=== PATIENT | female | born 1960 | race Caucasian/White ===

== ENCOUNTER → 2017-04-26 | Outpatient (CLI) | payer BC ==
[~2017-04-26] MED LIST: ANAS1TAB7; APIX5TAB2 PO; LVT.025T PO; MECL-124 PO; METO50TA7 PO; MTP100TCR PO; NF-ESOM40C PO; NITR100C3 PO; PHEN100T26 PO; WRF5T
--- NOTE | 2017-04-27 15:37 | ECHOCARDIOGRAPHY REPORT ---
DATE OF SERVICE: 04/26/2017 ORDERING PHYSICIAN: MAYLIN Bro PRIMARY PHYSICIAN: Dr. Galvin. OTHER PHYSICIAN: Dr. Dewitt. CLINICAL DIAGNOSES: Atrial fibrillation, hypertension, mitral and tricuspid regurgitation. MEASUREMENTS: Aortic root 3.1. Left atrium 4. LV diameter diastolic 4.7. IVS thickness diastolic 1.1. LVPW thickness diastolic 1. DESCRIPTION: Two-dimensional echocardiography shows normal global left ventricular systolic function with ejection fraction approximately 60%. Aortic, mitral and tricuspid valve leaflets show good leaflet excursion. Doppler imaging indicates trivial to mild tricuspid regurgitation. Pulmonary artery systolic pressure is estimated approximately 40 mmHg. There is no Doppler evidence of any significant valvular stenosis. There is trivial to mild mitral regurgitation. Good subcostal views are not available. The study is not suitable for evaluation for intracardiac shunt. CONCLUSIONS: 1. Normal global left ventricular systolic function with ejection fraction approximately 60%. 2. Trivial to mild mitral and tricuspid regurgitation. 3. No evidence of significant valvular stenosis. 4. Pulmonary artery systolic pressure is estimated to be approximately 40 mmHg. Job ID: [id number] DocumentID: [id number] Dictated Date: 04/27/2017 11:36:20 Stock Or Delivery Clerk Date: 04/27/2017 11:57:29 Dictated By: KELLEN DEWITT MD, MA, FACP, FACC,
== END ==
LOC: CARD 08:44
PROVIDERS: ATTEND Nurse Practitioner Family
DX: I10 Essential (primary) hypertension (principal); I08.1 Rheumatic disorders of both mitral and tricuspid valves; G47.33 Obstructive sleep apnea (adult) (pediatric); Z86.79 Personal history of other diseases of the circulatory system
CPT/HCPCS: 93306

== ENCOUNTER → 2017-05-19 | Outpatient (CLI) | payer BC ==
[2017-05-19 10:02] LABS: ALANINE AMINOTRANSFERASE 104 U/L (0-55); ALBUMIN 4.2 GM/DL (3.2-4.5); ANION GAP 10 MMOL/L (5-14); ASPARTATE AMINO TRANSFERASE 57 U/L (5-34); BILIRUBIN,TOTAL 0.6 MG/DL (0.1-1.0); BLOOD UREA NITROGEN 18 MG/DL (7-18); BUN/CREATININE RATIO 20 (0-20); CALCIUM 9.5 MG/DL (8.5-10.1); CARBON DIOXIDE 24 MMOL/L (21-32); CHLORIDE 106 MMOL/L (98-107); CHOLESTEROL 175 MG/DL (< 200); CREATININE SERUM 0.89 MG/DL (0.60-1.30); DIRECT LDL 111 MG/DL (1-129); GFR ESTIMATED > 60; GLUCOSE 112 MG/DL (70-105); HEMOLYSIS 6 (-100-29); ICTERUS 0.8 (-100-1.9); LIPEMIA 5 (-100-49); POTASSIUM 4.6 MMOL/L (3.6-5.0); SODIUM 140 MMOL/L (135-145); TOTAL PROTEIN 7.5 GM/DL (6.4-8.2); TRIGLYCERIDES 70 MG/DL (<150); VLDL CHOLESTEROL 14 MG/DL (5-40)
[2017-05-19 10:23] LABS: THYROID STIMULATING HORMONE 0.37 UIU/ML (0.35-4.94)
== END ==
LOC: LAB 09:31
PROVIDERS: ATTEND Internal Medicine
DX: E78.00 Pure hypercholesterolemia, unspecified (principal); E78.1 Pure hyperglyceridemia; E03.2 Hypothyroidism due to medicaments and other exogenous substances
CPT/HCPCS: 36415; 80053; 80061; 84439; 84443

== ENCOUNTER → 2017-09-11 | Outpatient (CLI) | payer BC | LOC: LAB 08:26 | PROVIDERS: ATTEND Internal Medicine Endocrinology, Diabetes & Metabolism | DX: E03.9 Hypothyroidism, unspecified (principal) | CPT/HCPCS: 36415; 84443 ==

== ENCOUNTER → 2017-11-17 | Outpatient (CLI) | payer BC ==
[2017-11-17 09:10] LABS: BASOPHILS % (AUTO) 1 % (0-10); EOSINOPHILS # (AUTO) 0.1 10^3/uL (0.0-0.3); EOSINOPHILS % (AUTO) 4 % (0-10); LYMPHOCYTES # (AUTO) 0.9 X 10^3 (1.0-4.0); LYMPHOCYTES % (AUTO) 26 % (12-44); MEAN CORPUSCULAR HEMOGLOBIN 29 PG (25-34); MEAN CORPUSCULAR HGB CONC 33 G/DL (32-36); MEAN CORPUSCULAR VOLUME 87 FL (80-99); MEAN PLATELET VOLUME 10.5 FL (7.4-10.4); MONOCYTES # (AUTO) 0.4 X 10^3 (0.0-1.0); MONOCYTES % (AUTO) 12 % (0-12); NEUTROPHILS # (AUTO) 2.1 X 10^3 (1.8-7.8); NEUTROPHILS % (AUTO) 58 % (42-75); PLATELET COUNT 197 10^3/uL (130-400); RED BLOOD COUNT 4.45 10^6/uL (4.35-5.85); RED CELL DISTRIBUTION WIDTH 13.7 % (10.0-14.5); WHITE BLOOD COUNT 3.6 10^3/uL (4.3-11.0)
[2017-11-17 09:35] LABS: ALANINE AMINOTRANSFERASE 102 U/L (0-55); ANION GAP 12 MMOL/L (5-14); ASPARTATE AMINO TRANSFERASE 59 U/L (5-34); BILIRUBIN,TOTAL 0.6 MG/DL (0.1-1.0); BLOOD UREA NITROGEN 14 MG/DL (7-18); BUN/CREATININE RATIO 18; CALCIUM 9.1 MG/DL (8.5-10.1); CARBON DIOXIDE 20 MMOL/L (21-32); CHLORIDE 107 MMOL/L (98-107); CHOLESTEROL 172 MG/DL (< 200); CREATININE SERUM 0.77 MG/DL (0.60-1.30); DIRECT LDL 107 MG/DL (1-129); GFR ESTIMATED > 60; GLUCOSE 121 MG/DL (70-105); POTASSIUM 4.1 MMOL/L (3.6-5.0); SODIUM 139 MMOL/L (135-145); TOTAL PROTEIN 7.1 GM/DL (6.4-8.2); TRIGLYCERIDES 70 MG/DL (<150); VLDL CHOLESTEROL 14 MG/DL (5-40)
[2017-11-17 09:55] LABS: THYROID STIMULATING HORMONE 0.84 UIU/ML (0.35-4.94)
== END ==
LOC: LAB 08:48
PROVIDERS: ATTEND Internal Medicine
DX: Z00.00 Encounter for general adult medical examination without abnormal findings (principal); E78.1 Pure hyperglyceridemia; E78.00 Pure hypercholesterolemia, unspecified; E03.2 Hypothyroidism due to medicaments and other exogenous substances
CPT/HCPCS: 36415; 80053; 80061; 84443; 85025

== ENCOUNTER 2017-11-30 19:41 | Inpatient (IN) | payer BC ==
[~2017-11-30] VITALS: Ht 157.5 cm; Wt 93.9 kg
[2017-11-30 19:45] VITALS: BP 177/103
--- NOTE | 2017-11-30 19:58 | ED Neurological Problem ---
General Stated Complaint: LT SIDE OF FACE DROOPING Source: patient Exam Limitations: no limitations History of Present Illness Time seen by provider: 19:53 Initial Comments To ER by her and adult children with reports of left-sided facial drooping. At 1920 this evening the patient was noticed by her to be walking back from the bathroom and stumbling towards her left side. At this same time she complained of some tingling to her left hand and family states that the left side of her face was drooping and her speech was slurred. Patient was then brought to the emergency room. In route to the emergency room, the patient's symptoms resolved completely. She does take a baby aspirin only in regards to paroxysmal atrial fibrillation believed secondary to hyperthyroidism. She has subsequently seen Dr. Moreno in [place] from endocrinology, had 2 thyroid ablations and is currently on levothyroxine. She denies any shortness of breath or palpitations recently. At this time she states she feels perfectly fine. Timing/Duration: 1-3 hours Severity: moderate Associated Symptoms: paresthesia (left hand), slurred speech, tingling in legs/ feet Allergies and Home Medications Allergies Coded Allergies: No Known Drug Allergies (Verified , 05/19/09) Home Medications Anastrozole 1 Mg Tablet, (Reported) Aspirin 81 Mg Tablet., (Reported) Esomeprazole Mag Trihydrate 40 Mg Capsule.dr, 40 MG PO DAILY, (Reported) Levothyroxine Sodium 88 Mcg Tablet, (Reported) Metoprolol Succinate 100 Mg Tab.sr.24h, 1 EACH PO DAILY for 30 Days Prescribed by: JEY VOGT on 01/03/14 112 Metoprolol Succinate 50 Mg Tab.sr.24h, 1 EACH PO HS for 30 Days Prescribed by: JEY VOGT on 01/03/14 1121 Omeprazole 40 Mg Capsule., (Reported) Constitutional: see HPI Eyes: No Symptoms Reported Ears, Nose, Mouth, Throat: no symptoms reported Respiratory: no symptoms reported Cardiovascular: no symptoms reported Genitourinary: no symptoms reported Musculoskeletal: no symptoms reported Skin: no symptoms reported Psychiatric/Neurological: See HPI, Denies Cognitive Dysfunction, Denies Headache, Numbness, Denies [place] Seizures, Denies Tingling Endocrine: No Symptoms Reported Hematologic/Lymphatic: No Symptoms Reported Past Xmoxtvf-Dgwfal-Pkmlvh Hx Immunizations Up To Date Date of Influenza Vaccine: Sep 11, 2013 Surgeries Surgeries: Hysterectomy Respiratory Respiratory Disorders: Sleep Apnea Cardiovascular Cardiac Disorders: Hypertension Reproductive System Hx Reproductive Disorders: No Endocrine Endocrine Disorders: Hyperthyroidism Cancer Cancer: Breast Family Medical History Family Medial History: Cancer 03 FATHER (LUNG) 03 MOTHER (BREAST) Family history: Diabetes mellitus 03 MOTHER 09 BROTHER 09 BROTHER Family history: Hypertension Physical Exam Vital Signs Vital Sign - Last 12Hours Capillary Refill : General Appearance: WD/WN, no apparent distress HEENT: PERRL/EOMI, normal ENT inspection Neck: non-tender, full range of motion Respiratory: normal breath sounds, no respiratory distress, no accessory muscle use Cardiovascular: regular rate, rhythm, no murmur Gastrointestinal: normal bowel sounds, non tender, soft Neurologic/Psychiatric: alert, normal mood/affect, oriented x 3 [place] Nerves: normal hearing, normal speech, PERRL Motor/Sensory: no motor deficit, no sensory deficit Skin: normal color Stroke Onset of Symptoms Date of Onset of Symptoms: Nov 30, 2017 Time of Symptom Onset: 19:20 Onset of Symptoms: Yes Symptoms onset unknown: Yes NIH Stroke Scale Assessment Select: Initial Level of Consciousness: 0=Alert (0), Level of Consciousness- Questions: 0=Answers both month/age (0), LOC Commands: 0=Performs both tasks (0) , Gaze: Normal (0), Visual [place]: 0=No visual loss (0), Facial Movement ( Facial Paresis): 0=Normal symmetrical mnt (0), Motor Function-Arms Right: 0=No drift (0), Motor Function-Arms Left: 0=No drift (0), Motor Function-Legs Right: 0=No drift (0), Motor Function-Legs Left: 0=No drift (0), Limb Ataxia: 0=Absent (0), Sensory: 0=Normal:no loss (0), Best Language: 0=No aphasia (0), Dysarthria : 0=Normal (0), Extinction & Inattention: 0=No abnormality (0), Total: 0 Stroke Thrombolytic Exclusion Age 18 or Over: Yes Acute intenal hemorrhage: No History of CVA: No Uncontrolled Coagulation Defec: No Intracranial Hemorrhage: No Severe Hypertension: No GI or Bleed: No Subarachnoid Hemorrhage: No Intracranial Neoplasm/Aneurysm: No Oral Anticoagulants: No Surgery or Trauma: No Puncture of Non-Compressible V: No Recent CPR: No Diabetic Hemorrhagic Retinopat: No Organ Biopsy: No Recent Obstetric Delivery: No Glucose: No Significant Hepatic Dysfunctio: No NIH Stoke Scale >22: No Bacterial Endocarditis: No Pericarditis: No Improving Symptoms: No Platelets: No TPA Contraindication: No Progress/Results/Core Measures Results/Orders Lab Results Laboratory Tests Test 11/30/17 19:55 11/30/17 21:14 Range/Units White Blood Count 5.9 4.3-11.0 10^3/uL Red Blood Count 4.83 4.35-5.85 10^6/uL Hemoglobin 13.9 11.5-16.0 G/DL Hematocrit 37 35-52 % Mean Corpuscular Volume 76 L 80-99 FL Mean Corpuscular Hemoglobin 29 25-34 PG Mean Corpuscular Hemoglobin Concent 38 H 32-36 G/DL Red Cell Distribution Width 13.4 10.0-14.5 % Platelet Count 210 130-400 10^3/uL Mean Platelet Volume 9.7 7.4-10.4 FL Neutrophils (%) (Auto) 47 42-75 % Lymphocytes (%) (Auto) 35 12-44 % Monocytes (%) (Auto) 14 H 0-12 % Eosinophils (%) (Auto) 3 0-10 % Basophils (%) (Auto) 1 0-10 % Neutrophils # (Auto) 2.8 1.8-7.8 X 10^3 Lymphocytes # (Auto) 2.1 1.0-4.0 X 10^3 Monocytes # (Auto) 0.8 0.0-1.0 X 10^3 Eosinophils # (Auto) 0.2 0.0-0.3 10^3/uL Basophils # (Auto) 0.1 0.0-0.1 10^3/uL Prothrombin Time 12.7 12.2-14.7 SEC INR Comment 0.9 0.8-1.4 Activated Partial Thromboplast Time 25 24-35 SEC D-Dimer 0.47 0.00-0.49 UG/ML Sodium Level 139 135-145 MMOL/L Potassium Level 4.2 3.6-5.0 MMOL/L Chloride Level 105 98-107 MMOL/L Carbon Dioxide Level 23 21-32 MMOL/L Anion Gap 11 5-14 MMOL/L Blood Urea Nitrogen 18 7-18 MG/DL Creatinine 1.06 0.60-1.30 MG/DL Estimat Glomerular Filtration Rate 53 BUN/Creatinine Ratio 17 Glucose Level 102 70-105 MG/DL Calcium Level 9.8 8.5-10.1 MG/DL Total Bilirubin 0.5 0.1-1.0 MG/DL Aspartate Amino Transf (AST/SGOT) 54 H 5-34 U/L Alanine Aminotransferase (ALT/SGPT) 88 H 0-55 U/L Alkaline Phosphatase 107 40-136 U/L Troponin I < 0.30 <0.30 NG/ML Total Protein 7.8 6.4-8.2 GM/DL Albumin 4.3 3.2-4.5 GM/DL My Orders Orders - EMY ROTH APRN Cbc With Automated Diff (11/30/17 19:52) Comprehensive Metabolic Panel (11/30/17 19:52) Protime With Inr (11/30/17 19:52) Partial Thromboplastin Time (11/30/17 19:52) Fibrin Degradation Products (11/30/17 19:52) Troponin I (11/30/17 19:52) Ua Culture If Indicated (11/30/17 19:52) Chest 1 View, Ap/Pa Only (11/30/17 19:52) Ekg Tracing (11/30/17 19:52) Nothing By Mouth (12/01/17 Breakfast) Accucheck Stat ONCE (11/30/17 19:52) Saline Lock/Iv-Start (11/30/17 19:52) Saline Lock/Iv-Start (11/30/17 19:52) Vital Signs - Stroke Q15M (11/30/17 19:52) O2 (11/30/17 19:52) Intake & Output 06,14,22 (11/30/17 19:52) Monitor-Rhythm Ecg Trace Only (11/30/17 19:52) Dysphagia Screening Tool (11/30/17 19:52) Iohexol Injection (Omnipaque 350 Mg/Ml 1 (11/30/17 20:00) Ns (Ivpb) (Sodium Chloride 0.9% Ivpb Bag (11/30/17 20:00) Pharmacy Communication (Pharmacy Communi (11/30/17 19:57) Ct Head Wo-R/O Stroke (11/30/17 ) Ct Angio Head/Neck (11/30/17 20:38) Heparin Drip [id number] Unit/500ml (Heparin (11/30/17 21:49) Heparin (Bolus Per Protocol) (Heparin (B (11/30/17 22:00) Partial Thromboplastin Time (11/30/17 21:49) Protime With Inr (11/30/17 21:49) Cbc No Diff (11/30/17 21:49) Cbc No Diff (12/03/17 05:00) Cbc No Diff (12/06/17 05:00) Platelet Count (12/01/17 05:00) Platelet Count (12/02/17 05:00) Platelet Count (12/03/17 05:00) Platelet Count (12/04/17 05:00) Platelet Count (12/05/17 05:00) Platelet Count (12/06/17 05:00) Platelet Count (12/07/17 05:00) Platelet Count (12/08/17 05:00) Platelet Count (12/09/17 05:00) Platelet Count (12/10/17 05:00) Partial Thromboplastin Time (12/01/17 01:49) Protime With Inr (12/03/17 05:00) Protime With Inr (12/04/17 05:00) Protime With Inr (12/05/17 05:00) Protime With Inr (12/06/17 05:00) Protime With Inr (12/07/17 05:00) Protime With Inr (12/08/17 05:00) Protime With Inr (12/09/17 05:00) Protime With Inr (12/10/17 05:00) Protime With Inr (12/11/17 05:00) Protime With Inr (12/12/17 05:00) Initiate Heparin Full Protocol (11/30/17 21:49) Medications Given in ED Current Medications Medications Dose Ordered Sig/Dino Route Start Time Stop Time Status Last Admin Dose Admin Iohexol 100 ml ONCE ONCE IV 11/30/17 20:00 11/30/17 20:01 DC 11/30/17 20:53 85 ML Sodium Chloride 100 ml ONCE ONCE IV 11/30/17 20:00 11/30/17 20:01 DC 11/30/17 20:53 80 ML Vital Signs/I&O Vital Sign - Last 12Hours 11/30/17 11/30/17 19:45 19:45 Temp 97.0 Pulse 74 74 Resp 20 20 B/P (MAP) 177/103 (127) 177/103 Pulse Ox 97 97 Progress Note : Progress Note 1949-at the time of my exam she is asymptomatic with an NIH stroke scale score 0. She is hypertensive at 171/100, heart rate 71 sinus without ectopy. 1958-called to room by RN with reports of recurrent left facial droop. I agree with these findings and there is some drift of the left arm. At this time, 1958 , she scores a 2 on the NIH stroke scale. 1 point for minor paralysis of facial movement, 1 point for drift of the left arm. 2036- and symptoms remain the same. She has mild left arm drift, mild left facial droop giving her an NIH stroke scale of 2. Her blood pressure is 161/100 , heart rate is 70 still sinus without ectopy. 2042- NIH stroke scale is now a 3 with 2 points given for left facial droop which is now more obvious and 1 point remains for mild left arm drift. 2142- at this time her NIH stroke scale is a 0. Blood pressure 160/100. CT angiogram of the head and neck fails to reveal any high-grade stenosis or occlusion. I spoke with Dr. Mitchell from the stroke team. She would recommend keeping the patient here, MRI of the brain tomorrow, every hour neuro checks. Would not treat with TPA unless the patient were to have an NIH stroke scale of 3 or greater. The question at this point with her only being on aspirin would be whether to resume Eliquis or heparin drip presuming this to have been a thrombotic event from her paroxysmal atrial fibrillation. Unfortunately if we restart these this would exclude her from receiving TPA should she have a recurrence of stroke symptoms. I spoke with Dr. Vogt. She would like input from Dr. Cisneros in regards to that. Diagnostic Imaging Diagonstic Imaging: CT Comments NAME: MARYLOU BARRIOS MED REC#: [id number] PT STATUS: REG ER : 1960 PHYSICIAN: EMY ROTH VICE PRESIDENT REGULATORY ADMIT DATE: 11/30/17/ER Draft Date of Exam:11/30/17 CT HEAD WO-R/O STROKE Exam: CT head without contrast. Technique: Axial noncontrast CT images of the head were obtained. DATE: 11/30/2017. COMPARISON: CT head 02/20/2011. INDICATION: 57-year-old female, left facial droop. Evaluation for stroke. FINDINGS: The ventricles and cerebral spinal fluid spaces are of normal size and configuration for the patient's age. There is no mass effect or midline shift. There is no acute intracranial hemorrhage. There is no abnormal extra-axial fluid collection. The visualized portions of the paranasal sinuses, mastoid air cells and middle ears are well aerated. IMPRESSION: No identified acute intracranial abnormality. Dictated on workstation # [id number] Dict: 11/30/172020 Trans: 11/30/172024 BRYAN [id number] Interpreted by: DEJAN COHEN MD Electronically signed by: NAME: MARYLOU BARRIOS MED REC#: [id number] PT STATUS: REG ER : 1960 PHYSICIAN: EMY ROTH APRN ADMIT DATE: 11/30/17/ER Draft Date of Exam:11/30/17 CHEST 1 VIEW, AP/PA ONLY INDICATION: Stroke, left-sided facial droop COMPARISON: 01/01/2014 TECHNIQUE: Single frontal radiograph of the chest dated 11/30/2017. FINDINGS: The cardiac silhouette again is noted to be borderline enlarged, though stable. No significant pulmonary vascular congestion. Linear densities, likely related to surgical clips are again noted overlying the right chest and right axillary region, stable from the prior exam. The lungs are clear of focal pulmonary opacity. No pleural effusion. No pneumothorax. No acute osseous abnormality. IMPRESSION: Presumed postsurgical changes without acute cardiopulmonary abnormality. Dictated on workstation # [id number] Dict: 11/30/172029 Trans: 11/30/172034 BRYAN [id number] Interpreted by: RAMYA MCFADDEN MD Electronically signed by: NAME: MARYLOU BARRIOS MED REC#: [id number] PT STATUS: REG ER : 1960 PHYSICIAN: EMY ROTH APRN ADMIT DATE: 11/30/17/ER Draft Date of Exam:11/30/17 CT ANGIO HEAD/NECK PROCEDURE: CT angiography of the head and CT angiography of the neck with and without contrast. TECHNIQUE: Contiguous noncontrast images were obtained from the skull base through the vertex. After intravenous contrast administration, helical CT angiography of the neck was performed. Source data was reformatted into multiple MIP projections. Delayed post contrast acquisition was also obtained. INDICATION: Stroke COMPARISON: CT of the head from the same date. FINDINGS: No midline shift, herniation, hydrocephalus, or extra-axial fluid collection. No enhancing intracranial mass. The orbits are unremarkable. Paranasal sinuses are clear. The calvarium and extracalvarial soft tissues are unremarkable. The visualized upper lungs are clear. No apical pneumothorax. Peripherally calcified density within the right anterior chest subcutaneous tissues, possibly related to scarring from prior port. Fat necrosis from prior trauma would be an additional consideration. Muscles of mastication are unremarkable. The salivary glands are unremarkable. Parapharyngeal fat is symmetric and well maintained. The airway is patent. Epiglottis and aryepiglottic folds are unremarkable. No adenopathy identified within the neck. Mild scattered osseous degenerative changes without acute osseous abnormality. A three-vessel aortic arch is noted. Small basilar artery is identified. This is associated with a origin of the right posterior cerebral artery. The large arterial structures of the head and neck are otherwise unremarkable without evidence of occlusion, hemodynamically significant significant stenosis, dissection, aneurysm, or pseudoaneurysm. IMPRESSION: No acute intracranial abnormality. 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 Dictated on workstation # [id number] Dict: 11/30/172105 Trans: 11/30/17 2117 BRYAN [id number] Interpreted by: RAMYA MCFADDEN MD Electronically signed by: Departure Communication (Admissions) Time/Spoke to Admitting Phy: 21:40 Communication I spoke with Dr. Vogt. We will admit the patient Time/Spoke to Consulting Phy: 21:50 Communication/Consulting Spoke with Dr. Cisneros. Recommends heparin drip Impression Impression: Primary Impression: Transient ischemic attack Disposition: 09 ADMITTED INPATIENT Condition: Stable Admissions Decision to Admit Reason: Admit from ER (General) Decision to Admit/Date: Nov 30, 2017 Time/Decision to Admit Time: 19:58 Departure-Patient Inst. Referrals: JEY VOGT DO (PCP/Family) Primary Care Physician EMY ROTH APRN Nov 30, 2017 19:58
[2017-11-30] MEDS ORDERED: NS 100 ML (IVPB) BAG IV ONE (20:00)
[2017-11-30] MEDS ORDERED: IOHEXOL 350 MG/ML 100 ML (OMNIPAQUE 350) VIAL IV ONE (20:00)
[2017-11-30] MEDS ORDERED: ACETAMINOPHEN 500 MG TAB (TYLENOL) PO ONE (20:00)
[2017-11-30 20:04] LABS: BASOPHILS # (AUTO) 0.1 10^3/uL (0.0-0.1); BASOPHILS % (AUTO) 1 % (0-10); EOSINOPHILS # (AUTO) 0.2 10^3/uL (0.0-0.3); EOSINOPHILS % (AUTO) 3 % (0-10); HEMATOCRIT 37 % (35-52); HEMOGLOBIN 13.9 G/DL (11.5-16.0); LYMPHOCYTES # (AUTO) 2.1 X 10^3 (1.0-4.0); LYMPHOCYTES % (AUTO) 35 % (12-44); MEAN CORPUSCULAR HEMOGLOBIN 29 PG (25-34); MEAN CORPUSCULAR HGB CONC 38 G/DL (32-36); MEAN CORPUSCULAR VOLUME 76 FL (80-99); MEAN PLATELET VOLUME 9.7 FL (7.4-10.4); MONOCYTES # (AUTO) 0.8 X 10^3 (0.0-1.0); MONOCYTES % (AUTO) 14 % (0-12); NEUTROPHILS # (AUTO) 2.8 X 10^3 (1.8-7.8); NEUTROPHILS % (AUTO) 47 % (42-75); PLATELET COUNT 210 10^3/uL (130-400); RED BLOOD COUNT 4.83 10^6/uL (4.35-5.85); RED CELL DISTRIBUTION WIDTH 13.4 % (10.0-14.5); WHITE BLOOD COUNT 5.9 10^3/uL (4.3-11.0)
[2017-11-30 20:20] LABS: INR 0.9 (0.8-1.4); PROTHROMBIN TIME PATIENT 12.7 SEC (12.2-14.7)
[2017-11-30 20:23] LABS: FIBRIN DEGRADATION PRODUCTS 0.47 UG/ML (0.00-0.49)
--- NOTE | 2017-11-30 20:25 | Diagnostic Imaging Report ---
Exam: CT head without contrast. Technique: Axial noncontrast CT images of the head were obtained. DATE: 11/30/2017. COMPARISON: CT head 02/20/2011. INDICATION: 57-year-old female, left facial droop. Evaluation for stroke. FINDINGS: The ventricles and cerebral spinal fluid spaces are of normal size and configuration for the patient's age. There is no mass effect or midline shift. There is no acute intracranial hemorrhage. There is no abnormal extra-axial fluid collection. The visualized portions of the paranasal sinuses, mastoid air cells and middle ears are well aerated. IMPRESSION: No identified acute intracranial abnormality. Dictated by: Dictated on workstation # [id number]
[2017-11-30 20:26] LABS: ALANINE AMINOTRANSFERASE 88 U/L (0-55); ALBUMIN 4.3 GM/DL (3.2-4.5); ALKALINE PHOSPHATASE 107 U/L (40-136); BILIRUBIN,TOTAL 0.5 MG/DL (0.1-1.0); BUN/CREATININE RATIO 17; CALCIUM 9.8 MG/DL (8.5-10.1); CARBON DIOXIDE 23 MMOL/L (21-32); CHLORIDE 105 MMOL/L (98-107); CREATININE SERUM 1.06 MG/DL (0.60-1.30); GFR ESTIMATED 53; GLUCOSE 102 MG/DL (70-105); POTASSIUM 4.2 MMOL/L (3.6-5.0); SODIUM 139 MMOL/L (135-145); TOTAL PROTEIN 7.8 GM/DL (6.4-8.2)
--- NOTE | 2017-11-30 20:35 | Diagnostic Imaging Report ---
INDICATION: Stroke, left-sided facial droop COMPARISON: 01/01/2014 TECHNIQUE: Single frontal radiograph of the chest dated 11/30/2017. FINDINGS: The cardiac silhouette again is noted to be borderline enlarged, though stable. No significant pulmonary vascular congestion. Linear densities, likely related to surgical clips are again noted overlying the right chest and right axillary region, stable from the prior exam. The lungs are clear of focal pulmonary opacity. No pleural effusion. No pneumothorax. No acute osseous abnormality. IMPRESSION: Presumed postsurgical changes without acute cardiopulmonary abnormality. Dictated by: Dictated on workstation # [id number]
--- NOTE | 2017-11-30 21:18 | Diagnostic Imaging Report ---
PROCEDURE: CT angiography of the head and CT angiography of the neck with and without contrast. TECHNIQUE: Contiguous noncontrast images were obtained from the skull base through the vertex. After intravenous contrast administration, helical CT angiography of the neck was performed. Source data was reformatted into multiple MIP projections. Delayed post contrast acquisition was also obtained. INDICATION: Stroke COMPARISON: CT of the head from the same date. FINDINGS: No midline shift, herniation, hydrocephalus, or extra-axial fluid collection. No enhancing intracranial mass. The orbits are unremarkable. Paranasal sinuses are clear. The calvarium and extracalvarial soft tissues are unremarkable. The visualized upper lungs are clear. No apical pneumothorax. Peripherally calcified density within the right anterior chest subcutaneous tissues, possibly related to scarring from prior port. Fat necrosis from prior trauma would be an additional consideration. Muscles of mastication are unremarkable. The salivary glands are unremarkable. Parapharyngeal fat is symmetric and well maintained. The airway is patent. Epiglottis and aryepiglottic folds are unremarkable. No adenopathy identified within the neck. Mild scattered osseous degenerative changes without acute osseous abnormality. A three-vessel aortic arch is noted. Small basilar artery is identified. This is associated with a origin of the right posterior cerebral artery. The large arterial structures of the head and neck are otherwise unremarkable without evidence of occlusion, hemodynamically significant significant stenosis, dissection, aneurysm, or pseudoaneurysm. IMPRESSION: No acute intracranial abnormality. 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 Dictated by: Dictated on workstation # [id number]
[2017-11-30] MEDS ORDERED: ASPI-983 PO (21:25)
[2017-11-30] MEDS ORDERED: OMEP40CA36 PO (21:25)
[2017-11-30] MEDS ORDERED: LEVO88TA54 PO (21:25)
[2017-11-30] MEDS ORDERED: ANAS1TAB44 (21:25)
[2017-11-30 21:45] LABS: BILIRUBIN,URINE NEGATIVE (NEGATIVE); CLARITY,URINE CLEAR; COLOR,URINE YELLOW; GLUCOSE, URINE (UA) NEGATIVE (NEGATIVE); KETONES,URINE NEGATIVE (NEGATIVE); LEUKOCYTE ESTERASE ,URINE 1+ (NEGATIVE); NITRITE,URINE NEGATIVE (NEGATIVE); PH,URINE 5 (5-9); PROTEIN,URINE NEGATIVE (NEGATIVE); UROBILINOGEN,URINE NORMAL (NORMAL)
[2017-11-30] MEDS ORDERED: HEParin DRIP 25000 UNIT/500ML 500 ML IV SCH ×2 (21:49→23:30)
[2017-11-30] MEDS ORDERED: HEParin 1000 UNIT/ML (10ML VIAL) FOR BOLUS IV SCH (22:00)
[2017-11-30 22:03] LABS: BACTERIA,URINE NEGATIVE /HPF; SQUAMOUS EPITHELIAL CELL,UR RARE /HPF; WBC,URINE 0-2 /HPF
[2017-11-30] MEDS ORDERED: HEParin DRIP 25000 UNIT/500ML 500 ML IV ONE (22:15)
[2017-11-30] MEDS ORDERED: HEParin 1000 UNIT/ML (10ML VIAL) FOR BOLUS IV ONE (22:15)
[2017-11-30 23:00] VITALS: BP 147/93
[2017-11-30] MEDS ORDERED: HEParin 1000 UNIT/ML BOLUS (ACS THERAPY) IV PRN (23:30)
[2017-11-30] MEDS ORDERED: CATHETER FLUSH 10 ML SYR IV PRN (23:30)
[2017-12-01] VITALS (11 sets, daily range): BP systolic 123–149; BP diastolic 65–91
[2017-12-01] MEDS ORDERED: ACETAMINOPHEN 325 MG TABLET/CAPLET (TYLENOL) PO PRN (01:15)
[2017-12-01 05:01] LABS: BASOPHILS % (AUTO) 1 % (0-10); EOSINOPHILS # (AUTO) 0.1 10^3/uL (0.0-0.3); EOSINOPHILS % (AUTO) 1 % (0-10); HEMATOCRIT 35 % (35-52); HEMOGLOBIN 13.5 G/DL (11.5-16.0); LYMPHOCYTES # (AUTO) 1.9 X 10^3 (1.0-4.0); LYMPHOCYTES % (AUTO) 29 % (12-44); MEAN CORPUSCULAR HEMOGLOBIN 29 PG (25-34); MEAN CORPUSCULAR HGB CONC 38 G/DL (32-36); MEAN CORPUSCULAR VOLUME 77 FL (80-99); MEAN PLATELET VOLUME 10.1 FL (7.4-10.4); MONOCYTES # (AUTO) 0.6 X 10^3 (0.0-1.0); MONOCYTES % (AUTO) 10 % (0-12); NEUTROPHILS # (AUTO) 3.7 X 10^3 (1.8-7.8); NEUTROPHILS % (AUTO) 59 % (42-75); PLATELET COUNT 206 10^3/uL (130-400); RED CELL DISTRIBUTION WIDTH 13.6 % (10.0-14.5); WHITE BLOOD COUNT 6.3 10^3/uL (4.3-11.0)
[2017-12-01 05:28] LABS: ALANINE AMINOTRANSFERASE 78 U/L (0-55); ALBUMIN 4.1 GM/DL (3.2-4.5); ALKALINE PHOSPHATASE 101 U/L (40-136); BILIRUBIN,TOTAL 0.6 MG/DL (0.1-1.0); BUN/CREATININE RATIO 21; CALCIUM 9.8 MG/DL (8.5-10.1); CARBON DIOXIDE 19 MMOL/L (21-32); CHLORIDE 107 MMOL/L (98-107); CREATININE SERUM 0.78 MG/DL (0.60-1.30); GFR ESTIMATED > 60; GLUCOSE 111 MG/DL (70-105); MAGNESIUM 2.1 MG/DL (1.8-2.4); PHOSPHORUS 3.6 MG/DL (2.3-4.7); SODIUM 139 MMOL/L (135-145); TOTAL PROTEIN 7.3 GM/DL (6.4-8.2)
[2017-12-01 05:52] LABS: FREE T4 (FREE THYROXINE) 1.02 NG/DL (0.70-1.48)
[2017-12-01] MEDS ORDERED: CATHETER FLUSH 10 ML SYR IV SCH (06:00)
[2017-12-01] MEDS ORDERED: KCL 20 MEQ TAB (K-DUR) PO SCH (06:00)
[2017-12-01] MEDS ORDERED: MAGNESIUM 1 GM/100 ML IVPB 100 ML IV SCH (06:00)
[2017-12-01] MEDS ORDERED: POTASSIUM CL 10MEQ/50ML IVPB 50 ML IV SCH (06:00)
--- NOTE | 2017-12-01 07:07 | Pulmonary Consultation ---
History of Present Illness History of Present Illness Date of Consultation 12/01/17 07:02 Time Seen by Provider: 07:02 Date of Admission History of Present Illness 57yo patient presented to ED secondary to left sided facial drooping and slurred speech. While in route to ED patients symptoms resolved completely. Pt does take daily baby ASA. No prior episodes. No hx of CVA. I am consulted for ICU management. Allergies and Home Medications Allergies Coded Allergies: No Known Drug Allergies (Verified , 05/19/09) Home Medications Anastrozole 1 Mg Tablet, (Reported) Aspirin 81 Mg Tablet., (Reported) Esomeprazole Mag Trihydrate 40 Mg Capsule.dr, 40 MG PO DAILY, (Reported) Levothyroxine Sodium 88 Mcg Tablet, (Reported) Metoprolol Succinate 100 Mg Tab.sr.24h, 1 EACH PO DAILY for 30 Days Prescribed by: JEY VOGT on 01/03/14 112 Metoprolol Succinate 50 Mg Tab.sr.24h, 1 EACH PO HS for 30 Days Prescribed by: JEY VOGT on 01/03/14 1121 Omeprazole 40 Mg Capsule., (Reported) Past Srhajmw-Udupsc-Iyykcz Hx Patient Social History Alcohol Use: Denies Use Recreational Drug Use: No Smoking Status: Never a Smoker Recent Foreign Travel: No Contact w/Someone Who Travel: No Recent Infectious Disease Expo: No Recent Hopitalizations: No Physical Abuse: No Sexual Abuse: No Immunizations Up To Date Date of Pneumonia Vaccine: Oct 01, 2014 Date of Influenza Vaccine: Aug 31, 2017 Seasonal Allergies Seasonal Allergies: No Surgeries History of Surgeries: Yes (Mastectomy,thyroid) Surgeries: Hysterectomy Respiratory History of Respiratory Disorde: No Respiratory Disorders: Sleep Apnea Cardiovascular History of Cardiac Disorders: Yes Cardiac Disorders: Atrial Fibrillation, Hypertension Neurological History of Neurological Disord: No Reproductive System Hx Reproductive Disorders: No Genitourinary History of Genitourinary Disor: No Gastrointestinal History of Gastrointestinal Di: Yes Gastrointestinal Disorders: Gastroesophageal Reflux Musculoskeletal History of Musculoskeletal Dis: No Endocrine History of Endocrine Disorders: Yes (Thyroid ablation) Endocrine Disorders: Hyperthyroidism, Hypothyroidsim HEENT History of HEENT Disorders: No Cancer History of Cancer: Yes (MASTECTOMY) Cancer: Breast Psychosocial History of Psychiatric Problem: No Suicide Risk Score: 0 Integumentary History of Skin or Integumenta: No Blood Transfusions History of Blood Disorders: No Family Medical History Family Medial History: Cancer 03 FATHER (LUNG) 03 MOTHER (BREAST) Family history: Diabetes mellitus 03 MOTHER 09 BROTHER 09 BROTHER Family history: Hypertension Review of Systems Time Seen by Provider: 07:16 Constitutional: No: Fever, Chills, Sweats, Weakness, Malaise, Other Eyes: No: Pain, Vision change, Conjunctivae inflammation, Eyelid inflammation, Other, Redness ENT: No: Ear pain, Ear discharge, Nose pain, Nose discharge, Nose congestion, Mouth pain, Mouth swelling, Throat pain, Throat swelling, Other Respiratory: No: Cough, Dry, Shortness of breath, SOB with excertion, Wheezing , Hemoptysis, Pleuritic Pain, Sputum, Wheezing, Other Cardiovascular: No: Chest Pain, Palpitations, Orthopnea, Paroxysmal Noc. Dyspnea, Edema, Lt Headedness, Other Gastrointestinal: No: Nausea, Vomiting, Abdominal Pain, Diarrhea, Constipation , Melena, Hematochezia, Other Genitourinary: No Dysuria, No Frequency, No Incontinence, No Hematuria, No Retention, No Other Musculoskeletal: No: other, neck pain, shoulder pain, arm pain, back pain, hand pain, leg pain, foot pain Skin: No: Rash, Lesions, Jaundice, Bruising, Other Neurological: Weakness, Change in speech, No: Confusion Exam Exam Vital Signs Date Time Temp Pulse Resp B/P (MAP) Pulse Ox O2 Delivery O2 Flow Rate FiO2 12/01/17 06:00 61 12 142/91 (108) 100 Room Air 12/01/17 05:00 53 12 126/68 (87) 96 Room Air 12/01/17 04:00 96 Room Air 12/01/17 04:00 58 14 129/74 (92) 96 Room Air 12/01/17 03:00 51 12 123/65 (84) 97 Room Air 12/01/17 02:00 75 19 140/87 (104) 97 Room Air 12/01/17 01:00 66 12/01/17 01:00 64 15 127/75 (92) 95 Room Air 12/01/17 00:17 98 Room Air 12/01/17 00:00 65 18 145/75 (98) 96 Room Air 11/30/17 23:10 72 11/30/17 23:00 98.6 Room Air 11/30/17 23:00 67 147/93 (111) Room Air 11/30/17 22:50 98.0 88 20 96 11/30/17 19:45 74 20 177/103 97 11/30/17 19:45 97.0 74 20 177/103 (127) 97 I & O 12/01/17 07:00 Intake Total 150 ml Output Total 1150 ml Balance -1000 ml General Appearance: No Apparent Distress, WD/WN HEENT: PERRL/EOMI, Normal ENT Inspection, Pharynx Normal Neck: Full Range of Motion, Normal Inspection, Non Tender, Supple Respiratory: Chest Non Tender, Lungs Clear, Normal Breath Sounds, No Accessory Muscle Use, No Respiratory Distress, Decreased Breath Sounds Capillary Refill: Less Than 3 Seconds Gastrointestinal: normal bowel sounds, non tender, soft Extremity: Normal Capillary Refill, Normal Inspection Neurologic/Psychiatric: Alert, Oriented x3 Skin: Normal Color, Warm/Dry Results Lab Laboratory Tests 11/30/17 19:55 12/01/17 04:30 Assessment/Plan Assessment/Plan TIA - resolved -Check carotid dopplers, echo -MRI brain is pending -CT of head reviewed -Currently on Hep gtt per Cardiology -Consider Plavix vs ASA -dysphagia screen pending Obesity with CHERIE -PT uses CPAP and Dr. Bernstein manages Hx of Afib Hx of hypothyroid PT is doing well will transfer to 4th floor. I am going to sign off please call with any questions. 254 Clinical Quality Measures DVT/VTE Risk/Contraindication: Risk Factor Score Per Nursin RFS Level Per Nursing on Admit: 3=High Stroke: Date of last known well: Nov 30, 2017 Time of last known well: 19:20 Symptoms onset unknown: Yes JULIANO GIRALDO DO Dec 01, 2017 07:07
--- NOTE | 2017-12-01 08:25 | Consultation-Cardiology ---
HPI-Cardiology Cardiology Consultation: Date of Consultation 12/01/17 Time Seen by Provider: 08:30 Date of Admission 11-30-17 Attending Physician Ellen Vogt DO Admitting Physician Ellen Vogt DO Consulting Physician Genoveva Boateng MD HPI: Chief Complaint: TIA Ms. Turner is a 57 year old female admitted to ICU 8 from the ED. Her spouse is at the bedside. She reports she has been in her usual state of health. She has been active at home. She and her spouse report last evening she was walking back from the bathroom and her spouse noted her to be ambulating and veering to one side. Her spouse reports she sat down on the couch and her speech was slurred and the left side of her face was drooping. They both report this lasted for a few minutes and then resolved. She came to the ED and while in the ED she reports she had 2 other episodes of left sided facial droop which were not as pronounced as the first episode and again only lasted a few minutes. She has had no further episodes over night or this morning. She denies any CP, palpitations, syncope or near syncope. She denies any LE edema. She states she does have sleep apnea and has been compliant with her CPAP tx. No c/o n/v/d. No c/o fever or chills. Review of Systems-Cardiology Review of Systems Constitutional: No chills, No fever, No malaise Eyes: No blindness, No vision change Ears/Nose/Throat: No epistaxis Respiratory: As described under HPI Cardiovascular: As described under HPI Gastrointestinal: No constipation, No diarrhea, No nausea, No vomiting Genitourinary: No dysuria, No hematuria Musculoskeletal: no symptoms reported Skin: No rash, No ulcerations Psychiatric/Neurological: As described under HPI Hematologic: No bleeding abnormalities VHF-Vyuitm-Wphome Hx Patient Social History Alcohol Use: Denies Use Recreational Drug Use: No Smoking Status: Never a Smoker Recent Foreign Travel: No Recent Infectious Disease Expo: No Hospitalization with Isolation: Denies Physical Abuse Screen: No Sexual Abuse: No Immunizations Up To Date Date of Pneumonia Vaccine: Oct 01, 2014 Date of Influenza Vaccine: Aug 31, 2017 Past Medical History PMH As described under Assessment. Family Medical History Family Medical History: No reported family h/o premature CAD or SCD. Family History: 03 FATHER Cancer (LUNG) 03 MOTHER Cancer (BREAST) Family history: Diabetes mellitus 09 BROTHER Family history: Diabetes mellitus 09 BROTHER Family history: Diabetes mellitus Relation not specified for: Family history: Hypertension Allergies and Home Medications Allergies Coded Allergies: No Known Drug Allergies (Verified , 05/19/09) Home Medications Anastrozole 1 Mg Tablet, 1 MG PO 1200, (Reported) Aspirin 81 Mg Tablet.dr, 81 MG PO DAILY, (Reported) Calcium Carbonate/Vitamin D3 1 Each Tablet, 1 TAB PO 1200,2100, (Reported) Levothyroxine Sodium 88 Mcg Tablet, 88 MCG PO DAILY, (Reported) Metoprolol Succinate 100 Mg Tab.er.24h, 100 MG PO DAILY, (Reported) Metoprolol Succinate 100 Mg Tab.er.24h, 50 MG PO HS, (Reported) TAKES 1/2 (100MG) TABLET Omeprazole 40 Mg Capsule.dr, 40 MG PO DAILY, (Reported) Physical Exam-Cardiology Physical Exam Vital Signs/I&O Vital Sign - Last 12Hours 12/01/17 12/01/17 12/01/17 12/01/17 00:00 00:17 01:00 01:00 Pulse 65 64 66 Resp 18 15 B/P (MAP) 145/75 (98) 127/75 (92) Pulse Ox 96 98 95 O2 Delivery Room Air Room Air Room Air 12/01/17 12/01/17 12/01/17 12/01/17 02:00 03:00 04:00 04:00 Pulse 75 51 58 Resp 19 12 14 B/P (MAP) 140/87 (104) 123/65 (84) 129/74 (92) Pulse Ox 97 97 96 96 O2 Delivery Room Air Room Air Room Air Room Air 12/01/17 12/01/17 12/01/17 12/01/17 05:00 06:00 07:00 08:00 Pulse 53 61 57 66 Resp 12 12 15 B/P (MAP) 126/68 (87) 142/91 (108) 138/85 (102) Pulse Ox 96 100 99 O2 Delivery Room Air Room Air Room Air 12/01/17 12/01/17 12/01/17 12/01/17 08:00 08:30 09:00 10:00 Pulse 66 64 63 Resp 17 15 11 B/P (MAP) 136/88 (104) 143/66 (91) 149/84 (105) Pulse Ox 100 96 100 97 O2 Delivery Room Air Room Air Room Air Room Air 12/01/17 11:00 Pulse 69 Resp 20 O2 Delivery Room Air Capillary Refill : Less Than 3 Seconds Constitutional: AAO x 3, well-developed, well-nourished HEENT: PERRL Neck: No carotid bruit, carotid pulses are 2 + bilaterally Respiratory: No accessory muscle use, No respiratory distress, lungs clear to auscultation Cardiovascular: regular rate-rhythm, No JVD, S1 and S2 Gastrointestinal: No tender, soft, round, audible bowel sounds Rectal: deferred Extremities: no lower extremity edema bilateral Neurologic/Psychiatric: other (slight left sided facial droop) Skin: No rash, No ulcerations Data Review Labs Laboratory Tests 11/30/17 19:55: White Blood Count 5.9, Red Blood Count 4.83, Hemoglobin 13.9, Hematocrit 37, Mean Corpuscular Volume 76L, Mean Corpuscular Hemoglobin 29, Mean Corpuscular Hemoglobin Concent 38H, Red Cell Distribution Width 13.4, Platelet Count 210, Mean Platelet Volume 9.7, Neutrophils (%) (Auto) 47, Lymphocytes (%) (Auto) 35, Monocytes (%) (Auto) 14H, Eosinophils (%) (Auto) 3, Basophils (%) (Auto) 1, Neutrophils # (Auto) 2.8, Lymphocytes # (Auto) 2.1, Monocytes # (Auto) 0.8, Eosinophils # (Auto) 0.2, Basophils # (Auto) 0.1, Prothrombin Time 12.7, INR Comment 0.9, Activated Partial Thromboplast Time 25, D-Dimer 0.47, Sodium Level 139, Potassium Level 4.2, Chloride Level 105, Carbon Dioxide Level 23, Anion Gap 11, Blood Urea Nitrogen 18, Creatinine 1.06, Estimat Glomerular Filtration Rate 53, BUN/Creatinine Ratio 17, Glucose Level 102, Calcium Level 9.8, Total Bilirubin 0.5, Aspartate Amino Transf (AST/SGOT) 54H, Alanine Aminotransferase ( ALT/SGPT) 88H, Alkaline Phosphatase 107, Troponin I < 0.30, Total Protein 7.8, Albumin 4.3 11/30/17 21:14: Urine Color YELLOW, Urine Clarity CLEAR, Urine pH 5, Urine Specific [place] 1.010L, Urine Protein NEGATIVE, Urine Glucose (UA) NEGATIVE, Urine Ketones NEGATIVE, Urine Nitrite NEGATIVE, Urine Bilirubin NEGATIVE, Urine Urobilinogen NORMAL, Urine Leukocyte Esterase 1+H, Urine RBC (Auto) NEGATIVE, Urine RBC NONE , Urine WBC 0-2, Urine Squamous Epithelial Cells RARE, Urine Crystals NONE, Urine Bacteria NEGATIVE, Urine Casts NONE, Urine Mucus NEGATIVE, Urine Culture Indicated NO 12/01/17 01:45: Activated Partial Thromboplast Time 88H 12/01/17 04:30: White Blood Count 6.3, Red Blood Count 4.60, Hemoglobin 13.5, Hematocrit 35, Mean Corpuscular Volume 77L, Mean Corpuscular Hemoglobin 29, Mean Corpuscular Hemoglobin Concent 38H, Red Cell Distribution Width 13.6, Platelet Count 206, Mean Platelet Volume 10.1, Neutrophils (%) (Auto) 59, Lymphocytes (%) (Auto) 29 , Monocytes (%) (Auto) 10, Eosinophils (%) (Auto) 1, Basophils (%) (Auto) 1, Neutrophils # (Auto) 3.7, Lymphocytes # (Auto) 1.9, Monocytes # (Auto) 0.6, Eosinophils # (Auto) 0.1, Basophils # (Auto) 0.0, Sodium Level 139, Potassium Level 4.0, Chloride Level 107, Carbon Dioxide Level 19L, Anion Gap 13, Blood Urea Nitrogen 16, Creatinine 0.78, Estimat Glomerular Filtration Rate > 60, BUN/ Creatinine Ratio 21, Glucose Level 111H, Calcium Level 9.8, Total Bilirubin 0.6 , Aspartate Amino Transf (AST/SGOT) 44H, Alanine Aminotransferase (ALT/SGPT) 78H , Alkaline Phosphatase 101, Total Protein 7.3, Albumin 4.1, Phosphorus Level 3.6 , Magnesium Level 2.1, Triglycerides Level 75, Cholesterol Level 182, LDL Cholesterol Direct 115, VLDL Cholesterol 15, HDL Cholesterol 50, Thyroid Stimulating Hormone (TSH) 1.02, Free Thyroxine 1.02 12/01/17 07:55: Activated Partial Thromboplast Time 57H Radiology [facility] REC#: [id number] PT STATUS: ADM Idalmis : 1960 PHYSICIAN: EMY ROTH APRN ADMIT DATE: 11/30/17/ICU Signed Date of Exam: 11/30/17 CT ANGIO HEAD/NECK PROCEDURE: CT angiography of the head and CT angiography of the neck with and without contrast. TECHNIQUE: Contiguous noncontrast images were obtained from the skull base through the vertex. After intravenous contrast administration, helical CT angiography of the neck was performed. Source data was reformatted into multiple MIP projections. Delayed post contrast acquisition was also obtained. INDICATION: Stroke COMPARISON: CT of the head from the same date. FINDINGS: No midline shift, herniation, hydrocephalus, or extra-axial fluid collection. No enhancing intracranial mass. The orbits are unremarkable. Paranasal sinuses are clear. The calvarium and extracalvarial soft tissues are unremarkable. The visualized upper lungs are clear. No apical pneumothorax. Peripherally calcified density within the right anterior chest subcutaneous tissues, possibly related to scarring from prior port. Fat necrosis from prior trauma would be an additional consideration. Muscles of mastication are unremarkable. The salivary glands are unremarkable. Parapharyngeal fat is symmetric and well maintained. The airway is patent. Epiglottis and aryepiglottic folds are unremarkable. No adenopathy identified within the neck. Mild scattered osseous degenerative changes without acute osseous abnormality. A three-vessel aortic arch is noted. Small basilar artery is identified. This is associated with a origin of the right posterior cerebral artery. The large arterial structures of the head and neck are otherwise unremarkable without evidence of occlusion, hemodynamically significant significant stenosis, dissection, aneurysm, or pseudoaneurysm. IMPRESSION: No acute intracranial abnormality. Congenital anatomic variants of the [place] of [place] as described above without evidence of occlusion, hemodynamically significant stenosis, dissection, aneurysm, or pseudoaneurysm. Dictated by: Dictated on workstation # [id number] Dict: 11/30/172105 Trans: 11/30/172210 Interpreted by: RAMYA MCFADDEN MD Electronically signed by: RAMYA MCFADDEN MD 11/30/172210 [facility] REC[facility] [id number] PT STATUS: REG ER : 1960 PHYSICIAN: EMY ROTH APRN ADMIT DATE: 11/30/17/ER Signed Date of Exam: 11/30/17 CT HEAD WO-R/O STROKE Exam: CT head without contrast. Technique: Axial noncontrast CT images of the head were obtained. DATE: 11/30/2017. COMPARISON: CT head 02/20/2011. INDICATION: 57-year-old female, left facial droop. Evaluation for stroke. FINDINGS: The ventricles and cerebral spinal fluid spaces are of normal size and configuration for the patient's age. There is no mass effect or midline shift. There is no acute intracranial hemorrhage. There is no abnormal extra-axial fluid collection. The visualized portions of the paranasal sinuses, mastoid air cells and middle ears are well aerated. IMPRESSION: No identified acute intracranial abnormality. Dictated by: Dictated on workstation # [id number] Dict: 11/30/172020 Trans: 11/30/172046 Interpreted by: DEJAN COHEN MD Electronically signed by: DEJAN COHEN MD 11/30/172046 NAME: MARYLOU [facility] REC#: [id number] PT STATUS: ADM Idalmis : 1960 PHYSICIAN: ELLEN VOGT DO ADMIT DATE: 11/30/17/ICU Draft Date of Exam:12/01/17 CHEST 1 VIEW, AP/PA ONLY Portable erect AP chest at 531 hours. INDICATION: Atrial fibrillation. FINDINGS: The borderline cardiomegaly noted on the prior exam of 11/30/2017 is again evident and no different. The lungs remain clear. There is still no sign of failure, pneumonia or pleural effusion to indicate an acute abnormality. The mediastinum is not widened. The osseous structures are intact. IMPRESSION: Stable chest. There has been no adverse change since the prior exam. Dictated on workstation # [id number] Dict: 12/01/17 0755 Trans: 12/01/17 [id number] Interpreted by: PAT EVANGELISTA MD Electronically signed by: ECG Impression ECG Initial ECG Rhythm: Normal Sinus A/P-Cardiology Assessment/Admission Diagnosis TIA, non-hemorrhagic, suspected to be due to occult PAF PAF first documented in 2013, likely precipitated by hyperthyroidism. No known recurrence after thyroid ablation x 2 Echo of 12/01/17: LVEF 60-65%, mild MR and mild TR, PASP approx 30 mmHg No significant carotid arterial disease on carotid u/s of 12/01/17 Left mastectomy at [facility] in March 2016; R mastectomy in 1992 H/o Grave's disease treated with radioiodine thyroid ablation in 2008. Recurrence treated with radioiodine ablation by Dr. Moreno in 08/2014 - currently on thyroid replacement Hypertension, controlled GERD and PUD, by history H/o breast cancer (right-sided) treated with mastectomy and chemo Cath of 01/02/14 showed normal cors, LVEF 50% and mild elev of LVEDP Obstructive sleep apnea, treated with CPAP and being managed by Dr Bernstein Normal LVEF (60%),trivial to mild MR & TR, PASP 40 mmHg on echo of March 2017 R fibular facture, post non-syncopal fall, in early 2015, treated by Dr Riojas ; chronic mild R leg swelling since then Discussion and Recomendations CVA vs TIA with transient facial droop, slurred speech and difficulty ambulating. This is being managed by medical/stroke services. She has a h/o PAF at the time of hyperthyroidism in 2013. She had/had no further recurrence following thyroid ablation. She is currently in SR and no a-fib has been documented. However, in light of current events we do advise OAC. Consideration can be given to an implantable loop recorder to monitor for occult a-fib. However, she does have a h/o documented PAF in 2013 She is to have an MRI later today per medical services She is to have a carotid u/s today as well TSH this morning is WNL Continue current medications including BB tx D/C Heparin once Eliquis has been given We would like thank the medical services for this consult Further rec will be based on her hospital course. This consult is being scribed by Ana Laura Avery APRN on behalf of Dr. Dewitt after discussion regarding plan of care. Clinical Quality Measures DVT/VTE Risk/Contraindication: Risk Factor Score Per Nursin RFS Level Per Nursing on Admit: 3=High Stroke: Date of last known well: Nov 30, 2017 Time of last known well: 19:20 Symptoms onset unknown: Yes Physician Assessment Physician Assessment No cp or palp or syncope or shortness of breath. Focal deficits have resolved Lungs: clear Cor: reg Ext: no c/c/e A&R * As documented in our note above that I updated (italics) and as noted below * I had a long and detailed discussion with her * Occult PAF is suspected as the cause of TIA, given previously documented PAF * We recommend reinitiation of apixaban that she had previously discontinued * Pros and cons of apixaban were discussed * Outpatient f/u is advised SILVIA AVERY Dec 01, 2017 08:25 GENOVEVA DEWITT MD FACP [facility] Dec 01, 2017 11:45
--- NOTE | 2017-12-01 08:44 | Diagnostic Imaging Report ---
Portable erect AP chest at 531 hours. INDICATION: Atrial fibrillation. FINDINGS: The borderline cardiomegaly noted on the prior exam of 11/30/2017 is again evident and no different. The lungs remain clear. There is still no sign of failure, pneumonia or pleural effusion to indicate an acute abnormality. The mediastinum is not widened. The osseous structures are intact. IMPRESSION: Stable chest. There has been no adverse change since the prior exam. Dictated by: Dictated on workstation # [id number]
[2017-12-01] MEDS ORDERED: ANAS1TAB7 PO (08:51)
[2017-12-01] MEDS ORDERED: METO-395 PO ×2 (08:51→08:58)
[2017-12-01] MEDS ORDERED: CALC-6 PO (08:58)
[2017-12-01] MEDS ORDERED: APIXABAN 5 MG (ELIQUIS) TABLET PO NR (10:15)
--- NOTE | 2017-12-01 10:28 | Diagnostic Imaging Report ---
PROCEDURE: US Carotid Duplex Bilateral. TECHNIQUE: Multiple Real-time grayscale images were obtained over the carotid arteries in various projections bilaterally. Additional duplex Doppler and color Doppler images were also obtained. INDICATION: Slurred speech. COMPARISON: There are no prior ultrasound studies available for comparison. The CTA head and neck exam of 11/30/2017 failed to show any sign of a hemodynamically significant stenosis of either carotid system. FINDINGS: There is mild soft plaque formation in both carotid systems. The flow velocities failed to show any sign of a hemodynamically significant stenosis of the common or internal carotid arteries. The flow velocities are as follow: Mid CCA: right 78.9, left 89.5. Proximal ICA: right 28.4, left 34.8. Mid ICA: right 45.9, left 52.8. Distal ICA: right 74.2, left 77. IC/CC: right 0.94, left 0.86. The left vertebral artery was identified and there was antegrade flow. The right vertebral artery could not be identified. In reviewing the CTA head and neck exam performed on 11/30/2017, the right vertebral artery was small. IMPRESSION: There is no evidence for a hemodynamically significant stenosis of either carotid system. Dictated by: Dictated on workstation # [id number]
[2017-12-01] MEDS ORDERED: ASPIRIN E.C. 81 MG (ECOTRIN) TAB PO SCH (10:30)
[2017-12-01] MEDS ORDERED: meTOprolol SUCCINATE 100 MG (TOPROL XL) TAB PO SCH (10:30)
[2017-12-01] MEDS ORDERED: LEVOTHYROXINE 88 MCG (LEVOTHORID) TAB PO SCH (10:45)
[2017-12-01] MEDS ORDERED: meTOproloL SUCCINATE 50 MG (TOPROL XL) TAB PO SCH (10:45)
[2017-12-01 11:01] LABS: CHOLESTEROL 182 MG/DL (< 200); HDL CHOLESTEROL 50 MG/DL (40-60); TRIGLYCERIDES 75 MG/DL (<150); VLDL CHOLESTEROL 15 MG/DL (5-40)
--- NOTE | 2017-12-01 11:21 | History & Physical-Hospitalist ---
HPI History of Present Illness: HPI/Chief Complaint CC: Left sided facial droop and aphasia HPI: This is a 57-year-old white female clinic patient of mine for the past 14 years with a past medical history of breast cancer at 29 years old then recurrence in the other breast last year status post mastectomy on the left breast managed at [facility] with also a history of hyperthyroidism status post ablation 5 years ago then had a recurrence that required endocrinology intervention and a repeat ablation but the hyperthyroidism had caused episodes of atrial fibrillation in the past managed by Dr. Dewitt. She presented to the ER after an abrupt onset of left facial droop and a facial family came very concerned because patient was off balance and not acting herself. She presented to the emergency room shortly after patient was assessed with CT scan showing no bleeding stroke and CT angiogram of the neck and brain and then [facility] stroke center notified. She had a recurrence after complete resolution of the symptoms when she arrived but then is resolved and not returned. Dr. Dewitt has placed her on anticoagulation with Eliquis and that will be lifelong therapy due to this high suspicion of showering of emboli from silent paroxysmal atrial fibrillation. At this current time MRI will be completed the plan will be to discharge maintain on all the rest of her home medications and she will have a close follow-up with me in the clinic. She does not need any inpatient rehabilitation or any therapy evaluation for rehabilitation following the stroke since there is no apparent significant residual to require that. Lipid panel will be ordered. Source: patient Exam Limitations: no limitations Date Seen 12/01/17 Time Seen by Provider: 10:00 Attending Physician Ellen Vogt DO PCP Ellen Vogt DO Referring Physician Date of Admission Nov 30, 2017 at 22:02 Home Medications & Allergies Home Medications Reviewed patient Home Medication Reconciliation Form Allergies Allergies Coded Allergies No Known Drug Allergies (Verified05/19/09) Past Vsmvkao-Hdxssi-Zbeaef Hx Patient Social History Marrital Status: Employed/Student: employed Alcohol Use: Denies Use Recreational Drug Use: No Smoking Status: Never a Smoker Physical Abuse Screen: No Sexual Abuse: No Recent Foreign Travel: No Contact w/other who traveled: No Recent Hopitalizations: No Recent Infectious Disease Expo: No Immunizations Up To Date Date of Pneumonia Vaccine: Oct 01, 2014 Date of Influenza Vaccine: Aug 31, 2017 Seasonal Allergies Seasonal Allergies: No Surgeries Yes (Mastectomy right at 29yo left at 56yo due to cancer ,thyroid ablation x 2) Breast, Hysterectomy Respiratory No Cardiovascular Yes Atrial Fibrillation, Hypertension Neurological No Reproductive System Hx Reproductive Disorders: No Genitourinary No Gastrointestinal Yes Gastroesophageal Reflux Musculoskeletal No Endocrine History of Endocrine Disorders: Yes (Thyroid ablation) Endocrine Disorders: Hyperthyroidism, Hypothyroidsim HEENT History of HEENT Disorders: No Cancer Yes (MASTECTOMY) Breast Psychosocial History of Psychiatric Problem: No Integumentary History of Skin or Integumenta: No Blood Transfusions History of Blood Disorders: No Family Medical History Family Hx: Cancer 03 FATHER (LUNG) 03 MOTHER (BREAST) Family history: Diabetes mellitus 03 MOTHER 09 BROTHER 09 BROTHER Family history: Hypertension Review of Systems Constitutional: see HPI, weakness EENTM: see HPI Respiratory: no symptoms reported Cardiovascular: no symptoms reported Gastrointestinal: no symptoms reported Genitourinary: no symptoms reported Musculoskeletal: no symptoms reported Skin: no symptoms reported Psychiatric/Neurological: Paresthesia, Weakness (left face) All Other Systems Reviewed Negative Unless Noted: Yes Physical Exam Physical Exam Vital Signs Vital Sign - Last 12Hours Capillary Refill : Less Than 3 Seconds General Appearance: No Apparent Distress, WD/WN, Obese Eyes: Bilateral Eye Normal Inspection, Bilateral Eye PERRL HEENT: PERRL/EOMI, Normal ENT Inspection, Pharynx Normal Neck: Full Range of Motion, Normal Inspection, Non Tender, Supple, Carotid Bruit Respiratory: Chest Non Tender, Lungs Clear, Normal Breath Sounds, No Accessory Muscle Use, No Respiratory Distress Cardiovascular: Regular Rate, Rhythm, No Edema, No Gallop, No JVD, No Murmur, Normal Peripheral Pulses Gastrointestinal: Normal Bowel Sounds, No Organomegaly, No Pulsatile Mass, Non Tender, Soft Back: Normal Inspection, No CVA Tenderness, No Vertebral Tenderness Extremity: Normal Capillary Refill, Normal Inspection, Normal Range of Motion, Non Tender, No Calf Tenderness, No Pedal Edema Neurologic/Psychiatric: Alert, Oriented x3, No Motor/Sensory Deficits, Normal Mood/Affect Skin: Normal Color, Warm/Dry Lymphatic: No Adenopathy Results Results/Procedures Lab Laboratory Tests 11/30/17 19:55 12/01/17 04:30 Assessment/Plan Admission Diagnosis Assessment: Acute onset left facial droop with aphasia resolved at time of ER presentation then recurred but CT scan negative for stroke MRI pending and patient did not require thrombolytics Presumed emboli from paroxysmal and silent atrial fibrillation as had previously in the past failed aspirin therapy History of hyperthyroidism ablation 2 now maintain on thyroid supplement by Dr. Mcgrath endocrinology History of breast cancer at 29 years old then recurred in the contra breast last year status post mastectomy at [facility] Hypertension Hyperlipidemia Acharya Recent weight gain Assessment and Plan Plan: Check MRI of the brain Follow-up with me on Monday to 45 p.m. Maintain anticoagulation lifelong Continue all the rest of her home medications Clinical Quality Measures DVT/VTE Risk/Contraindication: Risk Factor Score Per Nursin RFS Level Per Nursing on Admit: 3=High Stroke: Date of last known well: Nov 30, 2017 Time of last known well: 19:20 Symptoms onset unknown: Yes ELLEN VOGT DO Dec 01, 2017 11:21
[2017-12-01] MEDS ORDERED: APIX5TAB PO (11:57)
[2017-12-01] MEDS ORDERED: CALCIUM CARB + VIT D 600 MG (CALCARB + D) TAB PO SCH (12:00)
[2017-12-01] MEDS ORDERED: ANASTROZOLE 1 MG TAB (ARIMIDEX) PO SCH (12:00)
[2017-12-01] MEDS ORDERED: GADOBUTROL 10 MMOL/10 ML (GADAVIST) VIAL IV ONE (12:15)
--- NOTE | 2017-12-01 12:46 | Diagnostic Imaging Report ---
CLINICAL INDICATION: Patient came to ER yesterday with facial droopiness. EXAM: MRI of the brain performed without and with 10 cc of Gadavist IV contrast. Sequences include axial DWI, ADC map, axial gradient echo, axial T2, axial FLAIR, axial T1, axial T1 post IV contrast, coronal T1 fat-sat post IV contrast, and sagittal T1 post IV contrast. COMPARISON: CT angiogram of the head/neck and head CT without contrast dated -11/30/2017. FINDINGS: There is no evidence of acute cerebral infarct, intracranial hemorrhage, or gross mass effect. There are several focal areas of high T2 signal white matter changes involving both cerebral hemispheres, likely representing mild chronic small vessel ischemic disease. There is normal moss-white matter distinction. The brain parenchymal volume appears appropriate for patient's age. There is no significant midline shift or herniation. The apache of Lr vascular structures show no gross abnormality as visualized. The pituitary gland, sella, and suprasellar regions are unremarkable as visualized. There is no evidence of hydrocephalus. The basal cisterns are unremarkable. The skull, extracranial soft tissue, and orbits are unremarkable. The paranasal sinuses are unremarkable. IMPRESSION: Unremarkable MRI of the brain for age with mild chronic small vessel ischemic disease. Dictated by: Dictated on workstation # [id number]
[2017-12-01] MEDS ORDERED: APIXABAN 5 MG (ELIQUIS) TABLET PO SCH (21:00)
--- OUTSIDE RECORDS SUMMARY | 2017-12-01 23:38 | XMS REPORT | Clinical Summary ---
Author Author [facility] Organization [facility] Address Unknown Phone Unavailable Care Team Providers Care Games Manager Name Role Phone PCP Unavailable Source Comments Some departments are not documenting in the electronic medical record. If you do not see the information that you expected, contact Release of Information in the Health Information Management department at [phone] for further assistance in locating additional records.[facility] Allergies No Known Allergies Current Medications Prescription Sig. Disp. Refills Start End Date Status Date metoprolol XL (TOPROL XL) Take 100 mg by mouth Active 100 mg tablet daily. metoprolol XL (TOPROL XL) Take 50 mg by mouth at Active 50 mg tablet bedtime daily. aspirin EC 81 mg tablet Take 81 mg by mouth Active daily. Take with food. levothyroxine (SYNTHROID) Take 88 mcg by mouth Active 88 mcg tablet daily 30 minutes before breakfast. esomeprazole DR(+) Take 40 mg by mouth every Active (NEXIUM) 40 mg capsule morning. Take on an empty stomach at least 1 hour before or 2 hours after food. anastrozole (ARIMIDEX) 1 Take 1 Tab by mouth 90 Tab 3 04/03/20 Active mg tablet daily. 17 CALCIUM CARBONATE/VITAMIN Take by mouth twice Active D2 (CALCIUM + VITAMIN D daily. PO) Active Problems Problem Noted Date History of right breast cancer 03/08/2016 Malignant neoplasm of upper-outer quadrant of left female breast (HCC) 02/21 Overview: Diagnosis: 1. Left, grade 1, ILC (ER100%, PR97%, HER2 0+, Ki-67 14%) with associated grade 2, DCIS at 1:30, dx 02/2016 2. Hx of right, ER+/IL-, breast cancer, dx in 1992 (age 33) 3. MyRisk panel negative, 02/2016 History: Ms. Turner is a female who presented to the [facility] on 03/18/2016 at age 56 for evaluation of left breast cancer. She initially saw Cheri Leggett APRN on 02/23/2016 for a second opinion on a left axillary mass. Ms. Turner has a history of a right breast cancer which was first noted on screening mammograms and diagnosed on excisional biopsy; pathology showed a 1 cm lesion. She underwent right modified mastectomy and per outside medical oncology's note, she had 4 negative axillary lymph nodes. She then received adjuvant Adriamycin and Cytoxan. She has continued to follow with her medical oncologist and did not take any endocrine therapy or have any genetic testing. On her routine exam with her oncologist in April 2015, a left axillary lymph node was palpable. Left diagnostic mammogram was negative and a left breast/axillary ultrasound showed a fatty replaced axillary lymph node. She preferred to get a second opinion at and was referred to the surgery clinic. Left diagnostic mammogram at showed a 2.4 cm asymmetry in the UOQ; ultrasound showed no correlating findings and stereotactic biopsy was recommended. Left stereotactic biopsy 03/01/16 revealed a grade 2, invasive carcinoma with lobular features and associated grade 2, ductal carcinoma in-situ. Ms. Turner underwent left total mastectomy/SLNB on 03/29/16. Final pathology revealed a 2.8 cm grade 1 ILC; all margins over 2 mm; LVI absent; 3 negative SLNs. Ms. Turner's Oncotype DX was 9, she started Arimidex in April 2016. Breast Imaging: Mammogram: -- Left diagnostic mammogram 05/21/15 ([place]) showed scattered fibroglandular tissue. No suspicious findings were seen. BIRADS 1. -- Left diagnostic mammogram 02/23/16 () showed scattered fibroglandular densities. In the upper outer left breast at 1:30 there was a 2.4 cm focal asymmetry with associated architectural distortion which is subtle though appears new when compared with mammograms from 2010. Targeted ultrasound will be performed. Ultrasound: -- Left axillary ultrasound 05/21/15 ([place]) showed a 1.7 cm fatty replaced solitary lymph node. No additional dominant mass, cyst or lymphadenopathy was seen. BIRADS 2. -- Targeted left breast ultrasound 02/23/16 () showed no suspicious solid or cystic mass in the upper outer left breast at 1:30. No definite correlate was seen for the mammographic focal asymmetry and architectural distortion of concern. No suspicious left axillary lymph nodes are seen. BIRADS 4, stereotactic biopsy was recommended. Reproductive health: Age at Menarche: 12 Age at First Live : 23 Age at Menopause: surgical menopause at 46; no HRT : 3 Para: 3 : Did not breast feed Procedures: 1. Right modified mastectomy, 1992 ([facility] in [place], [place]) 2. Right breast reconstruction with TRAM flap, 1992 3. Left total mastectomy/SLNB, 03/29/16 Pertinent PMH: Hx of hyperthyroidism causing A. Fib (s/p ablation in 2010 and August 2015), acquired hypothyroidism following ablation Family History: Maternal grandmother with breast cancer at 84, maternal aunt with breast cancer at 57, mother with breast cancer at 60, and daughter with breast cancer at 32 (BRCA 1/2 negative). Physical Exam on Presentation: Right- exam consistent with mastectomy and flap reconstruction. 5 cm area of fat necrosis superior to flap. Left breast- no palpable masses or skin changes. No axillary, infraclavicular, or supraclavicular adenopathy. Medical Oncology: Dr. Levy Present Therapy: Arimidex started 04/2016 Referred by: Ellen Galvin MD Encounters Date Type Specialty Care Team Description 11/06/2017 Office Visit Oncology Lana Bertrand APRN Malignant neoplasm of CristalGauravAlinaYOLA-ADMINISTRATOR OF HOME HEALTH upper-outer quadrant of left breast in female, estrogen receptor positive (HCC) (Primary Dx) 10/02/2017 Office Visit Oncology Lana Bertrand APRN At risk for lymphedema (Primary Dx);History of bilateral breast cancer;S/P bilateral mastectomy;S/P TRAM (transverse rectus abdominis muscle) flap breast reconstruction;BMI 37.0-37.9, adult 10/02/2017 Office Visit Oncology Lana Bertrand APRN Malignant neoplasm of Cheri Leggett APRN upper-outer quadrant of left breast in female, estrogen receptor positive (HCC) from Last 3 Months Family History Medical History Relation Name Comments Cancer-Lung Father smoker Cancer-Breast Maternal Aunt Cancer-Breast Maternal Grandmother Cancer-Breast Mother Relation Name Status Comments Father Maternal Aunt Maternal Grandmother Mother Social History Tobacco Use Types Packs/Day Years Used Date Never Smoker Smokeless Tobacco: Never Used Alcohol Use Drinks/Week oz/Week Comments No 0 Standard 0.0 drinks or equivalent Sex Assigned at Date Recorded Not on file Last Filed Vital Signs Vital Sign Reading Time Taken Blood Pressure 132/78 11/06/2017 9:08 AM TRADE PROMOTION ANALYST Pulse 66 11/06/2017 9:08 AM TRADE PROMOTION ANALYST Temperature 36.7 C (98 F) 11/06/2017 9:08 AM TRADE PROMOTION ANALYST Respiratory Rate 18 11/06/2017 9:08 AM TRADE PROMOTION ANALYST Oxygen Saturation 96% 11/06/2017 9:08 AM TRADE PROMOTION ANALYST Inhaled Oxygen - - Concentration Weight 95.5 kg (210 lb 9.6 oz) 11/06/2017 9:08 AM TRADE PROMOTION ANALYST Height 160 cm (5' 2.99") 11/06/2017 9:08 AM TRADE PROMOTION ANALYST Body Mass Index 37.32 11/06/2017 9:08 AM TRADE PROMOTION ANALYST Plan of Treatment Health Maintenance Due Date Last Done Comments HEPATITIS C SCREENING 1960 PHYSICAL (COMPREHENSIVE) 1966 EXAM PERTUSSIS VACCINE 1970 TETANUS VACCINE 1976 CERVICAL CANCER SCREENING 1989 BREAST CANCER SCREENING 1999 COLORECTAL CANCER 2009 SCREENING INFLUENZA VACCINE 06/27/2017 Implants Implanted Type Area Senior Facilities Manager Device Expiration Model / Identifier Date Serial / Lot Sealant Hstat Tisseel Frzn 10m [id number]:[id number] / Implanted: Qty: 1 on 03/29/2016 by HANNAH / Cruz Tadeo DO [id number] Results Not on filefrom Last 3 Months
--- OUTSIDE RECORDS SUMMARY | 2017-12-01 23:38 | XMS REPORT | Encounter Summary ---
Author Author [facility] Organization [facility] Address Unknown Phone Unavailable Care Team Providers Care Therapy Assistant Name Role Phone PCP Unavailable Reason for Visit * Reason Comments Heme/Onc Care Encounter Details Date Type Department Care Team Description 10/02/2017 Office Visit [facility] Lana Bertrand APRN Malignant neoplasm of [facility] Exam [address] upper-outer quadrant of [address] left breast in female, [place] [address] [place] [address] estrogen receptor [phone] positive (HCC) Cheri Parkinson APRN [address] [place] [address] [phone] Social History Tobacco Use Types Packs/Day Years Used Date Never Smoker Smokeless Tobacco: Never Used Alcohol Use Drinks/Week oz/Week Comments No 0 Standard 0.0 drinks or equivalent Sex Assigned at Date Recorded Not on file as of this encounter Last Filed Vital Signs Vital Sign Reading Time Taken Blood Pressure 130/78 10/02/2017 8:44 AM CIVILIAN TECHNICIAN Pulse 64 10/02/2017 8:44 AM CIVILIAN TECHNICIAN Temperature 36.7 C (98 F) 10/02/2017 8:44 AM CIVILIAN TECHNICIAN Respiratory Rate - - Oxygen Saturation 96% 10/02/2017 8:44 AM CIVILIAN TECHNICIAN Inhaled Oxygen - - Concentration Weight 96.2 kg (212 lb) 10/02/2017 8:44 AM CIVILIAN TECHNICIAN Height 160 cm (5' 2.99") 10/02/2017 8:44 AM CIVILIAN TECHNICIAN Body Mass Index 37.57 10/02/2017 8:44 AM CIVILIAN TECHNICIAN in this encounter Functional Status Functional Status Response Date of Assessment Does the patient have a hearing impairment: No 07/03/2017 Does the patient have a visual impairment: No 07/03/2017 Does the patient have impaired ambulation: No 07/03/2017 Does the patient have an activity of daily living No 07/03/2017 (ADL) impairment: Does the patient have an instrumental activity of No 07/03/2017 daily living (IADL) impairment: Cognitive Status Response Date of Assessment Does the patient have a cognitive impairment: No 07/03/2017 as of this encounter Progress Notes * Cheri Leggett APRN - 10/02/2017 9:00 AM CIVILIAN TECHNICIAN Formatting of this note may be different from the original. Name: Willa Turner : 1960 AGE: 57 y.o. DATE OF SERVICE: 10/02/2017 Subjective: Reason for Visit: Ms. Turner returns to the clinic for continued follow-up. She is 1.5 years s/p left mastectomy/SLNB for a grade 1, hormone +, Her2 negative, ILC. She also has a history of right, ER+ breast cancer in 1992 and is s/p right mastectomy. She denies any new findings on self-exam and she has no complaints today. Malignant neoplasm of upper-outer quadrant of left female breast (HCC) Staging form: Breast, AJCC 7th Edition - Clinical: Stage IIA (T2, N0, cM0) - Signed by Jill Larios PA-C on 2015 - Pathologic: Stage IIA (T2, N0, cM0) - Signed by Jill Larios PA-C on 04/04 History of Present Illness Diagnosis: 1. Left, grade 1, ILC (ER100%, PR97%, HER2 0+, Ki-67 14%) with associated grade 2, DCIS at 1:30, dx 02/2016 2. Hx of right, ER+/NH-, breast cancer, dx in 1992 (age 33) 3. [facility] panel negative, 02/2016 History: Ms. Turner is [...] features and associated grade 2, ductal carcinoma in- situ. Ms. Turner underwent left total mastectomy/SLNB on 03/29/16. Final pathology revealed a 2.8 cm grade 1 ILC; all margins over 2 mm; LVI absent; 3 negative SLNs. Ms. Turner's Oncotype DX was 9, she started Arimidex in April 2016. Breast Imaging: Mammogram: -- Left diagnostic mammogram 05/21/15 ([place]) showed scattered fibroglandular tissue. No suspicious findings were seen. BIRADS 1. -- Left diagnostic mammogram 02/23/16 () showed scattered fibroglandular densities. In the upper outer left breast at 1:30 there was a 2.4 cm focal asymmetry with associated architectural distortion which is subtle though appears new when compared with mammograms from 2010. Targeted ultrasound will be performed. Ultrasound: -- Left axillary ultrasound 05/21/15 ([place]) showed a 1.7 cm fatty replaced solitary [...] feed Procedures: 1. Right modified mastectomy, 1992 ([facility] in [place], [place]) 2. Right breast reconstruction with TRAM [...] started 04/2016 Referred by: Ellen Galvin MD Review of Systems Constitutional: Negative for fever, chills, appetite change and fatigue. HENT: Negative for hearing loss, congestion, rhinorrhea and tinnitus. Eyes: Negative for pain, discharge and itching. Respiratory: Negative for cough, chest tightness and shortness of breath. Cardiovascular: Negative for chest pain and palpitations. Gastrointestinal: Negative for abdominal distention, pain, nausea, vomiting, and diarrhea. Genitourinary: Negative for frequency, vaginal bleeding, difficulty urinating and pelvic pain. Musculoskeletal: Negative for myalgias, back pain, joint swelling and arthralgias. Skin: Negative for rash. Neurological: Negative for dizziness, weakness, light-headedness and headaches. Hematological: Does not bruise/bleed easily. Psychiatric/Behavioral: Negative for disturbed wake/sleep cycle. The patient is not nervous/anxious. No Known Allergies The following medical/surgical/family/social history and the list of medications are current, as of 10/02/2017 Past Medical History: Diagnosis Date Acquired hypothyroidism Breast CA (HCC) 1992 Right GERD (gastroesophageal reflux disease) History of chemotherapy 1992 breast cancer Hypertension Invasive lobular carcinoma of left breast, stage 2 (HCC) 2016 Leg fracture, right 2016 Limb alert care status Do not use Right upper extremity for bp's, blood draws, iv sticks Sleep apnea uses CPAP Past Surgical History: Procedure Laterality Date HX MASTECTOMY Right 1992 lymph nodes, reconstruction with permanet implant HYSTERECTOMY 07/2007 with BSO; due to uterine prolapse HEART CATHETERIZATION 12/2013 MASTECTOMY Left 03/29/2016 Left Total Mastectomy, [place] Lymph Node Biopsy, Possible Axillary Lymph Node Dissection performed by Cruz Tadeo DO at [facility] MA[facility] OR/PERIOP THYROID SURGERY 2011,2013 ablation Family History Problem Relation Age of Onset Cancer-Breast Mother 59 Cancer-Breast Maternal Aunt 57 Cancer-Breast Maternal Grandmother 84 Cancer-Lung Father 84 smoker Social History Social History Marital status: Spouse name: N/A Number of children: N/A Years of education: N/A Social History Main Topics Smoking status: Never Smoker Smokeless tobacco: Never Used Alcohol use No Drug use: No Sexual activity: Not Asked Other Topics Concern None Social History Narrative Objective: anastrozole (ARIMIDEX) 1 mg tablet Take 1 Tab by mouth daily. aspirin EC 81 mg tablet Take 81 mg by mouth daily. Take with food. CALCIUM CARBONATE/VITAMIN D2 (CALCIUM + VITAMIN D PO) Take by mouth twice daily. esomeprazole DR(+) (NEXIUM) 40 mg capsule Take 40 mg by mouth every morning. Take on an empty stomach at least 1 hour before or 2 hours after food. levothyroxine (SYNTHROID) 88 mcg tablet Take 88 mcg by mouth daily 30 minutes before breakfast. metoprolol XL (TOPROL XL) 100 mg tablet Take 100 mg by mouth daily. metoprolol XL (TOPROL XL) 50 mg tablet Take 50 mg by mouth at bedtime daily. Vitals: 10/02/17 0844 BP: 130/78 Pulse: 64 Temp: 36.7 C (98 F) SpO2: 96% Weight: 96.2 kg (212 lb) Height: 160 cm (62.99") Body mass index is 37.57 kg/(m^2). Pain Score: Zero Pain Addressed: N/A Patient Evaluated for a Clinical Trial: No treatment clinical trial available for this patient. Eastern Cooperative Oncology Group performance status is 0, Fully active, able to carry on all pre-disease performance without restriction.. Physical Exam Pulmonary/Chest: Vitals reviewed. Constitutional: No acute distress. HEENT: Head: Normocephalic and atraumatic. Eyes: No discharge. No scleral icterus. Pulmonary/Chest: No respiratory distress. Lymphadenopathy: There is no axillary, infraclavicular, or supraclavicular adenopathy. Neurological: Alert and oriented to person, place and time. No cranial nerve deficit. Skin: Warm and dry. No rash noted. No erythema. No pallor. Psychiatric: Normal mood and affect. Behavior is normal. Judgement and thought content normal. Assessment and Plan: 1. 57 yo female 1.5 years s/p left mastectomy/SLNB for a grade 1, ILC (ER 100, NH 97, Her2 0+ IHC, Ki67 14%), with DCIS, intermediate grade. Stage IIA . No evidence of local or regional recurrence. 2. Hx of right, ER+ breast cancer in 1992 (age 33). S/p right mastectomy/TRAM flap reconstruction and adjuvant AC. No evidence of local or regional recurrence. 3. Significant family history of breast cancer. Patient's MyRisk panel negative. 4. On Arimidex. Continue follow-up with Dr. Levy 5. RTC in [address] Tadeo. Cheri Leggett APRN in this encounter Plan of Treatment Not on fileas of this encounter Visit Diagnoses Diagnosis Malignant neoplasm of upper-outer quadrant of left breast in female, estrogen receptor positive (HCC) in this encounter
--- OUTSIDE RECORDS SUMMARY | 2017-12-01 23:38 | XMS REPORT | Continuity of Care Document ---
Author Author [employer] Organization [facility] Address Unknown Phone Unavailable Care Team Providers Care Packaging Sales Name Role Phone [employer] Unavailable Unavailable Problems Medications Allergies, Adverse Reactions, Alerts Immunizations Results Vital Signs Encounters Location Location Details Encounter Type Encounter Number Reason For Visit Attending Provider ADM Date DC Date Status Source [place] SER[place] [id number] YUSEF DICK 04/03/2017 04/03/2017 Active [facility] [place] SERIES [id number] ROBINSON MORENO 10/02/20172016 Active [facility] [place] SERIES [id number] YUSEF DICK 11/06/2017 Active [facility] Gerardo PICKETT 02/26/2018 Active [facility] Procedures Plan of Care Social History Assessment and Plan Family History Advance Directives Functional Status
--- OUTSIDE RECORDS SUMMARY | 2017-12-01 23:38 | XMS REPORT | Encounter Summary ---
Author Author [facility] Organization [facility] Address Unknown Phone Unavailable Care Team Providers Care Pole Tester Name Role Phone PCP Unavailable Reason for Visit * Reason Comments Heme/Onc Care Encounter Details Date Type Department Care Team Description 11/06/2017 Office Visit [facility] Lana Bertrand APRN Malignant neoplasm of Cancer Center - [address] upper-outer quadrant of Exam [address] [place] 5018 left breast in female, [address] [place] [address] [place] [address] positive (HCC) (Primary [phone] Dx) Alina Taylor APRN-[address] [address] [phone] Social History Tobacco Use Types Packs/Day Years Used Date Never Smoker Smokeless Tobacco: Never Used Alcohol Use Drinks/Week oz/Week Comments No 0 Standard 0.0 drinks or equivalent Sex Assigned at Date Recorded Not on file as of this encounter Last Filed Vital Signs Vital Sign Reading Time Taken Blood Pressure 132/78 11/06/2017 9:08 AM PRINTING EQUIPMENT MECHANIC Pulse 66 11/06/2017 9:08 AM PRINTING EQUIPMENT MECHANIC Temperature 36.7 C (98 F) 11/06/2017 9:08 AM PRINTING EQUIPMENT MECHANIC Respiratory Rate 18 11/06/2017 9:08 AM PRINTING EQUIPMENT MECHANIC Oxygen Saturation 96% 11/06/2017 9:08 AM PRINTING EQUIPMENT MECHANIC Inhaled Oxygen - - Concentration Weight 95.5 kg (210 lb 9.6 oz) 11/06/2017 9:08 AM PRINTING EQUIPMENT MECHANIC Height 160 cm (5' 2.99") 11/06/2017 9:08 AM PRINTING EQUIPMENT MECHANIC Body Mass Index 37.32 11/06/2017 9:08 AM PRINTING EQUIPMENT MECHANIC in this encounter Functional Status Functional Status Response Date of Assessment Does the patient have a hearing impairment: No 11/06/2017 Does the patient have a visual impairment: No 11/06/2017 Does the patient have impaired ambulation: No 11/06/2017 Does the patient have an activity of daily living No 11/06/2017 (ADL) impairment: Does the patient have an instrumental activity of No 11/06/2017 daily living (IADL) impairment: Cognitive Status Response Date of Assessment Does the patient have a cognitive impairment: No 11/06/2017 as of this encounter Progress Notes * Alina Bee, YOLA-QUAL RESEARCH MANAGER - 11/06/2017 9:30 AM PRINTING EQUIPMENT MECHANIC Formatting of this note may be different from the original. Date of Service: 11/06/2017 Subjective: Reason for Visit: Heme/Onc Care Malignant neoplasm of upper-outer quadrant of left female breast (HCC) Staging form: Breast, AJCC 7th Edition - Clinical: Stage IIA (T2, N0, cM0) - Signed by Jill Larios PA-C on 2015 - Pathologic: Stage IIA (T2, N0, cM0) - Signed by Jill Larios PA-C on 04/04 Willa Turner is a 56 y.o. female who presented regarding her newly diagnosed breast cancer. She has a history of breast cancer (ER 3%, MT 0%), diagnosed in 1992 at age 33, She underwent right mastectomy with breast reconstruction with TRAM flap in 1992. She then completed adjuvant AC. She then continued to follow with her oncology for routine surveillance. She was in her usual state of health when in April 2015 her oncologist appreciated a palpable left axillary lymph node and axillary US obtained and revealed fatty replaced solitary lymph node. She then [facility] for a second opinion on a left axillary mass. Repeat imaging was obtained and showed a focal asymmetry in the upper outer left breast. US guided biopsy 03/01/16 pathology revealed invasive lobular carcinoma, grade 1 (ER 100, MT 97, Her2 0+ IHC, Ki67 14%), with DCIS, intermediate grade. She is now s/p left mastectomy with left SLNB 03/29/[address] Tadeo. Pathologic Staging: pT2 (sn)N0(i-) Mn/a. Oncotype Dx testing showed a RS of 9 and patient was started on endocrine therapy. Current Therapy: Arimidex. HPI Comments: Willa returns today for 3 month f/u of Arimidex. States she is doing quite well. Tolerating Arimidex.Continues to eat healthy and exercise. Denies arthralgias. Pt denies any current breast/chest wall health issues, specifically denies any breast mass, pain, nipple discharge, skin changes, or rash. Review of Systems Constitutional: Negative for activity change, appetite change, chills, diaphoresis, fatigue, fever and unexpected weight change. HENT: Negative for congestion, mouth sores, sore throat, tinnitus and trouble swallowing. Eyes: Negative for visual disturbance. Respiratory: Negative for cough, chest tightness, shortness of breath and wheezing. Cardiovascular: Negative for chest pain, palpitations and leg swelling. Gastrointestinal: Negative for abdominal distention, abdominal pain, blood in stool, constipation, diarrhea, nausea and vomiting. Endocrine: Negative for heat intolerance. Genitourinary: Negative for difficulty urinating, dysuria, frequency, hematuria , urgency and vaginal bleeding. Musculoskeletal: Negative for arthralgias, back pain and joint swelling. Skin: Negative for rash. Neurological: Negative for dizziness, syncope, weakness, light-headedness, numbness and headaches. Hematological: Negative for adenopathy. Does not bruise/bleed easily. Psychiatric/Behavioral: Negative for sleep disturbance. The patient is not nervous/anxious. Objective: anastrozole (ARIMIDEX) 1 mg tablet Take [...] mg by mouth at bedtime daily. Vitals: 11/06/17 0908 BP: 132/78 Pulse: 66 Resp: 18 Temp: 36.7 C (98 F) TempSrc: Oral SpO2: 96% Weight: 95.5 kg (210 lb 9.6 oz) Height: 160 cm (62.99") Body mass index is 37.32 kg/(m^2). Pain Score: Zero Pain Addressed: N/A Patient Evaluated for a Clinical Trial: No treatment clinical trial available for this patient. Eastern Cooperative Oncology Group performance status is 0, Fully active, able to carry on all pre-disease performance without restriction.. Physical Exam Constitutional: She is oriented to person, place, and time. She appears well- developed and well-nourished. No distress. HENT: Head: Normocephalic and atraumatic. Mouth/Throat: Oropharynx is clear and moist. No oral lesions. No oropharyngeal exudate. Eyes: Conjunctivae and EOM are normal. Pupils are equal, round, and reactive to light. Right eye exhibits no discharge. Left eye exhibits no discharge. No scleral icterus. Neck: Normal range of motion. Neck supple. No tracheal deviation present. Cardiovascular: Normal rate, regular rhythm and normal heart sounds. Exam reveals no gallop and no friction rub. No murmur heard. Pulmonary/Chest: Effort normal and breath sounds normal. No respiratory distress. She has no wheezes. She has no rhonchi. She has no rales. She exhibits no tenderness. Right breast exhibits no mass and no tenderness. Left breast exhibits no mass and no tenderness. Breasts are asymmetrical. There is no breast swelling. Abdominal: Soft. Normal appearance. She exhibits no distension. There is no guarding. Genitourinary: No breast tenderness. Musculoskeletal: Normal range of motion. She exhibits no edema. Lymphadenopathy: She has no cervical adenopathy. She has no axillary adenopathy. Right: No supraclavicular adenopathy present. Left: No supraclavicular adenopathy present. Neurological: She is alert and oriented to person, place, and time. She has normal strength. Coordination normal. Skin: Skin is warm and dry. No rash noted. She is not diaphoretic. No pallor. Psychiatric: She has a normal mood and affect. Her behavior is normal. Judgment and thought content normal. Vitals reviewed. DEXA 04/03/17: IMPRESSION Moderate osteopenia greatest within the right femoral neck T-score of -1.6 Treatment Summary for Malignant neoplasm of upper-outer quadrant of left female breast (HCC) HARPREET Monroe 11/06/2017 9:49 AM Cancer Treatment Summary Provided by HARPREET Monroe on 11/06/2017 General Information Patient Name Willa Turner (home) Date of 1960 Age 57 y.o. Support Contact Extended Emergency Contact Information Primary Emergency Contact: Jonnie Turner [facility] Relation: Spouse Care Team Patient Care Team: Ellen Galvin DO as PCP - General (Internal Medicine) Barbara Levy MD (Oncology) Cruz Tadeo DO (Surgery) Lana Bertrand APRN (Nurse Practitioner) Alina Bee APRN (Oncology) Cancer Diagnosis Information Symptoms/Signs April 2015-oncologist appreciated a palpable left axillary lymph node Diagnosis Malignant neoplasm of upper-outer quadrant of left female breast (HCC ) Diagnosis Date 03/01/16 Staging Information Malignant neoplasm of upper-outer quadrant of left female breast (HCC) Staging form: Breast, AJCC 7th Edition - Clinical: Stage IIA (T2, N0, cM0) - Signed by Jill Larios PA-C on 2015 - Pathologic: Stage IIA (T2, N0, cM0) - Signed by Jill Larios PA-C on 04/04 Tumor & Prognostic Markers Estrogen Receptor (ER) 100% Progesterone Receptor (MT) 97% Her2/shen NEGATIVE Ki67(proliferation rate) 14% Genomic Testing Oncotype DX: Recurrence score of 9. Surgical Procedure: Location/Findings Past Surgical History: Procedure Laterality Date HX MASTECTOMY Right 1993 lymph nodes, reconstruction with permanet implant HYSTERECTOMY 07/2007 with BSO; due to uterine prolapse HEART CATHETERIZATION 12/2013 MASTECTOMY Left 03/29/2016 Left Total Mastectomy, [place] Lymph Node Biopsy, Possible Axillary Lymph Node Dissection performed by Cruz aTdeo DO at [facility] MAIN OR/PERIOP THYROID SURGERY 2011,2013 ablation Tumor Type/Histology/Grade Invasive lobular carcinoma, grade 1 Background Information Family History/predisposing conditions Family History Problem Relation Age of Onset Cancer-Breast Mother 59 Cancer-Breast Maternal Aunt 57 Cancer-Breast Maternal Grandmother 84 Cancer-Lung Father 84 smoker Genetic Testing [facility] genetic panel test negative. Social History Social History Substance Use Topics Smoking status: Never Smoker Smokeless tobacco: Never Used Alcohol use No Treatment Summary Radiation Therapy N/A [No treatment plan] Pre-Treatment Post-Treatment Height Ht Readings from Last 1 Encounters: 11/06/17 160 cm (62.99") Weight 89.994 kg (198 lb 6.4 oz) Wt Readings from Last 1 Encounters: 11/06/17 95.5 kg (210 lb 9.6 oz) BSA Estimated body surface area is 2.06 meters squared as calculated from the following: Height as of this encounter: 160 cm (62.99"). Weight as of this encounter: 95.5 kg (210 lb 9.6 oz). Lifetime Dosage N/A Lifetime Dose Tracking: No doses have been documented on this patient for the following tracked chemicals: mitomycin, epirubicin, doxorubicin, idarubicin, bleomycin, daunorubicin, mitoxantrone, vincristine, doxorubicin HCl pegylated liposomal, daunorubicin citrate liposomal Follow-Up & Survivorship Care Future Appointments Date Time Provider Department Center 11/06/2017 9:30 AM Al[facility] Exam 04/04/2018 2:15 PM Cruz Tadeo DO [facility] Exam 04/16/2018 3:00 PM Lana Bertrand APRN [address] Exam Plan for 5-10 years of endocrine therapy. SURVEILLANCE 1. Physical exam ? Visit your Medical Oncologist every 3-6 months for the first 2 years after treatment then every 6-12 months for the next 3 years ? Annual mammogram and clinical breast or chest wall exam ? Continue to follow with your PCP once a year ? Monthly self-breast exam 2. Signs to watch for that could indication a local or distant recurrence of breast cancer ? A new lump in the breast or irregular area of firmness ? A new thickening in your breast ? A new pulling back of the skin or dimpling at the lumpectomy site ? Skin inflammation, rash or area of redness in the breast ? Changes or new lumps in your breast or surgical scar or chest wall ? Flattening or indentation of your nipple or other nipple changes like nipple discharge ? A lump or swelling in the lymph nodes under your arm or in the groove above your collarbone ? Pain in the back, hips, chest shoulders or ribs ? Persistent cough ? Shortness of breath or difficulty breathing ? Loss of appetite ? Persistent nausea, vomiting or weight loss ? Swelling in the abdomen or pain in the abdomen ? New headaches 3. Pelvic exam ? Continue to visit a pollution control technician regularly 4. Bone health ? Bone Mineral Density every 1-2 years 5. Colonoscopy ? Baseline at age 49 and follow with PCP 6. Exercise/Weight management/Diet ? Strive to maintain close to ideal body weight ? Exercise at least 150 minutes per week with a combination of cardio and strength training ? Maintain a healthy diet full of fresh fruits and vegetables ? Avoid added soy (a phytoestrogen) in your diet. If you consume soy in your diet we can arrange for you to meet with one of our dietitians for more information. ? Vitamin D 1,000U-2,000U/daily unless instructed otherwise ? If you consume alcohol, do so in moderation, no more than one drink per day. 7. Lymphedema ? Contact your provider if new swelling occurs Assessment and Plan: The patient is a 57 y.o. postmenopausal female with the followin. Left invasive lobular carcinoma, grade 1 (ER 100, MT 97, Her2 0+ IHC, Ki67 14%), with DCIS, intermediate grade. Clinical Stage IIA (T2, N0, cM0). S/p left mastectomy w/ SLNB by Dr. Tadeo 03/29/16. Surgical pathology invasive lobular carcinoma, grade 1, 3/3 nodes negative for malignancy. Pathologic staging IIA pT2 (sn)N0(i-) Mn/a. 2. HX of right breast cancer (ER 3%, MT 0%), diagnosed in 1992 at age 33, S/p right mastectomy with TRAM flap in 1992. She then completed adjuvant AC. 3. Family hx of breast cancer, daughter diagnosed at age 32, daughter negative for BRCA1/2 mutation with VUS present in BRCA1. 4. [facility] genetic panel test negative for any mutation or VUS. 6. Mild osteopenia, T-score -1.6, Dexa 04/22/17 End of treatment summary care plan reviewed in detail with Willa and written copy provided. There is no evidence of recurrence at this time. She will continue with Arimidex. Continue 1200 mg of calcium and 1000 IU vitamin D as well as weight bearing exercise (such as walking and light strength training) for bone health. next DEXA due 03/2018. Willa was encouraged to call with any persistent symptoms, questions, or concerns. RTC in [address] Levy. HARPREET Monroe in this encounter Miscellaneous Notes * Survivorship - Alina Bee APRN-NP - 11/06/2017 9:30 AM PRINTING EQUIPMENT MECHANIC Formatting of this note may be different from the original. Treatment Summary for Malignant neoplasm of upper-outer quadrant of left female breast (HCC) HARPREET Monroe 11/06/2017 9:49 AM Cancer Treatment Summary Provided by HARPREET Monroe on 11/06/2017 General Information Patient Name Willa Turner (home) Date of 1960 Age 57 y.o. Support Contact Extended Emergency Contact Information Primary Emergency Contact: Jonnie Turner [facility] Relation: Spouse Care Team Patient Care Team: Ellen Galvin DO as PCP - General (Internal Medicine) Barbara Levy MD (Oncology) Cruz Tadeo DO (Surgery) Lana Bertrand APRN (Nurse Practitioner) Alina Bee APRN (Oncology) Cancer Diagnosis Information Symptoms/Signs April 2015-oncologist appreciated a palpable left axillary lymph node Diagnosis Malignant neoplasm of upper-outer quadrant of left female breast (HCC ) Diagnosis Date 03/01/16 Staging Information Malignant neoplasm of upper-outer quadrant of left female breast (HCC) Staging form: Breast, AJCC 7th Edition - Clinical: Stage IIA (T2, N0, cM0) - Signed by Jill Larios PA-C on 2015 - Pathologic: Stage IIA (T2, N0, cM0) - Signed by Jill Larios PA-C on 04/04 Tumor & Prognostic Markers Estrogen Receptor (ER) 100% Progesterone Receptor (MT) 97% Her2/shen NEGATIVE Ki67(proliferation rate) 14% Genomic Testing Oncotype DX: Recurrence score of 9. Surgical Procedure: Location/Findings Past Surgical History: Procedure Laterality Date HX MASTECTOMY Right 1992 lymph nodes, reconstruction with permanet implant HYSTERECTOMY 07/2007 with BSO; due to uterine prolapse HEART CATHETERIZATION 12/2013 MASTECTOMY Left 03/29/2016 Left Total Mastectomy, [place] Lymph Node Biopsy, Possible Axillary Lymph Node Dissection performed by Cruz Tadeo DO at [facility] MAIN OR/PERIOP THYROID SURGERY 2011,2013 ablation Tumor Type/Histology/Grade Invasive lobular carcinoma, grade 1 Background Information Family History/predisposing conditions Family History Problem Relation Age of Onset Cancer-Breast Mother 59 Cancer-Breast Maternal Aunt 57 Cancer-Breast Maternal Grandmother 84 Cancer-Lung Father 84 smoker Genetic Testing [facility] genetic panel test negative. Social History Social History Substance Use Topics Smoking status: Never Smoker Smokeless tobacco: Never Used Alcohol use No Treatment Summary Radiation Therapy N/A [No treatment plan] Pre-Treatment Post-Treatment Height Ht Readings from Last 1 Encounters: 11/06/17 160 cm (62.99") Weight 89.994 kg (198 lb 6.4 oz) Wt Readings from Last 1 Encounters: 11/06/17 95.5 kg (210 lb 9.6 oz) BSA Estimated body surface area is 2.06 meters squared as calculated from the following: Height as of this encounter: 160 cm (62.99"). Weight as of this encounter: 95.5 kg (210 lb 9.6 oz). Lifetime Dosage N/A Lifetime Dose Tracking: No doses have been documented on this patient for the following tracked chemicals: mitomycin, epirubicin, doxorubicin, idarubicin, bleomycin, daunorubicin, mitoxantrone, vincristine, doxorubicin HCl pegylated liposomal, daunorubicin citrate liposomal Follow-Up & Survivorship Care Future Appointments Date Time Provider Department Center 11/06/2017 9:30 AM Alnia Bee APRN-QUAL RESEARCH MANAGER [facility] Ex[facility] 04/04/2018 2:15 PM Cruz Tadeo DO [facility] Exam 04/16/2018 3:00 PM Lana Bertrand APRN [address] Exam Plan for 5-10 years of endocrine therapy. SURVEILLANCE 1. Physical exam ? Visit your Medical Oncologist every 3-6 months for the first 2 years after treatment then every 6-12 months for the next 3 years ? Annual mammogram and clinical breast or chest wall exam ? Continue to follow with your PCP once a year ? Monthly self-breast exam 2. Signs to watch for that could indication a local or distant recurrence of breast cancer ? A new lump in the breast or irregular area of firmness ? A new thickening in your breast ? A new pulling back of the skin or dimpling at the lumpectomy site ? Skin inflammation, rash or area of redness in the breast ? Changes or new lumps in your breast or surgical scar or chest wall ? Flattening or indentation of your nipple or other nipple changes like nipple discharge ? A lump or swelling in the lymph nodes under your arm or in the groove above your collarbone ? Pain in the back, hips, chest shoulders or ribs ? Persistent cough ? Shortness of breath or difficulty breathing ? Loss of appetite ? Persistent nausea, vomiting or weight loss ? Swelling in the abdomen or pain in the abdomen ? New headaches 3. Pelvic exam ? Continue to visit a pollution control technician regularly 4. Bone health ? Bone Mineral Density every 1-2 years 5. Colonoscopy ? Baseline at age 49 and follow with PCP 6. Exercise/Weight management/Diet ? Strive to maintain close to ideal body weight ? Exercise at least 150 minutes per week with a combination of cardio and strength training ? Maintain a healthy diet full of fresh fruits and vegetables ? Avoid added soy (a phytoestrogen) in your diet. If you consume soy in your diet we can arrange for you to meet with one of our dietitians for more information. ? Vitamin D 1,000U-2,000U/daily unless instructed otherwise ? If you consume alcohol, do so in moderation, no more than one drink per day. 7. Lymphedema ? Contact your provider if new swelling occurs in this encounter Plan of Treatment Not on fileas of this encounter Visit Diagnoses Diagnosis Malignant neoplasm of upper-outer quadrant of left breast in female, estrogen receptor positive (HCC) - Primary in this encounter
--- OUTSIDE RECORDS SUMMARY | 2017-12-01 23:39 | XMS REPORT | Encounter Summary ---
Author Author [facility] Organization [facility] Address Unknown Phone Unavailable Care Team Providers Care Certified Genetic Counselor Name Role Phone PCP Unavailable Reason for Visit * Reason Comments Heme/Onc Care Breast Cancer Screening, High Risk Pt. Encounter Details Date Type Department Care Team Description 10/02/2017 Office Visit [facility] Lana Bertrand APRN At risk for lymphedema [facility] - [facility] [address] (Primary Dx);History of [address] [place] [address] [place] [address] cancer;S/P bilateral [phone] mastectomy;S/P TRAM (transverse rectus abdominis muscle) flap breast reconstruction;BMI 37.0-37.9, adult Social History Tobacco Use Types Packs/Day Years Used Date Never Smoker Smokeless Tobacco: Never Used Alcohol Use Drinks/Week oz/Week Comments No 0 Standard 0.0 drinks or equivalent Sex Assigned at Date Recorded Not on file as of this encounter Last Filed Vital Signs Vital Sign Reading Time Taken Blood Pressure 130/78 10/02/2017 10:08 AM ANALYSIS LEAD Pulse 64 10/02/2017 10:08 AM ANALYSIS LEAD Temperature 36.7 C (98.1 F) 10/02/2017 10:08 AM ANALYSIS LEAD Respiratory Rate - - Oxygen Saturation 96% 10/02/2017 10:08 AM ANALYSIS LEAD Inhaled Oxygen - - Concentration Weight 96.2 kg (212 lb) 10/02/2017 10:08 AM ANALYSIS LEAD Height 160 cm (5' 2.99") 10/02/2017 10:08 AM ANALYSIS LEAD Body Mass Index 37.57 10/02/2017 10:08 AM ANALYSIS LEAD in this encounter Functional Status Functional Status [...] impairment: No 07/03/2017 as of this encounter Instructions * Patient Instructions - Cheri Wilson RN - 10/02/2017 9:30 AM ANALYSIS LEAD Thank you for coming to see us today. Please call our office or send a message through [employer]link[employer] if you have any questions or concerns. Cheri Wilson RN, BSN, OCN, CBCN, CBPN-IC Clinical Nurse Coordinator for Lana Bertrand APRN- Breast Cancer Survivorship/High RiskBreast Clinic/ Lymphedema Screening & Prevention Program [address] [place] [address], [phone] (mailing address) [address] [place] [address], [address] (physical address) [place] [address] (phone) [phone] (fax) [phone] (scheduling) [email or web address] in this encounter Progress Notes * Lana Bertrand APRN - 10/02/2017 9:30 AM ANALYSIS LEAD Formatting of this note may be different from the original. Date of Service: 10/02/2017 Subjective: Reason for Visit: Heme/Onc Care (Breast Cancer Screening, High Risk Pt.) Willa Turner is a 57 y.o. female. Malignant neoplasm of upper-outer quadrant of left female breast (HCC) Staging form: Breast, AJCC 7th Edition - Clinical: Stage IIA (T2, N0, cM0) - Signed by Jill Larios PA-C on 2015 - Pathologic: Stage IIA (T2, N0, cM0) - Signed by Jill Larios PA-C on 04/04 DIAGNOSIS: 1. Hx of right, ER+/[place]-, breast cancer, dx in 1992 (age 33) 2. 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 TREATMENT SUMMARY: Ms. Turner is a female who presented to the [facility] on 02/23/2016 at age 55 for a second opinion on a left [...] a fatty replaced axillary lymph node. She underwent stereotactic breast biopsy 03/01/2016. Pathology revealed invasive lobular carcinoma, nuclear grade 1, histologic grade I with ductal carcinoma in situ, intermediate grade, cribriform type. She underwent left mastectomy/SLNBX (0/3) on 03/29/2016 ([facility]). PERTINENT PMH: Hx of hyperthyroidism causing A. Fib (s/p ablation in 2010 and August 2015), acquired hypothyroidism following ablation FAMILY HISTORY: Maternal grandmother with breast cancer at 84, maternal aunt with breast cancer at 57, mother with breast cancer at 60, and daughter with breast cancer at 32; Cruz Francois currently receiving therapy at [facility] (BRCA 1/2 negative). REPRODUCTIVE HEALTH: Age at Menarche: 12 Age at First Live : 23 Age at Menopause: surgical menopause at 46; no HRT : 3 Para: 3 : Did not breast feed History of Present Illness The patient presents today for lymphedema education/evaluation. Risk factors for the development of breast cancer treatment related lymphedema include: 1. History of right mastectomy/TRAM with SLNBX (0/4) in 1992. 2. Left mastectomy without reconstruction ([facility]) 03/29/2016. 3. Left SLNBX (0/3) 4. BMI > 30 MEDICAL TEAM: Surgeon: Cruz Tadeo DO [address] [address] Medical oncologist: Barbara Levy MD [address] [id number] Enrollment Visit Type: Pre-Operative Patient Completed Questionnaire?: No BASELINE DIAGNOSTIC ASSESSMENT Diagnosis performed at [facility]? Yes Diagnostic Procedure: Core Biopsy: Stereotactic Surgery performed at [facility]? Yes Surgical Procedure: SLN Mapping and Total Mastectomy: Plan: Adjuvant Review of Systems Appetite good. Weight BMI (36.49 <- 36.39 <- 37.21 <- 36.84 <- 35.17) Trying to be more active (now recovered from a leg fracture) Now on Arimidex daily. No fever or chills. No SOB or cough. No chest pain or palpitations. No numbness or tingling of the fingers. No upper body weakness. No rash or ulcerations of the skin. Patient denies heaviness, swelling or pain in the LUE. Patient reports that she has had "persistent swelling" in the RUE since her surgery (right MRM/TRAM) in 1992. Patient reports that she has had (2) separate episodes of cellulitis in the RUE treated with antibiotics (many years ago). She has not received any PT/OT for lymphedema of the RUE in the past. She does not have a compression sleeve for the RUE. Objective: anastrozole (ARIMIDEX) 1 mg tablet Take [...] by mouth at bedtime daily. Vitals: 10/02/17 1008 BP: 130/78 Pulse: 64 Temp: 36.7 C (98.1 F) TempSrc: Oral SpO2: 96% Weight: 96.2 kg (212 lb) Height: 160 cm (62.99") Body mass index is 37.57 kg/(m^2). Pain Score: Zero Pain Addressed: N/A Fatigue Scale:0 Eastern Cooperative Oncology Group performance status is 0, Fully active, able to carry on all pre-disease performance without restriction.. Physical Exam Circumferential Measurements Perometer Measurements Bioimpedance Analysis RUE/LUE: Left (ml): 4328 N/A Hand: 21.0/21.1 Right (ml): 4835 Difference of 507ml Wrist: 18.4/17.2 8 cm: 22.3/21.0 16 cm: 29.0/27.2 Elbow cm: 32.0/29.0 (3.0 cm) 8 cm: 35.0/33.0 (2.0 cm) 16 cm: 37.0/35.2 24 cm: 43.0/39.5 (3.5 cm) BMI: 35.17 Baseline prior to left breast surgery; pre-existing RUE lymphedema Notes: 03/18/2016 Circumferential Measurements Perometer Measurements Bioimpedance Analysis RUE/LUE: Left (ml): 4975 N/A Hand: 21.0/20.8 Right (ml): 5296 Wrist: 18.5/18.0 Difference (ml): 321 8 cm: 23.3/22.5 16 cm: 29.5/27.8 Elbow cm: 31.8/29.8 (2.0 cm) 8 cm: 36.5/35.0 16 cm: 39.0/37.0 24 cm: 40.5/39.0 BMI: 36.84 Pre-existing RUE lymphedema Now @ risk for LUE lymphedema 07/25/2016 (3 month post-op) Circumferential Measurements Perometer Measurements Bioimpedance Analysis RUE/LUE: Left (ml): 4641 N/A Hand: 20.5/20.8 Right (ml): 5090 Wrist: 18.9/17.7 Difference (ml): 500 8 cm: 25.0/23.5 16 cm: 29.8/28.5 Elbow cm: 33.0/30.8 (2.2 cm) 8 cm: 36.0/36.0 16 cm: 38.5/37.5 24 cm: 43.0/42.0 BMI: 37.2 10/03/2016 (6 month post-op) Circumferential Measurements Perometer Measurements Bioimpedance Analysis RUE/LUE: Left (ml): 4895 N/A Hand: 20.7/20.2 Right (ml): 4911 Wrist: 18.4/17.4 Difference (ml): 16 8 cm: 24.2/21.9 16 cm: 29.3/27.3 (2.0 cm) Elbow cm: 32.6/30.6 (2.0 cm) 8 cm: 36.6/35.5 16 cm: 38.2/37.1 24 cm: 41.0/40.0 BMI: 36.39 01/02/2017 (9 month post-op) Circumferential Measurements Perometer Measurements Bioimpedance Analysis RUE/LUE: Left (ml): 3793 N/A Hand: 20.5/20.0 Right (ml): 4238 Wrist: 19.7/17.9 Difference (ml): 445 8 cm: 24.2/23.4 16 cm: 29.4/27.4 (2.0 cm) Elbow cm: 32.8/30.6 8 cm: 37.0/35.5 16 cm: 38.5/38.0 24 cm: 41.5/40.1 BMI: 36.49 04/03/2017 (12 month post-op) This is a 57 year old female in no acute distress, well developed. Neck: No JVD, supple. Chest: CTA bilaterally. CV: RRR without murmur. AdenoTpathy: Examination deferred. Breasts: Examination deferred. Bilateral upper extremity skin is pink, soft and intact. No rash, erythema or ulcerations noted. Right UE edema noted about the elbow. No pitting edema noted in the BUE; ulnar and radial pulses are normal. ROM: FROM 6/6 of bilateral upper extremities; able to fully extend above head. Strength: Normal and equal bilaterally. Extremities: No clubbing, cyanosis. CN: II-XII grossly intact; no sensory or motor abnormalities. Handedness: right handed Circumferential Measurements Perometer Measurements Bioimpedance Analysis RUE/LUE: Left (ml): 4295 N/A Hand: 21.0/20.8 Right (ml): 4836 Wrist: 19.3/18.3 Difference (ml): 541 8 cm: 25.0/23.5 16 cm: 30.4/28.6 Elbow cm: 34.1/32.3 8 cm: 38.0/36.0 (2cm) 16 cm: 40.2/37.8 (2.4cm) 24 cm: 43.0/39.1 (3.9cm) BMI: 37.57 10/02/2017 (18 month post-op) 03/29/2016 SURGICAL PATHOLOGY: Final Diagnosis: A. Lymph node, one, "left axillary sentinel lymph node #1", biopsy: There is no evidence of malignancy in one lymph node. (0/1) Deeper sections and a pancytokeratin immunostain are negative in support of the above diagnosis. B. Lymph node, one, "left axillary sentinel lymph node #2", biopsy: There is no evidence of malignancy in one lymph node. (0/1) Deeper sections and a pancytokeratin immunostain are negative in support of the above diagnosis. C. Lymph node, one, "left axillary sentinel lymph node #3", biopsy: There is no evidence of malignancy in one lymph node. (0/1) Deeper sections and a pancytokeratin immunostain are negative in support of the abovediagnosis. D. Breast, "left breast", simple mastectomy: Invasive lobular carcinoma, nuclear grade 1, histologic grade I. Biopsy site changes. E. Skin and breast, "left mastectomy additional lateral skin margin", excision: No diagnostic abnormalities. There is no evidence of malignancy. Comment: INVASIVE CARCINOMA OF THE BREAST Specimen Type: Simple mastectomy Laterality: Left Tumor Site: Upper outer quadrant Histologic Type: Invasive lobular carcinoma Size of Invasive Component: 2.8 x 2.4 x 1.4 cm Tumor Multicentricity: Not identified Surgical Margins: UninvolvedPlease indicate the distance For invasive carcinoma: 0.8 cm from the deep margin; greater than 4 cm from all other margins For DCIS: N/A Histologic Grade (State Road Histologic Score): I/III Tubule Formation: 3 Nuclear Grade: 1 Mitotic Count (40x objective): [address] Score: 5/9 Ductal Carcinoma In-situ (DCIS): Absent Lobular Carcinoma In-situ (LCIS): Present Lymph-Vascular Invasion: Not identified Perineural Invasion: Not identified Tumor Necrosis: Not identified Nipple Involvement: Not identified Skin Involvement: Not identified Lymph Node Sampling: [place] lymph node(s) only Total number of involved nodes/total nodes found: 0/3 Prognostic markers: Performed on previous biopsy ([id number]). See Tumor Prognostic Marker addendum in Results Review. Time between tumor removal and placement into formalin < 1 hour: Yes Fixation Time between 6-72 hours: Yes Pathologic Staging: pT2 (sn)N0(i-) Mn/a Assessment and Plan: 1. History of right MRM/SLNBX (0/4) in 1992. S/P AC. RUE lymphedema; offered PT/ OT management, patient declined. 2. Left breast CA, 02/2016. ILC, grade 1 with DCIS. Left mastectomy/SLNBX (0/3) ( [facility]). 3. Reviewed the causes and stages of lymphedema, as well as activities to avoid including but not limited to: overuse of the arm, avoiding injury, infection or constriction to the hand, arm, chest, breast or underarm area. Also discussed the benefit of upper body strengthening while starting slow and progressively increasing, but not to the point of muscle fatigue, maintaining optimal weight and precautions regarding travel and meticulous skin care. 4. Reviewed signs and symptoms to watch for, including but not limited to: achiness, tingling, discomfort, or increased warmth, signs of infection, or feelings of fullness or heaviness in the hand, arm, chest, breast or underarm areas. Also discussed that trouble fitting the arm into a jacket or shirt sleeve that fit well before or difficulty getting watches, rings or bracelets on or off should be reported. 5. Repeat circumference measurements with a tape measure and perometer measurements. Pre-existing RUE volume (SLNBX in 1992) larger than LUE, however, volume difference at this visit has increased to 541ml (difference of 100ml). Tape measurements are also increased in the upper aspect of the RUE. Will watch , if measurements continue to increase we will refer to PT/OT again (patient lives close to [place], [place]). 6. RTC 6 months (24 month post-operative) measurements. Lana Bertrand APRN in this encounter Plan of Treatment Not on fileas of this encounter Visit Diagnoses Diagnosis At risk for lymphedema - Primary Other specified conditions influencing health status History of bilateral breast cancer S/P bilateral mastectomy Acquired absence of breast and nipple S/P TRAM (transverse rectus abdominis muscle) flap breast reconstruction BMI 37.0-37.9, adult in this encounter
--- OUTSIDE RECORDS SUMMARY | 2017-12-01 23:39 | XMS REPORT | Clinical Summary ---
Author Author User, XAVIER Organization [facility] Address Unknown Phone Unavailable Allergies, Adverse Reactions, Alerts Allergy Name Reaction Description Start Date Severity Status Provider No Known Allergies Sp Betancur Conditions or Problems Problem Name Problem Code Onset Date Status Entry Date Provider Comment Standard Description Annotate COUGH 786.2 Resolved Ellen Galvin Cough VIRAL INFECTION, NONSPECIFIC 079.99 Resolved Ellen Galvin Unspecified viral infection in conditions classified elsewhere and of unspecified site History of CARCINOMA, BREAST, RIGHT 174.9 1993 Active Ellen Galvin Malignant neoplasm of breast (female), unspecified Family History of BREAST CANCER, FAMILY HX Resolved Ellen Galvin Family history of malignant neoplasm of breast GASTROESOPHAGEAL REFLUX DISEASE, CHRONIC 530.81 Active Ellen Galvin Esophageal reflux BACK PAIN 724.5 Resolved Ellen Galvin Backache, unspecified MUSCLE PAIN 729.1 Resolved Ellen Galvin Myalgia and myositis, unspecified WELL WOMAN V70.0 Resolved Ellen Galvin Routine general medical examination at a health care facility ABFND, GLANDULAR PAP SMEAR, CERVIX 795.00 Resolved Ellen Galvin Abnormal glandular Papanicolaou smear of cervix ADULT SITUATIONAL REACTION 309.9 Resolved Ellen Galvin Unspecified adjustment reaction PREMENSTRUAL SYNDROME 625.4 Resolved Ellen Galvin Premenstrual tension syndromes ABDOMINAL PAIN, RIGHT UPPER QUADRANT 789.01 Resolved Ellen Galvin Abdominal pain, right upper quadrant TRANSAMINASES, SERUM, ELEVATED 790.4 Resolved Ellen Galvin Nonspecific elevation of levels of transaminase or lactic acid dehydrogenase [LDH] COUMADIN THERAPY V58.61 Resolved Ellen Galvin Long-term (current) use of anticoagulants ATRIAL FIBRILLATION 427.31 Resolved Ellen Galvin Atrial fibrillation HYPERTHYROIDISM 242.90 Resolved Ellen Galvin Thyrotoxicosis without mention of goiter or other cause, and without mention of thyrotoxic crisis or storm ALKALINE PHOSPHATASE, ELEVATED 790.5 Resolved Ellen Galvin Other nonspecific abnormal serum enzyme levels ALKALINE PHOSPHATASE, ELEVATED 790.5 Resolved Ellen Galvin Other nonspecific abnormal serum enzyme levels GRAVE'S DISEASE 242.00 Resolved Ellen Galvin Toxic diffuse goiter without mention of thyrotoxic crisis or storm URINARY FREQUENCY 788.41 Resolved Ellen Galvin Urinary frequency HYPOTHYROIDISM, 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 Active Ellen Galvin Iodine hypothyroidism HYPERTENSION 401.1 Active Ellen Galvin Benign essential hypertension VERTIGO 780.4 Resolved Ellen Galvin Dizziness and giddiness LIVER FUNCTION TESTS, ABNORMAL 794.8 Resolved Ellen Galvin Nonspecific abnormal results of function study of liver ATRIAL FIBRILLATION 427.31 Resolved Ellen Galvin Atrial fibrillation THYROTOXICOSIS 242.90 Resolved Ellen Galvin Thyrotoxicosis without mention of goiter or other cause, and without mention of thyrotoxic crisis or storm OBSTRUCTIVE SLEEP APNEA 780.57 Active Ellen Galvin Unspecified sleep apnea WELL WOMAN V70.0 Resolved Ellen Galvin Routine general medical examination at a health care facility Medication List Medication Instructions Start Date Stop Date Generic Name NDC Status Provider Patient Instruction ASPIRIN 81 MG TAB 1 PO daily ASPIRIN 78856659163 Active Ellennaomi Galvin TOPROL XL 100 MG TB24 1 PO in morning in 1/2 po in evening METOPROLOL SUCCINATE 09036972820 Active Heather Dalytis SYNTHROID 0.075 MG TAB 1 po daily LEVOTHYROXINE SODIUM 09511142666 Active Ellen Andie Galvin ELIQUIS 5 MG TABS 1 PO BID APIXABAN 80181052041 No Longer Active Ellen Andie Galvin NEXIUM 40 MG CPDR 1 PO DAILY ESOMEPRAZOLE MAGNESIUM 34582756077 Active Heather [place] SYNTHROID 25 MCG TABS 1 po daily LEVOTHYROXINE SODIUM 88630130527 No Longer Active Ellen Andie Galvin BENADRYL 25 MG CAP 1 PO Q6hrs prn DIPHENHYDRAMINE HCL 88773394518 No Longer Active Ellennaomi Galvin IBUPROFEN 200 MG TAB 1-2 Po Q6hrs prn pain IBUPROFEN 11636141609 No Longer Active Ellennaomi Galvin SYNTHROID 100 MCG TABS 1 PO daily Monday and Monday LEVOTHYROXINE SODIUM 22956836385 No Longer Active Ellennaomi Galvin CALTRATE 600 PLUS-VIT D 600-200 MG-IU TABS 1 PO BID CALCIUM- VITAMIN D Active Ellen Andie Galvin ZOFRAN ODT 4 MG TBDP 1 PO q 6hrs prn ONDANSETRON 27466716972 No Longer Active Ellen Andie Galvin COUMADIN 5 MG TABS 1 po QOD alternating with 4 mg the alternating days. 08/26 WARFARIN SODIUM 20988368364 No Longer Active Ellen Andie Galvin COUMADIN 4 MG TABS 1 po QOD alternating with 5 mg the other days. WARFARIN SODIUM 89135766217 No Longer Active Ellen Andie Galvin LEVAQUIN 500 MG TAB 1 PO QD LEVOFLOXACIN 18543581382 No Longer Active Ellen Andie Galvin MACROBID 100 MG CAPS 1 po BID x 7 days NITROFURANTOIN MONOHYD MACRO 17791575952 No Longer Active Ellen Andie Galvin LOVENOX 60 MG/0.6ML SOLN 1 injection SQ Q12hrs ENOXAPARIN SODIUM 69432853395 No Longer Active Lelen Andie Galvin PROPYLTHIOURACIL 50 MG TABS 2 PO TID PROPYLTHIOURACIL 02120822106 No Longer Active Ellen Andie Galvin COUMADIN 2 MG TABS as directed WARFARIN SODIUM 48659448672 No Longer Active Ellen Andie Galvin CARAFATE 1 GM TABS dissolve in water before meals and at bedtime for 2 weeks SUCRALFATE 90962670804 No Longer Active Ellen Andie Galvin GLUCOSAMINE CHONDROITIN COMPLX CAPS 2 PO QD NUTRITIONAL SUPPLEMENTS 56609353098 No Longer Active Ellen Andie Galvin OMEPRAZOLE 20 MG CPDR 1 PO daily OMEPRAZOLE 73638071651 No Longer Active Ellen Andie Galvin LOVENOX 60 MG/0.6ML SOLN subcutaneous injection every 12 hours until further notice ENOXAPARIN SODIUM 76225885729 No Longer Active Ellen Andie Galvin DIFLUCAN 150 MG TAB 1 PO QD once FLUCONAZOLE 15774531195 No Longer Active Ellen Andie Galvin BELLASPAS 1 po BID BELLASPAS No Longer Active Ellen Andie Galvin XANAX 0.25 MG TABS 1/2 to 1 PO tab QHS prn ALPRAZOLAM 01093496284 No Longer Active Ellen Andie Kamar ZOLOFT 50 MG TAB 1 PO daily SERTRALINE HCL 70627438036 No Longer Active Ellen Andie Velasquezner ZOLOFT 25 MG TAB 1 PO daily for 7 days SERTRALINE HCL 62662911794 No Longer Active Ellen Andie Kamar NEXIUM 40 MG CPDR 1 PO QD ESOMEPRAZOLE MAGNESIUM 71700402928 No Longer Active Ellen Andie Galvin FLEXERIL 10 MG TABS 1 po TID prn back pain CYCLOBENZAPRINE HCL 69667210862 No Longer Active Ellen Andie Galvin ROBITUSSIN DM 100-10 MG/5ML SYRP prn OTC DEXTROMETHORPHAN-GUAIFENESIN 86290437694 No Longer Active Ellen Andie Kamar ZYRTEC-D 5-120 MG TB12 1 PO BID prn CETIRIZINE- PSEUDOEPHEDRINE 96775118374 No Longer Active Ellen Andie Kamar CODICLEAR DH 5-100 MG/5ML SYRP 5 cc Po Q4-6prn HYDROCODONE-GUAIFENESIN 01539388272 No Longer Active Ellen Andie Kamar Vital Signs Date Name Value Unit Range Description blood pressure, diastolic - 8462-4 80 mm[Hg] BP merino blood pressure, systolic - 8480-6 130 mm[Hg] BP sys pulse rate E&M - 8867-4 60 /min Heart rate respiratory rate E&M - 9279-1 14 /min Resp rate weight E&M - 3141-9 195 [lb_av] Weight Measured blood pressure, diastolic - 8462-4 90 mm[Hg] BP merino blood pressure, systolic - 8480-6 142 mm[Hg] BP sys pulse rate E&M - 8867-4 72 /min Heart rate respiratory rate E&M - 9279-1 14 /min Resp rate temperature E&M 98.6 [degF] Body temperature weight E&M - 3141-9 183 [lb_av] Weight Measured blood pressure, diastolic - 8462-4 75 mm[Hg] BP merino blood pressure, systolic - 8480-6 120 mm[Hg] BP sys pulse rate E&M - 8867-4 66 /min Heart rate respiratory rate E&M - 9279-1 14 /min Resp rate weight E&M - 3141-9 196 [lb_av] Weight Measured Diagnostic Results Date Name Value Unit Range Description Clinical Lists Update: CMP,FLP,TSH,Free T4 - Chemistry alkaline phosphatase, serum 147 U/L urea nitrogen, blood 10 mg/dL very low density lipoproteins 18 mg/dL sodium, serum 141 mmol/L triglyceride, serum, fasting 92 mg/dL bilirubin, serum, total 0.5 mg/dL alanine aminotransferase (SGPT), serum 42 U/L aspartate aminotransferase (SGOT), serum 27 U/L protein, total, serum 7.4 g/dL potassium, serum 4.5 mmol/L LDL cholesterol, serum 116 mg/dL thyroid stimulating hormone, serum 1.21 u[iU]/mL HDL cholesterol, serum 55 mg/dL thyroxine, serum, free 0.98 ng/dL creatinine, serum 0.81 mg/dL carbon dioxide, venous blood 26 mmol/L cholesterol, serum 185 mg/dL chloride, serum 106 mmol/L calcium, serum 9.5 mg/dL urea nitrogen, blood 15 mg/dL alkaline phosphatase, serum 105 U/L albumin, serum 4.3 g/dL Estimated Glomerular Filtration Rate (calc) >60 mL/min/1.73m2 albumin, serum 4.2 g/dL Estimated Glomerular Filtration Rate (calc) 58 mL/min/1.73m2 glucose, plasma fasting 105 mg/dL very low density lipoproteins 15 mg/dL sodium, serum 139 mmol/L triglyceride, serum, fasting 76 mg/dL bilirubin, serum, total 0.8 mg/dL alanine aminotransferase (SGPT), serum 41 U/L aspartate aminotransferase (SGOT), serum 39 U/L protein, total, serum 7.4 g/dL potassium, serum 4.4 mmol/L LDL cholesterol, serum 159 mg/dL thyroid stimulating hormone, serum 9.11 u[iU]/mL HDL cholesterol, serum 75 mg/dL thyroxine, serum, free <0.40 ng/dL creatinine, serum 1.00 mg/dL carbon dioxide, venous blood 28 mmol/L cholesterol, serum 258 mg/dL chloride, serum 104 mmol/L calcium, serum 9.3 mg/dL glucose, plasma fasting 108 mg/dL Clinical Lists Update: TSH,FREE T4 DR [facility] - Chemistry thyroid stimulating hormone, serum 0.10 u[iU]/mL thyroxine, serum, free 1.31 ng/dL Clinical Lists Update: TSH,Free T4 - Chemistry thyroid stimulating hormone, serum 0.00 u[iU]/mL thyroxine, serum, free 2.34 ng/dL Encounters Code Encounter Date Provider Facility CPT-60926 Ofc Vst, Est Level IV 14:10:05 ASIM Galvin DO, FACP CPT-92436 Ofc Vst, Est Level IV 13:26:06 CDT Ellennaomi Varela Galvin, DO, FACP CPT-87260 Ofc Vst, Est Level IV 19:32:46 CDT Ellen Andie Varela Galvin, DO, FACP CPT-79156 Ofc Vst, Est Level IV 21:55:19 CDT Ellen Andie Varela Galvin, DO, FACP CPT-04752 Ofc Vst, Est Level IV 20:42:35 ADVERTISING ACCOUNT REPRESENTATIVE Ellen Andie Varela Galvin, DO, FACP CPT-88284 Ofc Vst, Est Level IV 12:36:50 CDT Ellen Andie Varela Kamar, DO, FACP CPT-47829 Ofc Vst, Est Level III 12:16:38 ADVERTISING ACCOUNT REPRESENTATIVE Ellennaomi Varela Kamar, DO, FACP CPT-31792 Ofc Vst, Est Level IV 11:35:20 CDT Ell[facility] CPT-32186 Ofc Vst, Est Level IV 11:01:03 ADVERTISING ACCOUNT REPRESENTATIVE Ellen Varela Galvin, DO, FACP CPT-44029 Ofc Vst, Est Level IV 11:19:59 CDT Ellen Andie Varela Kamar, DO, FACP CPT-21095 Ofc Vst, Est Level IV 13:56:22 CDT Ellen Andie Varela Galvin, DO, FACP CPT-92638 Ofc Vst, Est Level IV 11:05:47 ADVERTISING ACCOUNT REPRESENTATIVE Ellen Andie Varela Kamar, DO, FACP CPT-00360 Ofc Vst, Est Level IV 16:29:41 CDT Ellennaomi Varela Kamar, DO, FACP CPT-66909 Ofc Vst, Est Level III 11:54:48 CDT Ellennaomi Varela Kamar, DO, FACP CPT-70568 Ofc Vst, Est Level IV 11:21:22 ADVERTISING ACCOUNT REPRESENTATIVE Ellen Varela Kaamr, DO, FACP CPT-91224 Ofc Vst, Est Level IV 11:53:45 ADVERTISING ACCOUNT REPRESENTATIVE Ellen Varela Kamar, DO, FACP CPT-67838 Ofc Vst, Est Level V 11:07:46 CDT Ellennaomi Varela Kamar, DO, FACP CPT-57090 Ofc Vst, Est Level V 20:53:56 CDT Ellen Andie Varela Kamar, DO, FACP CPT-41966 Ofc Vst, Est Level V 10:23:18 CDT Ellen Andie Varela Kamar, DO, FACP CPT-97344 Ofc Vst, Est Level V 11:27:14 CDT Ellen Andie Varela Kamar, DO, FACP CPT-88251 Ofc Vst, Est Level V 11:44:17 CDT Ellen Andie Varlea Kamar, DO, FACP CPT-18764 Ofc Vst, Est Level V 15:06:42 CDT Ellennaomi Velasquezner [facility] CPT-47885 Ofc Vst, Est Level III 11:50:[address] [facility] CPT-86465 Ofc Vst, Est Level II 17:19:17 ADVERTISING ACCOUNT REPRESENTATIVE Ellen Galvin [facility] CPT-48738 Ofc Vst, Est Level III 18:26:38 ADVERTISING ACCOUNT REPRESENTATIVE Ellen Galvin [facility] CPT-17902 Ofc Vst, Est Level III 16:43:08 ADVERTISING ACCOUNT REPRESENTATIVE Ellen Galvin [facility] CPT-30183 Ofc Vst, New Level II 09:47:22 ADVERTISING ACCOUNT REPRESENTATIVE Ellen Galvin [facility] Procedures Code Procedure Name Date Entry Date Standard Description CPT-22794 Preventive, Est, (40-64) 13:08:32 ADVERTISING ACCOUNT REPRESENTATIVE CPT-26416 EKG w/ Interpretation 21:55:19 CDT CPT-97566 EKG w/ Interpretation 20:42:35 ADVERTISING ACCOUNT REPRESENTATIVE CPT-70934 Handling of specimen from office to lab 12:37:56 CDT CPT-52380 Preventive, Est, (40-64) 12:37:56 CDT CPT-63108 Preventive, Est, (40-64) 17:23:12 CDT CPT-89214 Handling of specimen from office to lab 17:23:12 CDT CPT-58051 Handling of specimen from office to lab 11:33:48 CDT CPT-51932 Preventive, Est, (40-64) 15:21:20 CDT CPT-88566 Handling of specimen from office to lab 15:21:20 CDT
--- OUTSIDE RECORDS SUMMARY | 2017-12-01 23:40 | XMS REPORT | Clinical Summary ---
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 Active Ellen Galvin Iodine hypothyroidism HYPERTENSION 401.1 Active Ellen Galvin Benign essential hypertension VERTIGO 780.4 Resolved Ellen Galvin Dizziness and giddiness LIVER FUNCTION TESTS, ABNORMAL 794.8 Active Ellen Galvin Nonspecific abnormal results of function study of liver ATRIAL FIBRILLATION 427.31 Active Ellen Galvin Atrial fibrillation THYROTOXICOSIS 242.90 Active Ellen Galvin Thyrotoxicosis without mention of goiter or other cause, and without mention of thyrotoxic crisis or storm OBSTRUCTIVE SLEEP APNEA 780.57 Active Ellen Galvin Unspecified sleep apnea WELL WOMAN V70.0 Active Ellen Galvin Routine general medical examination at a health care facility Medication List Medication Instructions Start Date Stop Date Generic Name NDC Status Provider Patient Instruction NEXIUM 40 MG CPDR 1 PO DAILY ESOMEPRAZOLE MAGNESIUM 49953829702 Active Ellen Andie Galvin TOPROL XL 100 MG TB24 1 PO DAILY METOPROLOL SUCCINATE 37922673382 Active Heather Hernandez SYNTHROID 25 MCG TABS 1 po daily LEVOTHYROXINE SODIUM 48800159399 No Longer Active Ellen Andie Galvin ELIQUIS 5 MG TABS 1 PO BID APIXABAN 70932135971 Active Ellen Andie Galvin BENADRYL 25 MG CAP 1 PO Q6hrs prn DIPHENHYDRAMINE HCL 06721895968 No Longer Active Ellennaomi Galvin IBUPROFEN 200 MG TAB 1-2 Po Q6hrs prn pain IBUPROFEN 41460351645 No Longer Active Ellen Andie Galvin SYNTHROID 100 MCG TABS 1 PO daily Monday and Monday LEVOTHYROXINE SODIUM 12513139909 No Longer Active Ellennaomi Galvin CALTRATE 600 PLUS-VIT D 600-200 MG-IU TABS 1 PO BID CALCIUM- VITAMIN D Active Ellennaomi Galvin ZOFRAN ODT 4 MG TBDP 1 PO q 6hrs prn ONDANSETRON 52524693204 No Longer Active Ellennaomi Galvin COUMADIN 5 MG TABS 1 po QOD alternating with 4 mg the alternating days. 08/26 WARFARIN SODIUM 77835566934 No Longer Active Ellen Andie Galvin COUMADIN 4 MG TABS 1 po QOD alternating with 5 mg the other days. WARFARIN SODIUM 79285767844 No Longer Active Ellen Andie Galvin LEVAQUIN 500 MG TAB 1 PO QD LEVOFLOXACIN 05135229898 No Longer Active Ellen Andie Galvin MACROBID 100 MG CAPS 1 po BID x 7 days NITROFURANTOIN MONOHYD MACRO 65698566051 No Longer Active Ellen Andie Galvin LOVENOX 60 MG/0.6ML SOLN 1 injection SQ Q12hrs ENOXAPARIN SODIUM 06551035194 No Longer Active Ellen Andie Galvin PROPYLTHIOURACIL 50 MG TABS 2 PO TID PROPYLTHIOURACIL 32134021357 No Longer Active Ellen Andie Galvin COUMADIN 2 MG TABS as directed WARFARIN SODIUM 86463674881 No Longer Active Ellen Andie Galvin CARAFATE 1 GM TABS dissolve in water before meals and at bedtime for 2 weeks SUCRALFATE 64379603825 No Longer Active Ellen Andie Galvin GLUCOSAMINE CHONDROITIN COMPLX CAPS 2 PO QD NUTRITIONAL SUPPLEMENTS 76220577093 No Longer Active Ellen Andie Galvin OMEPRAZOLE 20 MG CPDR 1 PO daily OMEPRAZOLE 08950687796 No Longer Active Ellen Andie Galvin LOVENOX 60 MG/0.6ML SOLN subcutaneous injection every 12 hours until further notice ENOXAPARIN SODIUM 41524836737 No Longer Active Ellen Andie Galvin DIFLUCAN 150 MG TAB 1 PO QD once FLUCONAZOLE 17816572723 No Longer Active Ellen Andie Galvin BELLASPAS 1 po BID BELLASPAS No Longer Active Ellen Andie Galvin XANAX 0.25 MG TABS 1/2 to 1 PO tab QHS prn ALPRAZOLAM 50540062929 No Longer Active Ellen Andie Galvin ZOLOFT 50 MG TAB 1 PO daily SERTRALINE HCL 51596132782 No Longer Active Ellen Andie Galvin ZOLOFT 25 MG TAB 1 PO daily for 7 days SERTRALINE HCL 57043318082 No Longer Active Ellen Andie Galvin NEXIUM 40 MG CPDR 1 PO QD ESOMEPRAZOLE MAGNESIUM 18055375148 No Longer Active Ellen Andie Velasquezner FLEXERIL 10 MG TABS 1 po TID prn back pain CYCLOBENZAPRINE HCL 85690048057 No Longer Active Ellen Andie Kaamr ROBITUSSIN DM 100-10 MG/5ML SYRP prn OTC DEXTROMETHORPHAN-GUAIFENESIN 66288284243 No Longer Active Ellen Andie Velasquezner ZYRTEC-D 5-120 MG TB12 1 PO BID prn CETIRIZINE- PSEUDOEPHEDRINE 03156551918 No Longer Active Ellen Andie Velasquezner CODICLEAR DH 5-100 MG/5ML SYRP 5 cc Po Q4-6prn HYDROCODONE-GUAIFENESIN 67960575121 No Longer Active Ellen Andie Galvin Vital Signs Date Name Value Unit Range Description blood pressure, diastolic - 8462-4 90 mm[Hg] [...] Clinical Lists Update: CMP,FLP,TSH,Free T4 - Chemistry chloride, serum 104 mmol/L sodium, serum 141 mmol/L cholesterol, serum 258 mg/dL cholesterol, serum 185 mg/dL carbon dioxide, venous blood 28 mmol/L carbon dioxide, venous blood 26 mmol/L creatinine, serum 1.00 mg/dL creatinine, serum 0.81 mg/dL Estimated Glomerular Filtration Rate (calc) 58 mL/min/1.73m2 Estimated Glomerular Filtration Rate (calc) >60 mL/min/1.73m2 glucose, plasma fasting 105 mg/dL glucose, plasma fasting 108 mg/dL HDL cholesterol, serum 75 mg/dL HDL cholesterol, serum 55 mg/dL LDL cholesterol, serum 159 mg/dL LDL cholesterol, serum 116 mg/dL albumin, serum 4.2 g/dL albumin, serum 4.3 g/dL alkaline phosphatase, serum 147 U/L alkaline phosphatase, serum 105 U/L bilirubin, serum, total 0.8 mg/dL bilirubin, serum, total 0.5 mg/dL urea nitrogen, blood 10 mg/dL urea nitrogen, blood 15 mg/dL calcium, serum 9.3 mg/dL calcium, serum 9.5 mg/dL chloride, serum 106 mmol/L sodium, serum 139 mmol/L alanine aminotransferase (SGPT), serum 42 U/L alanine aminotransferase (SGPT), serum 41 U/L aspartate aminotransferase (SGOT), serum 27 U/L aspartate aminotransferase (SGOT), serum 39 U/L thyroxine, serum, free <0.40 ng/dL thyroxine, serum, free 0.98 ng/dL very low density lipoproteins 15 mg/dL very low density lipoproteins 18 mg/dL triglyceride, serum, fasting 76 mg/dL triglyceride, serum, fasting 92 mg/dL thyroid stimulating hormone, serum 9.11 u[iU]/mL thyroid stimulating hormone, serum 1.21 u[iU]/mL potassium, serum 4.4 mmol/L potassium, serum 4.5 mmol/L protein, total, serum 7.4 g/dL protein, total, serum 7.4 g/dL Clinical Lists Update: TSH,FREE T4 DR [facility] - Chemistry thyroid stimulating hormone, serum 0.10 u[iU]/mL thyroxine, serum, free 1.31 ng/dL Clinical Lists Update: TSH,Free T4 - Chemistry thyroid stimulating hormone, serum 0.00 u[iU]/mL thyroid stimulating hormone, serum 0.02 u[iU]/mL thyroxine, serum, free 2.34 ng/dL thyroxine, serum, free 1.97 ng/dL Encounters Code Encounter Date Provider Facility CPT-49354 Ofc Vst, Est Level IV 13:26:06 CDT Ellen Galvin DO, FACP CPT-43665 Ofc Vst, Est Level IV 19:32:46 CDT Ellen Galvin DO, FACP CPT-00608 Ofc Vst, Est Level IV 21:55:19 CDT Ellen Galvin DO, FACP CPT-23691 Ofc Vst, Est Level IV 20:42:35 C[employer] [employer] Ellen Galvin DO, FACP CPT-72429 Ofc Vst, Est Level IV 12:36:50 CDT Ellen Galvin DO, FACP CPT-34945 Ofc Vst, Est Level III 12:16:38 C[employer] Ellennaomi Varela Kamar, DO, FACP CPT-28507 Ofc Vst, Est Level IV 11:35:20 CDT Ellenna[facility] CPT-61794 Ofc Vst, Est Level IV 11:01:03 C[employer]ETERY [employer] Ellen Andie Varela Kamar, DO, FACP CPT-81787 Ofc Vst, Est Level IV 11:19:59 CDT Ellen Andie Varela Kamar, DO, FACP CPT-67740 Ofc Vst, Est Level IV 13:56:22 CDT Ellennaomi Varela Kamar, DO, FACP CPT-99558 Ofc Vst, Est Level IV 11:05:47 CEMETERY [employer] Ellen Andie Varela Kamar, DO, FACP CPT-90359 Ofc Vst, Est Level IV 16:29:41 CDT Ellen Andie Varela Kamar, DO, FACP CPT-24502 Ofc Vst, Est Level III 11:54:48 CDT Ellennaomi Varela Kamar, DO, FACP CPT-34279 Ofc Vst, Est Level IV 11:21:22 CEMETERY [employer] Ellen Andie Varela Kamar, DO, FACP CPT-14212 Ofc Vst, Est Level IV 11:53:45 CEMETERY [employer]EN Ellen Andie Varela Kamar, DO, FACP CPT-25642 Ofc Vst, Est Level V 11:07:46 CDT Ellennaomi Varela Kamar, DO, FACP CPT-27272 Ofc Vst, Est Level V 20:53:56 CDT Ellennaomi Varela Kamar, DO, FACP CPT-06931 Ofc Vst, Est Level V 10:23:18 CDT Ellen Andie Galvin Ellen Nichole Kamar, DO, FACP CPT-90939 Ofc Vst, Est Level V 11:27:14 CDT Ellen Velasquezner Ellen Nichole Kamar, DO, FACP CPT-31676 Ofc Vst, Est Level V 11:44:17 CDT Ellen Velasquezner Ellen Nichole Kamar, DO, FACP CPT-56296 Ofc Vst, Est Level V 15:06:42 CDT Ellen Velasquezner [facility] CPT-97046 Ofc Vst, Est Level III 11:50:58 CDT Ellen Oconnellanne Kamar [facility] CPT-26776 Ofc Vst, Est Level II 17:19:17 [employer] Ellen Andieadonis Galvin [facility] CPT-04571 Ofc Vst, Est Level III 18:26:38 C[employer] Ellennaomi Galvin [facility] CPT-19930 Ofc Vst, Est Level III 16:43:08 CEMETERY [employer]ARDEN Ellen Andieadonis Galvin [facility] CPT-53345 Ofc Vst, New Level II 09:47:22 CEMETERY [employer]ARDEN Ellen Andieadonis Galvin [facility] Procedures Code Procedure Name Date Entry Date Standard Description CPT-00923 Preventive, Est, (40-64) 13:08:32 CEMETERY WARDEN CPT-38303 EKG w/ Interpretation 21:55:19 CDT CPT-17744 EKG w/ Interpretation 20:42:35 CEMETERY WARDEN CPT-19314 Handling of specimen from office to lab 12:37:56 CDT CPT-39047 Preventive, Est, (40-64) 12:37:56 CDT CPT-32744 Preventive, Est, (40-64) 17:23:12 CDT CPT-21522 Handling of specimen from office to lab 17:23:12 CDT CPT-66745 Handling of specimen from office to lab 11:33:48 CDT CPT-34155 Preventive, Est, (40-64) 15:21:20 CDT CPT-94681 Handling of specimen from office to lab 15:21:20 CDT
--- OUTSIDE RECORDS SUMMARY | 2017-12-01 23:41 | XMS REPORT | Clinical Summary ---
Author Author User, Zmanda Organization [facility] [place] Address Unknown Phone Unavailable Allergies, Adverse Reactions, [...] site History of CARCINOMA, BREAST, RIGHT 174.9 1992 Active Ellen Galvin Malignant neoplasm of breast [...] 81 MG TAB 1 PO daily ASPIRIN 06356092114 Active Ellen Galvin TOPROL XL 100 MG TB24 1 PO in morning in 1/2 po in evening METOPROLOL SUCCINATE 93795679000 Active Heather [place] SYNTHROID 0.075 MG TAB 1 po daily LEVOTHYROXINE SODIUM 36119105047 Active Ellen Andie Galvin ELIQUIS 5 MG TABS 1 PO BID APIXABAN 44546685035 No Longer Active Ellennaomi Galvin NEXIUM 40 MG CPDR 1 PO DAILY ESOMEPRAZOLE MAGNESIUM 26184477401 Active Heather [place] SYNTHROID 25 MCG TABS 1 po daily LEVOTHYROXINE SODIUM 35824578584 No Longer Active Ellen Andie Galvin BENADRYL 25 MG CAP 1 PO Q6hrs prn DIPHENHYDRAMINE HCL 95318821344 No Longer Active Ellennaomi Galvin IBUPROFEN 200 MG TAB 1-2 Po Q6hrs prn pain IBUPROFEN 60627767780 No Longer Active Ellennaomi Galvin SYNTHROID 100 MCG TABS 1 PO daily Monday and Monday LEVOTHYROXINE SODIUM 96241506796 No Longer Active Ellennaomi Galvin CALTRATE 600 PLUS-VIT D 600-200 MG-IU TABS 1 PO BID CALCIUM- VITAMIN D Active Ellennaomi Galvin ZOFRAN ODT 4 MG TBDP 1 PO q 6hrs prn ONDANSETRON 11420455727 No Longer Active Ellennaomi Galvin COUMADIN 5 MG TABS 1 po QOD alternating with 4 mg the alternating days. 08/26 WARFARIN SODIUM 30528110347 No Longer Active Ellen Andie Galvin COUMADIN 4 MG TABS 1 po QOD alternating with 5 mg the other days. WARFARIN SODIUM 70710533702 No Longer Active Ellen Andie Galvin LEVAQUIN 500 MG TAB 1 PO QD LEVOFLOXACIN 66706166981 No Longer Active Ellen Andie Galvin MACROBID 100 MG CAPS 1 po BID x 7 days NITROFURANTOIN MONOHYD MACRO 99705117632 No Longer Active Ellen Andie Galvin LOVENOX 60 MG/0.6ML SOLN 1 injection SQ Q12hrs ENOXAPARIN SODIUM 81962251212 No Longer Active Ellen Andie Galvin PROPYLTHIOURACIL 50 MG TABS 2 PO TID PROPYLTHIOURACIL 74953186594 No Longer Active Ellen Andie Galvin COUMADIN 2 MG TABS as directed WARFARIN SODIUM 36693710373 No Longer Active Ellen Andie Galvin CARAFATE 1 GM TABS dissolve in water before meals and at bedtime for 2 weeks SUCRALFATE 54865017044 No Longer Active Ellen Andie Galvin GLUCOSAMINE CHONDROITIN COMPLX CAPS 2 PO QD NUTRITIONAL SUPPLEMENTS 25514950448 No Longer Active Ellen Andie Galvin OMEPRAZOLE 20 MG CPDR 1 PO daily OMEPRAZOLE 78658925005 No Longer Active Ellen Andie Galvin LOVENOX 60 MG/0.6ML SOLN subcutaneous injection every 12 hours until further notice ENOXAPARIN SODIUM 08996308501 No Longer Active Ellen Andie Galvin DIFLUCAN 150 MG TAB 1 PO QD once FLUCONAZOLE 48499876383 No Longer Active Ellen Andie Galvin BELLASPAS 1 po BID BELLASPAS No Longer Active Ellen Andie Galvin XANAX 0.25 MG TABS 1/2 to 1 PO tab QHS prn ALPRAZOLAM 28733164285 No Longer Active Ellen Andie Kamar ZOLOFT 50 MG TAB 1 PO daily SERTRALINE HCL 49887662265 No Longer Active Ellen Andie Velasquezner ZOLOFT 25 MG TAB 1 PO daily for 7 days SERTRALINE HCL 44996402785 No Longer Active Ellen Andie Kamar NEXIUM 40 MG CPDR 1 PO QD ESOMEPRAZOLE MAGNESIUM 91939978392 No Longer Active Ellen Andie Kamar FLEXERIL 10 MG TABS 1 po TID prn back pain CYCLOBENZAPRINE HCL 44816846217 No Longer Active Ellen Andie Galvin ROBITUSSIN DM 100-10 MG/5ML SYRP prn OTC DEXTROMETHORPHAN-GUAIFENESIN 79783318173 No Longer Active Ellen Andie Kamar ZYRTEC-D 5-120 MG TB12 1 PO BID prn CETIRIZINE- PSEUDOEPHEDRINE 81740149110 No Longer Active Ellen Andie Kamar CODICLEAR DH 5-100 MG/5ML SYRP 5 cc Po Q4-6prn HYDROCODONE-GUAIFENESIN 84471191597 No Longer Active Ellen Andie Kamar Vital [...] E&M - 3141-9 183 [lb_av] Weight Measured Diagnostic Results Date Name Value Unit Range Description Clinical Lists Update: CMP,FLP,TSH,Free T4 - Chemistry Estimated Glomerular Filtration Rate (calc) 58 mL/min/1.73m2 albumin, serum 4.3 g/dL glucose, plasma fasting 105 mg/dL glucose, plasma fasting 108 mg/dL very low density lipoproteins 15 mg/dL very low density lipoproteins 18 mg/dL sodium, serum 139 mmol/L sodium, serum 141 mmol/L triglyceride, serum, fasting 76 mg/dL triglyceride, serum, fasting 92 mg/dL bilirubin, serum, total 0.8 mg/dL bilirubin, serum, total 0.5 mg/dL alanine aminotransferase (SGPT), serum 41 U/L alanine aminotransferase (SGPT), serum 42 U/L aspartate aminotransferase (SGOT), serum 39 U/L aspartate aminotransferase (SGOT), serum 27 U/L protein, total, serum 7.4 g/dL protein, total, serum 7.4 g/dL potassium, serum 4.4 mmol/L potassium, serum 4.5 mmol/L LDL cholesterol, serum 159 mg/dL LDL cholesterol, serum 116 mg/dL thyroid stimulating hormone, serum 9.11 u[iU]/mL Estimated Glomerular Filtration Rate (calc) >60 mL/min/1.73m2 albumin, serum 4.2 g/dL thyroid stimulating hormone, serum 1.21 u[iU]/mL HDL cholesterol, serum 75 mg/dL HDL cholesterol, serum 55 mg/dL thyroxine, serum, free <0.40 ng/dL thyroxine, serum, free 0.98 ng/dL creatinine, serum 1.00 mg/dL creatinine, serum 0.81 mg/dL carbon dioxide, venous blood 28 mmol/L carbon dioxide, venous blood 26 mmol/L cholesterol, serum 258 mg/dL cholesterol, serum 185 mg/dL chloride, serum 104 mmol/L chloride, serum 106 mmol/L calcium, serum 9.3 mg/dL calcium, serum 9.5 mg/dL urea nitrogen, blood 10 mg/dL urea nitrogen, blood 15 mg/dL alkaline phosphatase, serum 147 U/L alkaline phosphatase, serum 105 U/L Clinical Lists Update: TSH,FREE T4 DR [facility] - Chemistry thyroxine, serum, free 1.31 ng/dL thyroid stimulating hormone, serum 0.10 u[iU]/mL Encounters Code Encounter Date Provider Facility CPT-91051 Ofc Vst, Est Level IV 14:10:05 CDT Ellen Galvin DO, FACP CPT-43760 Ofc Vst, Est Level IV 13:26:06 CDT Ellen Galvin DO, FACP CPT-85449 Ofc Vst, Est Level IV 19:32:46 CDT Ellen Galvin DO, FACP CPT-20313 Ofc Vst, Est Level IV 21:55:19 CDT Ellen Galvin DO, FACP CPT-69941 Ofc Vst, Est Level IV 20:42:35 REGULATORY ASSISTANT Ellen Andie Galvin Ellen S Galvin, DO, FACP CPT-86733 Ofc Vst, Est Level IV 12:36:50 CDT Ellen Andie Varela Galvin, DO, FACP CPT-35625 Ofc Vst, Est Level III 12:16:38 REGULATORY ASSISTANT Ellen Varela Galvin, DO, FACP CPT-20767 Ofc Vst, Est Level IV 11:35:20 CDT [facility] C[facility]-69548 Ofc Vst, Est Level IV 11:01:03 REGULATORY ASSISTANT Ellen Varela Kamar, DO, FACP CPT-33108 Ofc Vst, Est Level IV 11:19:59 CDT Ellennaomi Varela Kamar, DO, FACP CPT-60978 Ofc Vst, Est Level IV 13:56:22 CDT Ellen Andie Varela Kamar, DO, FACP CPT-34382 Ofc Vst, Est Level IV 11:05:47 REGULATORY ASSISTANT Ellen Varela Kamar, DO, FACP CPT-05479 Ofc Vst, Est Level IV 16:29:41 CDT Ellennaomi Varela Kamar, DO, FACP CPT-91949 Ofc Vst, Est Level III 11:54:48 CDT Ellen Andie Varela Kamar, DO, FACP CPT-82943 Ofc Vst, Est Level IV 11:21:22 REGULATORY ASSISTANT Ellen Varela Galvin, DO, FACP CPT-86598 Ofc Vst, Est Level IV 11:53:45 REGULATORY ASSISTANT Ellen Varela Galvin, DO, FACP CPT-21050 Ofc Vst, Est Level V 11:07:46 CDT Ellen Andie Varela Kamar, DO, FACP CPT-90498 Ofc Vst, Est Level V 20:53:56 CDT Ellennaomi Varela Kamar, DO, FACP CPT-76988 Ofc Vst, Est Level V 10:23:18 CDT Ellen Andie Varela Kaamr, DO, FACP CPT-55606 Ofc Vst, Est Level V 11:27:14 CDT Ellen Andie Medeli Nichole Kamar, DO, FACP CPT-39948 Ofc Vst, Est Level V 11:44:17 CDT Ellen Andie Varela Kamar DO, FACP CPT-27240 Ofc Vst, Est Level V 15:06:42 CDT Ellen Velasquezner [facility] CPT-39652 Ofc Vst, Est Level III 11:50:58 CDT Ellen Andie Galvin [facility] [place] CPT-96480 Ofc Vst, Est Level II 17:19:17 REGULATORY ASSISTANT Ellen Andie Galvin [facility] [place] CPT-74832 Ofc Vst, Est Level III 18:26:38 REGULATORY ASSISTANT Ellen Galvin [facility] [place] CPT-69064 Ofc Vst, Est Level III 16:43:08 REGULATORY ASSISTANT Ellennaomi Galvin [facility] [place] CPT-35653 Ofc Vst, New Level II 09:47:22 REGULATORY ASSISTANT Ellen Galvin [facility] [place] Procedures Code Procedure Name Date Entry Date Standard Description CPT-42051 Preventive, Est, (40-64) 13:08:32 REGULATORY ASSISTANT CPT-74783 EKG w/ Interpretation 21:55:19 CDT CPT-68200 EKG w/ Interpretation 20:42:35 REGULATORY ASSISTANT CPT-31508 Handling of specimen from office to lab 12:37:56 CDT CPT-89505 Preventive, Est, (40-64) 12:37:56 CDT CPT-78893 Preventive, Est, (40-64) 17:23:12 CDT CPT-76054 Handling of specimen from office to lab 17:23:12 CDT CPT-73894 Handling of specimen from office to lab 11:33:48 CDT CPT-61092 Preventive, Est, (40-64) 15:21:20 CDT CPT-11534 Handling of specimen from office to lab 15:21:20 CDT
--- OUTSIDE RECORDS SUMMARY | 2017-12-01 23:41 | XMS REPORT | Clinical Summary ---
Author Author User, XAVIER Organization [facility] [place] Address Unknown Phone Unavailable Allergies, Adverse Reactions, [...] 81 MG TAB 1 PO daily ASPIRIN 15716277399 Active Ellennaomi Galvin TOPROL XL 100 MG TB24 1 PO in morning in 1/2 po in evening METOPROLOL SUCCINATE 43763517725 Active Ellen Andie Galvin SYNTHROID 0.075 MG TAB 1 po daily LEVOTHYROXINE SODIUM 58479716635 Active Ellen Andie Galvin ELIQUIS 5 MG TABS 1 PO BID APIXABAN 64632210868 No Longer Active Ellennaomi Galvin NEXIUM 40 MG CPDR 1 PO DAILY ESOMEPRAZOLE MAGNESIUM 97713249198 Active Ellen Andie Galvin SYNTHROID 25 MCG TABS 1 po daily LEVOTHYROXINE SODIUM 70014038764 No Longer Active Ellennaomi Galvin BENADRYL 25 MG CAP 1 PO Q6hrs prn DIPHENHYDRAMINE HCL 66692537499 No Longer Active Ellennaomi Galvin IBUPROFEN 200 MG TAB 1-2 Po Q6hrs prn pain IBUPROFEN 13702725482 No Longer Active Ellennaomi Galvin SYNTHROID 100 MCG TABS 1 PO daily Monday and Monday LEVOTHYROXINE SODIUM 52784158050 No Longer Active Ellennaomi Galvin CALTRATE 600 PLUS-VIT D 600-200 MG-IU TABS 1 PO BID CALCIUM- VITAMIN D Active Ellennaomi Galvin ZOFRAN ODT 4 MG TBDP 1 PO q 6hrs prn ONDANSETRON 49990054330 No Longer Active Ellennaomi Galvin COUMADIN 5 MG TABS 1 po QOD alternating with 4 mg the alternating days. 08/26 WARFARIN SODIUM 07802356238 No Longer Active Ellen Andie Galvin COUMADIN 4 MG TABS 1 po QOD alternating with 5 mg the other days. WARFARIN SODIUM 04645315632 No Longer Active Ellen Andie Galvin LEVAQUIN 500 MG TAB 1 PO QD LEVOFLOXACIN 88136944159 No Longer Active Ellen Andie Galvin MACROBID 100 MG CAPS 1 po BID x 7 days NITROFURANTOIN MONOHYD MACRO 97869227780 No Longer Active Ellen Andie Galvin LOVENOX 60 MG/0.6ML SOLN 1 injection SQ Q12hrs ENOXAPARIN SODIUM 45621873459 No Longer Active Ellen Andie Galvin PROPYLTHIOURACIL 50 MG TABS 2 PO TID PROPYLTHIOURACIL 50558456966 No Longer Active Ellen Andie Glavin COUMADIN 2 MG TABS as directed WARFARIN SODIUM 95373258560 No Longer Active Ellen Andie Galvin CARAFATE 1 GM TABS dissolve in water before meals and at bedtime for 2 weeks SUCRALFATE 00957155217 No Longer Active Ellen Andie Galvin GLUCOSAMINE CHONDROITIN COMPLX CAPS 2 PO QD NUTRITIONAL SUPPLEMENTS 40184707416 No Longer Active Ellen Andie Galvin OMEPRAZOLE 20 MG CPDR 1 PO daily OMEPRAZOLE 13520787337 No Longer Active Ellen Andie Galvin LOVENOX 60 MG/0.6ML SOLN subcutaneous injection every 12 hours until further notice ENOXAPARIN SODIUM 54978808523 No Longer Active Ellen Andie Galvin DIFLUCAN 150 MG TAB 1 PO QD once FLUCONAZOLE 01758745705 No Longer Active Ellen Andie Galvin BELLASPAS 1 po BID BELLASPAS No Longer Active Ellen Andie Galvin XANAX 0.25 MG TABS 1/2 to 1 PO tab QHS prn ALPRAZOLAM 78701235899 No Longer Active Ellen Andie Galvin ZOLOFT 50 MG TAB 1 PO daily SERTRALINE HCL 55271313379 No Longer Active Ellen Andie Velasquezner ZOLOFT 25 MG TAB 1 PO daily for 7 days SERTRALINE HCL 56206265514 No Longer Active Ellen Andie Kamar NEXIUM 40 MG CPDR 1 PO QD ESOMEPRAZOLE MAGNESIUM 50625494525 No Longer Active Ellen Andie Kamar FLEXERIL 10 MG TABS 1 po TID prn back pain CYCLOBENZAPRINE HCL 82375791591 No Longer Active Ellen Andie Galvin ROBITUSSIN DM 100-10 MG/5ML SYRP prn OTC DEXTROMETHORPHAN-GUAIFENESIN 13634994792 No Longer Active Ellen Andie Kamar ZYRTEC-D 5-120 MG TB12 1 PO BID prn CETIRIZINE- PSEUDOEPHEDRINE 37211381327 No Longer Active Ellen Anide Kamar CODICLEAR DH 5-100 MG/5ML SYRP 5 cc Po Q4-6prn HYDROCODONE-GUAIFENESIN 32122349287 No Longer Active Ellen Andie Kamar Vital [...] U/L alanine aminotransferase (SGPT), serum 41 U/L thyroxine, serum, free <0.40 ng/dL thyroxine, serum, free 0.98 ng/dL very low density lipoproteins 15 mg/dL very low density lipoproteins 18 mg/dL triglyceride, serum, fasting 76 mg/dL triglyceride, serum, fasting 92 mg/dL thyroid stimulating hormone, serum 9.11 u[iU]/mL thyroid stimulating hormone, serum 1.21 u[iU]/mL potassium, serum 4.4 mmol/L potassium, serum 4.5 mmol/L protein, total, serum 7.4 g/dL protein, total, serum 7.4 g/dL aspartate aminotransferase (SGOT), serum 39 U/L aspartate aminotransferase (SGOT), serum 27 U/L Clinical Lists Update: TSH,FREE T4 DR [facility] - Chemistry thyroid stimulating hormone, serum 0.10 u[iU]/mL thyroxine, serum, free 1.31 ng/dL Clinical Lists Update: TSH,Free T4 - Chemistry thyroid stimulating hormone, serum 0.00 u[iU]/mL thyroxine, serum, free 2.34 ng/dL Encounters Code Encounter Date Provider Facility CPT-31119 Ofc Vst, Est Level IV 14:10:05 LUIZAT Ellen Andie Galvin Ellen S Galvin, DO, FACP CPT-60454 Ofc Vst, Est Level IV 13:26:06 CDT Ellen Andie Varela Gavlin, DO, FACP CPT-74051 Ofc Vst, Est Level IV 19:32:46 CDT Ellen Andie Varela Galvin, DO, FACP CPT-70989 Ofc Vst, Est Level IV 21:55:19 CDT Ellen Andie Varela Galvin, DO, FACP CPT-90910 Ofc Vst, Est Level IV 20:42:35 SALES PROMOTION REPRESENTATIVE Ellen Varela Galvin, DO, FACP CPT-14250 Ofc Vst, Est Level IV 12:36:50 CDT Ellennaomi Varela Galvin, DO, FACP CPT-15132 Ofc Vst, Est Level III 12:16:38 SALES PROMOTION REPRESENTATIVE Ellennaomi Velasquezner, DO, FACP CPT-23101 Ofc Vst, Est Level IV 11:35:20 CDT Ellennaomi [facility] CPT-40996 Ofc Vst, Est Level IV 11:01:03 SALES PROMOTION REPRESENTATIVE Ellen Varela Galvin, DO, FACP CPT-07959 Ofc Vst, Est Level IV 11:19:59 CDT Ellennaomi Varela Kamar, DO, FACP CPT-71659 Ofc Vst, Est Level IV 13:56:22 CDT Ellennaomi Varela Galvin, DO, FACP CPT-36767 Ofc Vst, Est Level IV 11:05:47 SALES PROMOTION REPRESENTATIVE Ellen Varlea Kamar, DO, FACP CPT-63833 Ofc Vst, Est Level IV 16:29:41 CDT Ellen Andie Varela Kamar, DO, FACP CPT-30607 Ofc Vst, Est Level III 11:54:48 CDT Ellennaomi Varela Kamar, DO, FACP CPT-35770 Ofc Vst, Est Level IV 11:21:22 SALES PROMOTION REPRESENTATIVE Ellen Andie Varela Kamar, DO, FACP CPT-20991 Ofc Vst, Est Level IV 11:53:45 SALES PROMOTION REPRESENTATIVE Ellen Varela Kamar, DO, FACP CPT-40477 Ofc Vst, Est Level V 11:07:46 CDT Ellennaomi Varela Kamar, DO, FACP CPT-01217 Ofc Vst, Est Level V 20:53:56 CDT Ellen Andie Varela Kamar, DO, FACP CPT-11109 Ofc Vst, Est Level V 10:23:18 CDT Ellen Andie Varela Kamar, DO, FACP CPT-80026 Ofc Vst, Est Level V 11:27:14 CDT Ellennaomi Varela Galvin, DO, FACP CPT-22293 Ofc Vst, Est Level V 11:44:17 CDT Ellen Andie Varela Kamar, DO, FACP CPT-63896 Ofc Vst, Est Level V 15:06:42 CDT Ellennaomi Chaves Galvin [facility] CPT-22833 Ofc Vst, Est Level III 11:50:58 CDT Ellennaomi Galvin [facility] [place] CPT-40416 Ofc Vst, Est Level II 17:19:17 SALES PROMOTION REPRESENTATIVE Ellen Galvin [facility] [place] CPT-25191 Ofc Vst, Est Level III 18:26:38 SALES PROMOTION REPRESENTATIVE Ellen Galvin [facility] [place] CPT-89961 Ofc Vst, Est Level III 16:43:08 SALES PROMOTION REPRESENTATIVE Ellen Galvin [facility] [place] CPT-71031 Ofc Vst, New Level II 09:47:22 SALES PROMOTION REPRESENTATIVE Ellen Galvin [facility] [place] Procedures Code Procedure Name Date Entry Date Standard Description CPT-85945 Preventive, Est, (40-64) 13:08:32 SALES PROMOTION REPRESENTATIVE CPT-51974 EKG w/ Interpretation 21:55:19 CDT CPT-01694 EKG w/ Interpretation 20:42:35 SALES PROMOTION REPRESENTATIVE CPT-72904 Handling of specimen from office to lab 12:37:56 CDT CPT-06476 Preventive, Est, (40-64) 12:37:56 CDT CPT-72058 Preventive, Est, (40-64) 17:23:12 CDT CPT-44860 Handling of specimen from office to lab 17:23:12 CDT CPT-33534 Handling of specimen from office to lab 11:33:48 CDT CPT-71135 Preventive, Est, (40-64) 15:21:20 CDT CPT-52941 Handling of specimen from office to lab 15:21:20 CDT
--- OUTSIDE RECORDS SUMMARY | 2017-12-01 23:42 | XMS REPORT | Clinical Summary ---
Author Author User, XAVIER Organization [facility] Address Unknown Phone Unavailable Allergies, Adverse Reactions, [...] 81 MG TAB 1 PO daily ASPIRIN 32312619727 Active Ellennaomi Galvin TOPROL XL 100 MG TB24 1 PO in morning in 1/2 po in evening METOPROLOL SUCCINATE 23387053877 Active Heather Dalytis SYNTHROID 0.075 MG TAB 1 po daily LEVOTHYROXINE SODIUM 32956049340 Active Ellen Andie Galvin ELIQUIS 5 MG TABS 1 PO BID APIXABAN 10761609034 No Longer Active Ellen Andie Galvin NEXIUM 40 MG CPDR 1 PO DAILY ESOMEPRAZOLE MAGNESIUM 65155787662 Active Heather [place] SYNTHROID 25 MCG TABS 1 po daily LEVOTHYROXINE SODIUM 84185617339 No Longer Active Ellen Andie Galvin BENADRYL 25 MG CAP 1 PO Q6hrs prn DIPHENHYDRAMINE HCL 73915158075 No Longer Active Ellennaomi Galvin IBUPROFEN 200 MG TAB 1-2 Po Q6hrs prn pain IBUPROFEN 99756452199 No Longer Active Ellennaomi Galvin SYNTHROID 100 MCG TABS 1 PO daily Monday and Monday LEVOTHYROXINE SODIUM 12243371936 No Longer Active Ellennaomi Galvin CALTRATE 600 PLUS-VIT D 600-200 MG-IU TABS 1 PO BID CALCIUM- VITAMIN D Active Ellen Andie Galvin ZOFRAN ODT 4 MG TBDP 1 PO q 6hrs prn ONDANSETRON 18391844907 No Longer Active Ellen Andie Galvin COUMADIN 5 MG TABS 1 po QOD alternating with 4 mg the alternating days. 08/26 WARFARIN SODIUM 39641620300 No Longer Active Ellen Andie Galvin COUMADIN 4 MG TABS 1 po QOD alternating with 5 mg the other days. WARFARIN SODIUM 88823447169 No Longer Active Ellen Andie Galvin LEVAQUIN 500 MG TAB 1 PO QD LEVOFLOXACIN 84062218379 No Longer Active Ellen Andie Galvin MACROBID 100 MG CAPS 1 po BID x 7 days NITROFURANTOIN MONOHYD MACRO 27051398172 No Longer Active Ellen Andie Galvin LOVENOX 60 MG/0.6ML SOLN 1 injection SQ Q12hrs ENOXAPARIN SODIUM 24675526405 No Longer Active Ellen Andie Galvin PROPYLTHIOURACIL 50 MG TABS 2 PO TID PROPYLTHIOURACIL 66047703697 No Longer Active Ellen Andie Galvin COUMADIN 2 MG TABS as directed WARFARIN SODIUM 86659181088 No Longer Active Ellen Andie Galvin CARAFATE 1 GM TABS dissolve in water before meals and at bedtime for 2 weeks SUCRALFATE 41568857597 No Longer Active Ellen Andie Galvin GLUCOSAMINE CHONDROITIN COMPLX CAPS 2 PO QD NUTRITIONAL SUPPLEMENTS 97060957098 No Longer Active Ellen Andie Galvin OMEPRAZOLE 20 MG CPDR 1 PO daily OMEPRAZOLE 07469000688 No Longer Active Ellen Andie Galvin LOVENOX 60 MG/0.6ML SOLN subcutaneous injection every 12 hours until further notice ENOXAPARIN SODIUM 24309024388 No Longer Active Ellen Andie Galvin DIFLUCAN 150 MG TAB 1 PO QD once FLUCONAZOLE 40248845823 No Longer Active Ellen Andie Galvin BELLASPAS 1 po BID BELLASPAS No Longer Active Ellen Andie Galvin XANAX 0.25 MG TABS 1/2 to 1 PO tab QHS prn ALPRAZOLAM 60543472967 No Longer Active Ellen Andie Kamar ZOLOFT 50 MG TAB 1 PO daily SERTRALINE HCL 08693932654 No Longer Active Ellen Andie Velasquezner ZOLOFT 25 MG TAB 1 PO daily for 7 days SERTRALINE HCL 64753627416 No Longer Active Ellen Andie Kamar NEXIUM 40 MG CPDR 1 PO QD ESOMEPRAZOLE MAGNESIUM 07682774133 No Longer Active Ellen Andie Galvin FLEXERIL 10 MG TABS 1 po TID prn back pain CYCLOBENZAPRINE HCL 25484785384 No Longer Active Ellen Andie Galvin ROBITUSSIN DM 100-10 MG/5ML SYRP prn OTC DEXTROMETHORPHAN-GUAIFENESIN 11814603755 No Longer Active Ellen Andie Kamar ZYRTEC-D 5-120 MG TB12 1 PO BID prn CETIRIZINE- PSEUDOEPHEDRINE 38858733924 No Longer Active Ellen Andie Kamar CODICLEAR DH 5-100 MG/5ML SYRP 5 cc Po Q4-6prn HYDROCODONE-GUAIFENESIN 86373255946 No Longer Active Ellen Andie Kamar Vital [...] 159 mg/dL LDL cholesterol, serum 116 mg/dL Estimated Glomerular Filtration Rate (calc) >60 mL/min/1.73m2 albumin, serum 4.2 g/dL alkaline phosphatase, serum 105 U/L alkaline phosphatase, serum 147 U/L thyroid stimulating hormone, serum 9.11 u[iU]/mL thyroid stimulating hormone, serum 1.21 u[iU]/mL HDL [...] 10 mg/dL urea nitrogen, blood 15 mg/dL Clinical Lists Update: TSH,FREE T4 DR [facility] - Chemistry thyroxine, serum, free 1.31 ng/dL thyroid stimulating hormone, serum 0.10 u[iU]/mL Clinical Lists Update: TSH,Free T4 - Chemistry thyroxine, serum, free 2.34 ng/dL thyroid stimulating hormone, serum 0.00 u[iU]/mL Encounters Code Encounter Date Provider Facility CPT-54013 Ofc Vst, Est Level IV 14:10:05 CDT Ellen Galvin DO, FACP CPT-77049 Ofc Vst, Est Level IV 13:26:06 CDT Ellen Galvin DO, FACP CPT-04220 Ofc Vst, Est Level IV 19:32:46 CDT Ellen Galvin DO, FACP CPT-73631 Ofc Vst, Est Level IV 21:55:19 CDT Ellen Velasquezner, DO, FACP CPT-37193 Ofc Vst, Est Level IV 20:42:35 PIPELINER Ellen Varela Galvin, DO, FACP CPT-97763 Ofc Vst, Est Level IV 12:36:50 CDT Ellen Varela Kamar, DO, FACP CPT-42225 Ofc Vst, Est Level III 12:16:38 PIPELINER Ellen Varela Galvin, DO, FACP CPT-75787 Ofc Vst, Est Level IV 11:35:20 CDT Ellennaomi [facility] CPT-33559 Ofc Vst, Est Level IV 11:01:03 PIPELINER Ellen Varela Kamar, DO, FACP CPT-16248 Ofc Vst, Est Level IV 11:19:59 CDT Ellennaomi Varela Kamar, DO, FACP CPT-44100 Ofc Vst, Est Level IV 13:56:22 CDT Ellennaomi Varela Kamar, DO, FACP CPT-97401 Ofc Vst, Est Level IV 11:05:47 PIPELINER Ellen Varela Kamar, DO, FACP CPT-73038 Ofc Vst, Est Level IV 16:29:41 CDT Ellennaomi Varela Kamar, DO, FACP CPT-37186 Ofc Vst, Est Level III 11:54:48 CDT Ellennaomi Varela Kamar, DO, FACP CPT-09153 Ofc Vst, Est Level IV 11:21:22 PIPELINER Ellen Varela Kamar, DO, FACP CPT-42674 Ofc Vst, Est Level IV 11:53:45 PIPELINER Ellen Varela Kamar, DO, FACP CPT-47806 Ofc Vst, Est Level V 11:07:46 CDT Ellen Andie Galvin Ellen Nichole Kamar, DO, FACP CPT-48316 Ofc Vst, Est Level V 20:53:56 CDT Ellen Andie Velasquezner Ellen Varela Kamar, DO, FACP CPT-28657 Ofc Vst, Est Level V 10:23:18 CDT Ellen Andie Galvin Ellen Nichole Kamar, DO, FACP CPT-41429 Ofc Vst, Est Level V 11:27:14 CDT Ellen Andie Galvin Ellen Nichole Kamar, DO, FACP CPT-69490 Ofc Vst, Est Level V 11:44:17 CDT Ellen Andie Galvin Ellen Nichole Kamar, DO, FACP CPT-85408 Ofc Vst, Est Level V 15:06:42 CDT Ellennaomi Galvin [facility] CPT-18039 Ofc Vst, Est Level III 11:50:58 CDT Ellennaomi Galvin [facility] [place] CPT-41076 Ofc Vst, Est Level II 17:19:17 PIPELINER Ellen Galvin [facility] [place] CPT-68228 Ofc Vst, Est Level III 18:26:38 PIPELINER Ellen Galvin [facility] CPT-41493 Ofc Vst, Est Level III 16:43:08 PIPELINER Ellen [facility] [place] CPT-27504 Ofc Vst, New Level II 09:47:22 PIPELINER Ellen Andie [facility] [place] Procedures Code Procedure Name Date Entry Date Standard Description CPT-11138 Preventive, Est, (40-64) 13:08:32 PIPELINER CPT-78073 EKG w/ Interpretation 21:55:19 CDT CPT-41601 EKG w/ Interpretation 20:42:35 PIPELINER CPT-06411 Handling of specimen from office to lab 12:37:56 CDT CPT-77191 Preventive, Est, (40-64) 12:37:56 CDT CPT-49502 Preventive, Est, (40-64) 17:23:12 CDT CPT-64152 Handling of specimen from office to lab 17:23:12 CDT CPT-40446 Handling of specimen from office to lab 11:33:48 CDT CPT-22766 Preventive, Est, (40-64) 15:21:20 CDT CPT-69202 Handling of specimen from office to lab 15:21:20 CDT
--- OUTSIDE RECORDS SUMMARY | 2017-12-01 23:44 | XMS REPORT | Continuity of Care Document ---
Author Author [facility] Organization [facility] Address Unknown Phone Unavailable Allergies Active Description Code Type Severity Reaction Onset Reported/Identified Relationship to Patient Clinical Status Yes No Known Drug Allergies [id number] Drug Allergy Unknown N/A 05/19/2009 Medications There is no data. Problems Date Dx Coded Attending Type Code Diagnosis Diagnosed By 08/21/2009 Ot 427.31 11/24/2009 Ot 427.31 11/24/2009 Ot V58.61 03/31/2010 Ot 242.90 03/31/2010 Ot 790.4 03/31/2010 Ot V58.61 04/06/2010 Ot 397.0 04/06/2010 Ot 416.8 04/06/2010 Ot 424.0 04/06/2010 Ot 427.31 04/06/2010 Ot 786.09 02/20/2011 Ot 386.30 LABYRINTHITIS NOS 02/20/2011 Ot 780.4 DIZZINESS AND GIDDINESS 08/15/2011 Ot 427.31 ATRIAL FIBRILLATION 08/15/2011 Ot 530.11 REFLUX ESOPHAGITIS 08/15/2011 Ot 562.10 DIVERTICULOSIS COLON (W/O MENT OF HEMORR 08/15/2011 Ot V10.3 HX OF BREAST MALIGNANCY 08/15/2011 Ot V58.69 OTH MED,LT, CURRENT USE 08/15/2011 Ot V76.51 SCREEN MAL NEOP-COLON 10/18/2013 ELYSIA LAWSON MD Ot 327.23 OBSTRUCTIVE SLEEP APNEA (ADULT) (PEDIATR 10/18/2013 ELYSIA LAWSON MD Ot 401.9 HYPERTENSION NOS 12/20/2013 ONOFRE MAZARIEGOS APRN Ot 327.23 OBSTRUCTIVE SLEEP APNEA (ADULT) (PEDIATR 01/03/2014 JEY VOGT DO Ot 242.90 THYROTOX NOS NO CRISIS 01/03/2014 JEY VOGT DO Ot 327.23 OBSTRUCTIVE SLEEP APNEA (ADULT) (PEDIATR 01/03/2014 JEY VOGT DO Ot 397.0 TRICUSPID VALVE DISEASE 01/03/2014 JEY VOGT DO Ot 401.9 HYPERTENSION NOS 01/03/2014 MEENA VOGT DOI Ot 410.71 AC MYOCARDIAL INFARCT,SUBENDO INFARCT,IN 01/03/2014 SIN HOGAN JEY Ot 424.0 MITRAL VALVE DISORDER 01/03/2014 MEENA VOGT DOI Ot 427.31 ATRIAL FIBRILLATION 01/03/2014 MEENA VOGT DOI Ot 530.81 ESOPHAGEAL REFLUX 01/03/2014 MEENA VOGT DOI Ot 733.90 BONE CARTILAGE DIS NOS 01/03/2014 SIN HOGAN JEY Ot V10.3 HX OF BREAST MALIGNANCY 01/03/2014 SIN HOGAN JEY Ot 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 07/15/2014 SIN HOGAN JEY Ot 242.90 THYROTOX NOS NO CRISIS 07/15/2014 SIN HOGAN JEY Ot 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 09/04/2014 SIN HOGAN JEY Ot 244.9 HYPOTHYROIDISM NOS 09/04/2014 SIN HOGAN JEY Ot 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 10/09/2014 Ot 530.81 10/09/2014 Ot 789.01 10/09/2014 Ot 790.4 10/09/2014 Ot V58.61 10/09/2014 Ot V58.83 10/09/2014 Ot 242.90 10/09/2014 Ot 790.4 10/09/2014 Ot V58.61 10/09/2014 Ot 242.90 10/09/2014 Ot 427.31 10/09/2014 Ot V58.61 10/09/2014 Ot 242.90 10/09/2014 Ot 242.90 10/09/2014 Ot 427.31 10/09/2014 Ot V58.61 10/09/2014 Ot 242.90 10/09/2014 Ot 790.4 10/09/2014 Ot 790.5 10/09/2014 Ot V58.61 10/09/2014 Ot 242.90 10/09/2014 Ot 427.31 10/09/2014 Ot 242.90 10/09/2014 Ot 427.31 10/09/2014 Ot 242.90 10/09/2014 Ot 242.90 10/09/2014 Ot 788.41 10/09/2014 Ot 242.90 10/09/2014 Ot 427.31 10/09/2014 Ot 724.5 10/09/2014 Ot 729.1 10/09/2014 Ot 790.4 10/09/2014 Ot 790.5 10/09/2014 Ot V58.61 10/09/2014 Ot 242.90 10/09/2014 Ot V58.61 10/09/2014 Ot 242.00 10/09/2014 Ot 427.31 10/09/2014 Ot 790.4 10/09/2014 Ot V58.61 10/09/2014 Ot 242.00 10/09/2014 Ot 242.00 10/09/2014 Ot 427.31 10/09/2014 Ot 789.01 10/09/2014 Ot 790.4 10/09/2014 Ot V10.3 10/09/2014 Ot V16.3 10/09/2014 Ot V58.61 10/09/2014 Ot 242.00 10/09/2014 Ot 244.2 10/09/2014 Ot 427.31 10/09/2014 Ot V58.61 10/09/2014 Ot 244.2 10/09/2014 Ot 242.90 10/09/2014 Ot 790.4 10/09/2014 Ot V58.61 10/09/2014 Ot 244.9 10/09/2014 Ot 242.90 10/09/2014 Ot 244.2 10/09/2014 Ot 244.9 10/09/2014 Ot 242.90 10/09/2014 Ot 244.2 10/09/2014 Ot 427.31 10/09/2014 Ot 790.4 10/09/2014 Ot 790.5 10/09/2014 Ot V10.3 10/09/2014 Ot 244.2 10/09/2014 Ot 242.00 10/09/2014 Ot 242.90 10/09/2014 Ot 401.1 10/09/2014 Ot 427.31 10/09/2014 Ot V58.61 10/09/2014 Ot 733.90 10/09/2014 Ot 244.2 10/09/2014 Ot 401.1 10/09/2014 Ot 244.9 10/09/2014 Ot 268.9 10/09/2014 Ot 401.9 10/09/2014 Ot 242.00 10/09/2014 Ot 242.90 10/09/2014 Ot 401.1 10/09/2014 Ot 427.31 10/09/2014 Ot V58.61 10/09/2014 VOGT DO, JEY Ot 242.00 10/09/2014 VOGT DO, JEY Ot 401.1 10/09/2014 VOGT DO, JEY Ot 427.31 10/09/2014 VOGT DO, JEY Ot V58.61 10/09/2014 VOGT DO, JEY Ot 244.2 10/09/2014 VOGT DO, JEY Ot 401.1 10/09/2014 VOGT DO, JEY Ot 530.81 10/09/2014 VOGT DO, JEY Ot 790.5 10/09/2014 VOGT DO, JEY Ot 794.8 10/09/2014 VOGT DO, JEY Ot V10.3 10/09/2014 VOGT DO, JEY Ot 242.90 10/09/2014 VOGT DO, JEY Ot 242.90 10/09/2014 Ot 242.90 10/09/2014 Ot 244.2 10/09/2014 ROBERTH WILSON DO Ot 242.90 10/09/2014 Ot 244.9 10/09/2014 Ot 275.03 10/13/2014 Ot 530.81 10/13/2014 Ot 789.01 10/13/2014 Ot 790.4 10/13/2014 Ot V58.61 10/13/2014 Ot V58.83 10/13/2014 Ot 242.90 10/13/2014 Ot 790.4 10/13/2014 Ot V58.61 10/13/2014 Ot 242.90 10/13/2014 Ot 427.31 10/13/2014 Ot V58.61 10/13/2014 Ot 242.90 10/13/2014 Ot 242.90 10/13/2014 Ot 427.31 10/13/2014 Ot V58.61 10/13/2014 Ot 242.90 10/13/2014 Ot 790.4 10/13/2014 Ot 790.5 10/13/2014 Ot V58.61 10/13/2014 Ot 242.90 10/13/2014 Ot 427.31 10/13/2014 Ot 242.90 10/13/2014 Ot 427.31 10/13/2014 Ot 242.90 10/13/2014 Ot 242.90 10/13/2014 Ot 788.41 10/13/2014 Ot 242.90 10/13/2014 Ot 427.31 10/13/2014 Ot 724.5 10/13/2014 Ot 729.1 10/13/2014 Ot 790.4 10/13/2014 Ot 790.5 10/13/2014 Ot V58.61 10/13/2014 Ot 242.90 10/13/2014 Ot V58.61 10/13/2014 Ot 242.00 10/13/2014 Ot 427.31 10/13/2014 Ot 790.4 10/13/2014 Ot V58.61 10/13/2014 Ot 242.00 10/13/2014 Ot 242.00 10/13/2014 Ot 427.31 10/13/2014 Ot 789.01 10/13/2014 Ot 790.4 10/13/2014 Ot V10.3 10/13/2014 Ot V16.3 10/13/2014 Ot V58.61 10/13/2014 Ot 242.00 10/13/2014 Ot 244.2 10/13/2014 Ot 427.31 10/13/2014 Ot V58.61 10/13/2014 Ot 244.2 10/13/2014 Ot 242.90 10/13/2014 Ot 790.4 10/13/2014 Ot V58.61 10/13/2014 Ot 244.9 10/13/2014 Ot 242.90 10/13/2014 Ot 244.2 10/13/2014 Ot 244.9 10/13/2014 Ot 242.90 10/13/2014 Ot 244.2 10/13/2014 Ot 427.31 10/13/2014 Ot 790.4 10/13/2014 Ot 790.5 10/13/2014 Ot V10.3 10/13/2014 Ot 244.2 10/13/2014 Ot 242.00 10/13/2014 Ot 242.90 10/13/2014 Ot 401.1 10/13/2014 Ot 427.31 10/13/2014 Ot V58.61 10/13/2014 Ot 733.90 10/13/2014 Ot 244.2 10/13/2014 Ot 401.1 10/13/2014 Ot 244.9 10/13/2014 Ot 268.9 10/13/2014 Ot 401.9 10/13/2014 Ot 242.00 10/13/2014 Ot 242.90 10/13/2014 Ot 401.1 10/13/2014 Ot 427.31 10/13/2014 Ot V58.61 10/13/2014 VOGT DO, JEY Ot 242.00 10/13/2014 VOGT DO, JEY Ot 401.1 10/13/2014 VOGT DO, JEY Ot 427.31 10/13/2014 VOGT DO, JEY Ot V58.61 10/13/2014 VOGT DO, JEY Ot 244.2 10/13/2014 VOGT DO, JEY Ot 401.1 10/13/2014 VOGT DO, JEY Ot 530.81 10/13/2014 VOGT DO, JEY Ot 790.5 10/13/2014 VOGT DO, JEY Ot 794.8 10/13/2014 VOGT DO, JEY Ot V10.3 10/13/2014 VOGT DO, JEY Ot 242.90 10/13/2014 VOGT DO, JEY Ot 242.90 10/13/2014 Ot 242.90 10/13/2014 Ot 244.2 10/13/2014 ROBERTH WILSON DO R Ot 242.90 10/13/2014 Ot 244.9 10/13/2014 Ot 275.03 10/13/2014 VOGT DO, JEY Ot 242.90 10/13/2014 VOGT DO, JEY Ot 244.2 10/13/2014 VOGT DO, JEY Ot 401.1 10/13/2014 VOGT DO, JEY Ot 427.31 10/13/2014 VOGT DO, JEY Ot 530.81 10/13/2014 VOGT DO, JEY Ot 780.57 10/13/2014 VOGT DO, JEY Ot V58.69 10/13/2014 VOGT DO, JEY Ot V58.83 10/13/2014 VOGT DO, JEY Ot V70.0 10/22/2014 ROBERTH WILSON DO R Ot 242.90 THYROTOX NOS NO CRISIS 11/17/2014 VOGT DO, JEY Ot 242.90 11/17/2014 VOGT DO, JEY Ot 244.2 11/17/2014 VOGT DO, JEY Ot 401.1 11/17/2014 VOGT DO, JEY Ot 427.31 11/17/2014 VOGT DO, JEY Ot 530.81 11/17/2014 VOGT DO, JEY Ot 780.57 11/17/2014 VOGT DO, JEY Ot V58.69 11/17/2014 SIN HOGAN JEY Ot V58.83 11/17/2014 SIN HOGAN, JEY Ot V70.0 11/26/2014 Ot 242.90 11/26/2014 Ot 790.4 11/26/2014 Ot V58.61 11/26/2014 Ot 242.90 11/26/2014 Ot 427.31 11/26/2014 Ot V58.61 11/26/2014 Ot 242.90 11/26/2014 Ot 242.90 11/26/2014 Ot 427.31 11/26/2014 Ot V58.61 11/26/2014 Ot 242.90 11/26/2014 Ot 790.4 11/26/2014 Ot 790.5 11/26/2014 Ot V58.61 11/26/2014 Ot 242.90 11/26/2014 Ot 427.31 11/26/2014 Ot 242.90 11/26/2014 Ot 427.31 11/26/2014 Ot 242.90 11/26/2014 Ot 242.90 11/26/2014 Ot 788.41 11/26/2014 Ot 242.90 11/26/2014 Ot 427.31 11/26/2014 Ot 724.5 11/26/2014 Ot 729.1 11/26/2014 Ot 790.4 11/26/2014 Ot 790.5 11/26/2014 Ot V58.61 11/26/2014 Ot 242.90 11/26/2014 Ot V58.61 11/26/2014 Ot 242.00 11/26/2014 Ot 427.31 11/26/2014 Ot 790.4 11/26/2014 Ot V58.61 11/26/2014 Ot 242.00 11/26/2014 Ot 242.00 11/26/2014 Ot 427.31 11/26/2014 Ot 789.01 11/26/2014 Ot 790.4 11/26/2014 Ot V10.3 11/26/2014 Ot V16.3 11/26/2014 Ot V58.61 11/26/2014 Ot 242.00 11/26/2014 Ot 244.2 11/26/2014 Ot 427.31 11/26/2014 Ot V58.61 11/26/2014 Ot 244.2 11/26/2014 Ot 242.90 11/26/2014 Ot 790.4 11/26/2014 Ot V58.61 11/26/2014 Ot 244.9 11/26/2014 Ot 242.90 11/26/2014 Ot 244.2 11/26/2014 Ot 244.9 11/26/2014 Ot 242.90 11/26/2014 Ot 244.2 11/26/2014 Ot 427.31 11/26/2014 Ot 790.4 11/26/2014 Ot 790.5 11/26/2014 Ot V10.3 11/26/2014 Ot 244.2 11/26/2014 Ot 242.00 11/26/2014 Ot 242.90 11/26/2014 Ot 401.1 11/26/2014 Ot 427.31 11/26/2014 Ot V58.61 11/26/2014 Ot 733.90 11/26/2014 Ot 244.2 11/26/2014 Ot 401.1 11/26/2014 Ot 244.9 11/26/2014 Ot 268.9 11/26/2014 Ot 401.9 11/26/2014 Ot 242.00 11/26/2014 Ot 242.90 11/26/2014 Ot 401.1 11/26/2014 Ot 427.31 11/26/2014 Ot V58.61 11/26/2014 VOGT DO, JEY Ot 242.00 11/26/2014 VOGT DO, JEY Ot 401.1 11/26/2014 VOGT DO, JEY Ot 427.31 11/26/2014 VOGT DO, JEY Ot V58.61 11/26/2014 VOGT DO, JEY Ot 244.2 11/26/2014 VOGT DO, JEY Ot 401.1 11/26/2014 VOGT DO, JEY Ot 530.81 11/26/2014 VOGT DO, JEY Ot 790.5 11/26/2014 VOGT DO, JEY Ot 794.8 11/26/2014 VOGT DO, JEY Ot V10.3 11/26/2014 VOGT DO, JEY Ot 242.90 11/26/2014 VOGT DO, JEY Ot 242.90 11/26/2014 Ot 242.90 11/26/2014 Ot 244.2 11/26/2014 Ot 244.9 11/26/2014 Ot 275.03 11/26/2014 VOGT DO, JEY Ot 242.90 11/26/2014 VOGT DO, JEY Ot 244.2 11/26/2014 SIN HOGAN, JEY Ot 401.1 11/26/2014 SIN HOGAN, JEY Ot 427.31 11/26/2014 SIN HOGAN, JEY Ot 530.81 11/26/2014 SIN HOGAN, JEY Ot 780.57 11/26/2014 SIN HOGAN, JEY Ot V58.69 11/26/2014 SIN HOGAN JEY Ot V58.83 11/26/2014 MEENA VOGT DOI Ot V70.0 11/26/2014 PATTIE WILSON DON R Ot 242.90 12/26/2014 STEVE HOGAN ROBERTH R Ot 242.90 12/26/2014 Ot 242.90 12/26/2014 Ot 427.31 12/26/2014 Ot 242.90 12/26/2014 Ot 427.31 12/26/2014 Ot 242.90 12/26/2014 Ot 242.90 12/26/2014 Ot 788.41 12/26/2014 Ot 242.90 12/26/2014 Ot 427.31 12/26/2014 Ot 724.5 12/26/2014 Ot 729.1 12/26/2014 Ot 790.4 12/26/2014 Ot 790.5 12/26/2014 Ot V58.61 12/26/2014 Ot 242.90 12/26/2014 Ot V58.61 12/26/2014 Ot 242.00 12/26/2014 Ot 427.31 12/26/2014 Ot 790.4 12/26/2014 Ot V58.61 12/26/2014 Ot 242.00 12/26/2014 Ot 242.00 12/26/2014 Ot 427.31 12/26/2014 Ot 789.01 12/26/2014 Ot 790.4 12/26/2014 Ot V10.3 12/26/2014 Ot V16.3 12/26/2014 Ot V58.61 12/26/2014 Ot 242.00 12/26/2014 Ot 244.2 12/26/2014 Ot 427.31 12/26/2014 Ot V58.61 12/26/2014 Ot 244.2 12/26/2014 Ot 242.90 12/26/2014 Ot 790.4 12/26/2014 Ot V58.61 12/26/2014 Ot 244.9 12/26/2014 Ot 242.90 12/26/2014 Ot 244.2 12/26/2014 Ot 244.9 12/26/2014 Ot 242.90 12/26/2014 Ot 244.2 12/26/2014 Ot 427.31 12/26/2014 Ot 790.4 12/26/2014 Ot 790.5 12/26/2014 Ot V10.3 12/26/2014 Ot 244.2 12/26/2014 Ot 242.00 12/26/2014 Ot 242.90 12/26/2014 Ot 401.1 12/26/2014 Ot 427.31 12/26/2014 Ot V58.61 12/26/2014 Ot 733.90 12/26/2014 Ot 244.2 12/26/2014 Ot 401.1 12/26/2014 Ot 244.9 12/26/2014 Ot 268.9 12/26/2014 Ot 401.9 12/26/2014 Ot 242.00 12/26/2014 Ot 242.90 12/26/2014 Ot 401.1 12/26/2014 Ot 427.31 12/26/2014 Ot V58.61 12/26/2014 VOGT DO, JEY Ot 242.00 12/26/2014 VOGT DO, JEY Ot 401.1 12/26/2014 VOGT DO, JEY Ot 427.31 12/26/2014 VOGT DO, JEY Ot V58.61 12/26/2014 VOGT DO, JEY Ot 244.2 12/26/2014 VOGT DO, JEY Ot 401.1 12/26/2014 VOGT DO, JEY Ot 530.81 12/26/2014 VOGT DO, JEY Ot 790.5 12/26/2014 VOGT DO, JEY Ot 794.8 12/26/2014 VOGT DO, JEY Ot V10.3 12/26/2014 VOGT DO, JEY Ot 242.90 12/26/2014 VOGT DO, JEY Ot 242.90 12/26/2014 Ot 242.90 12/26/2014 Ot 244.2 12/26/2014 Ot 244.9 12/26/2014 Ot 275.03 12/26/2014 VOGT DO, JEY Ot 242.90 12/26/2014 VOGT DO, JEY Ot 244.2 12/26/2014 VOGT DO, JEY Ot 401.1 12/26/2014 SIN DO, JEY Ot 427.31 12/26/2014 SIN DO, JEY Ot 530.81 12/26/2014 SIN DO, JEY Ot 780.57 12/26/2014 SIN DO, JEY Ot V58.69 12/26/2014 SIN DO, JEY Ot V58.83 12/26/2014 SIN DO, JEY Ot V70.0 12/26/2014 PATTIE WILSON DON R Ot 242.90 12/26/2014 PATTIE WILSON DON R Ot 242.90 01/13/2015 Ot 242.90 01/13/2015 Ot 242.90 01/13/2015 Ot 788.41 01/13/2015 Ot 242.90 01/13/2015 Ot 427.31 01/13/2015 Ot 724.5 01/13/2015 Ot 729.1 01/13/2015 Ot 790.4 01/13/2015 Ot 790.5 01/13/2015 Ot V58.61 01/13/2015 Ot 242.90 01/13/2015 Ot V58.61 01/13/2015 Ot 242.00 01/13/2015 Ot 427.31 01/13/2015 Ot 790.4 01/13/2015 Ot V58.61 01/13/2015 Ot 242.00 01/13/2015 Ot 242.00 01/13/2015 Ot 427.31 01/13/2015 Ot 789.01 01/13/2015 Ot 790.4 01/13/2015 Ot V10.3 01/13/2015 Ot V16.3 01/13/2015 Ot V58.61 01/13/2015 Ot 242.00 01/13/2015 Ot 244.2 01/13/2015 Ot 427.31 01/13/2015 Ot V58.61 01/13/2015 Ot 244.2 01/13/2015 Ot 242.90 01/13/2015 Ot 790.4 01/13/2015 Ot V58.61 01/13/2015 Ot 244.9 01/13/2015 Ot 242.90 01/13/2015 Ot 244.2 01/13/2015 Ot 244.9 01/13/2015 Ot 242.90 01/13/2015 Ot 244.2 01/13/2015 Ot 427.31 01/13/2015 Ot 790.4 01/13/2015 Ot 790.5 01/13/2015 Ot V10.3 01/13/2015 Ot 244.2 01/13/2015 Ot 242.00 01/13/2015 Ot 242.90 01/13/2015 Ot 401.1 01/13/2015 Ot 427.31 01/13/2015 Ot V58.61 01/13/2015 Ot 733.90 01/13/2015 Ot 244.2 01/13/2015 Ot 401.1 01/13/2015 Ot 244.9 01/13/2015 Ot 268.9 01/13/2015 Ot 401.9 01/13/2015 Ot 242.00 01/13/2015 Ot 242.90 01/13/2015 Ot 401.1 01/13/2015 Ot 427.31 01/13/2015 Ot V58.61 01/13/2015 VOGT DO, JEY Ot 242.00 01/13/2015 VOGT DO, JEY Ot 401.1 01/13/2015 VOGT DO, JEY Ot 427.31 01/13/2015 VOGT DO, JEY Ot V58.61 01/13/2015 VOGT DO, JEY Ot 244.2 01/13/2015 VOGT DO, JEY Ot 401.1 01/13/2015 VOGT DO, JEY Ot 530.81 01/13/2015 VOGT DO, JEY Ot 790.5 01/13/2015 VOGT DO, JEY Ot 794.8 01/13/2015 VOGT DO, JEY Ot V10.3 01/13/2015 VOGT DO, JEY Ot 242.90 01/13/2015 VOGT DO, JEY Ot 242.90 01/13/2015 Ot 242.90 01/13/2015 Ot 244.2 01/13/2015 Ot 244.9 01/13/2015 Ot 275.03 01/13/2015 VOGT DO, JEY Ot 242.90 01/13/2015 VOGT DO, JEY Ot 244.2 01/13/2015 VOGT DO, JEY Ot 401.1 01/13/2015 VOGT DO, JEY Ot 427.31 01/13/2015 VOGT DO, JEY Ot 530.81 01/13/2015 VOGT DO, JEY Ot 780.57 01/13/2015 VOGT DO, JEY Ot V58.69 01/13/2015 JEY VOGT DO Ot V58.83 01/13/2015 JEY VOGT DO Ot V70.0 01/13/2015 ROBERTH WILSON DO R Ot 242.90 01/13/2015 ROBERTH WILSON DO R Ot 242.90 01/19/2015 Ot 242.90 01/20/2015 Ot 242.90 2015 Ot 242.00 2015 Ot 242.00 2015 Ot 427.31 2015 Ot 789.01 2015 Ot 790.4 2015 Ot V10.3 2015 Ot V16.3 2015 Ot V58.61 2015 Ot 242.00 2015 Ot 244.2 2015 Ot 427.31 2015 Ot V58.61 2015 Ot 244.2 2015 Ot 242.90 2015 Ot 790.4 2015 Ot V58.61 2015 Ot 244.9 2015 Ot 242.90 2015 Ot 244.2 2015 Ot 244.9 2015 Ot 242.90 2015 Ot 244.2 2015 Ot 427.31 2015 Ot 790.4 2015 Ot 790.5 2015 Ot V10.3 2015 Ot 244.2 2015 Ot 242.00 2015 Ot 242.90 2015 Ot 401.1 2015 Ot 427.31 2015 Ot V58.61 2015 Ot 733.90 2015 Ot 244.2 2015 Ot 401.1 2015 Ot 244.9 2015 Ot 268.9 2015 Ot 401.9 2015 Ot 242.00 2015 Ot 242.90 2015 Ot 401.1 2015 Ot 427.31 2015 Ot V58.61 2015 VOGT DO, JEY Ot 242.00 2015 VOGT DO, JEY Ot 401.1 2015 VOGT DO, JEY Ot 427.31 2015 VOGT DO, JEY Ot V58.61 2015 VOGT DO, JEY Ot 244.2 2015 VOGT DO, JEY Ot 401.1 2015 VOGT DO, JEY Ot 530.81 2015 VOGT DO, JEY Ot 790.5 2015 VOGT DO, JEY Ot 794.8 2015 VOGT DO, JEY Ot V10.3 2015 VOGT DO, JEY Ot 242.90 2015 VOGT DO, JEY Ot 242.90 2015 Ot 242.90 2015 Ot 244.2 2015 Ot 244.9 2015 Ot 275.03 2015 VOGT DO, JEY Ot 242.90 2015 VOGT DO, JEY Ot 244.2 2015 VOGT DO, JEY Ot 401.1 2015 VOGT DO, JEY Ot 427.31 2015 VOGT DO, JEY Ot 530.81 2015 VOGT DO, JEY Ot 780.57 2015 VOGT DO, JEY Ot V58.69 2015 VOGT DO, JEY Ot V58.83 2015 VOGT DO, JEY Ot V70.0 2015 STEVE DO, ROBERTH R Ot 242.90 2015 STEVE DO, ROBERTH R Ot 242.90 2015 BAIMASILVIA L SOFTWARE DESIGN MANAGER Ot 242.90 2015 CIROMASILVIA L SOFTWARE DESIGN MANAGER Ot 401.9 2015 BAIMASILVIA L SOFTWARE DESIGN MANAGER Ot 427.31 2015 BAIMASILVIA L SOFTWARE DESIGN MANAGER Ot V58.61 2015 Ot 242.90 03/23/2015 STEVE DO, ROBERTH R Ot 242.90 04/09/2015 Ot 242.00 04/09/2015 Ot 427.31 04/09/2015 Ot 789.01 04/09/2015 Ot 790.4 04/09/2015 Ot V10.3 04/09/2015 Ot V16.3 04/09/2015 Ot V58.61 04/09/2015 Ot 242.00 04/09/2015 Ot 244.2 04/09/2015 Ot 427.31 04/09/2015 Ot V58.61 04/09/2015 Ot 244.2 04/09/2015 Ot 242.90 04/09/2015 Ot 790.4 04/09/2015 Ot V58.61 04/09/2015 Ot 244.9 04/09/2015 Ot 242.90 04/09/2015 Ot 244.2 04/09/2015 Ot 244.9 04/09/2015 Ot 242.90 04/09/2015 Ot 244.2 04/09/2015 Ot 427.31 04/09/2015 Ot 790.4 04/09/2015 Ot 790.5 04/09/2015 Ot V10.3 04/09/2015 Ot 244.2 04/09/2015 Ot 242.00 04/09/2015 Ot 242.90 04/09/2015 Ot 401.1 04/09/2015 Ot 427.31 04/09/2015 Ot V58.61 04/09/2015 Ot 733.90 04/09/2015 Ot 244.2 04/09/2015 Ot 401.1 04/09/2015 Ot 244.9 04/09/2015 Ot 268.9 04/09/2015 Ot 401.9 04/09/2015 Ot 242.00 04/09/2015 Ot 242.90 04/09/2015 Ot 401.1 04/09/2015 Ot 427.31 04/09/2015 Ot V58.61 04/09/2015 VOGT DO, JEY Ot 242.00 04/09/2015 VOGT DO, JEY Ot 401.1 04/09/2015 VOGT DO, JEY Ot 427.31 04/09/2015 VOGT DO, JEY Ot V58.61 04/09/2015 VOGT DO, JEY Ot 244.2 04/09/2015 VOGT DO, JEY Ot 401.1 04/09/2015 VOGT DO, JEY Ot 530.81 04/09/2015 VOGT DO, JEY Ot 790.5 04/09/2015 VOGT DO, JEY Ot 794.8 04/09/2015 VOGT DO, JEY Ot V10.3 04/09/2015 VOGT DO, JEY Ot 242.90 04/09/2015 VOGT DO, JEY Ot 242.90 04/09/2015 Ot 242.90 04/09/2015 Ot 244.2 04/09/2015 Ot 244.9 04/09/2015 Ot 275.03 04/09/2015 VOGT DO, JEY Ot 242.90 04/09/2015 VOGT DO, JEY Ot 244.2 04/09/2015 VOGT DO, JEY Ot 401.1 04/09/2015 VOGT DO, JEY Ot 427.31 04/09/2015 VOGT DO, JEY Ot 530.81 04/09/2015 VOGT DO, JEY Ot 780.57 04/09/2015 VOGT DO, JEY Ot V58.69 04/09/2015 VOGT DO, JEY Ot V58.83 04/09/2015 VOGT DO, JEY Ot V70.0 04/09/2015 STEVE DO, ROBERTH R Ot 242.90 04/09/2015 STEVE DO, ROBERTH R Ot 242.90 04/09/2015 BAIMA SILVIA L SOFTWARE DESIGN MANAGER Ot 242.90 04/09/2015 BAIMA SILVIA L SOFTWARE DESIGN MANAGER Ot 401.9 04/09/2015 BAIMA SILVIA L SOFTWARE DESIGN MANAGER Ot 427.31 04/09/2015 BAIMA SILVIA L SOFTWARE DESIGN MANAGER Ot V58.61 04/09/2015 Ot 242.90 04/09/2015 STEVE DO ROBERTH R Ot 242.90 05/15/2015 VOGT DO, JEY Ot 242.90 05/15/2015 VOGT DO, JEY Ot 401.1 05/15/2015 VOGT DO, JEY Ot 427.31 05/15/2015 VOGT DO, JEY Ot V58.69 05/15/2015 VOGT DO, JEY Ot V70.0 10/29/2015 VOGT DO, JEY Ot E03.2 10/29/2015 VOGT DO, JEY Ot E55.9 10/29/2015 VOGT DO, JEY Ot Z00.00 04/11/2016 Ot 242.90 THYROTOX NOS NO CRISIS 04/11/2016 Ot 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 04/11/2016 Ot 427.31 ATRIAL FIBRILLATION 04/11/2016 Ot 790.4 ELEV TRANSAMINASE/LDH 04/11/2016 Ot 790.5 ABN SERUM ENZY LEVEL NEC 04/11/2016 Ot V10.3 HX OF BREAST MALIGNANCY 04/11/2016 Ot 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 04/11/2016 Ot 242.00 TOX DIF GOITER NO CRISIS 04/11/2016 Ot 242.90 THYROTOX NOS NO CRISIS 04/11/2016 Ot 401.1 BENIGN HYPERTENSION 04/11/2016 Ot 427.31 ATRIAL FIBRILLATION 04/11/2016 Ot V58.61 ANTICOAGULANTS,LT,CURRENT USE 04/11/2016 Ot 733.90 BONE CARTILAGE DIS NOS 04/11/2016 Ot 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 04/11/2016 Ot 401.1 BENIGN HYPERTENSION 04/11/2016 Ot 244.9 HYPOTHYROIDISM NOS 04/11/2016 Ot 268.9 VITAMIN D DEFICIENCY NOS 04/11/2016 Ot 401.9 HYPERTENSION NOS 04/11/2016 Ot 242.00 TOX DIF GOITER NO CRISIS 04/11/2016 Ot 242.90 THYROTOX NOS NO CRISIS 04/11/2016 Ot 401.1 BENIGN HYPERTENSION 04/11/2016 Ot 427.31 ATRIAL FIBRILLATION 04/11/2016 Ot V58.61 ANTICOAGULANTS,LT,CURRENT USE 04/11/2016 JEY VOGT DO Ot 242.00 TOX DIF GOITER NO CRISIS 04/11/2016 JEY VOGT DO Ot 401.1 BENIGN HYPERTENSION 04/11/2016 JEY VOGT DO Ot 427.31 ATRIAL FIBRILLATION 04/11/2016 JEY VOGT DO Ot V58.61 ANTICOAGULANTS,LT,CURRENT USE 04/11/2016 JEY VOGT DO Ot 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 04/11/2016 JEY VOGT DO Ot 401.1 BENIGN HYPERTENSION 04/11/2016 JEY VOGT DO Ot 530.81 ESOPHAGEAL REFLUX 04/11/2016 JEY VOGT DO Ot 790.5 ABN SERUM ENZY LEVEL NEC 04/11/2016 JEY VOGT DO Ot 794.8 ABN LIVER FUNCTION STUDY 04/11/2016 JEY VOGT DO Ot V10.3 HX OF BREAST MALIGNANCY 04/11/2016 JEY VOGT DO Ot 242.90 THYROTOX NOS NO CRISIS 04/11/2016 JEY VOGT DO Ot 242.90 THYROTOX NOS NO CRISIS 04/11/2016 Ot 242.90 THYROTOX NOS NO CRISIS 04/11/2016 Ot 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 04/11/2016 Ot 244.9 HYPOTHYROIDISM NOS 04/11/2016 Ot 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 04/11/2016 JEY VOGT DO Ot 242.90 THYROTOX NOS NO CRISIS 04/11/2016 JEY VOGT DO Ot 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 04/11/2016 JEY VOGT DO Ot 401.1 BENIGN HYPERTENSION 04/11/2016 JEY VOGT DO Ot 427.31 ATRIAL FIBRILLATION 04/11/2016 JEY VOGT DO Ot 530.81 ESOPHAGEAL REFLUX 04/11/2016 MEENA VOGT DOI Ot 780.57 UNSPECIFIED SLEEP APNEA 04/11/2016 JEY VOGT DO Ot V58.69 OTH MED,LT,CURRENT USE 04/11/2016 JEY VOGT DO Ot V58.83 ENCOUNTER FOR THERAPEUTIC DRUG MONITORIN 04/11/2016 JEY VOGT DO Ot V70.0 ROUTINE MEDICAL EXAM 04/11/2016 STEVE HOGAN ROBERTH R Ot 242.90 THYROTOX NOS NO CRISIS 04/11/2016 STEVE HOGAN ROBERTH R Ot 242.90 THYROTOX NOS NO CRISIS 04/11/2016 BAISILVIA PEPE L SOFTWARE DESIGN MANAGER Ot 242.90 THYROTOX NOS NO CRISIS 04/11/2016 SILVIA MCGEE L SOFTWARE DESIGN MANAGER Ot 401.9 HYPERTENSION NOS 04/11/2016 CIROMASILVIA L SOFTWARE DESIGN MANAGER Ot 427.31 ATRIAL FIBRILLATION 04/11/2016 SILVIA MCGEE SOFTWARE DESIGN MANAGER Ot V58.61 ANTICOAGULANTS,LT,CURRENT USE 04/11/2016 Ot 242.90 THYROTOX NOS NO CRISIS 04/11/2016 STEVE HOGAN ROBERTH R Ot 242.90 THYROTOX NOS NO CRISIS 04/11/2016 MEENA VOGT DOI Ot 242.90 THYROTOX NOS NO CRISIS 04/11/2016 JEY VOGT DO Ot 401.1 BENIGN HYPERTENSION 04/11/2016 JEY OVGT DO Ot 427.31 ATRIAL FIBRILLATION 04/11/2016 JEY VOGT DO Ot V58.69 OTH MED,LT,CURRENT USE 04/11/2016 JEY VOGT DO Ot V70.0 ROUTINE MEDICAL EXAM 04/11/2016 JEY VOGT DO Ot E03.2 HYPOTHYROIDISM DUE TO MEDS AND OTH EXOGE 04/11/2016 JEY VOGT DO Ot E55.9 VITAMIN D DEFICIENCY, UNSPECIFIED 04/11/2016 VOGTJEY MONCADA DO Ot Z00.00 ENCNTR FOR GENERAL ADULT MEDICAL EXAM W04/12/2016 VOGT DOJEY Ot E03.2 HYPOTHYROIDISM DUE TO MEDS AND OTH EXOGE 04/12/2016 VOGT DOJEY Ot Z00.00 ENCNTR FOR GENERAL ADULT MEDICAL EXAM W04/27/2016 VOGTJEY MONCADA DO Ot E03.2 HYPOTHYROIDISM DUE TO MEDS AND OTH EXOGE 04/27/2016 VOGTJEY MONCADA DO Ot Z00.00 ENCNTR FOR GENERAL ADULT MEDICAL EXAM W05/08/2016 Ot 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 05/08/2016 Ot 242.00 TOX DIF GOITER NO CRISIS 05/08/2016 Ot 242.90 THYROTOX NOS NO CRISIS 05/08/2016 Ot 401.1 BENIGN HYPERTENSION 05/08/2016 Ot 427.31 ATRIAL FIBRILLATION 05/08/2016 Ot V58.61 ANTICOAGULANTS,LT,CURRENT USE 05/08/2016 Ot 733.90 BONE CARTILAGE DIS NOS 05/08/2016 Ot 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 05/08/2016 Ot 401.1 BENIGN HYPERTENSION 05/08/2016 Ot 244.9 HYPOTHYROIDISM NOS 05/08/2016 Ot 268.9 VITAMIN D DEFICIENCY NOS 05/08/2016 Ot 401.9 HYPERTENSION NOS 05/08/2016 Ot 242.00 TOX DIF GOITER NO CRISIS 05/08/2016 Ot 242.90 THYROTOX NOS NO CRISIS 05/08/2016 Ot 401.1 BENIGN HYPERTENSION 05/08/2016 Ot 427.31 ATRIAL FIBRILLATION 05/08/2016 Ot V58.61 ANTICOAGULANTS,LT,CURRENT USE 05/08/2016 JEY VOGT DO Ot 242.00 TOX DIF GOITER NO CRISIS 05/08/2016 JEY VOGT DO Ot 401.1 BENIGN HYPERTENSION 05/08/2016 JEY VOGT DO Ot 427.31 ATRIAL FIBRILLATION 05/08/2016 JEY VOGT DO Ot V58.61 ANTICOAGULANTS,LT,CURRENT USE 05/08/2016 JEY VOGT DO Ot 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 05/08/2016 JEY VOGT DO Ot 401.1 BENIGN HYPERTENSION 05/08/2016 JEY VOGT DO Ot 530.81 ESOPHAGEAL REFLUX 05/08/2016 JEY VOGT DO Ot 790.5 ABN SERUM ENZY LEVEL NEC 05/08/2016 JEY VOGT DO Ot 794.8 ABN LIVER FUNCTION STUDY 05/08/2016 JEY VOGT DO Ot V10.3 HX OF BREAST MALIGNANCY 05/08/2016 JEY VOGT DO Ot 242.90 THYROTOX NOS NO CRISIS 05/08/2016 MEENA VOGT DOI Ot 242.90 THYROTOX NOS NO CRISIS 05/08/2016 Ot 242.90 THYROTOX NOS NO CRISIS 05/08/2016 Ot 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 05/08/2016 Ot 244.9 HYPOTHYROIDISM NOS 05/08/2016 Ot 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 05/08/2016 MEENA VOGT DOI Ot 242.90 THYROTOX NOS NO CRISIS 05/08/2016 JEY VOGT DO Ot 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 05/08/2016 JEY VOGT DO Ot 401.1 BENIGN HYPERTENSION 05/08/2016 JEY VOGT DO Ot 427.31 ATRIAL FIBRILLATION 05/08/2016 JEY VOGT DO Ot 530.81 ESOPHAGEAL REFLUX 05/08/2016 JEY VOGT DO Ot 780.57 UNSPECIFIED SLEEP APNEA 05/08/2016 JEY VOGT DO Ot V58.69 OTH MED,LT,CURRENT USE 05/08/2016 JEY VOGT DO Ot V58.83 ENCOUNTER FOR THERAPEUTIC DRUG MONITORIN 05/08/2016 JEY VOGT DO Ot V70.0 ROUTINE MEDICAL EXAM 05/08/2016 ROBERTH WILSON DO R Ot 242.90 THYROTOX NOS NO CRISIS 05/08/2016 ROBERTH WILSON DO R Ot 242.90 THYROTOX NOS NO CRISIS 05/08/2016 SILVIA MCGEE SOFTWARE DESIGN MANAGER Ot 242.90 THYROTOX NOS NO CRISIS 05/08/2016 SILVIA MCGEE L SOFTWARE DESIGN MANAGER Ot 401.9 HYPERTENSION NOS 05/08/2016 SILVIA MCGEE L SOFTWARE DESIGN MANAGER Ot 427.31 ATRIAL FIBRILLATION 05/08/2016 SILVIA MCGEE L SOFTWARE DESIGN MANAGER Ot V58.61 ANTICOAGULANTS,LT,CURRENT USE 05/08/2016 Ot 242.90 THYROTOX NOS NO CRISIS 05/08/2016 ROBERTH WILSON DO R Ot 242.90 THYROTOX NOS NO CRISIS 05/08/2016 MEENA VOGT DOI Ot 242.90 THYROTOX NOS NO CRISIS 05/08/2016 SIN HOGAN JEY Ot 401.1 BENIGN HYPERTENSION 05/08/2016 VOGTMEENA MONCADA DOI Ot 427.31 ATRIAL FIBRILLATION 05/08/2016 VOGTJEY MONCADA DO Ot V58.69 OTH MED,LT,CURRENT USE 05/08/2016 VOGTMEENA MONCADA DOI Ot V70.0 ROUTINE MEDICAL EXAM 05/08/2016 VOGTMEENA MONCADA DOI Ot E03.2 HYPOTHYROIDISM DUE TO MEDS AND OTH EXOGE 05/08/2016 VOGTANTWAN HOGAN JEY Ot E55.9 VITAMIN D DEFICIENCY, UNSPECIFIED 05/08/2016 VOGTANTWAN HOGAN JEY Ot Z00.00 ENCNTR FOR GENERAL ADULT MEDICAL EXAM W05/08/2016 VOGTMEENA MONCADA DOI Ot E03.2 HYPOTHYROIDISM DUE TO MEDS AND OTH EXOGE 05/08/2016 MEENA VOGT DOI Ot Z00.00 ENCNTR FOR GENERAL ADULT MEDICAL EXAM W05/08/2016 CARL MARCUS MD Ot S82.451A DISPLACED COMMINUTED FRACTURE OF SHAFT O 05/08/2016 CARL MARCUS MD Ot W10.9XXA FALL (ON) (FROM) UNSPECIFIED STAIRS AND 05/08/2016 CARL MARCUS MD Ot Y92.[address] IN [facility] NON-INSTITUT (PRIVATE 05/08/2016 CARL MARCUS MD Ot Y99.8 OTHER EXTERNAL CAUSE STATUS 05/10/2016 CARL MARCUS MD Ot S82.451A DISPLACED COMMINUTED FRACTURE OF SHAFT O 05/10/2016 CARL MARCUS MD Ot W10.9XXA FALL (ON) (FROM) UNSPECIFIED STAIRS AND 05/10/2016 CARL MARCUS MD Ot Y92.[address] IN [facility] NON-INSTITUT (PRIVATE 05/10/2016 CARL MARCUS MD Ot Y99.8 OTHER EXTERNAL CAUSE STATUS 08/17/2016 MEENA VOGT DOI Ot E03.2 HYPOTHYROIDISM DUE TO MEDS AND OTH EXOGE 08/17/2016 MEENA VOGT DOI Ot E55.9 VITAMIN D DEFICIENCY, UNSPECIFIED 08/17/2016 MEENA VOGT DOI Ot E78.1 PURE HYPERGLYCERIDEMIA 08/17/2016 JEY VOGT DO Ot Z00.00 ENCNTR FOR GENERAL ADULT MEDICAL EXAM W/ 09/06/2016 Ot 242.00 TOX DIF GOITER NO CRISIS 09/06/2016 Ot 242.90 THYROTOX NOS NO CRISIS 09/06/2016 Ot 401.1 BENIGN HYPERTENSION 09/06/2016 Ot 427.31 ATRIAL FIBRILLATION 09/06/2016 Ot V58.61 ANTICOAGULANTS,LT,CURRENT USE 09/06/2016 Ot 733.90 BONE CARTILAGE DIS NOS 09/06/2016 Ot 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 09/06/2016 Ot 401.1 BENIGN HYPERTENSION 09/06/2016 Ot 244.9 HYPOTHYROIDISM NOS 09/06/2016 Ot 268.9 VITAMIN D DEFICIENCY NOS 09/06/2016 Ot 401.9 HYPERTENSION NOS 09/06/2016 Ot 242.00 TOX DIF GOITER NO CRISIS 09/06/2016 Ot 242.90 THYROTOX NOS NO CRISIS 09/06/2016 Ot 401.1 BENIGN HYPERTENSION 09/06/2016 Ot 427.31 ATRIAL FIBRILLATION 09/06/2016 Ot V58.61 ANTICOAGULANTS,LT,CURRENT USE 09/06/2016 JEY VOGT DO Ot 242.00 TOX DIF GOITER NO CRISIS 09/06/2016 JEY VOGT DO Ot 401.1 BENIGN HYPERTENSION 09/06/2016 JEY VOGT DO Ot 427.31 ATRIAL FIBRILLATION 09/06/2016 JEY VOGT DO Ot V58.61 ANTICOAGULANTS,LT,CURRENT USE 09/06/2016 EJY VOGT DO Ot 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 09/06/2016 JEY VOGT DO Ot 401.1 BENIGN HYPERTENSION 09/06/2016 JEY VOGT DO Ot 530.81 ESOPHAGEAL REFLUX 09/06/2016 JEY VOGT DO Ot 790.5 ABN SERUM ENZY LEVEL NEC 09/06/2016 JEY VOGT DO Ot 794.8 ABN LIVER FUNCTION STUDY 09/06/2016 JEY VOGT DO Ot V10.3 HX OF BREAST MALIGNANCY 09/06/2016 JEY VOGT DO Ot 242.90 THYROTOX NOS NO CRISIS 09/06/2016 JEY VOGT DO Ot 242.90 THYROTOX NOS NO CRISIS 09/06/2016 Ot 242.90 THYROTOX NOS NO CRISIS 09/06/2016 Ot 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 09/06/2016 Ot 244.9 HYPOTHYROIDISM NOS 09/06/2016 Ot 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 09/06/2016 MEENA VOGT DOI Ot 242.90 THYROTOX NOS NO CRISIS 09/06/2016 MEENA VOGT DOI Ot 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 09/06/2016 SIN HOGAN JEY Ot 401.1 BENIGN HYPERTENSION 09/06/2016 SIN HOGAN JEY Ot 427.31 ATRIAL FIBRILLATION 09/06/2016 MEENA VOGT DOI Ot 530.81 ESOPHAGEAL REFLUX 09/06/2016 MEENA VOGT DOI Ot 780.57 UNSPECIFIED SLEEP APNEA 09/06/2016 MEENA VOGT DOI Ot V58.69 OTH MED,LT,CURRENT USE 09/06/2016 MEENA VOGT DOI Ot V58.83 ENCOUNTER FOR THERAPEUTIC DRUG MONITORIN 09/06/2016 MEENA VOGT DOI Ot V70.0 ROUTINE MEDICAL EXAM 09/06/2016 STEVE HOGAN ROBERTH R Ot 242.90 THYROTOX NOS NO CRISIS 09/06/2016 STEVE HOGAN ROBERTH R Ot 242.90 THYROTOX NOS NO CRISIS 09/06/2016 BAISILVIA PEPE L SOFTWARE DESIGN MANAGER Ot 242.90 THYROTOX NOS NO CRISIS 09/06/2016 BAIKIM PEPEHER L SOFTWARE DESIGN MANAGER Ot 401.9 HYPERTENSION NOS 09/06/2016 BAIKIM PEPEHER L SOFTWARE DESIGN MANAGER Ot 427.31 ATRIAL FIBRILLATION 09/06/2016 BAISILVIA PEPE L SOFTWARE DESIGN MANAGER Ot V58.61 ANTICOAGULANTS,LT,CURRENT USE 09/06/2016 Ot 242.90 THYROTOX NOS NO CRISIS 09/06/2016 STEVE HOGAN ROBERTH R Ot 242.90 THYROTOX NOS NO CRISIS 09/06/2016 MEENA VOGT DOI Ot 242.90 THYROTOX NOS NO CRISIS 09/06/2016 MEENA VOGT DOI Ot 401.1 BENIGN HYPERTENSION 09/06/2016 MEENA VGOT DOI Ot 427.31 ATRIAL FIBRILLATION 09/06/2016 MEENA VOGT DOI Ot V58.69 OTH MED,LT,CURRENT USE 09/06/2016 JEY VOGT DO Ot V70.0 ROUTINE MEDICAL EXAM 09/06/2016 JEY VOGT DO Ot E03.2 HYPOTHYROIDISM DUE TO MEDS AND OTH EXOGE 09/06/2016 JEY VOGT DO Ot E55.9 VITAMIN D DEFICIENCY, UNSPECIFIED 09/06/2016 JEY VOGT DO Ot Z00.00 ENCNTR FOR GENERAL ADULT MEDICAL EXAM W09/06/2016 VOGT DO, JEY Ot E03.2 HYPOTHYROIDISM DUE TO MEDS AND OTH EXOGE 09/06/2016 VOGT DO, JEY Ot Z00.00 ENCNTR FOR GENERAL ADULT MEDICAL EXAM W09/06/2016 VOGT DO, JEY Ot E03.2 HYPOTHYROIDISM DUE TO MEDS AND OTH EXOGE 09/06/2016 VOGT DO, JEY Ot E55.9 VITAMIN D DEFICIENCY, UNSPECIFIED 09/06/2016 VOGT DO, JEY Ot E78.1 PURE HYPERGLYCERIDEMIA 09/06/2016 VOGT DO, JEY Ot Z00.00 ENCNTR FOR GENERAL ADULT MEDICAL EXAM W09/07/2016 STEVE DO, ROBERTH R Ot E03.9 HYPOTHYROIDISM, UNSPECIFIED 09/15/2016 STEVE DO, ROBERTH R Ot E03.9 HYPOTHYROIDISM, UNSPECIFIED 11/09/2016 STEVE DO, ROBERTH R Ot E03.9 HYPOTHYROIDISM, UNSPECIFIED 11/18/2016 VOGT DO, JEY Ot E03.9 HYPOTHYROIDISM, UNSPECIFIED 11/18/2016 VOGT DO, JEY Ot E55.9 VITAMIN D DEFICIENCY, UNSPECIFIED 11/18/2016 VOGT DO, JEY Ot E78.00 PURE HYPERCHOLESTEROLEMIA, UNSPECIFIED 11/18/2016 VOGT DO, JEY Ot E78.1 PURE HYPERGLYCERIDEMIA 11/18/2016 VOGT DO, JEY Ot Z00.00 ENCNTR FOR GENERAL ADULT MEDICAL EXAM W11/18/2016 VOGT DO, JEY Ot E03.9 HYPOTHYROIDISM, UNSPECIFIED 11/18/2016 VOGT DO, JEY Ot E55.9 VITAMIN D DEFICIENCY, UNSPECIFIED 11/18/2016 VOGT DO, JEY Ot E78.00 PURE HYPERCHOLESTEROLEMIA, UNSPECIFIED 11/18/2016 VOGT DO, JEY Ot E78.1 PURE HYPERGLYCERIDEMIA 11/18/2016 VOGT DO, JEY Ot Z00.00 ENCNTR FOR GENERAL ADULT MEDICAL EXAM W12/05/2016 VOGT DO, JEY Ot E03.9 HYPOTHYROIDISM, UNSPECIFIED 12/05/2016 VOGT DO, JEY Ot E55.9 VITAMIN D DEFICIENCY, UNSPECIFIED 12/05/2016 VOGT DO, JEY Ot E78.00 PURE HYPERCHOLESTEROLEMIA, UNSPECIFIED 12/05/2016 JEY VOGT DO Ot E78.1 PURE HYPERGLYCERIDEMIA 12/05/2016 JEY VOGT DO Ot Z00.00 ENCNTR FOR GENERAL ADULT MEDICAL EXAM W/ 04/26/2017 Ot 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 04/26/2017 Ot 401.1 BENIGN HYPERTENSION 04/26/2017 Ot 244.9 HYPOTHYROIDISM NOS 04/26/2017 Ot 268.9 VITAMIN D DEFICIENCY NOS 04/26/2017 Ot 401.9 HYPERTENSION NOS 04/26/2017 Ot 242.00 TOX DIF GOITER NO CRISIS 04/26/2017 Ot 242.90 THYROTOX NOS NO CRISIS 04/26/2017 Ot 401.1 BENIGN HYPERTENSION 04/26/2017 Ot 427.31 ATRIAL FIBRILLATION 04/26/2017 Ot V58.61 ANTICOAGULANTS,LT,CURRENT USE 04/26/2017 JEY VOGT DO Ot 242.00 TOX DIF GOITER NO CRISIS 04/26/2017 JEY VOGT DO Ot 401.1 BENIGN HYPERTENSION 04/26/2017 JEY VOGT DO Ot 427.31 ATRIAL FIBRILLATION 04/26/2017 JEY VOGT DO Ot V58.61 ANTICOAGULANTS,LT,CURRENT USE 04/26/2017 JEY VOGT DO Ot 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 04/26/2017 JEY VOGT DO Ot 401.1 BENIGN HYPERTENSION 04/26/2017 JEY VOGT DO Ot 530.81 ESOPHAGEAL REFLUX 04/26/2017 JEY VOGT DO Ot 790.5 ABN SERUM ENZY LEVEL NEC 04/26/2017 JEY VOGT DO Ot 794.8 ABN LIVER FUNCTION STUDY 04/26/2017 JEY VOGT DO Ot V10.3 HX OF BREAST MALIGNANCY 04/26/2017 JEY VOGT DO Ot 242.90 THYROTOX NOS NO CRISIS 04/26/2017 JEY VOGT DO Ot 242.90 THYROTOX NOS NO CRISIS 04/26/2017 Ot 242.90 THYROTOX NOS NO CRISIS 04/26/2017 Ot 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 04/26/2017 Ot 244.9 HYPOTHYROIDISM NOS 04/26/2017 Ot 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 04/26/2017 JEY VOGT DO Ot 242.90 THYROTOX NOS NO CRISIS 04/26/2017 JEY VOGT DO Ot 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 04/26/2017 JEY VOGT DO Ot 401.1 BENIGN HYPERTENSION 04/26/2017 JEY VOGT DO Ot 427.31 ATRIAL FIBRILLATION 04/26/2017 JEY VOGT DO Ot 530.81 ESOPHAGEAL REFLUX 04/26/2017 JEY VOGT DO Ot 780.57 UNSPECIFIED SLEEP APNEA 04/26/2017 JEY VOGT DO Ot V58.69 OTH MED,LT,CURRENT USE 04/26/2017 JEY VOGT DO Ot V58.83 ENCOUNTER FOR THERAPEUTIC DRUG MONITORIN 04/26/2017 JEY VOGT DO Ot V70.0 ROUTINE MEDICAL EXAM 04/26/2017 STEVE HOGAN ROBERTH R Ot 242.90 THYROTOX NOS NO CRISIS 04/26/2017 STEVE DO, ROBERTH R Ot 242.90 THYROTOX NOS NO CRISIS 04/26/2017 BAIMAKIMSILVIA L SOFTWARE DESIGN MANAGER Ot 242.90 THYROTOX NOS NO CRISIS 04/26/2017 BAIMA SILVIA L SOFTWARE DESIGN MANAGER Ot 401.9 HYPERTENSION NOS 04/26/2017 BAIMA SILVIA L SOFTWARE DESIGN MANAGER Ot 427.31 ATRIAL FIBRILLATION 04/26/2017 BAIMA SILVIA L SOFTWARE DESIGN MANAGER Ot V58.61 ANTICOAGULANTS,LT,CURRENT USE 04/26/2017 Ot 242.90 THYROTOX NOS NO CRISIS 04/26/2017 STEVE DO, ROBERTH R Ot 242.90 THYROTOX NOS NO CRISIS 04/26/2017 JEY VOGT DO Ot 242.90 THYROTOX NOS NO CRISIS 04/26/2017 JEY VOGT DO Ot 401.1 BENIGN HYPERTENSION 04/26/2017 JEY VOGT DO Ot 427.31 ATRIAL FIBRILLATION 04/26/2017 JEY VOGT DO Ot V58.69 OTH MED,LT,CURRENT USE 04/26/2017 JEY VOGT DO Ot V70.0 ROUTINE MEDICAL EXAM 04/26/2017 JEY VOGT DO Ot E03.2 HYPOTHYROIDISM DUE TO MEDS AND OTH EXOGE 04/26/2017 JEY VOGT DO Ot E55.9 VITAMIN D DEFICIENCY, UNSPECIFIED 04/26/2017 JEY VOGT DO Ot Z00.00 ENCNTR FOR GENERAL ADULT MEDICAL EXAM W04/26/2017 JEY VOGT DO Ot E03.2 HYPOTHYROIDISM DUE TO MEDS AND OTH EXOGE 04/26/2017 JEY VOGT DO Ot Z00.00 ENCNTR FOR GENERAL ADULT MEDICAL EXAM W04/26/2017 VOGT DO, JEY Ot E03.2 HYPOTHYROIDISM DUE TO MEDS AND OTH EXOGE 04/26/2017 SIN DO JEY Ot E55.9 VITAMIN D DEFICIENCY, UNSPECIFIED 04/26/2017 VOGT DO JEY Ot E78.1 PURE HYPERGLYCERIDEMIA 04/26/2017 VOGT DO JEY Ot Z00.00 ENCNTR FOR GENERAL ADULT MEDICAL EXAM W04/26/2017 STEVE DO, ROBERTH R Ot E03.9 HYPOTHYROIDISM, UNSPECIFIED 04/26/2017 STEVE DO, ROBERTH R Ot E03.9 HYPOTHYROIDISM, UNSPECIFIED 04/26/2017 VOGT DO JEY Ot E03.9 HYPOTHYROIDISM, UNSPECIFIED 04/26/2017 SIN DO JEY Ot E55.9 VITAMIN D DEFICIENCY, UNSPECIFIED 04/26/2017 SIN DO JEY Ot E78.00 PURE HYPERCHOLESTEROLEMIA, UNSPECIFIED 04/26/2017 SIN DO JEY Ot E78.1 PURE HYPERGLYCERIDEMIA 04/26/2017 SIN HOGAN JEY Ot Z00.00 ENCNTR FOR GENERAL ADULT MEDICAL EXAM W04/28/2017 SILVIA MCGEE L SOFTWARE DESIGN MANAGER Ot G47.33 OBSTRUCTIVE SLEEP APNEA (ADULT) (PEDIATR 04/28/2017 BAIMA, SILVIA L SOFTWARE DESIGN MANAGER Ot I08.1 RHEUMATIC DISORDERS OF BOTH MITRAL AND T 04/28/2017 BAIMA, SILVIA L SOFTWARE DESIGN MANAGER Ot I10 ESSENTIAL (PRIMARY) HYPERTENSION 04/28/2017 CIROMA SILVIA L SOFTWARE DESIGN MANAGER Ot Z86.79 PERSONAL HISTORY OF OTHER DISEASES OF TH 05/10/2017 CIROMA SILVIA L SOFTWARE DESIGN MANAGER Ot G47.33 OBSTRUCTIVE SLEEP APNEA (ADULT) (PEDIATR 05/10/2017 BAIMA, SILVIA L SOFTWARE DESIGN MANAGER Ot I08.1 RHEUMATIC DISORDERS OF BOTH MITRAL AND T 05/10/2017 BAIMA, SILVIA L SOFTWARE DESIGN MANAGER Ot I10 ESSENTIAL (PRIMARY) HYPERTENSION 05/10/2017 ARELY, SILVIA L SOFTWARE DESIGN MANAGER Ot Z86.79 PERSONAL HISTORY OF OTHER DISEASES OF 05/31/2017 SIN DO JEY Ot E03.2 HYPOTHYROIDISM DUE TO MEDS AND OTH EXOGE 05/31/2017 SIN DO JEY Ot E78.00 PURE HYPERCHOLESTEROLEMIA, UNSPECIFIED 05/31/2017 SIN DO JEY Ot E78.1 PURE HYPERGLYCERIDEMIA 09/21/2017 ROBERTH WILSON DO Ot E03.9 HYPOTHYROIDISM, UNSPECIFIED Procedures Code Description Performed By Performed On 37.22 LEFT HEART CARDIAC CATH 01/02/2014 88.53 LT HEART ANGIOCARDIOGRAM 01/02/2014 88.56 CORONAR ARTERIOGR-2 CATH 01/02/2014 Results Test Result Range Comprehensive metabolic panel - 08/04/16 08:49 Serum or plasma sodium measurement (moles/volume) 140 mmol/L 135-145 Serum or plasma potassium measurement (moles/volume) 4.2 mmol/L 3.6-5.0 Serum or plasma chloride measurement (moles/volume) 106 mmol/L 98-107 Carbon dioxide 23 mmol/L 21-32 Serum or plasma anion gap determination (moles/volume) 11 mmol/L 5-14 Serum or plasma urea nitrogen measurement (mass/volume) 15 mg/dL 7-18 Serum or plasma creatinine measurement (mass/volume) 0.86 mg/dL 0.60-1.30 Serum or plasma urea nitrogen/creatinine mass ratio 17 NRG Serum or plasma creatinine measurement with calculation of estimated glomerular filtration rate > NRG Serum or plasma glucose measurement (mass/volume) 110 mg/dL 70-105 Serum or plasma calcium measurement (mass/volume) 9.6 mg/dL 8.5-10.1 Serum or plasma total bilirubin measurement (mass/volume) 0.6 mg/dL 0.1-1.0 Serum or plasma alkaline phosphatase measurement (enzymatic activity/volume) 100 U/L 40-136 Serum or plasma aspartate aminotransferase measurement (enzymatic activity/ volume) 73 U/L 5-34 Serum or plasma alanine aminotransferase measurement (enzymatic activity/volume ) 111 U/L 0-55 Serum or plasma protein measurement (mass/volume) 7.4 g/dL 6.4-8.2 Serum or plasma albumin measurement (mass/volume) 4.5 g/dL 3.2-4.5 Serum or plasma triglyceride measurement (mass/volume) - 08/04/16 08:49 Serum or plasma triglyceride measurement (mass/volume) 90 mg/dL <150 Serum or plasma cholesterol measurement (mass/volume) - 08/04/16 08:49 Serum or plasma cholesterol measurement (mass/volume) 177 mg/dL < 200 THYROID STIMULATING HORMONE - 08/04/16 08:49 THYROID STIMULATING HORMONE 2.16 u[iU]/mL 0.35-4.94 Serum or plasma thyroxine (T4) free measurement (mass/volume) - 08/04/16 08:49 Serum or plasma thyroxine (T4) free measurement (mass/volume) 1.00 ng/dL 0.70-1.48 25-hydroxyvitamin D measurement - 08/04/16 08:49 25-hydroxy vitamin D measurement 35 % 30-100 THYROID STIMULATING HORMONE - 09/05/16 08:50 THYROID STIMULATING HORMONE 9.12 u[iU]/mL 0.35-4.94 THYROID STIMULATING HORMONE - 10/28/16 10:33 THYROID STIMULATING HORMONE 1.12 u[iU]/mL 0.35-4.94 Complete blood count (CBC) with automated white blood cell (WBC) differential - 11/18/16 10:26 Blood leukocytes automated count (number/volume) 6.5 10*3/uL 4.3-11.0 Blood erythrocytes automated count (number/volume) 4.91 10*6/uL 4.35-5.85 Venous blood hemoglobin measurement (mass/volume) 13.9 g/dL 11.5-16.0 Blood hematocrit (volume fraction) 42 % 35-52 Automated erythrocyte mean corpuscular volume 85 [foz_us] 80-99 Automated erythrocyte mean corpuscular hemoglobin (mass per erythrocyte) 28 pg 25-34 Automated erythrocyte mean corpuscular hemoglobin concentration measurement ( mass/volume) 33 g/dL 32-36 Automated erythrocyte distribution width ratio 13.5 % 10.0-14.5 Automated blood platelet count (count/volume) 211 10*3/uL 130-400 Automated blood platelet mean volume measurement 10.5 [foz_us] 7.4-10.4 Automated blood neutrophils/100 leukocytes 73 % 42-75 Automated blood lymphocytes/100 leukocytes 14 % 12-44 Blood monocytes/100 leukocytes 10 % 0-12 Automated blood eosinophils/100 leukocytes 3 % 0-10 Automated blood basophils/100 leukocytes 1 % 0-10 Blood neutrophils automated count (number/volume) 4.7 10*3 1.8-7.8 Blood lymphocytes automated count (number/volume) 0.9 10*3 1.0-4.0 Blood monocytes automated count (number/volume) 0.7 10*3 0.0-1.0 Automated eosinophil count 0.2 10*3/uL 0.0-0.3 Automated blood basophil count (count/volume) 0.0 10*3/uL 0.0-0.1 Comprehensive metabolic panel - 11/18/16 10:26 Serum or plasma sodium measurement (moles/volume) 138 mmol/L 135-145 Serum or plasma potassium measurement (moles/volume) 4.4 mmol/L 3.6-5.0 Serum or plasma chloride measurement (moles/volume) 104 mmol/L 98-107 Carbon dioxide 26 mmol/L 21-32 Serum or plasma anion gap determination (moles/volume) 8 mmol/L 5-14 Serum or plasma urea nitrogen measurement (mass/volume) 13 mg/dL 7-18 Serum or plasma creatinine measurement (mass/volume) 0.84 mg/dL 0.60-1.30 Serum or plasma urea nitrogen/creatinine mass ratio 15 NRG Serum or plasma creatinine measurement with calculation of estimated glomerular filtration rate > NRG Serum or plasma glucose measurement (mass/volume) 123 mg/dL 70-105 Serum or plasma calcium measurement (mass/volume) 9.7 mg/dL 8.5-10.1 Serum or plasma total bilirubin measurement (mass/volume) 1.0 mg/dL 0.1-1.0 Serum or plasma alkaline phosphatase measurement (enzymatic activity/volume) 101 U/L 40-136 Serum or plasma aspartate aminotransferase measurement (enzymatic activity/ volume) 38 U/L 5-34 Serum or plasma alanine aminotransferase measurement (enzymatic activity/volume ) 65 U/L 0-55 Serum or plasma protein measurement (mass/volume) 7.5 g/dL 6.4-8.2 Serum or plasma albumin measurement (mass/volume) 4.4 g/dL 3.2-4.5 Lipid 1996 panel - 11/18/16 10:26 Serum or plasma triglyceride measurement (mass/volume) 82 mg/dL <150 Serum or plasma cholesterol measurement (mass/volume) 158 mg/dL < 200 Serum or plasma cholesterol in HDL measurement (mass/volume) 50 mg/ dL 40-60 Cholesterol in LDL [mass/volume] in serum or plasma by direct assay 92 mg/dL 1-129 Serum or plasma cholesterol in VLDL measurement (mass/volume) 16 mg/ dL 5-40 THYROID STIMULATING HORMONE - 11/18/16 10:26 THYROID STIMULATING HORMONE 0.46 u[iU]/mL 0.35-4.94 Serum or plasma thyroxine (T4) free measurement (mass/volume) - 11/18/16 10:26 Serum or plasma thyroxine (T4) free measurement (mass/volume) 1.10 ng/dL 0.70-1.48 25-hydroxyvitamin D measurement - 11/18/16 10:26 25-hydroxy vitamin D measurement 37 % 30-100 Comprehensive metabolic panel - 05/19/17 09:42 Serum or plasma sodium measurement (moles/volume) 140 mmol/L 135-145 Serum or plasma potassium measurement (moles/volume) 4.6 mmol/L 3.6-5.0 Serum or plasma chloride measurement (moles/volume) 106 mmol/L 98-107 Carbon dioxide 24 mmol/L 21-32 Serum or plasma anion gap determination (moles/volume) 10 mmol/L 5-14 Serum or plasma urea nitrogen measurement (mass/volume) 18 mg/dL 7-18 Serum or plasma creatinine measurement (mass/volume) 0.89 mg/dL 0.60-1.30 Serum or plasma urea nitrogen/creatinine mass ratio 20 0 -20 Serum or plasma creatinine measurement with calculation of estimated glomerular filtration rate > NRG Serum or plasma glucose measurement (mass/volume) 112 mg/dL 70-105 Serum or plasma calcium measurement (mass/volume) 9.5 mg/dL 8.5-10.1 Serum or plasma total bilirubin measurement (mass/volume) 0.6 mg/dL 0.1-1.0 Serum or plasma alkaline phosphatase measurement (enzymatic activity/volume) 101 U/L 40-136 Serum or plasma aspartate aminotransferase measurement (enzymatic activity/ volume) 57 U/L 5-34 Serum or plasma alanine aminotransferase measurement (enzymatic activity/volume ) 104 U/L 0-55 Serum or plasma protein measurement (mass/volume) 7.5 g/dL 6.4-8.2 Serum or plasma albumin measurement (mass/volume) 4.2 g/dL 3.2-4.5 Lipid 1996 panel - 05/19/17 09:42 Serum or plasma triglyceride measurement (mass/volume) 70 mg/dL <150 Serum or plasma cholesterol measurement (mass/volume) 175 mg/dL < 200 Serum or plasma cholesterol in HDL measurement (mass/volume) 50 mg/ dL 40-60 Cholesterol in LDL [mass/volume] in serum or plasma by direct assay 111 mg/dL 1-129 Serum or plasma cholesterol in VLDL measurement (mass/volume) 14 mg/ dL 5-40 THYROID STIMULATING HORMONE - 05/19/17 09:42 THYROID STIMULATING HORMONE 0.37 u[iU]/mL 0.35-4.94 Serum or plasma thyroxine (T4) free measurement (mass/volume) - 05/19/17 09:42 Serum or plasma thyroxine (T4) free measurement (mass/volume) 1.15 ng/dL 0.70-1.48 THYROID STIMULATING HORMONE - 09/11/17 08:32 THYROID STIMULATING HORMONE 0.46 u[iU]/mL 0.35-4.94 Complete blood count (CBC) with automated white blood cell (WBC) differential - 11/17/17 09:05 Blood leukocytes automated count (number/volume) 3.6 10*3/uL 4.3-11.0 Blood erythrocytes automated count (number/volume) 4.45 10*6/uL 4.35-5.85 Venous blood hemoglobin measurement (mass/volume) 12.9 g/dL 11.5-16.0 Blood hematocrit (volume fraction) 39 % 35-52 Automated erythrocyte mean corpuscular volume 87 [foz_us] 80-99 Automated erythrocyte mean corpuscular hemoglobin (mass per erythrocyte) 29 pg 25-34 Automated erythrocyte mean corpuscular hemoglobin concentration measurement ( mass/volume) 33 g/dL 32-36 Automated erythrocyte distribution width ratio 13.7 % 10.0-14.5 Automated blood platelet count (count/volume) 197 10*3/uL 130-400 Automated blood platelet mean volume measurement 10.5 [foz_us] 7.4-10.4 Automated blood neutrophils/100 leukocytes 58 % 42-75 Automated blood lymphocytes/100 leukocytes 26 % 12-44 Blood monocytes/100 leukocytes 12 % 0-12 Automated blood eosinophils/100 leukocytes 4 % 0-10 Automated blood basophils/100 leukocytes 1 % 0-10 Blood neutrophils automated count (number/volume) 2.1 10*3 1.8-7.8 Blood lymphocytes automated count (number/volume) 0.9 10*3 1.0-4.0 Blood monocytes automated count (number/volume) 0.4 10*3 0.0-1.0 Automated eosinophil count 0.1 10*3/uL 0.0-0.3 Automated blood basophil count (count/volume) 0.0 10*3/uL 0.0-0.1 Comprehensive metabolic panel - 11/17/17 09:05 Serum or plasma sodium measurement (moles/volume) 139 mmol/L 135-145 Serum or plasma potassium measurement (moles/volume) 4.1 mmol/L 3.6-5.0 Serum or plasma chloride measurement (moles/volume) 107 mmol/L 98-107 Carbon dioxide 20 mmol/L 21-32 Serum or plasma anion gap determination (moles/volume) 12 mmol/L 5-14 Serum or plasma urea nitrogen measurement (mass/volume) 14 mg/dL 7-18 Serum or plasma creatinine measurement (mass/volume) 0.77 mg/dL 0.60-1.30 Serum or plasma urea nitrogen/creatinine mass ratio 18 NRG Serum or plasma creatinine measurement with calculation of estimated glomerular filtration rate > NRG Serum or plasma glucose measurement (mass/volume) 121 mg/dL 70-105 Serum or plasma calcium measurement (mass/volume) 9.1 mg/dL 8.5-10.1 Serum or plasma total bilirubin measurement (mass/volume) 0.6 mg/dL 0.1-1.0 Serum or plasma alkaline phosphatase measurement (enzymatic activity/volume) 114 U/L 40-136 Serum or plasma aspartate aminotransferase measurement (enzymatic activity/ volume) 59 U/L 5-34 Serum or plasma alanine aminotransferase measurement (enzymatic activity/volume ) 102 U/L 0-55 Serum or plasma protein measurement (mass/volume) 7.1 g/dL 6.4-8.2 Serum or plasma albumin measurement (mass/volume) 4.0 g/dL 3.2-4.5 Lipid 1996 panel - 11/17/17 09:05 Serum or plasma triglyceride measurement (mass/volume) 70 mg/dL <150 Serum or plasma cholesterol measurement (mass/volume) 172 mg/dL < 200 Serum or plasma cholesterol in HDL measurement (mass/volume) 57 mg/ dL 40-60 Cholesterol in LDL [mass/volume] in serum or plasma by direct assay 107 mg/dL 1-129 Serum or plasma cholesterol in VLDL measurement (mass/volume) 14 mg/ dL 5-40 THYROID STIMULATING HORMONE - 11/17/17 09:05 THYROID STIMULATING HORMONE 0.84 u[iU]/mL 0.35-4.94 Complete blood count (CBC) with automated white blood cell (WBC) differential - 11/30/17 19:55 Blood leukocytes automated count (number/volume) 5.9 10*3/uL 4.3-11.0 Blood erythrocytes automated count (number/volume) 4.83 10*6/uL 4.35-5.85 Venous blood hemoglobin measurement (mass/volume) 13.9 g/dL 11.5-16.0 Blood hematocrit (volume fraction) 37 % 35-52 Automated erythrocyte mean corpuscular volume 76 [foz_us] 80-99 Automated erythrocyte mean corpuscular hemoglobin (mass per erythrocyte) 29 pg 25-34 Automated erythrocyte mean corpuscular hemoglobin concentration measurement ( mass/volume) 38 g/dL 32-36 Automated erythrocyte distribution width ratio 13.4 % 10.0-14.5 Automated blood platelet count (count/volume) 210 10*3/uL 130-400 Automated blood platelet mean volume measurement 9.7 [foz_us] 7.4-10.4 Automated blood neutrophils/100 leukocytes 47 % 42-75 Automated blood lymphocytes/100 leukocytes 35 % 12-44 Blood monocytes/100 leukocytes 14 % 0-12 Automated blood eosinophils/100 leukocytes 3 % 0-10 Automated blood basophils/100 leukocytes 1 % 0-10 Blood neutrophils automated count (number/volume) 2.8 10*3 1.8-7.8 Blood lymphocytes automated count (number/volume) 2.1 10*3 1.0-4.0 Blood monocytes automated count (number/volume) 0.8 10*3 0.0-1.0 Automated eosinophil count 0.2 10*3/uL 0.0-0.3 Automated blood basophil count (count/volume) 0.1 10*3/uL 0.0-0.1 PT panel in platelet poor plasma by coagulation assay - 11/30/17 19:55 Prothrombin time (PT) in platelet poor plasma by coagulation assay 12.7 s 12.2-14.7 INR in platelet poor plasma or blood by coagulation assay 0.9 0.8-1.4 Activated partial thromboplastin time (aPTT) in platelet poor plasma bycoagulation assay - 11/30/17 19:55 Activated partial thromboplastin time (aPTT) in platelet poor plasma bycoagulation assay 25 s 24-35 Fibrin D-dimer FEU measurement in platelet poor plasma (mass/volume) - 01/04/ 18 19:55 Fibrin D-dimer FEU measurement in platelet poor plasma (mass/volume) 0.47 ug/mL 0.00-0.49 Comprehensive metabolic panel - 11/30/17 19:55 Serum or plasma sodium measurement (moles/volume) 139 mmol/L 135-145 Serum or plasma potassium measurement (moles/volume) 4.2 mmol/L 3.6-5.0 Serum or plasma chloride measurement (moles/volume) 105 mmol/L 98-107 Carbon dioxide 23 mmol/L 21-32 Serum or plasma anion gap determination (moles/volume) 11 mmol/L 5-14 Serum or plasma urea nitrogen measurement (mass/volume) 18 mg/dL 7-18 Serum or plasma creatinine measurement (mass/volume) 1.06 mg/dL 0.60-1.30 Serum or plasma urea nitrogen/creatinine mass ratio 17 NRG Serum or plasma creatinine measurement with calculation of estimated glomerular filtration rate 53 NRG Serum or plasma glucose measurement (mass/volume) 102 mg/dL 70-105 Serum or plasma calcium measurement (mass/volume) 9.8 mg/dL 8.5-10.1 Serum or plasma total bilirubin measurement (mass/volume) 0.5 mg/dL 0.1-1.0 Serum or plasma alkaline phosphatase measurement (enzymatic activity/volume) 107 U/L 40-136 Serum or plasma aspartate aminotransferase measurement (enzymatic activity/ volume) 54 U/L 5-34 Serum or plasma alanine aminotransferase measurement (enzymatic activity/volume ) 88 U/L 0-55 Serum or plasma protein measurement (mass/volume) 7.8 g/dL 6.4-8.2 Serum or plasma albumin measurement (mass/volume) 4.3 g/dL 3.2-4.5 Serum or plasma troponin i.cardiac measurement (mass/volume) - 11/30/17 19:55 Serum or plasma troponin i.cardiac measurement (mass/volume) < ng/ mL <0.30 Complete urinalysis with reflex to culture - 11/30/17 21:14 Urine color determination YELLOW NRG Urine clarity determination CLEAR NRG Urine pH measurement by test strip 5 5-9 Specific gravity of urine by test strip 1.010 1.016- 1.022 Urine protein assay by test strip, semi-quantitative NEGATIVE NEGATIVE Urine glucose detection by automated test strip NEGATIVE NEGATIVE Erythrocytes detection in urine sediment by light microscopy NEGATIVE NEGATIVE Urine ketones detection by automated test strip NEGATIVE NEGATIVE Urine nitrite detection by test strip NEGATIVE NEGATIVE Urine total bilirubin detection by test strip NEGATIVE NEGATIVE Urine urobilinogen measurement by automated test strip (mass/volume) NORMAL NORMAL Urine leukocyte esterase detection by dipstick 1+ NEGATIVE Automated urine sediment erythrocyte count by microscopy (number/high power field) NONE NRG Automated urine sediment leukocyte count by microscopy (number/high power field ) [HPF] NRG Bacteria detection in urine sediment by light microscopy NEGATIVE NRG Squamous epithelial cells detection in urine sediment by light microscopy RARE NRG Crystals detection in urine sediment by light microscopy NONE NRG Casts detection in urine sediment by light microscopy NONE NRG Mucus detection in urine sediment by light microscopy NEGATIVE NRG Complete urinalysis with reflex to culture NO NRG Activated partial thromboplastin time (aPTT) in platelet poor plasma bycoagulation assay - 12/01/17 01:45 Activated partial thromboplastin time (aPTT) in platelet poor plasma bycoagulation assay 88 s 24-35 Complete blood count (CBC) with automated white blood cell (WBC) differential - 12/01/17 04:30 Blood leukocytes automated count (number/volume) 6.3 10*3/uL 4.3-11.0 Blood erythrocytes automated count (number/volume) 4.60 10*6/uL 4.35-5.85 Venous blood hemoglobin measurement (mass/volume) 13.5 g/dL 11.5-16.0 Blood hematocrit (volume fraction) 35 % 35-52 Automated erythrocyte mean corpuscular volume 77 [foz_us] 80-99 Automated erythrocyte mean corpuscular hemoglobin (mass per erythrocyte) 29 pg 25-34 Automated erythrocyte mean corpuscular hemoglobin concentration measurement ( mass/volume) 38 g/dL 32-36 Automated erythrocyte distribution width ratio 13.6 % 10.0-14.5 Automated blood platelet count (count/volume) 206 10*3/uL 130-400 Automated blood platelet mean volume measurement 10.1 [foz_us] 7.4-10.4 Automated blood neutrophils/100 leukocytes 59 % 42-75 Automated blood lymphocytes/100 leukocytes 29 % 12-44 Blood monocytes/100 leukocytes 10 % 0-12 Automated blood eosinophils/100 leukocytes 1 % 0-10 Automated blood basophils/100 leukocytes 1 % 0-10 Blood neutrophils automated count (number/volume) 3.7 10*3 1.8-7.8 Blood lymphocytes automated count (number/volume) 1.9 10*3 1.0-4.0 Blood monocytes automated count (number/volume) 0.6 10*3 0.0-1.0 Automated eosinophil count 0.1 10*3/uL 0.0-0.3 Automated blood basophil count (count/volume) 0.0 10*3/uL 0.0-0.1 Comprehensive metabolic panel - 12/01/17 04:30 Serum or plasma sodium measurement (moles/volume) 139 mmol/L 135-145 Serum or plasma potassium measurement (moles/volume) 4.0 mmol/L 3.6-5.0 Serum or plasma chloride measurement (moles/volume) 107 mmol/L 98-107 Carbon dioxide 19 mmol/L 21-32 Serum or plasma anion gap determination (moles/volume) 13 mmol/L 5-14 Serum or plasma urea nitrogen measurement (mass/volume) 16 mg/dL 7-18 Serum or plasma creatinine measurement (mass/volume) 0.78 mg/dL 0.60-1.30 Serum or plasma urea nitrogen/creatinine mass ratio 21 NRG Serum or plasma creatinine measurement with calculation of estimated glomerular filtration rate > NRG Serum or plasma glucose measurement (mass/volume) 111 mg/dL 70-105 Serum or plasma calcium measurement (mass/volume) 9.8 mg/dL 8.5-10.1 Serum or plasma total bilirubin measurement (mass/volume) 0.6 mg/dL 0.1-1.0 Serum or plasma alkaline phosphatase measurement (enzymatic activity/volume) 101 U/L 40-136 Serum or plasma aspartate aminotransferase measurement (enzymatic activity/ volume) 44 U/L 5-34 Serum or plasma alanine aminotransferase measurement (enzymatic activity/volume ) 78 U/L 0-55 Serum or plasma protein measurement (mass/volume) 7.3 g/dL 6.4-8.2 Serum or plasma albumin measurement (mass/volume) 4.1 g/dL 3.2-4.5 Serum or plasma phosphate measurement (mass/volume) - 12/01/17 04:30 Serum or plasma phosphate measurement (mass/volume) 3.6 mg/dL 2.3-4.7 Magnesium - 12/01/17 04:30 Magnesium 2.1 mg/dL 1.8-2.4 THYROID STIMULATING HORMONE - 12/01/17 04:30 THYROID STIMULATING HORMONE 1.02 u[iU]/mL 0.35-4.94 Serum or plasma thyroxine (T4) free measurement (mass/volume) - 12/01/17 04:30 Serum or plasma thyroxine (T4) free measurement (mass/volume) 1.02 ng/dL 0.70-1.48 Lipid 1996 panel - 12/01/17 04:30 Serum or plasma triglyceride measurement (mass/volume) 75 mg/dL <150 Serum or plasma cholesterol measurement (mass/volume) 182 mg/dL < 200 Serum or plasma cholesterol in HDL measurement (mass/volume) 50 mg/ dL 40-60 Cholesterol in LDL [mass/volume] in serum or plasma by direct assay 115 mg/dL 1-129 Serum or plasma cholesterol in VLDL measurement (mass/volume) 15 mg/ dL 5-40 Activated partial thromboplastin time (aPTT) in platelet poor plasma bycoagulation assay - 12/01/17 07:55 Activated partial thromboplastin time (aPTT) in platelet poor plasma bycoagulation assay 57 s 24-35 Encounters ACCT No. Visit Date/Time Discharge Status Pt. Type Provider Facility Loc./Unit Complaint [id number] 11/17/2017 08:48:00 11/17/2017 23:59:59 [facility] Outpatient SIN HOGAN JEY [facility] LAB E78.1, E78.0,Z00.00, E03.2 [id number] 09/11/2017 08:26:00 09/11/2017 23:59:59 CLS Outpatient ROBERTH WILSON DO [facility] LAB E03.9 [id number] 05/19/2017 09:31:00 05/19/2017 23:59:59 CLS Outpatient SIN DO JEY [facility] LAB E78.0 E78.1 Z00.00 E03.2 [id number] 04/26/2017 08:44:00 04/26/2017 23:59:59 CLS Outpatient SILVIA MCGEE [facility] CARD Z86.79 HX OF AFIB [id number] 11/18/2016 10:13:00 11/18/2016 23:59:59 CLS Outpatient SIN HOGAN JEY [facility] LAB E55.9,Z00.0,E03.9 [id number] 10/28/2016 10:09:00 10/28/2016 23:59:59 CLS Outpatient STEVE ROBERTH HOGAN R [facility] LAB HYPOTHYROIDISM [id number] 09/05/2016 08:44:00 09/05/2016 23:59:59 CLS Outpatient STEVEPATTIE MARTINEZ DON R [facility] LAB HYPOTHYROIDISM [id number] 08/04/2016 08:37:00 08/04/2016 23:59:59 CLS Outpatient VOGT DO JEY [facility] LAB GENERAL MEDICAL EXAM,VIT D,HYPERCHOLESTEROLEMIA [id number] 05/08/2016 07:14:00 05/08/2016 08:56:00 DIS Emergency ANGELINE CONTRERAS, CARL Patricia [facility] ER R ANKLE INJ/PAIN/SWELLING [id number] 04/11/2016 07:54:00 04/11/2016 23:59:59 CLS Outpatient SIN HOGAN JEY [facility] LAB GENERAL ADULT MEDICAL EXAM [id number] 10/12/2015 09:22:00 10/12/2015 23:59:59 CLS Outpatient SIN HOGAN JEY [facility] LAB ADULT MED EXAM,VIT D DEFICIENCY,HYPOTHYROIDISM [id number] 04/09/2015 08:30:00 04/09/2015 23:59:59 CLS Outpatient SIN HOGAN JEY [facility] LAB MED MONITORING, HYPOTHYROIDISM,HYPERTENSION [id number] 2015 13:28:00 2015 23:59:59 CLS Outpatient STEVE ROBERTH HOGAN R [facility] LAB HYPERTHYROIDISM [id number] 01/14/2015 08:00:00 01/14/2015 23:59:59 CLS Outpatient SILVIA MCGEE [facility] CARD AF,HTN, HYPERTHYROIDISM,CHRONIC ANTICOAGULATION [id number] 11/26/2014 10:44:00 11/26/2014 23:59:59 CLS Outpatient ROBERTH WILSON DO R [facility] LAB HYPOTHRYOIDISM [id number] 10/23/2014 00:10:00 10/23/2014 23:59:59 CLS Preadmit STEVE HOGANROBERTH [facility] LAB HYPERTHRYROIDISM [id number] 07/24/2014 11:10:00 10/22/2014 00:01:00 DIS Outpatient STEVE HOGANROBERTH [facility] LAB HYPERTHRYROIDISM [id number] 10/09/2014 07:19:00 10/09/2014 23:59:59 CLS Outpatient SIN HOGAN JEY [facility] LAB HEALTH SCREENING,MED MONITORING,THYROTOXICOSIS,A-F [id number] 06/09/2014 07:42:00 09/04/2014 00:01:00 DIS Outpatient SIN HOGAN JEY [facility] LAB HYPOTHROIDISM,IODINE OVERLOAD [id number] 04/18/2014 07:36:00 07/15/2014 00:01:00 DIS Outpatient SIN HOGAN JEY [facility] LAB THYROTOXICOSIS, HYPOTHYROIDISM, IODINE LOAD [id number] 04/14/2014 07:55:00 04/14/2014 23:59:59 CLS Outpatient VOGT JEY [facility] LAB HYPERTHYROIDISM [id number] 03/06/2014 08:42:00 03/06/2014 23:59:59 CLS Outpatient VOGT DO JEY [facility] LAB HYPERTHROIDISM [id number] 01/01/2014 03:55:00 01/03/2014 12:05:00 DIS Inpatient VOGT DO JEY [facility] CSD A-FIB W/RVR, HYPERTHYROIDISM [id number] 12/30/2013 16:25:00 12/30/2013 23:59:59 CLS Outpatient VOGT DO JEY [facility] LAB HYPOTHYROIDISM [id number] 12/19/2013 21:17:00 12/20/2013 06:40:00 DIS Outpatient ONOFRE MAZARIEGOS APRN [facility] SLEEP SLEEP APNEA [id number] 10/17/2013 19:45:00 10/18/2013 06:35:00 DIS Outpatient ELYSIA LAWSON MD [facility] SLEEP UNSPECIFIED SLEEP DISTURBANCE [id number] 07/22/2013 08:00:00 07/22/2013 23:59:59 [facility] Outpatient SIN HOGAN, JEY [facility] LAB HTN,GRAVES DISEASE, ALKALILNE PHOSPHATASE,HYPERTHYR [id number] 11/30/2017 20:05:00 Document Registration [id number] 01/16/2015 12:11:00 Document Registration [id number] 10/09/2014 07:22:00 Document Registration [id number] 10/09/2014 07:22:00 Document Registration [id number] 10/09/2014 07:22:00 Document Registration [id number] 09/05/2014 00:00:00 Document Registration [id number] 07/16/2014 00:00:00 Document Registration [id number] 01/21/2013 07:54:00 Document Registration [id number] 07/13/2012 12:11:00 Document Registration [id number] 01/12/2012 11:10:00 Document Registration [id number] 08/15/2011 06:08:00 Document Registration [id number] 07/15/2011 12:49:00 Document Registration [id number] 07/07/2011 08:23:00 Document Registration [id number] 02/20/2011 16:15:00 Document Registration [id number] 01/07/2011 07:44:00 Document Registration [id number] 10/25/2010 07:43:00 Document Registration [id number] 07/26/2010 07:55:00 Document Registration [id number] 06/11/2010 10:44:00 Document Registration [id number] 04/30/2010 08:33:00 Document Registration [id number] 04/05/2010 13:58:00 Document Registration [id number] 04/01/2010 00:00:00 Document Registration [id number] 03/04/2010 07:43:00 Document Registration [id number] 12/31/2009 08:59:00 Document Registration [id number] 11/25/2009 00:00:00 Document Registration [id number] 11/16/2009 07:43:00 Document Registration [id number] 10/19/2009 11:06:00 Document Registration [id number] 09/21/2009 07:33:00 Document Registration [id number] 09/09/2009 07:40:00 Document Registration [id number] 08/14/2009 08:35:00 Document Registration [id number] 08/13/2009 08:46:00 Document Registration [id number] 08/13/2009 08:41:00 Document Registration [id number] 08/11/2009 08:39:00 Document Registration [id number] 08/04/2009 07:34:00 Document Registration [id number] 07/31/2009 07:20:00 Document Registration [id number] 07/24/2009 07:46:00 Document Registration [id number] 07/21/2009 10:43:00 Document Registration [id number] 07/09/2009 10:39:00 Document Registration [id number] 07/08/2009 07:24:00 Document Registration [id number] 07/01/2009 07:44:00 Document Registration [id number] 06/23/2009 07:50:00 Document Registration [id number] 06/16/2009 07:21:00 Document Registration [id number] 06/11/2009 07:33:00 Document Registration [id number] 06/08/2009 07:59:00 Document Registration [id number] 05/26/2009 08:21:00 Document Registration [id number] 05/11/2009 11:09:00 Document Registration [id number] 05/08/2009 07:54:00 Document Registration
[2017-12-02] MEDS ORDERED: LEVOTHYROXINE 88 MCG (LEVOTHORID) TAB PO SCH ×2 (06:30→09:00)
[2017-12-02] MEDS ORDERED: PANTOPRAZOLE 40 MG (PROTONIX) TAB PO SCH (07:00)
[2017-12-02] MEDS ORDERED: meTOprolol SUCCINATE 100 MG (TOPROL XL) TAB PO SCH (09:00)
[2017-12-02] MEDS ORDERED: ASPIRIN E.C. 81 MG (ECOTRIN) TAB PO SCH (09:00)
--- OUTSIDE RECORDS SUMMARY | 2017-12-03 02:34 | XMS REPORT | Encounter Summary ---
Author Author [facility] Organization [facility] Address Unknown Phone Unavailable Care Team Providers Care Airfreight Loading Supervisor Name Role Phone PCP Unavailable Reason for Visit * Reason Comments Heme/Onc Care Encounter Details Date Type Department Care Team Description 10/02/2017 Office Visit [facility] Lana Bertrand APRN Malignant neoplasm of [facility] Exam [address] upper-outer quadrant of [address] [place] [address] left breast in female, [place] [address] [place] [address] estrogen receptor [phone] positive (HCC) Cheri Parkinson APRN [address] [place] [address] [phone] Social History Tobacco Use Types Packs/Day Years Used Date Never Smoker Smokeless Tobacco: Never Used Alcohol Use Drinks/Week oz/Week Comments No 0 Standard 0.0 drinks or equivalent Sex Assigned at Date Recorded Not on file as of this encounter Last Filed Vital Signs Vital Sign Reading Time Taken Blood Pressure 130/78 10/02/2017 8:44 AM VISUAL MANAGER Pulse 64 10/02/2017 8:44 AM VISUAL MANAGER Temperature 36.7 C (98 F) 10/02/2017 8:44 AM VISUAL MANAGER Respiratory Rate - - Oxygen Saturation 96% 10/02/2017 8:44 AM VISUAL MANAGER Inhaled Oxygen - - Concentration Weight 96.2 kg (212 lb) 10/02/2017 8:44 AM VISUAL MANAGER Height 160 cm (5' 2.99") 10/02/2017 8:44 AM VISUAL MANAGER Body Mass Index 37.57 10/02/2017 8:44 AM VISUAL MANAGER in this encounter Functional Status Functional Status [...] Cheri Leggett APRN - 10/02/2017 9:00 AM VISUAL MANAGER Formatting of this note may be different [...] 1:30, dx 02/2016 2. Hx of right, ER+/MT-, breast cancer, dx in 1992 (age 33) [facility] History: Ms. Turner is [...] Imaging: Mammogram: -- Left diagnostic mammogram 05/21/15 ([place]) showed scattered fibroglandular tissue. No suspicious findings were seen. BIRADS 1. -- Left diagnostic mammogram 02/23/16 () showed scattered fibroglandular densities. In the upper outer left breast at 1:30 there was a 2.4 cm focal asymmetry with associated architectural distortion which is subtle though appears new when compared with mammograms from 2010. Targeted ultrasound will be performed. Ultrasound: -- Left axillary ultrasound 05/21/15 ([place]) showed a 1.7 cm fatty replaced solitary [...] feed Procedures: 1. Right modified mastectomy, 1992 ([facility] in [place], [place]) 2. Right breast reconstruction with TRAM [...] 12/2013 MASTECTOMY Left 03/29/2016 Left Total Mastectomy, [place] Lymph Node Biopsy, Possible Axillary Lymph Node Dissection performed by Cruz Tadeo DO at [facility] MAIN OR/PERIOP THYROID SURGERY 2011,2013 ablation Family [...] for a grade 1, ILC (ER 100, MT 97, Her2 0+ IHC, [...]
--- OUTSIDE RECORDS SUMMARY | 2017-12-03 02:34 | XMS REPORT | Continuity of Care Document ---
Author Author [facility] Organization [facility] Address Unknown Phone Unavailable Care Team Providers Care Toolroom Keeper Name Role Phone [employer] Unavailable Unavailable Problems Medications Allergies, Adverse Reactions, Alerts Immunizations Results Vital Signs Encounters Location Location Details Encounter Type Encounter Number Reason For Visit Attending Provider ADM Date DC Date Status Source [place] SERIES [id number] YUESF DICK 04/03/2017 04/03/2017 Active [facility] CA SERIES [id number] ROBINSON MORENO 10/02/20172016 Active [facility] [place] SERIES [id number] YUSEF DICK 11/06/2017 Active [facility] Gerardo PICKETT 02/26/2018 Active [facility] Procedures Plan of Care Social History Assessment and Plan Family History Advance Directives Functional Status
--- OUTSIDE RECORDS SUMMARY | 2017-12-03 02:34 | XMS REPORT | Clinical Summary ---
Author Author [facility] Organization [facility] Address Unknown Phone Unavailable Care Team Providers Care Manager Apple Name Role Phone PCP Unavailable Source Comments Some departments are not documenting in the electronic medical record. If you do not see the information that you expected, contact Release of Information in the Health Information Management department at [phone] for further assistance in locating additional records.[facility] Allergies No Known Allergies Current Medications Prescription [...] 1:30, dx 02/2016 2. Hx of right, ER+/NC-, breast cancer, dx in 1992 (age 33) [...] Imaging: Mammogram: -- Left diagnostic mammogram 05/21/15 ([place]) showed scattered fibroglandular tissue. No suspicious findings were seen. BIRADS 1. -- Left diagnostic mammogram 02/23/16 () showed scattered fibroglandular densities. In the upper outer left breast at 1:30 there was a 2.4 cm focal asymmetry with associated architectural distortion which is subtle though appears new when compared with mammograms from 2010. Targeted ultrasound will be performed. Ultrasound: -- Left axillary ultrasound 05/21/15 ([place]) showed a 1.7 cm fatty replaced solitary [...] feed Procedures: 1. Right modified mastectomy, 1992 ([facility] in [place], [place]) 2. Right breast reconstruction with TRAM [...] Oncology Lana Bertrand APRN Malignant neoplasm of [facility]ina[facility]-WRAP[facility] STEMMER HAND upper-outer quadrant of left breast in female, [...] Taken Blood Pressure 132/78 11/06/2017 9:08 AM BARREL BANDER Pulse 66 11/06/2017 9:08 AM BARREL BANDER Temperature 36.7 C (98 F) 11/06/2017 9:08 AM BARREL BANDER Respiratory Rate 18 11/06/2017 9:08 AM BARREL BANDER Oxygen Saturation 96% 11/06/2017 9:08 AM BARREL BANDER Inhaled Oxygen - - Concentration Weight 95.5 kg (210 lb 9.6 oz) 11/06/2017 9:08 AM BARREL BANDER Height 160 cm (5' 2.99") 11/06/2017 9:08 AM BARREL BANDER Body Mass Index 37.32 11/06/2017 9:08 AM BARREL BANDER Plan of Treatment Health Maintenance Due Date Last Done Comments HEPATITIS C SCREENING 1959 PHYSICAL (COMPREHENSIVE) 1966 EXAM PERTUSSIS VACCINE 1970 TETANUS VACCINE 1976 CERVICAL CANCER SCREENING 1989 BREAST CANCER SCREENING 1999 COLORECTAL CANCER 2009 SCREENING INFLUENZA VACCINE 06/27/2017 Implants Implanted Type Area Salt Cutter Device Expiration Model / Identifier Date Serial / Lot Sealant Hstat Tisseel Frzn 10m FRANCO:[id number] / Implanted: Qty: 1 on 03/29/2016 by HANNAH / Cruz Tadeo DO [id number] Results Not on filefrom Last 3 Months
--- OUTSIDE RECORDS SUMMARY | 2017-12-03 02:34 | XMS REPORT | Encounter Summary ---
Author Author [facility] Organization [facility] Address Unknown Phone Unavailable Care Team Providers Care Histology Tech Name Role Phone PCP Unavailable Reason for Visit * Reason Comments Heme/Onc Care Breast Cancer Screening, High Risk Pt. Encounter Details Date Type Department Care Team Description 10/02/2017 Office Visit [facility] Lana Bertrand APRN At risk for lymphedema Cancer Center - [facility] Exam [address] (Primary Dx);History of [address] [place] [address] [place] [address] [place] [address] cancer;S/P bilateral [phone] mastectomy;S/P TRAM (transverse rectus abdominis muscle) flap [...] Taken Blood Pressure 130/78 10/02/2017 10:08 AM ASSISTANT PASSENGER LOCOMOTIVE ENGINEER Pulse 64 10/02/2017 10:08 AM ASSISTANT PASSENGER LOCOMOTIVE ENGINEER Temperature 36.7 C (98.1 F) 10/02/2017 10:08 AM ASSISTANT PASSENGER LOCOMOTIVE ENGINEER Respiratory Rate - - Oxygen Saturation 96% 10/02/2017 10:08 AM ASSISTANT PASSENGER LOCOMOTIVE ENGINEER Inhaled Oxygen - - Concentration Weight 96.2 kg (212 lb) 10/02/2017 10:08 AM ASSISTANT PASSENGER LOCOMOTIVE ENGINEER Height 160 cm (5' 2.99") 10/02/2017 10:08 AM ASSISTANT PASSENGER LOCOMOTIVE ENGINEER Body Mass Index 37.57 10/02/2017 10:08 AM ASSISTANT PASSENGER LOCOMOTIVE ENGINEER in this encounter Functional Status Functional Status [...] Cheri Wilson RN - 10/02/2017 9:30 AM ASSISTANT PASSENGER LOCOMOTIVE ENGINEER Thank you for coming to see us today. Please call our office or send a message through [facility] if you have any questions or concerns. Cheri Wilson RN, BSN, OCN, CBCN, CBPN-IC Clinical Nurse Coordinator for Lana Bertrand APRN- Breast Cancer Survivorship/High RiskBreast Clinic/ Lymphedema Screening & Prevention Program [address] [place] [address], [phone] (mailing address) [address] [place] [address], Room 1102 (physical address) [place] [address] (phone) [phone] (fax) [phone] (scheduling) [email or web address] in this encounter Progress Notes * Lana Bertrand APRN - 10/02/2017 9:30 AM ASSISTANT PASSENGER LOCOMOTIVE ENGINEER Formatting of this note may be different [...] on 04/04 DIAGNOSIS: 1. Hx of right, ER+/IN-, breast cancer, dx in 1992 (age 33) [...] and daughter with breast cancer at 32; rCuz Francois currently receiving therapy at [facility] (BRCA 1/2 negative). REPRODUCTIVE HEALTH: Age [...] 29 MEDICAL TEAM: Surgeon: Cruz Tadeo DO [address] [address] Medical oncologist: Barbara Levy MD [address] [id number] Enrollment Visit Type: Pre-Operative Patient Completed Questionnaire?: No BASELINE DIAGNOSTIC ASSESSMENT Diagnosis performed at [facility]? Yes Diagnostic Procedure: Core Biopsy: Stereotactic Surgery performed at [facility]? Yes Surgical Procedure: SLN Mapping and Total [...] other margins For DCIS: N/A Histologic Grade ([place] Histologic Score): I/III Tubule Formation: 3 Nuclear Grade: 1 Mitotic Count (40x objective): 1 Total [place] Score: 5/9 Ductal Carcinoma In-situ (DCIS): Absent Lobular Carcinoma In-situ (LCIS): Present Lymph-Vascular Invasion: Not identified Perineural Invasion: Not identified Tumor Necrosis: Not identified Nipple Involvement: Not identified Skin Involvement: Not identified Lymph Node Sampling: [place] lymph node(s) only Total number of involved nodes/total nodes found: 0/3 Prognostic markers: Performed on previous biopsy ([id number]). See Tumor Prognostic Marker addendum in Results [...] to PT/OT again (patient lives close to [place], [place]). 6. RTC 6 months (24 month [...]
--- OUTSIDE RECORDS SUMMARY | 2017-12-03 02:34 | XMS REPORT | Encounter Summary ---
Author Author [facility] Organization [facility] Address Unknown Phone Unavailable Care Team Providers Care Sheep Boner Name Role Phone PCP Unavailable Reason for Visit * Reason Comments Heme/Onc Care Encounter Details Date Type Department Care Team Description 11/06/2017 Office Visit [facility] Lana Bertrand APRN Malignant neoplasm of Cancer Center - [address] upper-outer quadrant of Exam [address] [place] [address] left breast in female, [address] [place] [address] [place] [address] positive (HCC) (Primary [phone] Dx) Alina Taylor APRN-[address] [address] [phone] Social History Tobacco Use Types Packs/Day Years Used Date Never Smoker Smokeless Tobacco: Never Used Alcohol Use Drinks/Week oz/Week Comments No 0 Standard 0.0 drinks or equivalent Sex Assigned at Date Recorded Not on file as of this encounter Last Filed Vital Signs Vital Sign Reading Time Taken Blood Pressure 132/78 11/06/2017 9:08 AM COUNSELOR CAMP Pulse 66 11/06/2017 9:08 AM COUNSELOR CAMP Temperature 36.7 C (98 F) 11/06/2017 9:08 AM COUNSELOR CAMP Respiratory Rate 18 11/06/2017 9:08 AM COUNSELOR CAMP Oxygen Saturation 96% 11/06/2017 9:08 AM COUNSELOR CAMP Inhaled Oxygen - - Concentration Weight 95.5 kg (210 lb 9.6 oz) 11/06/2017 9:08 AM COUNSELOR CAMP Height 160 cm (5' 2.99") 11/06/2017 9:08 AM COUNSELOR CAMP Body Mass Index 37.32 11/06/2017 9:08 AM COUNSELOR CAMP in this encounter Functional Status Functional Status [...] this encounter Progress Notes * Alina Bee, YOLA-SUPERVISOR BLOOD - 11/06/2017 9:30 AM COUNSELOR CAMP Formatting of this note may be different [...] a history of breast cancer (ER 3%, SD 0%), diagnosed in 1992 at age 33, [...] invasive lobular carcinoma, grade 1 (ER 100, SD 97, Her2 0+ IHC, Ki67 14%), with [...] Contact Information Primary Emergency Contact: [facility] Relation: Spouse Care Team Patient Care Team: [...] Markers Estrogen Receptor (ER) 100% Progesterone Receptor (SD) 97% Her2/shen NEGATIVE Ki67(proliferation rate) 14% Genomic Testing Oncotype DX: Recurrence score of 9. Surgical Procedure: Location/Findings Past Surgical History: Procedure Laterality Date HX MASTECTOMY Right 1993 lymph nodes, reconstruction with permanet implant HYSTERECTOMY 07/2007 with BSO; due to uterine prolapse HEART CATHETERIZATION 12/2013 MASTECTOMY Left 03/29/2016 Left Total Mastectomy, [place] Lymph Node Biopsy, Possible Axillary Lymph Node Dissection performed by Cruz Tadeo DO at [facility] MAIN OR/PERIOP THYROID SURGERY 2011,2013 ablation Tumor Type/Histology/Grade Invasive lobular carcinoma, grade 1 Background Information Family History/predisposing conditions Family History Problem Relation Age of Onset Cancer-Breast Mother 59 Cancer-Breast Maternal Aunt 57 Cancer-Breast Maternal Grandmother 84 Cancer-Lung Father 84 smoker Genetic Testing [facility] genetic panel test negative. Social History Social [...] Center 11/06/2017 9:30 AM Alina Bee APRN[facility] Exam 04/04/2018 2:15 PM Cruz Tadeo DO [facility] Exam 04/16/2018 3:00 PM Lana Bertrand APRN [address] Exam Plan for 5-10 years of [...] Pelvic exam ? Continue to visit a collection manager regularly 4. Bone health ? Bone Mineral [...] invasive lobular carcinoma, grade 1 (ER 100, SD 97, Her2 0+ IHC, Ki67 14%), with DCIS, intermediate grade. Clinical Stage IIA (T2, N0, cM0). S/p left mastectomy w/ SLNB by Dr. Tadeo 03/29/16. Surgical pathology invasive lobular carcinoma, grade 1, 3/3 nodes negative for malignancy. Pathologic staging IIA pT2 (sn)N0(i-) Mn/a. 2. HX of right breast cancer (ER 3%, SD 0%), diagnosed in 1992 at age 33, S/p right mastectomy with TRAM flap in 1992. She then completed adjuvant AC. 3. Family hx of breast cancer, daughter diagnosed at age 32, daughter negative for BRCA1/2 mutation with VUS present in BRCA1. 4. [facility] genetic panel test negative for any mutation [...] Alina Bee APRN-NP - 11/06/2017 9:30 AM COUNSELOR CAMP Formatting of this note may be different from the original. Treatment Summary for Malignant neoplasm of upper-outer quadrant of left female breast (HCC) HARPREET Monroe 11/06/2017 9:49 AM Cancer Treatment Summary Provided by HARPREET Monroe on 11/06/2017 General Information Patient Name Willa Turner (home) Date of 1960 Age 57 y.o. Support Contact Extended Emergency Contact Information Primary Emergency Contact: [facility] Relation: Spouse Care Team Patient Care Team: [...] Markers Estrogen Receptor (ER) 100% Progesterone Receptor (SD) 97% Her2/shen NEGATIVE Ki67(proliferation rate) 14% Genomic Testing Oncotype DX: Recurrence score of 9. Surgical Procedure: Location/Findings Past Surgical History: Procedure Laterality Date HX MASTECTOMY Right 1992 lymph nodes, reconstruction with permanet implant HYSTERECTOMY 07/2007 with BSO; due to uterine prolapse HEART CATHETERIZATION 12/2013 MASTECTOMY Left 03/29/2016 Left Total Mastectomy, [place] Lymph Node Biopsy, Possible Axillary Lymph Node Dissection performed by Cruz Tadeo DO at [facility] MAIN OR/PERIOP THYROID SURGERY 2011,2013 ablation Tumor [...] Department Center 11/06/2017 9:30 AM Alina Bee APRN-SUPERVISOR BLOOD [facility] Ex[facility] 04/04/2018 2:15 PM Cruz Tadeo DO [facility] Exam 04/16/2018 3:00 PM Lana Bertrand APRN [address] Exam Plan for 5-10 years of [...] Pelvic exam ? Continue to visit a collection manager regularly 4. Bone health ? Bone Mineral [...]
--- OUTSIDE RECORDS SUMMARY | 2017-12-03 02:39 | XMS REPORT | Continuity of Care Document ---
Author Author [facility] Organization [facility] Address Unknown Phone Unavailable Allergies Active Description Code Type Severity Reaction Onset Reported/Identified Relationship to Patient Clinical Status Yes No Known Drug Allergies [id number] Drug Allergy Unknown N/A 05/19/2009 Medications There [...] 11/26/2014 VOGT DO, JEY Ot V10.3 11/26/2014 VGOT DO, JEY Ot 242.90 11/26/2014 VOGT DO, [...] 01/13/2015 VOGT DO, JEY Ot 242.00 01/13/2015 VGOT DO, JEY Ot 401.1 01/13/2015 VOGT DO, [...] ROBERTH R Ot 242.90 2015 BAIMASILVIA L CATERING ASSOCIATE Ot 242.90 2015 CIROMASILVIA L CATERING ASSOCIATE Ot 401.9 2015 BAIMASILVIA L CATERING ASSOCIATE Ot 427.31 2015 BAIMASILVIA L CATERING ASSOCIATE Ot V58.61 2015 Ot 242.90 03/23/2015 STEVE [...] R Ot 242.90 04/09/2015 BAIMA SILVIA L CATERING ASSOCIATE Ot 242.90 04/09/2015 BAIMA SILVIA L CATERING ASSOCIATE Ot 401.9 04/09/2015 BAIMA SILVIA L CATERING ASSOCIATE Ot 427.31 04/09/2015 BAIMA SILVIA L CATERING ASSOCIATE Ot V58.61 04/09/2015 Ot 242.90 04/09/2015 STEVE [...] NOS NO CRISIS 04/11/2016 BAISILVIA PEPE L CATERING ASSOCIATE Ot 242.90 THYROTOX NOS NO CRISIS 04/11/2016 SILVIA MCGEE L CATERING ASSOCIATE Ot 401.9 HYPERTENSION NOS 04/11/2016 CIROMASLIVIA L CATERING ASSOCIATE Ot 427.31 ATRIAL FIBRILLATION 04/11/2016 SILVIA MCGEE CATERING ASSOCIATE Ot V58.61 ANTICOAGULANTS,LT,CURRENT USE 04/11/2016 Ot 242.90 [...] TO MEDS AND OTH EXOGE 04/27/2016 VOGTJEY MONCAAD DO Ot Z00.00 ENCNTR FOR GENERAL ADULT [...] THYROTOX NOS NO CRISIS 05/08/2016 SILVIA MCGEE CATERING ASSOCIATE Ot 242.90 THYROTOX NOS NO CRISIS 05/08/2016 SILVIA MCGEE L CATERING ASSOCIATE Ot 401.9 HYPERTENSION NOS 05/08/2016 SILVIA MCGEE L CATERING ASSOCIATE Ot 427.31 ATRIAL FIBRILLATION 05/08/2016 SILVIA MCGEE L CATERING ASSOCIATE Ot V58.61 ANTICOAGULANTS,LT,CURRENT USE 05/08/2016 Ot 242.90 [...] MARCUS MD Ot Y92.[address] IN [facility] NON-INSTITUT (PRIVATE 05/08/2016 CARL MARCUS MD Ot Y99.8 OTHER EXTERNAL CAUSE STATUS 05/10/2016 CARL MARCUS MD Ot S82.451A DISPLACED COMMINUTED FRACTURE OF SHAFT O 05/10/2016 CARL MARCUS MD Ot W10.9XXA FALL (ON) (FROM) UNSPECIFIED STAIRS AND 05/10/2016 CARL MARCUS MD Ot Y92.[address] IN [facility] NON-INSTITUT (PRIVATE 05/10/2016 CARL MARCUS MD Ot [...] VOGT DO Ot V58.61 ANTICOAGULANTS,LT,CURRENT USE 09/06/2016 JEY VOGT DO Ot 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 09/06/2016 [...] NOS NO CRISIS 09/06/2016 BAISILVIA PEPE L CATERING ASSOCIATE Ot 242.90 THYROTOX NOS NO CRISIS 09/06/2016 BAIKIM PEPEHER L CATERING ASSOCIATE Ot 401.9 HYPERTENSION NOS 09/06/2016 BAIKIM PEPEHER L CATERING ASSOCIATE Ot 427.31 ATRIAL FIBRILLATION 09/06/2016 BAISILVIA PEPE L CATERING ASSOCIATE Ot V58.61 ANTICOAGULANTS,LT,CURRENT USE 09/06/2016 Ot 242.90 THYROTOX NOS NO CRISIS 09/06/2016 STEVE HOGAN ROBERTH R Ot 242.90 THYROTOX NOS NO CRISIS 09/06/2016 MEENA VOGT DOI Ot 242.90 THYROTOX NOS NO CRISIS 09/06/2016 MEENA VOGT DOI Ot 401.1 BENIGN HYPERTENSION 09/06/2016 MEENA VOGT DOI Ot 427.31 ATRIAL FIBRILLATION 09/06/2016 MEENA [...] THYROTOX NOS NO CRISIS 04/26/2017 BAIMAKIMSILVIA L CATERING ASSOCIATE Ot 242.90 THYROTOX NOS NO CRISIS 04/26/2017 BAIMA SILVIA L CATERING ASSOCIATE Ot 401.9 HYPERTENSION NOS 04/26/2017 BAIMA SILVIA L CATERING ASSOCIATE Ot 427.31 ATRIAL FIBRILLATION 04/26/2017 BAIMA SILVIA L CATERING ASSOCIATE Ot V58.61 ANTICOAGULANTS,LT,CURRENT USE 04/26/2017 Ot 242.90 [...] ADULT MEDICAL EXAM W04/28/2017 SILVIA MCGEE L CATERING ASSOCIATE Ot G47.33 OBSTRUCTIVE SLEEP APNEA (ADULT) (PEDIATR 04/28/2017 BAIMA, SILVIA L CATERING ASSOCIATE Ot I08.1 RHEUMATIC DISORDERS OF BOTH MITRAL AND T 04/28/2017 BAIMA, SILVIA L CATERING ASSOCIATE Ot I10 ESSENTIAL (PRIMARY) HYPERTENSION 04/28/2017 CIROMA SILVIA L CATERING ASSOCIATE Ot Z86.79 PERSONAL HISTORY OF OTHER DISEASES OF TH 05/10/2017 CIROMA SILVIA L CATERING ASSOCIATE Ot G47.33 OBSTRUCTIVE SLEEP APNEA (ADULT) (PEDIATR 05/10/2017 BAIMA, SILVIA L CATERING ASSOCIATE Ot I08.1 RHEUMATIC DISORDERS OF BOTH MITRAL AND T 05/10/2017 BAIMA, SILVIA L CATERING ASSOCIATE Ot I10 ESSENTIAL (PRIMARY) HYPERTENSION 05/10/2017 ARELY, SILVIA L CATERING ASSOCIATE Ot Z86.79 PERSONAL HISTORY OF OTHER DISEASES OF 05/31/2017 SIN DO JEY Ot E03.2 HYPOTHYROIDISM DUE TO MEDS AND OTH EXOGE 05/31/2017 SIN DO JEY Ot E78.00 PURE HYPERCHOLESTEROLEMIA, UNSPECIFIED 05/31/2017 SIN DO JEY Ot E78.1 PURE HYPERGLYCERIDEMIA 09/21/2017 ROBERTH WILSON DO Ot E03.9 HYPOTHYROIDISM, UNSPECIFIED 11/22/2017 JEY VOGT DO Ot E03.2 HYPOTHYROIDISM DUE TO MEDS AND OTH EXOGE 11/22/2017 SIN DO JEY Ot E78.00 PURE HYPERCHOLESTEROLEMIA, UNSPECIFIED 11/22/2017 VOGT DO JEY Ot E78.1 PURE HYPERGLYCERIDEMIA 11/22/2017 MEENA VOGT DOI Ot Z00.00 ENCNTR FOR GENERAL ADULT MEDICAL EXAM W/ 11/24/2017 SIN DO JEY Ot E03.2 HYPOTHYROIDISM DUE TO MEDS AND OTH EXOGE 11/24/2017 SIN DO, JEY Ot E78.00 PURE HYPERCHOLESTEROLEMIA, UNSPECIFIED 11/24/2017 MEENA VOGT DOI Ot E78.1 PURE HYPERGLYCERIDEMIA 11/24/2017 MEENA VOGT DOI Ot Z00.00 ENCNTR FOR GENERAL ADULT MEDICAL EXAM W/ Procedures Code Description Performed By Performed On [...] measurement in platelet poor plasma (mass/volume) - 19:55 Fibrin D-dimer FEU measurement in platelet [...] Status Pt. Type Provider Facility Loc./Unit Complaint [id number] 11/17/2017 08:48:00 11/17/2017 23:59:59 [facility] Outpatient JEY VOGT DO [facility] E78.1, E78.0,Z00.00, E03.2 [id number] 09/11/2017 08:26:00 09/11/2017 23:59:59 CLS Outpatient STEVE HOGAN ROBERTH R [facility] E03.9 [id number] 05/19/2017 09:31:00 05/19/2017 23:59:59 CLS Outpatient VOGT DO, JEY [facility] E78.0 E78.1 Z00.00 E03.2 [id number] 04/26/2017 08:44:00 04/26/2017 23:59:59 CLS Outpatient SILVIA MCGEE [facility] CARD Z86.79 HX OF AFIB [id number] 11/18/2016 10:13:00 11/18/2016 23:59:59 CLS Outpatient SIN HOGAN JEY [facility] E55.9,Z00.0,E03.9 [id number] 10/28/2016 10:09:00 10/28/2016 23:59:59 CLS Outpatient STEVE HOGAN ROBERTH R [facility] HYPOTHYROIDISM [id number] 09/05/2016 08:44:00 09/05/2016 23:59:59 CLS Outpatient STEVE HOGAN ROBERTH R [facility] HYPOTHYROIDISM [id number] 08/04/2016 08:37:00 08/04/2016 23:59:59 CLS Outpatient VOGT DO, JEY [facility] GENERAL MEDICAL EXAM,VIT D,HYPERCHOLESTEROLEMIA [id number] 05/08/2016 07:14:00 05/08/2016 08:56:00 DIS Emergency ANGELINE CONTRERAS, CARL Patricia [facility] ER R ANKLE INJ/PAIN/SWELLING [id number] 04/11/2016 07:54:00 04/11/2016 23:59:59 CLS Outpatient VOGT DO, JEY [facility] GENERAL ADULT MEDICAL EXAM [id number] 10/12/2015 09:22:00 10/12/2015 23:59:59 CLS Outpatient VOGT DO, JEY [facility] ADULT MED EXAM,VIT D DEFICIENCY,HYPOTHYROIDISM [id number] 04/09/2015 08:30:00 04/09/2015 23:59:59 CLS Outpatient VOGTANTWAN HOGAN JEY [facility] MED MONITORING, HYPOTHYROIDISM,HYPERTENSION [id number] 2015 13:28:00 2015 23:59:59 CLS Outpatient STEVE ROBERTH HOGAN R [facility] HYPERTHYROIDISM [id number] 01/14/2015 08:00:00 01/14/2015 23:59:59 CLS Outpatient ARELY SILVIA Marcellus CARLISLE [facility] CARD AF,HTN, HYPERTHYROIDISM,CHRONIC ANTICOAGULATION [id number] 11/26/2014 10:44:00 11/26/2014 23:59:59 CLS Outpatient STEVEROBERTH MARTINEZ DO R [facility] HYPOTHRYOIDISM [id number] 10/23/2014 00:10:00 10/23/2014 23:59:59 CLS Preadmit ROBERTH WILSON DO R [facility] HYPERTHRYROIDISM [id number] 07/24/2014 11:10:00 10/22/2014 00:01:00 DIS Outpatient STEVEROBERTH MARTINEZ DO R [facility] HYPERTHRYROIDISM [id number] 10/09/2014 07:19:00 10/09/2014 23:59:59 CLS Outpatient SIN HOGAN JEY [facility] HEALTH SCREENING,MED MONITORING,THYROTOXICOSIS,A-F [id number] 06/09/2014 07:42:00 09/04/2014 00:01:00 DIS Outpatient JEY VOGT DO [facility] HYPOTHROIDISM,IODINE OVERLOAD [id number] 04/18/2014 07:36:00 07/15/2014 00:01:00 DIS Outpatient JEY VOGT DO [facility] THYROTOXICOSIS, HYPOTHYROIDISM, IODINE LOAD [id number] 04/14/2014 07:55:00 04/14/2014 23:59:59 CLS Outpatient JEY VOGT DO [facility] HYPERTHYROIDISM [id number] 03/06/2014 08:42:00 03/06/2014 23:59:59 CLS Outpatient SIN HOGAN JEY [facility] HYPERTHROIDISM [id number] 01/01/2014 03:55:00 01/03/2014 12:05:00 DIS Inpatient VOGT DO JEY [facility] CSD A-FIB W/RVR, HYPERTHYROIDISM [id number] 12/30/2013 16:25:00 12/30/2013 23:59:59 CLS Outpatient VOGTANTWAN HOGAN JEY [facility] HYPOTHYROIDISM [id number] 12/19/2013 21:17:00 12/20/2013 06:40:00 DIS Outpatient ONOFRE MAZARIEGOS APRN [facility] SLEEP SLEEP APNEA [id number] 10/17/2013 19:45:00 10/18/2013 06:35:00 DIS Outpatient ELYSIA LAWSON MD [facility] SLEEP UNSPECIFIED SLEEP DISTURBANCE [id number] 07/22/2013 08:00:00 07/22/2013 23:59:59 CLS Outpatient SIN HOGAN JEY [facility] HTN,GRAVES DISEASE, ALKALILNE PHOSPHATASE,HYPERTHYR [id number] 11/30/2017 20:05:00 Document Registration [id number] 01/16/2015 12:11:00 Document Registration [id number] 10/09/2014 07:22:00 Document Registration [id number] 10/09/2014 07:22:00 Document Registration [id number] 10/09/2014 07:22:00 Document Registration [id number] 09/05/2014 00:00:00 Document Registration [id number] 07/16/2014 00:00:00 Document Registration [id number] 01/21/2013 07:54:00 Document Registration [id number] 07/13/2012 12:11:00 Document Registration [id number] 01/12/2012 11:10:00 Document Registration [id number] 08/15/2011 06:08:00 Document Registration [id number] 07/15/2011 12:49:00 Document Registration [id number] 07/07/2011 08:23:00 Document Registration [id number] 02/20/2011 16:15:00 Document Registration [id number] 01/07/2011 07:44:00 Document Registration [id number] 10/25/2010 07:43:00 Document Registration [id number] 07/26/2010 07:55:00 Document Registration [id number] 06/11/2010 10:44:00 Document Registration [id number] 04/30/2010 08:33:00 Document Registration [id number] 04/05/2010 13:58:00 Document Registration [id number] 04/01/2010 00:00:00 Document Registration [id number] 03/04/2010 07:43:00 Document Registration [id number] 12/31/2009 08:59:00 Document Registration [id number] 11/25/2009 00:00:00 Document Registration [id number] 11/16/2009 07:43:00 Document Registration [id number] 10/19/2009 11:06:00 Document Registration [id number] 09/21/2009 07:33:00 Document Registration [id number] 09/09/2009 07:40:00 Document Registration [id number] 08/14/2009 08:35:00 Document Registration [id number] 08/13/2009 08:46:00 Document Registration [id number] 08/13/2009 08:41:00 Document Registration [id number] 08/11/2009 08:39:00 Document Registration [id number] 08/04/2009 07:34:00 Document Registration [id number] 07/31/2009 07:20:00 Document Registration [id number] 07/24/2009 07:46:00 Document Registration [id number] 07/21/2009 10:43:00 Document Registration [id number] 07/09/2009 10:39:00 Document Registration [id number] 07/08/2009 07:24:00 Document Registration [id number] 07/01/2009 07:44:00 Document Registration [id number] 06/23/2009 07:50:00 Document Registration [id number] 06/16/2009 07:21:00 Document Registration [id number] 06/11/2009 07:33:00 Document Registration [id number] 06/08/2009 07:59:00 Document Registration [id number] 05/26/2009 08:21:00 Document Registration [id number] 05/11/2009 11:09:00 Document Registration [id number] 05/08/2009 07:54:00 Document Registration
== END 2017-12-01 13:30 | disposition home or self-care (01) | DRG 69 ==
LOC: EDUNIT# 19:41 → ER 19:44 → UNDOADMOB 22:02 → ICU 22:02 → OBSVTOIN 22:02 → INTOOBSV 22:02 → UNDODISIN 12-01 13:30
PROVIDERS: ADMIT Internal Medicine; ATTEND Internal Medicine
DX: G45.9 Transient cerebral ischemic attack, unspecified (principal); I48.0 Paroxysmal atrial fibrillation; E05.00 Thyrotoxicosis with diffuse goiter without thyrotoxic crisis or storm; I10 Essential (primary) hypertension; K21.9 Gastro-esophageal reflux disease without esophagitis; Z85.3 Personal history of malignant neoplasm of breast; Z90.12 Acquired absence of left breast and nipple; G47.33 Obstructive sleep apnea (adult) (pediatric); K27.9 Peptic ulcer, site unspecified, unspecified as acute or chronic, without hemorrhage or perforation; K75.81 Nonalcoholic steatohepatitis (NASH); Z79.82 Long term (current) use of aspirin; E66.9 Obesity, unspecified; Z68.37 Body mass index [BMI] 37.0-37.9, adult
CPT/HCPCS: 36415; 70450; 70496; 70498; 70553; 71045; 80053; 80061; 81000; 83735; 84100; 84439; 84443; 84484; 85025; 85379; 85610; 85730; 93005; 93041; 93306; 93880; 96365

== ENCOUNTER → 2018-11-16 | Outpatient (CLI) | payer BC ==
[~2018-11-16] MED LIST changes: +ANAS1TAB50; +ANAS1TAB7 PO; +APIX5TAB PO; +ASPI-983 PO; +CALC-6 PO; +LEVO88TA54 PO; +METO-395 PO; +OMEP40CA36 PO
[2018-11-16 10:21] LABS: ALANINE AMINOTRANSFERASE 100 U/L (0-55); ALBUMIN 4.5 GM/DL (3.2-4.5); ALKALINE PHOSPHATASE 99 U/L (40-136); BILIRUBIN,TOTAL 0.8 MG/DL (0.1-1.0); BUN/CREATININE RATIO 14; CALCIUM 9.9 MG/DL (8.5-10.1); CARBON DIOXIDE 21 MMOL/L (21-32); CHLORIDE 105 MMOL/L (98-107); CHOLESTEROL 158 MG/DL (< 200); GFR ESTIMATED > 60; GLUCOSE 112 MG/DL (70-105); POTASSIUM 4.2 MMOL/L (3.6-5.0); SODIUM 138 MMOL/L (135-145); TOTAL PROTEIN 7.5 GM/DL (6.4-8.2); TRIGLYCERIDES 78 MG/DL (<150)
[2018-11-16 10:42] LABS: FREE T4 (FREE THYROXINE) 1.23 NG/DL (0.70-1.48)
== END ==
LOC: LAB 09:40
PROVIDERS: ATTEND Internal Medicine
DX: Z00.00 Encounter for general adult medical examination without abnormal findings (principal); E78.00 Pure hypercholesterolemia, unspecified; E78.1 Pure hyperglyceridemia; E03.2 Hypothyroidism due to medicaments and other exogenous substances
CPT/HCPCS: 36415; 80053; 82465; 84439; 84443; 84478

== ENCOUNTER → 2019-05-20 | Outpatient (CLI) | payer BC ==
[2019-05-20 07:44] LABS: BASOPHILS % (AUTO) 1 % (0-10); EOSINOPHILS # (AUTO) 0.1 10^3/uL (0.0-0.3); EOSINOPHILS % (AUTO) 2 % (0-10); HEMATOCRIT 41 % (35-52); HEMOGLOBIN 13.6 G/DL (11.5-16.0); LYMPHOCYTES # (AUTO) 1.2 X 10^3 (1.0-4.0); LYMPHOCYTES % (AUTO) 25 % (12-44); MEAN CORPUSCULAR HEMOGLOBIN 29 PG (25-34); MEAN CORPUSCULAR HGB CONC 33 G/DL (32-36); MEAN CORPUSCULAR VOLUME 87 FL (80-99); MEAN PLATELET VOLUME 10.3 FL (7.4-10.4); MONOCYTES # (AUTO) 0.5 X 10^3 (0.0-1.0); MONOCYTES % (AUTO) 10 % (0-12); NEUTROPHILS # (AUTO) 2.9 X 10^3 (1.8-7.8); NEUTROPHILS % (AUTO) 62 % (42-75); PLATELET COUNT 186 10^3/uL (130-400); RED CELL DISTRIBUTION WIDTH 13.7 % (10.0-14.5); WHITE BLOOD COUNT 4.7 10^3/uL (4.3-11.0)
[2019-05-20 08:02] LABS: CHOLESTEROL 169 MG/DL (< 200); HDL CHOLESTEROL 54 MG/DL (40-60); TRIGLYCERIDES 89 MG/DL (<150); VLDL CHOLESTEROL 18 MG/DL (5-40)
[2019-05-20 08:23] LABS: FREE T4 (FREE THYROXINE) 1.01 NG/DL (0.70-1.48)
[2019-05-21 09:53] LABS: ALANINE AMINOTRANSFERASE 124 U/L (0-55); ALBUMIN 4.3 GM/DL (3.2-4.5); ALKALINE PHOSPHATASE 104 U/L (40-136); BILIRUBIN,TOTAL 0.6 MG/DL (0.1-1.0); BUN/CREATININE RATIO 13; CALCIUM 9.7 MG/DL (8.5-10.1); CARBON DIOXIDE 23 MMOL/L (21-32); CHLORIDE 107 MMOL/L (98-107); CREATININE SERUM 0.83 MG/DL (0.60-1.30); GFR ESTIMATED > 60; GLUCOSE 135 MG/DL (70-105); POTASSIUM 4.3 MMOL/L (3.6-5.0); SODIUM 141 MMOL/L (135-145); TOTAL PROTEIN 7.3 GM/DL (6.4-8.2)
== END ==
LOC: LAB 07:29
PROVIDERS: ATTEND Internal Medicine
DX: Z00.00 Encounter for general adult medical examination without abnormal findings (principal); E03.2 Hypothyroidism due to medicaments and other exogenous substances; E78.00 Pure hypercholesterolemia, unspecified
CPT/HCPCS: 36415; 80053; 80061; 84439; 84443; 85025

== ENCOUNTER → 2019-11-19 | Outpatient (CLI) | payer BC ==
[2019-11-19 10:09] LABS: ALANINE AMINOTRANSFERASE 101 U/L (0-55); ALBUMIN 4.3 GM/DL (3.2-4.5); ALKALINE PHOSPHATASE 111 U/L (40-136); BILIRUBIN,TOTAL 0.8 MG/DL (0.1-1.0); BUN/CREATININE RATIO 15; CALCIUM 9.4 MG/DL (8.5-10.1); CARBON DIOXIDE 24 MMOL/L (21-32); CHLORIDE 108 MMOL/L (98-107); CHOLESTEROL 160 MG/DL (< 200); CREATININE SERUM 0.82 MG/DL (0.60-1.30); GFR ESTIMATED > 60; GLUCOSE 123 MG/DL (70-105); POTASSIUM 4.4 MMOL/L (3.6-5.0); SODIUM 141 MMOL/L (135-145); TOTAL PROTEIN 7.1 GM/DL (6.4-8.2); TRIGLYCERIDES 64 MG/DL (<150)
[2019-11-19 10:30] LABS: FREE T4 (FREE THYROXINE) 1.11 NG/DL (0.70-1.48)
== END ==
LOC: LAB 09:34
PROVIDERS: ATTEND Internal Medicine
DX: Z00.00 Encounter for general adult medical examination without abnormal findings (principal); E78.00 Pure hypercholesterolemia, unspecified; E78.1 Pure hyperglyceridemia; E03.2 Hypothyroidism due to medicaments and other exogenous substances
CPT/HCPCS: 36415; 80053; 82465; 84439; 84443; 84478

== ENCOUNTER → 2020-05-25 | Outpatient (CLI) | payer BC ==
[~2020-05-25] MED LIST changes: -METO-395 PO; +OMEP40CA27 PO; -OMEP40CA36 PO
[2020-05-25 10:31] LABS: BASOPHILS % (AUTO) 1 % (0-10); EOSINOPHILS # (AUTO) 0.1 10^3/uL (0.0-0.3); EOSINOPHILS % (AUTO) 2 % (0-10); HEMATOCRIT 42 % (35-52); HEMOGLOBIN 13.8 G/DL (11.5-16.0); LYMPHOCYTES # (AUTO) 0.8 X 10^3 (1.0-4.0); LYMPHOCYTES % (AUTO) 22 % (12-44); MEAN CORPUSCULAR HEMOGLOBIN 29 PG (25-34); MEAN CORPUSCULAR HGB CONC 33 G/DL (32-36); MEAN CORPUSCULAR VOLUME 88 FL (80-99); MEAN PLATELET VOLUME 10.7 FL (7.4-10.4); MONOCYTES # (AUTO) 0.4 X 10^3 (0.0-1.0); MONOCYTES % (AUTO) 9 % (0-12); NEUTROPHILS # (AUTO) 2.6 X 10^3 (1.8-7.8); NEUTROPHILS % (AUTO) 66 % (42-75); PLATELET COUNT 184 10^3/uL (130-400); RED CELL DISTRIBUTION WIDTH 13.7 % (10.0-14.5); WHITE BLOOD COUNT 3.8 10^3/uL (4.3-11.0)
[2020-05-25 11:01] LABS: ALBUMIN 4.4 GM/DL (3.2-4.5); CHLORIDE 105 MMOL/L (98-107); POTASSIUM 4.5 MMOL/L (3.6-5.0); SODIUM 141 MMOL/L (135-145)
[2020-05-25 11:02] LABS: CALCIUM 9.7 MG/DL (8.5-10.1)
[2020-05-25 11:03] LABS: GLUCOSE 145 MG/DL (70-105); TOTAL PROTEIN 7.6 GM/DL (6.4-8.2)
[2020-05-25 11:04] LABS: CARBON DIOXIDE 24 MMOL/L (21-32)
[2020-05-25 11:05] LABS: BILIRUBIN,TOTAL 0.4 MG/DL (0.1-1.0)
[2020-05-25 11:06] LABS: ALKALINE PHOSPHATASE 121 U/L (40-136)
[2020-05-25 11:07] LABS: CREATININE SERUM 0.87 MG/DL (0.60-1.30); GFR ESTIMATED > 60
[2020-05-25 11:08] LABS: BUN/CREATININE RATIO 15
[2020-05-25 11:10] LABS: ALANINE AMINOTRANSFERASE 101 U/L (0-55)
[2020-05-25 11:33] LABS: FREE T4 (FREE THYROXINE) 1.03 NG/DL (0.70-1.48)
[2020-05-26 11:03] LABS: TRIGLYCERIDES 95 MG/DL (<150); VLDL CHOLESTEROL 19 MG/DL (5-40)
[2020-05-26 11:08] LABS: CHOLESTEROL 179 MG/DL (< 200)
[2020-05-26 11:09] LABS: HDL CHOLESTEROL 60 MG/DL (40-60)
== END ==
LOC: LAB 10:11
PROVIDERS: ATTEND Internal Medicine
DX: Z00.00 Encounter for general adult medical examination without abnormal findings (principal); E03.9 Hypothyroidism, unspecified; E78.2 Mixed hyperlipidemia
CPT/HCPCS: 36415; 80053; 80061; 84439; 84443; 85025

== ENCOUNTER → 2020-12-17 | Outpatient (CLI) | payer BC ==
[~2020-12-17] MED LIST changes: +ASPI-1238 PO; -ASPI-983 PO; -CALC-6 PO; +CALC1TAB84 PO
[2020-12-17 07:41] LABS: BASOPHILS % (AUTO) 1 % (0-10); EOSINOPHILS # (AUTO) 0.1 10^3/uL (0.0-0.3); EOSINOPHILS % (AUTO) 3 % (0-10); HEMATOCRIT 39 % (35-52); HEMOGLOBIN 13.1 g/dL (11.5-16.0); LYMPHOCYTES % (AUTO) 31 % (12-44); MEAN CORPUSCULAR HEMOGLOBIN 30 pg (25-34); MEAN CORPUSCULAR HGB CONC 33 g/dL (32-36); MEAN CORPUSCULAR VOLUME 89 fL (80-99); MEAN PLATELET VOLUME 10.4 fL (9.0-12.2); MONOCYTES # (AUTO) 0.4 10^3/uL (0.0-1.0); MONOCYTES % (AUTO) 13 % (0-12); NEUTROPHILS # (AUTO) 1.8 10^3/uL (1.8-7.8); NEUTROPHILS % (AUTO) 53 % (42-75); PLATELET COUNT 174 10^3/uL (130-400); WHITE BLOOD COUNT 3.3 10^3/uL (4.3-11.0)
[2020-12-17 08:03] LABS: ALANINE AMINOTRANSFERASE 87 U/L (0-55); ALBUMIN 4.1 GM/DL (3.2-4.5); ALKALINE PHOSPHATASE 96 U/L (40-136); BILIRUBIN,TOTAL 0.7 MG/DL (0.1-1.0); BUN/CREATININE RATIO 15; CALCIUM 9.3 MG/DL (8.5-10.1); CARBON DIOXIDE 22 MMOL/L (21-32); CHLORIDE 106 MMOL/L (98-107); CHOLESTEROL 176 MG/DL (< 200); CREATININE SERUM 0.91 MG/DL (0.60-1.30); GFR ESTIMATED > 60; GLUCOSE 120 MG/DL (70-105); HDL CHOLESTEROL 48 MG/DL (40-60); POTASSIUM 4.3 MMOL/L (3.6-5.0); SODIUM 140 MMOL/L (135-145); TRIGLYCERIDES 86 MG/DL (<150); VLDL CHOLESTEROL 17 MG/DL (5-40)
[2020-12-17 08:24] LABS: FREE T4 (FREE THYROXINE) 1.07 NG/DL (0.70-1.48)
== END ==
LOC: LAB 07:23
PROVIDERS: ATTEND Internal Medicine
DX: Z00.00 Encounter for general adult medical examination without abnormal findings (principal); E03.2 Hypothyroidism due to medicaments and other exogenous substances; E78.2 Mixed hyperlipidemia; R73.9 Hyperglycemia, unspecified
CPT/HCPCS: 36415; 80053; 80061; 83036; 84439; 84443; 85025

== ENCOUNTER → 2021-01-25 | Outpatient (CLI) | payer BC ==
[2021-01-25 16:16] LABS: FREE T4 (FREE THYROXINE) 1.44 NG/DL (0.70-1.48)
== END ==
LOC: LAB 14:55
PROVIDERS: ATTEND Internal Medicine
DX: E03.2 Hypothyroidism due to medicaments and other exogenous substances (principal)
CPT/HCPCS: 36415; 84439; 84443

== ENCOUNTER → 2021-03-15 | Outpatient (CLI) | payer BC | LOC: LAB 10:04 | PROVIDERS: ATTEND Internal Medicine Endocrinology, Diabetes & Metabolism | DX: E03.8 Other specified hypothyroidism (principal) | CPT/HCPCS: 36415; 84443 ==

== ENCOUNTER → 2021-05-03 | Outpatient (CLI) | payer BC | LOC: LAB 09:27 | PROVIDERS: ATTEND Internal Medicine Endocrinology, Diabetes & Metabolism | DX: E03.8 Other specified hypothyroidism (principal) | CPT/HCPCS: 36415; 84443 ==

== ENCOUNTER → 2021-06-17 | Outpatient (CLI) | payer BC ==
[~2021-06-17] MED LIST changes: -OMEP40CA27 PO; +OMEP40CA6 PO
[2021-06-17 09:50] LABS: ALBUMIN 4.2 GM/DL (3.2-4.5); BILIRUBIN,TOTAL 0.8 MG/DL (0.1-1.0); CALCIUM 9.4 MG/DL (8.5-10.1); CREATININE SERUM 0.99 MG/DL (0.60-1.30); POTASSIUM 4.2 MMOL/L (3.6-5.0); TOTAL PROTEIN 7.3 GM/DL (6.4-8.2)
[2021-06-17 10:12] LABS: FREE T4 (FREE THYROXINE) 0.99 NG/DL (0.70-1.48)
== END ==
LOC: LAB 09:07
PROVIDERS: ATTEND Internal Medicine
DX: E78.1 Pure hyperglyceridemia (principal); I10 Essential (primary) hypertension; E03.2 Hypothyroidism due to medicaments and other exogenous substances; R73.9 Hyperglycemia, unspecified
CPT/HCPCS: 36415; 80053; 82465; 83036; 84439; 84443; 84478

== ENCOUNTER 2021-07-21 11:26 | Observation (INO) | payer BC ==
[~2021-07-21] VITALS: Ht 157.5 cm; Wt 90.4 kg
--- NOTE | 2021-07-21 12:59 | ED General ---
General Stated Complaint: ABD PAIN, RLQ PAIN Source of Information: Patient Exam Limitations: No Limitations History of Present Illness Date Seen by Provider: Jul 21, 2021 Time Seen by Provider: 12:56 Initial Comments To ER with epigastric abdominal pain that was noticed this morning at about 6 AM. She had some Pepto-Bismol this morning which did seem to help a little bit. Otherwise she had 2 sips of coffee and some water but no food. No fevers or chills though she has had intermittent nausea. No bowel consistency changes though she does report that it was supervisory clerk in color. She still has her gallbladder. She is on Eliquis for history of atrial fibrillation. Timing/Duration: 1-2 Days Severity: Moderate Associated Systoms: Denies Symptoms Allergies and Home Medications Allergies Coded Allergies: No Known Drug Allergies (Verified , 07/21/21) Home Medications Anastrozole 1 Mg Tablet, 1 MG PO 1200, (Reported) Last Action: Continued Apixaban 5 Mg Tablet, 5 MG PO BID Prescribed by: NIC ROBLERO on 12/01/17 1157 Last Action: Continued Calcium Carbonate/Vitamin D3 1 Each Tablet, 1 TAB PO 1200,2100, (Reported) Last Action: Converted Levothyroxine Sodium 75 Mcg Tablet, 75 MCG PO DAILY, (Reported) Last Action: Continued Metoprolol Succinate 100 Mg Tab.er.24h, 100 MG PO BID, (Reported) Last Action: Continued Omeprazole 40 Mg Capsule.dr, 40 MG PO DAILY, (Reported) Last Action: Converted Patient Home Medication List Home Medication List Reviewed: Yes Review of Systems Review of Systems Constitutional: see HPI EENTM: see HPI Respiratory: no symptoms reported Cardiovascular: no symptoms reported Gastrointestinal: abdominal pain, nausea Genitourinary: no symptoms reported Musculoskeletal: no symptoms reported Skin: no symptoms reported Psychiatric/Neurological: No Symptoms Reported Hematologic/Lymphatic: No Symptoms Reported Immunological/Allergic: no symptoms reported Past Iztaiuj-Vpzrmt-Bwyxfb Hx Seasonal Allergies Seasonal Allergies: No Past Medical History Surgeries: Yes (Mastectomy right at 29yo left at 56yo due to cancer ,thyroid ablation x 2) Breast, Hysterectomy Respiratory: No Sleep Apnea Cardiac: Yes Atrial Fibrillation, Hypertension Neurological: No Reproductive Disorders: No Genitourinary: No Gastrointestinal: Yes Gastroesophageal Reflux Musculoskeletal: No Endocrine: Yes (Thyroid ablation) Hyperthyroidism, Hypothyroidsim HEENT: No Cancer: Yes (MASTECTOMY) Breast Psychosocial: No Integumentary: No Blood Disorders: No Family Medical History Cancer 03 FATHER (LUNG) 03 MOTHER (BREAST) Family history: Diabetes mellitus 03 MOTHER 09 BROTHER 09 BROTHER Family history: Hypertension Physical Exam Vital Signs Capillary Refill : Height, Weight, BMI Height: 5'2.00" Weight: 207lbs. 0.0oz. 93.699367vc; 37.9 BMI Method:Stated General Appearance: No Apparent Distress, WD/WN, Other (Alert and oriented very pleasant appears uncomfortable but nontoxic no distress) Eyes: Bilateral Eye Normal Inspection, Bilateral Eye PERRL, Bilateral Eye EOMI HEENT: PERRL/EOMI Neck: Full Range of Motion, Normal Inspection Respiratory: No Accessory Muscle Use, No Respiratory Distress Cardiovascular: Regular Rate, Rhythm, Normal Peripheral Pulses Gastrointestinal: Normal Bowel Sounds, Non Tender, Soft Extremity: Normal Capillary Refill, Normal Inspection Neurologic/Psychiatric: Alert, Oriented x3 Skin: Normal Color, Warm/Dry Comments Minimal epigastric tenderness to palpation/minimal right upper quadrant tenderness to palpation. Given that Pepto-Bismol helped she also does report some GERD-like symptoms I suspect this may be something more along the lines of peptic ulcer disease but we will check her gallbladder as well. Progress/Results/Core Measures Suspected Sepsis SIRS Temperature: Pulse: Respiratory Rate: Laboratory Tests 07/21/21 12:54: White Blood Count 6.7 Blood Pressure / Mean: Laboratory Tests 07/21/21 12:54: Creatinine 0.88, Platelet Count 208, Total Bilirubin 0.6 Results/Orders Lab Results Laboratory Tests Test 07/21/21 12:54 Range/Units White Blood Count 6.7 4.3-11.0 10^3/uL Red Blood Count 4.97 3.80-5.11 10^6/uL Hemoglobin 14.7 11.5-16.0 g/dL Hematocrit 45 35-52 % Mean Corpuscular Volume 91 80-99 fL Mean Corpuscular Hemoglobin 30 25-34 pg Mean Corpuscular Hemoglobin Concent 33 32-36 g/dL Red Cell Distribution Width 13.2 10.0-14.5 % Platelet Count 208 130-400 10^3/uL Mean Platelet Volume 10.5 9.0-12.2 fL Immature Granulocyte % (Auto) 0 % Neutrophils (%) (Auto) 74 42-75 % Lymphocytes (%) (Auto) 16 12-44 % Monocytes (%) (Auto) 8 0-12 % Eosinophils (%) (Auto) 1 0-10 % Basophils (%) (Auto) 1 0-10 % Neutrophils # (Auto) 5.0 1.8-7.8 10^3/uL Lymphocytes # (Auto) 1.1 1.0-4.0 10^3/uL Monocytes # (Auto) 0.6 0.0-1.0 10^3/uL Eosinophils # (Auto) 0.1 0.0-0.3 10^3/uL Basophils # (Auto) 0.1 0.0-0.1 10^3/uL Immature Granulocyte # (Auto) 0.0 0.0-0.1 10^3/uL Sodium Level 139 135-145 MMOL/L Potassium Level 4.4 3.6-5.0 MMOL/L Chloride Level 106 98-107 MMOL/L Carbon Dioxide Level 23 21-32 MMOL/L Anion Gap 10 5-14 MMOL/L Blood Urea Nitrogen 17 7-18 MG/DL Creatinine 0.88 0.60-1.30 MG/DL Estimat Glomerular Filtration Rate 65 BUN/Creatinine Ratio 19 Glucose Level 128 H 70-105 MG/DL Calcium Level 10.0 8.5-10.1 MG/DL Corrected Calcium 8.5-10.1 MG/DL Total Bilirubin 0.6 0.1-1.0 MG/DL Aspartate Amino Transf (AST/SGOT) 67 H 5-34 U/L Alanine Aminotransferase (ALT/SGPT) 102 H 0-55 U/L Alkaline Phosphatase 111 40-136 U/L Total Protein 8.1 6.4-8.2 GM/DL Albumin 4.6 H 3.2-4.5 GM/DL Lipase 16 8-78 U/L Thyroid Stimulating Hormone (TSH) 2.20 0.35-4.94 UIU/ML Free Thyroxine 1.04 0.70-1.48 NG/DL My Orders Orders - EMY ROTH APRN Lipase (07/21/21 12:55) Cbc With Automated Diff (07/21/21 12:55) Comprehensive Metabolic Panel (07/21/21 12:55) Thyroid Stimulating Hormone (07/21/21 12:55) Free T4 (Free Thyroxine) (07/21/21 12:55) Ed Iv/Invasive Line Start (07/21/21 12:55) Lactated Ringers (Lr 1000 Ml Iv Solution (07/21/21 13:00) Fentanyl Inj (Sublimaze Injection) (07/21/21 13:00) Ondansetron Injection (Zofran Injectio (07/21/21 13:00) Us Gallbladder [id number] (07/21/21 13:01) Antacid Suspension (Mylanta Suspension (07/21/21 14:00) Lidocaine 2% Viscous 15 Ml (Xylocaine Vi (07/21/21 14:00) Medications Given in ED Current Medications Medications Dose Ordered Sig/Dino Route Start Time Stop Time Status Last Admin Dose Admin Al Hydrox/Mg Hydrox/Simethicone 30 ml ONCE ONCE PO 07/21/21 14:00 07/21/21 14:01 DC 07/21/21 14:01 30 ML Fentanyl Citrate 50 mcg ONCE ONCE IVP 07/21/21 13:00 07/21/21 13:01 DC 07/21/21 13:05 50 MCG Lidocaine HCl 10 ml ONCE ONCE PO 07/21/21 14:00 07/21/21 14:01 DC 07/21/21 14:01 10 ML Ondansetron HCl 8 mg ONCE ONCE IVP 07/21/21 13:00 07/21/21 13:01 DC 07/21/21 13:04 8 MG Vital Signs/I&O Capillary Refill : Departure Communication (Admissions) 1763-ultrasound is nondiagnostic. Labs also nondiagnostic. GI cocktail did not improve symptoms making peptic ulcer disease less likely. Will admit to [facility], consult surgery. Dr. Jarrett was on but by patients preference Dr. Blount was consulted per patient as she is acquainted with him. We'll schedule for hepatobiliary scan. NAME: MARYLOU BARRIOS [facility] REC#: [id number] PT STATUS: REG ER : 1960 PHYSICIAN: EMY ROTH APRN ADMIT DATE: 07/21/21/ER Draft Date of Exam:07/21/21 US GALLBLADDER [id number] PROCEDURE: US Gallbladder. TECHNIQUE: Multiple real-time grayscale images were obtained over the right upper quadrant in various projections. INDICATION: Epigastric pain. Liver is 16 cm in size. There is diffuse increased echogenicity throughout the liver consistent with hepatic steatosis. Portal vein is patent and shows normal direction of flow. No mass is detected. The gallbladder is without stones or sludge. No definite wall thickening is seen. There is no biliary ductal dilatation. Pancreas was obscured by overlying bowel gas. Aorta is obscured. IVC is unremarkable. Right kidney is without calculi or hydronephrosis. There is no ascites. IMPRESSION: 1. Hepatic steatosis. 2. No evidence of cholelithiasis or acute cholecystitis. Dictated on workstation # [id number] Dict: 07/21/21 1406 Trans: 07/21/21 1409 [facility] [id number] Interpreted by: TAYLOR MCCARTY MD Electronically signed by: Impression Primary Impression: Epigastric pain Disposition: ADMITTED INPATIENT Condition: Stable Departure-Patient Inst. Referrals: JEY VOGT DO (PCP/Family) Primary Care Physician EMY ROTH POLICY WRITER SALES Jul 21, 2021 12:59
[2021-07-21] MEDS ORDERED: ONDANSETRON 4 MG/2 ML (SDV) Z0FRAN IVP ONE (13:00)
[2021-07-21] MEDS ORDERED: LACTATED RINGERS 1,000 ML IV SCH (13:00)
[2021-07-21] MEDS ORDERED: fentaNYL INJ 100 MCG/2 ML AMP IVP ONE (13:00)
[2021-07-21 13:01] LABS: BASOPHILS # (AUTO) 0.1 10^3/uL (0.0-0.1); BASOPHILS % (AUTO) 1 % (0-10); EOSINOPHILS # (AUTO) 0.1 10^3/uL (0.0-0.3); EOSINOPHILS % (AUTO) 1 % (0-10); HEMATOCRIT 45 % (35-52); HEMOGLOBIN 14.7 g/dL (11.5-16.0); LYMPHOCYTES # (AUTO) 1.1 10^3/uL (1.0-4.0); LYMPHOCYTES % (AUTO) 16 % (12-44); MEAN CORPUSCULAR HEMOGLOBIN 30 pg (25-34); MEAN CORPUSCULAR HGB CONC 33 g/dL (32-36); MEAN CORPUSCULAR VOLUME 91 fL (80-99); MEAN PLATELET VOLUME 10.5 fL (9.0-12.2); MONOCYTES # (AUTO) 0.6 10^3/uL (0.0-1.0); MONOCYTES % (AUTO) 8 % (0-12); NEUTROPHILS % (AUTO) 74 % (42-75); PLATELET COUNT 208 10^3/uL (130-400); WHITE BLOOD COUNT 6.7 10^3/uL (4.3-11.0)
[2021-07-21 13:10] LABS: ALBUMIN 4.6 GM/DL (3.2-4.5); CHLORIDE 106 MMOL/L (98-107); POTASSIUM 4.4 MMOL/L (3.6-5.0); SODIUM 139 MMOL/L (135-145)
[2021-07-21 13:12] LABS: GLUCOSE 128 MG/DL (70-105); TOTAL PROTEIN 8.1 GM/DL (6.4-8.2)
[2021-07-21 13:13] LABS: CARBON DIOXIDE 23 MMOL/L (21-32)
[2021-07-21 13:14] LABS: BILIRUBIN,TOTAL 0.6 MG/DL (0.1-1.0)
[2021-07-21 13:16] LABS: ALKALINE PHOSPHATASE 111 U/L (40-136); CREATININE SERUM 0.88 MG/DL (0.60-1.30); GFR ESTIMATED 65
[2021-07-21 13:17] LABS: BUN/CREATININE RATIO 19
[2021-07-21 13:19] LABS: ALANINE AMINOTRANSFERASE 102 U/L (0-55); LIPASE 16 U/L (8-78)
[2021-07-21 13:41] LABS: FREE T4 (FREE THYROXINE) 1.04 NG/DL (0.70-1.48)
[2021-07-21] MEDS ORDERED: ANTACID SUSP 30 ML UDC (MYLANTA) PO ONE (14:00)
[2021-07-21] MEDS ORDERED: LIDOCAINE 2% VISCOUS 15 ML UDC PO ONE (14:00)
--- NOTE | 2021-07-21 14:10 | Diagnostic Imaging Report ---
PROCEDURE: US Gallbladder. TECHNIQUE: Multiple real-time grayscale images were obtained over the right upper quadrant in various projections. INDICATION: Epigastric pain. Liver is 16 cm in size. There is diffuse increased echogenicity throughout the liver consistent with hepatic steatosis. Portal vein is patent and shows normal direction of flow. No mass is detected. The gallbladder is without stones or sludge. No definite wall thickening is seen. There is no biliary ductal dilatation. Pancreas was obscured by overlying bowel gas. Aorta is obscured. IVC is unremarkable. Right kidney is without calculi or hydronephrosis. There is no ascites. IMPRESSION: 1. Hepatic steatosis. 2. No evidence of cholelithiasis or acute cholecystitis. Dictated by: Dictated on workstation # [id number]
[2021-07-21] MEDS ORDERED: LEVO75TA6 PO (17:16)
[2021-07-21] MEDS: ONDANSETRON 4 MG/2 ML (SDV) Z0FRAN ONE ×2 (17:18→17:30)
[2021-07-21] MEDS ORDERED: CATHETER FLUSH 10 ML SYR IV PRN (17:30)
[2021-07-21] MEDS: LACTATED RINGERS 1,000 ML IV SCH (17:33)
[2021-07-21] MEDS: ONDANSETRON 4 MG/2 ML (SDV) Z0FRAN IV PRN (17:34)
--- NOTE | 2021-07-21 17:36 | History & Physical ---
History of Present Illness HPI/Chief Complaint CC: Abdominal pain HPI: This is a 63yo clinic Pt of mine for 18 years with a PMH of breast CA with a B/L mastectomy, AFIB with hyperthyroidism s/p ablation X2 who presented to the ER with complaints of mid-epigastric abdominal pain and the severity increased so she was unable to make it to her appointment next week at my clinic, so she presented to the ER, ultrasound has been ordered and will consult Dr. Blount for at least an EGD if ultrasound is normal. Source: patient Exam Limitations: no limitations Date Seen 07/21/21 Time Seen by a Provider: 12:00 Attending Physician Ellen Galvin DO PCP Ellen Galvin DO Referring Physician Date of Admission Jul 21, 2021 at 14:31 Home Medications & Allergies Home Medications Reviewed patient Home Medication Reconciliation performed by pharmacy medication reconciliations fiberglass quality technician and/or nursing. Patients Allergies have been reviewed. Allergies Allergies Coded Allergies No Known Drug Allergies (Verified07/21/21) Past Hspenhn-Xgypqe-Ynndab Hx Past Med/Social Hx: Reviewed Nursing Past Med/Soc Hx, Reviewed and Corrections made Patient Social History Marrital Status: Employed/Student: employed Alcohol Use: Denies Use Smoking Status: Never a Smoker Recent Foreign Travel: No Recent Hopitalizations: No Immunizations Up To Date Date of Pneumonia Vaccine: Oct 01, 2014 Date of Influenza Vaccine: Aug 31, 2017 Seasonal Allergies Seasonal Allergies: No Past Medical History Surgeries: Breast, Hysterectomy Cardiac: Atrial Fibrillation, Hypertension Reproductive: No Gastrointestinal: Gastroesophageal Reflux Endocrine: Hyperthyroidism, Hypothyroidsim Cancer: Breast History of Blood Disorders: No Family History Cancer 03 FATHER (LUNG) 03 MOTHER (BREAST) Family history: Diabetes mellitus 03 MOTHER 09 BROTHER 09 BROTHER Family history: Hypertension Review of Systems Constitutional: see HPI EENTM: no symptoms reported Respiratory: no symptoms reported Cardiovascular: no symptoms reported Gastrointestinal: abdominal pain, loss of appetite, nausea Genitourinary: no symptoms reported Musculoskeletal: no symptoms reported Skin: no symptoms reported Psychiatric/Neurological: No Symptoms Reported All Other Systems Reviewed Negative Unless Noted: Yes Physical Exam Physical Exam Vital Signs Vital Signs - First Documented 07/21/21 15:06 Temp 37.0 Pulse 88 Resp 20 B/P (MAP) 148/88 (108) Pulse Ox 95 O2 Delivery Room Air Capillary Refill : Less Than 3 Seconds Height, Weight, BMI Height: 5'2.00" Weight: 207lbs. 0.0oz. 93.130719dj; 36.44 BMI Method:Stated General Appearance: No Apparent Distress, WD/WN, Other (Alert and oriented very pleasant appears uncomfortable but nontoxic no distress) Eyes: Bilateral Eye Normal Inspection, Bilateral Eye PERRL, Bilateral Eye EOMI HEENT: PERRL/EOMI, Normal ENT Inspection, Pharynx Normal Neck: Full Range of Motion, Normal Inspection Respiratory: Lungs Clear, Normal Breath Sounds, No Accessory Muscle Use, No Respiratory Distress Cardiovascular: Regular Rate, Rhythm, Normal Peripheral Pulses Gastrointestinal: Normal Bowel Sounds, Soft, Tenderness Extremity: Normal Capillary Refill, Normal Inspection Neurologic/Psychiatric: Alert, Oriented x3 Skin: Normal Color, Warm/Dry Results Results/Procedures Labs Laboratory Tests 07/21/21 12:54 Patient resulted labs reviewed. Assessment/Plan Admission Diagnosis Assessment: Abdominal pain midepigastric Chronic atrial fibrillation paroxysmal type On oral anticoagulation History of hyperthyroidism status post ablation x2 Breast cancer bilateral mastectomies Fatty liver with elevated liver enzymes Plan: Dr. Blount consult Monitor closely PPI Home meds Hold anticoagulation for procedure Admission Status: Observation Diagnosis/Problems Diagnosis/Problems (1) Epigastric pain Status: Acute ELLEN GALVIN DO Jul 21, 2021 17:36
[2021-07-21] MEDS ORDERED: HYDROcodone/APAP 5 MG/325 MG (LORTAB) TAB PO PRN (17:45)
[2021-07-21] MEDS ORDERED: morphine INJ 10 MG/ML 1ML (SYR OR VIAL) IVP PRN (17:45)
[2021-07-21] MEDS ORDERED: amLODIPine 5 MG (NORVASC) TAB PO NR (17:45)
[2021-07-21] MEDS ORDERED: morphine INJ 4 MG/ML 1 ML (VIAL/SYRINGE) IV PRN (18:00)
[2021-07-21] MEDS ORDERED: ACETAMINOPHEN 325 MG TABLET ONE (18:06)
[2021-07-21] MEDS: ACETAMINOPHEN 325 MG TABLET PO PRN ×2 (18:08→22:46)
--- NOTE | 2021-07-21 18:46 | Consultation - Surgery ---
History of Present Illness History of Present Illness Patient Consulted On(ashley/time) 07/21/21 18:41 Date Seen by Provider: Jul 21, 2021 Time Seen by Provider: 14:25 History of Present Illness Consult requested by Dr. Galvin for epigastric abdominal pain. Patient is a 61-year-old female who has had epigastric abdominal pain since approximately 6 AM this morning. Patient states that she tried taking some Pepto-Bismol but had little improvement. Patient does continue to have pain that is moderate. States it pretty much in the epigastric/ruq region. Nothing that she has tried is made it better. Nothing seems to make it worse. With continuing patient decided go to the emergency department for further evaluation. Patient is also had some nausea. She states that she has had a little bit of discoloration of her stool recently. No other significant changes in her everyday activities. She has not had symptoms similar to this before. Patient denies any fever sweats chills shortness of breath or chest pain at this time. Patient gallbladder ultrasound which demonstrates some steatosis of the liver otherwise unremarkable gallbladder. Allergies and Home Medications Allergies Coded Allergies: No Known Drug Allergies (Verified , 07/21/21) Home Medications Anastrozole 1 Mg Tablet, 1 MG PO 1200, (Reported) Last Action: Continued Apixaban 5 Mg Tablet, 5 MG PO BID Prescribed by: NIC ROBLERO on 12/01/17 1157 Last Action: Continued Calcium Carbonate/Vitamin D3 1 Each Tablet, 1 TAB PO 1200,2100, (Reported) Last Action: Converted Levothyroxine Sodium 75 Mcg Tablet, 75 MCG PO DAILY, (Reported) Last Action: Continued Metoprolol Succinate 100 Mg Tab.er.24h, 100 MG PO BID, (Reported) Last Action: Continued Omeprazole 40 Mg Capsule.dr, 40 MG PO DAILY, (Reported) Last Action: Converted Patient Home Medication List Home Medication List Reviewed: Yes Past Keukumv-Wiotly-Smehgy Hx Patient Social History Smoking Status: Never a Smoker Recent Hopitalizations: No Alcohol Use?: No Have you traveled recently?: No Immunizations Up To Date Date of Pneumonia Vaccine: Oct 01, 2014 Date of Influenza Vaccine: Aug 31, 2017 Seasonal Allergies Seasonal Allergies: No Surgeries History of Surgeries: Yes (Mastectomy right at 29yo left at 56yo due to cancer ,thyroid ablation x 2) Surgeries: Breast, Hysterectomy Respiratory History of Respiratory Disorde: No Respiratory Disorders: Sleep Apnea Cardiovascular History of Cardiac Disorders: Yes Cardiac Disorders: Atrial Fibrillation, Hypertension Neurological History of Neurological Disord: No Reproductive System Hx Reproductive Disorders: No Genitourinary History of Genitourinary Disor: No Gastrointestinal History of Gastrointestinal Di: Yes Gastrointestinal Disorders: Gastroesophageal Reflux Musculoskeletal History of Musculoskeletal Dis: No Endocrine History of Endocrine Disorders: Yes (Thyroid ablation) Endocrine Disorders: Hyperthyroidism, Hypothyroidsim HEENT History of HEENT Disorders: No Cancer History of Cancer: Yes (MASTECTOMY) Cancer: Breast Psychosocial History of Psychiatric Problem: No Integumentary History of Skin or Integumenta: No Blood Transfusions History of Blood Disorders: No Reviewed Nursing Assessment Reviewed/Agree w Nursing PMH: Yes Family Medical History Significant Family History: No Pertinent Family Hx Family Medial History: Cancer 03 FATHER (LUNG) 03 MOTHER (BREAST) Family history: Diabetes mellitus 03 MOTHER 09 BROTHER 09 BROTHER Family history: Hypertension Review of Systems-General Constitutional: No chills, No fever, No weakness EENTM: No blurred vision, No double vision Respiratory: No dyspnea on exertion, No short of breath Cardiovascular: No chest pain, No palpitations Gastrointestinal: RUQ, abdominal pain, nausea; No vomiting Genitourinary: No decreased output, No discharge Musculoskeletal: No back pain, No joint pain Skin: No change in color, No change in hair/nails Psychiatric/Neurological: Denies Depressed, Denies Emotional Problems All Other Systems Reviewed Negative Unless Noted: Yes (Negative excepted noted.) Physical Exam-General Problems Physical Exam Vital Signs Vital Signs - First Documented 07/21/21 15:06 Temp 37.0 Pulse 88 Resp 20 B/P (MAP) 148/88 (108) Pulse Ox 95 O2 Delivery Room Air Capillary Refill : Less Than 3 Seconds General Appearance: WD/WN, no apparent distress HEENT: PERRL/EOMI, TMs normal Neck: non-tender, supple, normal inspection Respiratory: chest non-tender, no respiratory distress, no accessory muscle use Cardiovascular: regular rate, rhythm Gastrointestinal: soft; No guarding, No rebound; tenderness (epigastric/ruq) Rectal: deferred Back: no CVA tenderness, no vertebral tenderness Extremities: non-tender, normal inspection, no pedal edema Neurologic/Psychiatric: strategic sourcing specialist II-XII nml as tested, no motor/sensory deficits, alert, normal mood/affect, oriented x 3 Skin: normal color, warm/dry Lymphatic: no adenopathy Data Review Labs Laboratory Tests 07/21/21 12:54: White Blood Count 6.7, Red Blood Count 4.97, Hemoglobin 14.7, Hematocrit 45, Mean Corpuscular Volume 91, Mean Corpuscular Hemoglobin 30, Mean Corpuscular Hemoglobin Concent 33, Red Cell Distribution Width 13.2, Platelet Count 208, Mean Platelet Volume 10.5, Immature Granulocyte % (Auto) 0, Neutrophils (%) (Auto) 74, Lymphocytes (%) (Auto) 16, Monocytes (%) (Auto) 8, Eosinophils (%) (Auto) 1, Basophils (%) (Auto) 1, Neutrophils # (Auto) 5.0, Lymphocytes # (Auto) 1.1, Monocytes # (Auto) 0.6, Eosinophils # (Auto) 0.1, Basophils # (Auto) 0.1, Immature Granulocyte # (Auto) 0.0, Sodium Level 139, Potassium Level 4.4, Ch loride Level 106, Carbon Dioxide Level 23, Anion Gap 10, Blood Urea Nitrogen 17, Creatinine 0.88, Estimat Glomerular Filtration Rate 65, BUN/Creatinine Ratio 19, Glucose Level 128H, Calcium Level 10.0, Corrected Calcium , Total Bilirubin 0.6, Aspartate Amino Transf (AST/SGOT) 67H, Alanine Aminotransferase (ALT/SGPT) 102H, Alkaline Phosphatase 111, Total Protein 8.1, Albumin 4.6H, Lipase 16, Thyroid Stimulating Hormone (TSH) 2.20, Free Thyroxine 1.04 Assessment/Plan Assessment/Plan Assessment/Plan epigastric/ruq abdominal pain nausea Long-term anticoagulation History A. fib Patient gallbladder ultrasound was normal she did have some hepatic steatosis. Patient still could have gallbladder pathology. We will get HIDA scan. Patient could have GI source as well. If HIDA scan normal would consider EGD Hold eliqugordy which Dr. Kamar monteiroay with as well. TRAVON CHAUDHRY DO Jul 21, 2021 18:46
[2021-07-21 19:18] VITALS: BP 156/105
[2021-07-21] MEDS: meTOprolol SUCCINATE 100 MG (TOPROL XL) TAB PO SCH (20:55)
[2021-07-21] MEDS ORDERED: CALCIUM CARB + VIT D 600 MG (CALCARB + D) TAB PO SCH (21:00)
[2021-07-21] MEDS ORDERED: APIXABAN 5 MG (ELIQUIS) TABLET PO SCH (21:00)
[2021-07-21] MEDS ORDERED: NON-FORMULARY MEDICATION 1 EA EA (Calcium Carbonate/Vitamin D3 (Calcium 600 + Vit D 200 Ta PO SCH (21:00)
[2021-07-21] MEDS ORDERED: cloNIDine 0.1 MG (CATAPRES) TAB PO PRN (21:15)
[2021-07-21 23:30] VITALS: BP 142/98
[2021-07-22 04:34] VITALS: BP 128/72
[2021-07-22] MEDS: LACTATED RINGERS 1,000 ML IV SCH (05:42)
[2021-07-22] MEDS ORDERED: LEVOTHYROXINE 75 MCG (LEVOTHROID) TABLET PO SCH (06:30)
[2021-07-22 06:34] LABS: BASOPHILS % (AUTO) 1 % (0-10); EOSINOPHILS # (AUTO) 0.1 10^3/uL (0.0-0.3); EOSINOPHILS % (AUTO) 1 % (0-10); HEMATOCRIT 40 % (35-52); HEMOGLOBIN 12.9 g/dL (11.5-16.0); LYMPHOCYTES # (AUTO) 1.5 10^3/uL (1.0-4.0); LYMPHOCYTES % (AUTO) 25 % (12-44); MEAN CORPUSCULAR HEMOGLOBIN 30 pg (25-34); MEAN CORPUSCULAR HGB CONC 33 g/dL (32-36); MEAN CORPUSCULAR VOLUME 91 fL (80-99); MEAN PLATELET VOLUME 10.3 fL (9.0-12.2); MONOCYTES # (AUTO) 0.8 10^3/uL (0.0-1.0); MONOCYTES % (AUTO) 14 % (0-12); NEUTROPHILS # (AUTO) 3.4 10^3/uL (1.8-7.8); NEUTROPHILS % (AUTO) 58 % (42-75); PLATELET COUNT 172 10^3/uL (130-400); WHITE BLOOD COUNT 5.8 10^3/uL (4.3-11.0)
[2021-07-22 06:43] LABS: ALBUMIN 3.7 GM/DL (3.2-4.5)
[2021-07-22 06:44] LABS: CALCIUM 8.9 MG/DL (8.5-10.1)
[2021-07-22 06:45] LABS: TOTAL PROTEIN 6.3 GM/DL (6.4-8.2)
[2021-07-22 06:47] LABS: BILIRUBIN,TOTAL 0.8 MG/DL (0.1-1.0)
[2021-07-22 06:49] LABS: CREATININE SERUM 0.82 MG/DL (0.60-1.30)
--- NOTE | 2021-07-22 07:51 | Progress Note - Surgery ---
TIERRA MURPHY 07/22/21 0751: Subjective Date Seen by a Provider: Jul 22, 2021 Time Seen by a Provider: 07:45 Subjective/Events-last exam Patient states that a round midnight last night she had a forceful bowel movement that helped get rid of the pressure in her mid epigastric region. She has since had 4 bowel movements. movements are a mixture of solids and liquids. States that her pain after the bowel movements is slight tenderness, not pressure, bloating, and fullness like yesterday. Patient rates the pain she is feeling now a 2/10. Patient has HIDA scan today. Patient denies N/V, blood in stool, fever, or chills. Review of Systems General: No Chills Cardiovascular: No: Chest Pain, Palpitations Gastrointestinal: No: Nausea, Vomiting Genitourinary: No Dysuria Objective Exam Vital Signs Date Time Temp Pulse Resp B/P (MAP) Pulse Ox O2 Delivery O2 Flow Rate FiO2 07/22/21 04:34 36.4 58 16 128/72 (90) 95 NIV CPAP 07/21/21 23:30 36.6 73 18 142/98 (113) 95 NIV CPAP 07/21/21 20:45 95 Room Air 07/21/21 19:18 37.0 70 18 156/105 (122) 97 Room Air 07/21/21 16:12 36.9 83 18 99 Room Air 07/21/21 15:42 Room Air 07/21/21 15:29 88 20 148/88 95 Room Air 07/21/21 15:06 37.0 88 20 148/88 (108) 95 Room Air I & O 07/22/21 07:00 Intake Total 250 ml Output Total 700 ml Balance -450 ml Capillary Refill : Less Than 3 Seconds General Appearance: No Apparent Distress, WD/WN, Other (Alert and oriented very pleasant appears uncomfortable but nontoxic no distress) HEENT: PERRL/EOMI Neck: Full Range of Motion, Normal Inspection Respiratory: Chest Non Tender, No Accessory Muscle Use, No Respiratory Distress Cardiovascular: Regular Rate, Rhythm, Normal Peripheral Pulses Gastrointestinal: soft; No guarding, No rebound; tenderness (very mild; epigastric/ruq) Extremity: Normal Capillary Refill, Normal Inspection Neurologic/Psychiatric: Alert, Oriented x3 Skin: Normal Color, Warm/Dry Results Lab Laboratory Tests 07/21/21 12:54: White Blood Count 6.7, Red Blood Count 4.97, Hemoglobin 14.7, Hematocrit 45, Mean Corpuscular Volume 91, Mean Corpuscular Hemoglobin 30, Mean Corpuscular Hemoglobin Concent 33, Red Cell Distribution Width 13.2, Platelet Count 208, Mean Platelet Volume 10.5, Immature Granulocyte % (Auto) 0, Neutrophils (%) (Auto) 74, Lymphocytes (%) (Auto) 16, Monocytes (%) (Auto) 8, Eosinophils (%) (Auto) 1, Basophils (%) (Auto) 1, Neutrophils # (Auto) 5.0, Lymphocytes # (Auto) 1.1, Monocytes # (Auto) 0.6, Eosinophils # (Auto) 0.1, Basophils # (Auto) 0.1, Immature Granulocyte # (Auto) 0.0, Sodium Level 139, Potassium Level 4.4, Chloride Level 106, Carbon Dioxide Level 23, Anion Gap 10, Blood Urea Nitrogen 17, Creatinine 0.88, Estimat Glomerular Filtration Rate 65, BUN/Creatinine Ratio 19, Glucose Level 128H, Calcium Level 10.0, Corrected Calcium , Total Bilirubin 0.6, Aspartate Amino Transf (AST/SGOT) 67H, Alanine Aminotransferase (ALT/SGPT) 102H, Alkaline Phosphatase 111, Total Protein 8.1, Albumin 4.6H, Lipase 16, Thyroid Stimulating Hormone (TSH) 2.20, Free Thyroxine 1.04 07/22/21 06:24: White Blood Count 5.8, Red Blood Count 4.37, Hemoglobin 12.9, Hematocrit 40, Mean Corpuscular Volume 91, Mean Corpuscular Hemoglobin 30, Mean Corpuscular Hemoglobin Concent 33, Red Cell Distribution Width 13.3, Platelet Count 172, Mean Platelet Volume 10.3, Immature Granulocyte % (Auto) 0, Neutrophils (%) (Auto) 58, Lymphocytes (%) (Auto) 25, Monocytes (%) (Auto) 14H, Eosinophils (%) (Auto) 1, Basophils (%) (Auto) 1, Neutrophils # (Auto) 3.4, Lymphocytes # (Auto) 1.5, Monocytes # (Auto) 0.8, Eosinophils # (Auto) 0.1, Basophils # (Auto) 0.0, Immature Granulocyte # (Auto) 0.0, Sodium Level 139, Potassium Level 4.0, Chloride Level 108H, Carbon Dioxide Level 24, Anion Gap 7, Blood Urea Nitrogen 14, Creatinine 0.82, Estimat Glomerular Filtration Rate 71, BUN/Creatinine Ratio 17, Glucose Level 124H, Calcium Level 8.9, Corrected Calcium 9.1, Total Pavel irubin 0.8, Aspartate Amino Transf (AST/SGOT) 42H, Alanine Aminotransferase (ALT/SGPT) 72H, Alkaline Phosphatase 86, Total Protein 6.3L, Albumin 3.7 Assessment/Plan Assessment/Plan Assessment/Plan epigastric/ruq abdominal pain Long-term anticoagulation History A. fib HIDA scan today, if normal consider EGD for potential GI source Hold eliquis which Dr. Kamar roque with as well. Continue Medical management TRAVON BLOUNT DO 07/22/211929: Subjective Subjective/Events-last exam Patient with bowel movement last night relieved her pain in the epigastric region. She has had several bowel movements. Her tenderness in the epigastric region is very minimal at this time which she rates at a 2 out of 10. Patient with HIDA scan demonstrating ejection fraction of 81%. Patient denies any nausea vomiting fever sweats chills shortness of breath or chest pain at this ti me Objective Exam General Appearance: No Apparent Distress, WD/WN, Other (Alert and oriented very pleasant appears uncomfortable but nontoxic no distress) HEENT: PERRL/EOMI Neck: Full Range of Motion, Normal Inspection Respiratory: Chest Non Tender, No Accessory Muscle Use, No Respiratory Distress Cardiovascular: Regular Rate, Rhythm, No JVD Gastrointestinal: soft, tenderness (Minimal epigastric/ruq) Extremity: Normal Capillary Refill, Normal Inspection Neurologic/Psychiatric: Alert, Oriented x3 Skin: Normal Color, Warm/Dry Lymphatic: No Adenopathy Assessment/Plan Assessment/Plan Assessment/Plan epigastric/ruq abdominal pain nausea Long-term anticoagulation History A. fib HIDA scan today, if normal plan EGD for potential GI source Hold eliquis which Dr. Kamar roque with as well. Continue Medical management Supervisory-Addendum Brief Verification & Attestation Participated in pt care: history, MDM, physical Personally performed: exam, history, MDM, supervision of care Care discussed with: Medical Student Procedures: n/a Results interpretation: Verified all documentation Verification and Attestation of Medical Student E/M Service A medical student performed and documented this service in my presence. I reviewed and verified all information documented by the medical student and made modifications to such information, when appropriate. I personally performed the physical exam and medical decision making. Travon Blount, Jul 22, 2021,09:30 TIERRA MURPHY Jul 22, 2021 07:51 TRAVON BLOUNT DO Jul 22, 2021 19:30
[2021-07-22 08:00] VITALS: BP 133/92
[2021-07-22] MEDS: meTOprolol SUCCINATE 100 MG (TOPROL XL) TAB PO SCH (09:00)
[2021-07-22] MEDS ORDERED: PANTOPRAZOLE 40 MG (PROTONIX) TAB PO SCH (09:00)
[2021-07-22] MEDS ORDERED: NON-FORMULARY MEDICATION 1 EA EA (Omeprazole 40 MG) PO SCH (09:00)
--- NOTE | 2021-07-22 09:51 | Diagnostic Imaging Report ---
EXAMINATION: Hepatobiliary scan. DATE: July 22, 2021. INDICATION: 61-year-old female, epigastric pain. COMPARISON: Right upper quadrant ultrasound July 21, 2021. Nuclear Medicine HIDA scan May 08, 2009. PROCEDURE: 4.05 mCi of Tc-99m Choletec was administered intravenously and serial anterior planar images over the liver and upper abdomen were obtained. FINDINGS: There is clearance of background activity by the liver indicating hepatocyte function. There is radiotracer excretion into the bile ducts with prompt filling of the gallbladder. There is extension of radiotracer into the small bowel. There is no identified enterogastric reflux. Ensure was administered for calculation of the gallbladder ejection fraction. The gallbladder ejection fraction was calculated to be 81%. IMPRESSION: Normal hepatobiliary scan. No evidence of acute or chronic cholecystitis. Dictated by: Dictated on workstation # [id number]
[2021-07-22] MEDS ORDERED: ANAS1TAB50 PO (10:22)
[2021-07-22] MEDS ORDERED: APIX5TAB PO (10:22)
[2021-07-22 11:25] VITALS: BP 125/87
[2021-07-22] MEDS: CALCIUM CARB + VIT D 600 MG (CALCARB + D) TAB PO SCH ×2 (11:44→16:05)
[2021-07-22] MEDS ORDERED: ANASTROZOLE 1 MG TAB (ARIMIDEX) PO SCH (12:00)
--- NOTE | 2021-07-22 12:13 | Discharge Summary ---
Diagnosis/Chief Complaint Date of Admission Jul 21, 2021 at 14:31 Date of Discharge Discharge Date: Jul 22, 2021 Discharge Diagnosis Assessment: Abdominal pain midepigastric EGD revealed severe gastritis with gastric polyps Chronic atrial fibrillation paroxysmal type On oral anticoagulation History of hyperthyroidism status post ablation x2 Breast cancer bilateral mastectomies Fatty liver with elevated liver enzymes Plan: Dr. Blount consult Monitor closely PPI Home meds Hold anticoagulation for procedure Discharge Summary Discharge Physical Examination Allergies: Coded Allergies: No Known Drug Allergies (Verified , 07/21/21) Vitals & I&Os Vital Signs Date Time Temp Pulse Resp B/P (MAP) Pulse Ox O2 Delivery O2 Flow Rate FiO2 07/22/21 17:45 37.2 93 18 144/90 94 Room Air General Appearance: Alert, Oriented X3, Cooperative Respiratory: Clear to Auscultation Cardiovascular: Regular Rate Neuro: Normal Gait, Normal Speech, Strength at 5/5 X4 Ext Psych/Mental Status: Mental Status NL Hospital Course Was the Problem List Reviewed?: Yes Hospital course: Pt had an uneventful hospital course, she was admitted for mid-epigastric pain, was found to have severe gastritis and gastric polyps on EGD by Dr. Blount, she was placed on Carafate by Dr. Blount. Pt will be going and and will have close follow-up with me in one week at my clinic. Labs (last 24 hrs) Laboratory Tests 07/21/21 12:54: White Blood Count 6.7, Red Blood Count 4.97, Hemoglobin 14.7, Hematocrit 45, Mean Corpuscular Volume 91, Mean Corpuscular Hemoglobin 30, Mean Corpuscular Hemoglobin Concent 33, Red Cell Distribution Width 13.2, Platelet Count 208, Mean Platelet Volume 10.5, Immature Granulocyte % (Auto) 0, Neutrophils (%) (Auto) 74, Lymphocytes (%) (Auto) 16, Monocytes (%) (Auto) 8, Eosinophils (%) (Auto) 1, Basophils (%) (Auto) 1, Neutrophils # (Auto) 5.0, Lymphocytes # (Auto) 1.1, Monocytes # (Auto) 0.6, Eosinophils # (Auto) 0.1, Basophils # (Auto) 0.1, Immature Granulocyte # (Auto) 0.0, Sodium Level 139, Potassium Level 4.4, Chloride Level 106, Carbon Dioxide Level 23, Anion Gap 10, Blood Urea Nitrogen 17, Creatinine 0.88, Estimat Glomerular Filtration Rate 65, BUN/Creatinine Ratio 19, Glucose Level 128H, Calcium Level 10.0, Corrected Calcium , Total Bilirubin 0.6, Aspartate Amino Transf (AST/SGOT) 67H, Alanine Aminotransferase (ALT/SGPT) 102H, Alkaline Phosphatase 111, Total Protein 8.1, Albumin 4.6H, Lipase 16, Thyroid Stimulating Hormone (TSH) 2.20, Free Thyroxine 1.04 07/22/21 06:24: White Blood Count 5.8, Red Blood Count 4.37, Hemoglobin 12.9, Hematocrit 40, Mean Corpuscular Volume 91, Mean Corpuscular Hemoglobin 30, Mean Corpuscular Hemoglobin Concent 33, Red Cell Distribution Width 13.3, Platelet Count 172, Mean Platelet Volume 10.3, Immature Granulocyte % (Auto) 0, Neutrophils (%) (Auto) 58, Lymphocytes (%) (Auto) 25, Monocytes (%) (Auto) 14H, Eosinophils (%) (Auto) 1, Basophils (%) (Auto) 1, Neutrophils # (Auto) 3.4, Lymphocytes # (Auto) 1.5, Monocytes # (Auto) 0.8, Eosinophils # (Auto) 0.1, Basophils # (Auto) 0.0, Immature Granulocyte # (Auto) 0.0, Sodium Level 139, Potassium Level 4.0, Chloride Level 108H, Carbon Dioxide Level 24, Anion Gap 7, Blood Urea Nitrogen 14, Creatinine 0.82, Estimat Glomerular Filtration Rate 71, BUN/Creatinine Ratio 17, Glucose Level 124H, Calcium Level 8.9, Corrected Calcium 9.1, Total Bilirubin 0.8, Aspartate Amino Transf (AST/SGOT) 42H, Alanine Aminotransferase (ALT/SGPT) 72H, Alkaline Phosphatase 86, Total Protein 6.3L, Albumin 3.7 07/22/21 11:26: SARS-CoV-2 RNA (RT-PCR) Not Detected Pending Labs Laboratory Tests 07/21/21 12:54: White Blood Count 6.7, Red Blood Count 4.97, Hemoglobin 14.7, Hematocrit 45, Mean Corpuscular Volume 91, Mean Corpuscular Hemoglobin 30, Mean Corpuscular Hemoglobin Concent 33, Red Cell Distribution Width 13.2, Platelet Count 208, Mean Platelet Volume 10.5, Immature Granulocyte % (Auto) 0, Neutrophils (%) (Auto) 74, Lymphocytes (%) (Auto) 16, Monocytes (%) (Auto) 8, Eosinophils (%) (Auto) 1, Basophils (%) (Auto) 1, Neutrophils # (Auto) 5.0, Lymphocytes # (Auto) 1.1, Monocytes # (Auto) 0.6, Eosinophils # (Auto) 0.1, Basophils # (Auto) 0.1, Immature Granulocyte # (Auto) 0.0, Sodium Level 139, Potassium Level 4.4, C hloride Level 106, Carbon Dioxide Level 23, Anion Gap 10, Blood Urea Nitrogen 17, Creatinine 0.88, Estimat Glomerular Filtration Rate 65, BUN/Creatinine Ratio 19, Glucose Level 128, Calcium Level 10.0, Corrected Calcium , Total Bilirubin 0.6, Aspartate Amino Transf (AST/SGOT) 67, Alanine Aminotransferase (ALT/SGPT) 102, Alkaline Phosphatase 111, Total Protein 8.1, Albumin 4.6, Lipase 16, Thyroid Stimulating Hormone (TSH) 2.20, Free Thyroxine 1.04 07/22/21 06:24: White Blood Count 5.8, Red Blood Count 4.37, Hemoglobin 12.9, Hematocrit 40, Mean Corpuscular Volume 91, Mean Corpuscular Hemoglobin 30, Mean Corpuscular Hemoglobin Concent 33, Red Cell Distribution Width 13.3, Platelet Count 172, Mean Platelet Volume 10.3, Immature Granulocyte % (Auto) 0, Neutrophils (%) (Auto) 58, Lymphocytes (%) (Auto) 25, Monocytes (%) (Auto) 14, Eosinophils (%) (Auto) 1, Basophils (%) (Auto) 1, Neutrophils # (Auto) 3.4, Lymphocytes # (Auto) 1.5, Monocytes # (Auto) 0.8, Eosinophils # (Auto) 0.1, Basophils # (Auto) 0.0, Immature Granulocyte # (Auto) 0.0, Sodium Level 139, Potassium Level 4.0, Chloride Level 108, Carbon Dioxide Level 24, Anion Gap 7, Blood Urea Nitrogen 14, Creatinine 0.82, Estimat Glomerular Filtration Rate 71, BUN/Creatinine Ratio 17, Glucose Level 124, Calcium Level 8.9, Corrected Calcium 9.1, Total Bilirubin 0.8, Aspartate Amino Transf (AST/SGOT) 42, Alanine Aminotransferase (ALT/SGPT) 72, Alkaline Phosphatase 86, Total Protein 6.3, Albumin 3.7 07/22/21 11:26: SARS-CoV-2 RNA (RT-PCR) Not Detected Discharge Home Medications: Active Scripts Active Sucralfate 1 Gm Tablet 1 Gm PO QID Pantoprazole Sodium 40 Mg Tablet.dr 40 Mg PO DAILY Reported Arimidex (Anastrozole) 1 Mg Tablet 1 Mg PO 1200 Eliquis (Apixaban) 5 Mg Tablet 5 Mg PO BID Levothyroxine Sodium 75 Mcg Tablet 75 Mcg PO DAILY Calcium 600 + Vit D 200 Tablet (Calcium Carbonate/Vitamin D3) 1 Each Tablet 2 Tab PO 1200 Metoprolol Succinate 100 Mg Tab.er.24h 100 Mg PO BID Instructions to patient/family Please see electronic discharge instructions given to patient. Diagnosis/Problems Diagnosis/Problems (1) Epigastric pain Status: Acute JEY VOGT DO Jul 22, 2021 12:13
[2021-07-22] MEDS ORDERED: proPOfol 200 MG/20 ML (DIPRIVAN) VIAL IV ONE (12:23)
[2021-07-22 12:50] VITALS: BP 139/95
[2021-07-22] MEDS: ONDANSETRON 4 MG/2 ML (SDV) Z0FRAN IV PRN (13:14)
--- NOTE | 2021-07-22 13:16 | Progress Note ---
INDIA OGDEN MED STUDENT 07/22/21 1316: Progress Note Hospital Course: Willa Turner is a 61 year old female who presented to the ED on 07-21 with complaints of epigastric abdominal pain and nausea. PMH is significant for paroxysmal atrial fibrillation, HTN, GERD, Barrets esophagaus, hiatal hernia, breast cancer with bilateral mastectomy, and hypothyroidism secondary to prior thyroid ablation x 2 for hyperthyroidism. Symptoms started on 07-21 at 0600. She's never had these symptoms before. She took some pepto bismol which helped slightly. Nothing really seemed to worsen the pain or nausea. In the ED she was given a GI cocktail which did not help her pain or symptoms. A gallbladder ultrasound was obtained and showed hepatic steatosis without any evidence of cholelithiasis or acute cholecystitis. A HIDA scan was completed on 07-22 in the am revealing an unremarkable scan with a gallbladder EF of 81%. General surgery has been consulted and the plan is to go ahead and keep her NPO today and proceed with an EGD. Kim is on hold currently pending EGD. Her LFT's were elevated and have since trended down today. Alk phos was only 86. Lipase was 16. She reports having 5 large BM's overnight with relief of the nausea and abdominal pain. She states that she now has only some mild midline abdominal tenderness with palpation worsening the pain. She has remained afebrile and hemodynamically stable on RA thus far. ELLEN VOGT DO 07/23/21 0552: Supervisory-Addendum Brief Verification & Attestation Participated in pt care: history, MDM, physical Personally performed: exam, history, MDM, supervision of care Care discussed with: Medical Student Procedures: n/a Results interpretation: Verified all documentation Verification and Attestation of Medical Student E/M Service A medical student performed and documented this service in my presence. I reviewed and verified all information documented by the medical student and made modifications to such information, when appropriate. I personally performed the physical exam and medical decision making. Ellen Vogt, Jul 23, 2021,05:52 INDIA OGDEN MED STUDENT Jul 22, 2021 13:16 ELLEN VOGT DO Jul 23, 2021 05:52
[2021-07-22] MEDS: ACETAMINOPHEN 325 MG TABLET PO PRN (14:19)
--- NOTE | 2021-07-22 14:59 | Anesthesia-General Post-Op ---
MAC Patient Condition Mental Status/LOC: Same as Preop Cardiovascular: Satisfactory Nausea/Vomiting: Absent Respiratory: Satisfactory Pain: Controlled Complications: Absent Post Op Complications Complications None Follow Up Care/Instructions Patient Instructions None needed. Anesthesiology Discharge Order Discharge Order Patient is doing well, no complaints, stable vital signs, no apparent adverse anesthesia problems. No complications reported per nursing. MARIA C KATZ CRNA Jul 22, 2021 14:59
[2021-07-22] MEDS ORDERED: SUCRALFATE 1 GM (CARAFATE) TAB PO SCH (16:00)
--- NOTE | 2021-07-22 16:01 | OPERATIVE REPORT ---
DATE OF SERVICE: 07/22/2021 PREOPERATIVE DIAGNOSES: Epigastric abdominal pain, nausea. POSTOPERATIVE DIAGNOSES: Gastric polyps, gastritis, hiatal hernia. PROCEDURE: EGD. SURGEON: Travon Blount DO ANESTHESIA: Per CHEMI[employer]. ESTIMATED BLOOD LOSS: Scant. COMPLICATIONS: None. INDICATIONS: The patient is a 61-year-old female who presented with epigastric abdominal pain and nausea. She has a history of a hiatal hernia. She took some Pepto-Bismol, which helps symptoms slightly. She had a gallbladder ultrasound, which was negative. She had a HIDA scan performed, which demonstrated ejection fraction approximately 80%. The patient discussed risks and benefits of procedure and wished to proceed with procedure. Consent was signed in the chart. DESCRIPTION OF PROCEDURE: The patient was taken to the endoscopy suite, placed in left lateral recumbent position. Timeout was performed. Scope was inserted in mouth, down the esophagus, stomach and into the duodenum without difficulty. There were no polyps, masses or ulcerations within the duodenum. Scope was then slowly retracted back into the stomach. Multiple gastric polyps were present and inflamed, erythematous changes throughout the stomach. There was some food particulate and fluid within the stomach, which was suctioned. Overall, diffuse gastritis appearance. The patient is on anticoagulation, hold off from biopsying at this time. Scope was retroflexed noting a hiatal hernia, no other pathology. Scope was returned to its normal position, slowly withdrawn to the distal esophagus, which had some slight erythematous changes. No masses or ulcerations. Scope was slowly retracted back until completely removed. The patient tolerated procedure well without any complications. She was taken to recovery room in stable condition. RECOMMENDATIONS: The patient will be on Protonix and Carafate. We will start on clear liquids. We would continue management and see how his symptoms proceed. Job ID: [id number] DocumentID: [id number] Dictated Date: 07/22/2021 14:14:31 Mental Hygiene Consultant Date: 07/22/2021 16:00:43 Dictated By: TRAVON BLOUNT DO
[2021-07-22 16:41] VITALS: BP 144/90
[2021-07-22] MEDS ORDERED: PANT40TA52 PO (16:45)
[2021-07-22] MEDS ORDERED: SUCR1TAB PO (16:45)
[2021-07-22 17:45] VITALS: BP 144/90
== END 2021-07-22 17:45 | disposition home or self-care (01) ==
LOC: EDUNIT# 11:26 → ER 11:28 → UNDOADMOB 14:31 → 4TH 14:31 → UNDODISOB 07-22 17:45
PROVIDERS: ADMIT Internal Medicine; ATTEND Internal Medicine
DX: K29.70 Gastritis, unspecified, without bleeding (principal); K31.7 Polyp of stomach and duodenum; K22.8 Other specified diseases of esophagus; K31.89 Other diseases of stomach and duodenum; K44.9 Diaphragmatic hernia without obstruction or gangrene; K21.9 Gastro-esophageal reflux disease without esophagitis; K76.0 Fatty (change of) liver, not elsewhere classified; I10 Essential (primary) hypertension; I48.91 Unspecified atrial fibrillation; I48.20 Chronic atrial fibrillation, unspecified; E03.9 Hypothyroidism, unspecified; E05.90 Thyrotoxicosis, unspecified without thyrotoxic crisis or storm; G47.30 Sleep apnea, unspecified; Z79.01 Long term (current) use of anticoagulants; Z79.890 Hormone replacement therapy; Z79.899 Other long term (current) drug therapy; Z90.710 Acquired absence of both cervix and uterus; Z85.3 Personal history of malignant neoplasm of breast; Z80.1 Family history of malignant neoplasm of trachea, bronchus and lung; Z80.3 Family history of malignant neoplasm of breast; Z83.3 Family history of diabetes mellitus
CPT/HCPCS: 43235; 76705; 78227; 80053 ×2; 83690; 84439; 84443; 85025 ×2; 87081; 87636; 96374; 96375; 99284; A9537; G0378; 36415

== ENCOUNTER 2021-09-09 05:30 | Outpatient (RCR) | payer BC ==
[~2021-09-09] VITALS: Ht 160 cm; Wt 80.0 kg
[~2021-09-09 05:30] MED LIST changes: +ANAS1TAB50 PO; +LEVO75TA6 PO; +PANT40TA52 PO; +SUCR1TAB PO
== END 2021-09-09 11:42 | disposition home or self-care (01) ==
LOC: PREOP 05:30
PROVIDERS: ATTEND Surgery
DX: Z01.812 Encounter for preprocedural laboratory examination (principal); Z12.11 Encounter for screening for malignant neoplasm of colon; K21.9 Gastro-esophageal reflux disease without esophagitis; Z20.822 Contact with and (suspected) exposure to COVID-19
CPT/HCPCS: 87635

== ENCOUNTER 2021-09-13 06:55 | Day surgery (SDC) | payer BC ==
[~2021-09-13] VITALS: Ht 160 cm; Wt 80.0 kg
[2021-09-13] MEDS ORDERED: LACTATED RINGERS 1,000 ML IV STA (07:00)
[2021-09-13] MEDS ORDERED: HURRICAINE EXT TUBE (BENZOCAINE) XX PRN (07:00)
[2021-09-13] MEDS ORDERED: LACTATED RINGERS 1,000 ML IV ONE (07:05)
[2021-09-13 07:15] VITALS: BP 134/103
[2021-09-13] MEDS ORDERED: MIDAZOLAM 2 MG/2 ML (VERSED) VIAL ONE (07:17)
[2021-09-13] MEDS ORDERED: PROPOFOL INJECTION 50 ML IV ONE (07:17)
--- NOTE | 2021-09-13 07:55 | Progress Note-Pre Operative ---
Pre-Operative Progress Note H&P Reviewed The H&P was reviewed, patient examined and no changes noted. Date Seen by Provider: Sep 13, 2021 Time Seen by Provider: 07:54 Date H&P Reviewed: Sep 13, 2021 Time H&P Reviewed: 07:54 Pre-Operative Diagnosis: screening colonoscopy gerd TRAVON CHAUDHRY DO Sep 13, 2021 07:55
[2021-09-13 08:35] VITALS: BP 94/62
[2021-09-13 08:40] VITALS: BP 110/73
[2021-09-13 08:45] VITALS: BP 117/75
--- NOTE | 2021-09-13 08:54 | Progress Note-Post Operative ---
Post-Operative Progess Note Surgeon (s)/Ophthalmic Tech (s) Surgeon TRAVON CHAUDHRY DO Ophthalmic Tech: na Pre-Operative Diagnosis screening colonoscopy gerd Post-Operative Diagnosis gastric polyps, small hiatal hernia, colon polyps, diverticulosis Procedure & Operative Findings Date of Procedure 09/13/21 Procedure Performed/Findings egd c biopsy and snare polypectomy of ge junction polyp colonoscopy c hot bx polypectomy x4 Anesthesia Type per phytopathologist Estimated Blood Loss Estimated blood loss (mL): none Specimens/Packing Specimens Removed antrum, ge polyp, colon polyps TRAVON CHAUDHRY DO Sep 13, 2021 08:53
[2021-09-13 09:00] VITALS: BP 117/75
--- NOTE | 2021-09-13 09:00 | Discharge Inst-Simple/Standard ---
Discharge Inst-Standard Patient Instructions/Follow Up Plan of Care/Instructions/FU: Mine 2 weeks. Hold Eliquis 3 more days, then restart. Activity as Tolerated: Yes Discharge Diet: Regular Diet TRAVON CHAUDHRY DO Sep 13, 2021 09:00
[2021-09-13 09:10] VITALS: BP 120/72
--- NOTE | 2021-09-13 12:00 | Anesthesia-General Post-Op ---
MAC Patient Condition Mental Status/LOC: Same as Preop Cardiovascular: Satisfactory Nausea/Vomiting: Absent Respiratory: Satisfactory Pain: Controlled Complications: Absent Post Op Complications Complications None Follow Up Care/Instructions Patient Instructions None needed. Anesthesiology Discharge Order Discharge Order Patient is doing well, no complaints, stable vital signs, no apparent adverse anesthesia problems. No complications reported per nursing. RADHA ROUSSEAU CRNA Sep 13, 2021 12:00
--- NOTE | 2021-09-13 13:34 | OPERATIVE REPORT ---
DATE OF SERVICE: 09/13/2021 PREOPERATIVE DIAGNOSES: Screening colonoscopy and gastroesophageal reflux disease. POSTOPERATIVE DIAGNOSES: Small hiatal hernia, gastric polyps, colon polyps, diverticulosis. PROCEDURE: EGD with biopsy and snare polypectomy at GE junction and colonoscopy with hot biopsy polypectomy x4. SURGEON: Travon Blount DO ANESTHESIA: Per ACID TANK CLEANER. ESTIMATED BLOOD LOSS: None. COMPLICATIONS: None. INDICATIONS: The patient is a 61-year-old female needing screening colonoscopy and has GERD symptoms. She understands risks and benefits of procedure and wished to proceed. Consent was signed in the chart. DESCRIPTION OF PROCEDURE: The patient was taken to the endoscopy suite, placed in left lateral recumbent position. Timeout was performed. Scope was inserted in mouth, down the esophagus, stomach and into the duodenum without difficulty. There were no polyps, masses or ulcerations within the duodenum. Scope was slowly retracted back into the stomach where it was further insufflated. A biopsy of the antrum was obtained. No masses or ulcerations present within the stomach. Multiple benign appearing polyps. Scope was retroflexed noting a small hiatal hernia. Scope was returned to its normal position, slowly withdrawn to distal esophagus. At the GE junction, there was a larger polyp, snare polypectomy was performed. Scope was then slowly retracted back until completely removed, noting no other pathology. Digital rectal exam was performed. There were no palpable polyps, masses or ulcerations. Scope was inserted in the rectum and advanced all the way to cecum with minimal difficulty. Prep was adequate. Scope was then slowly retracted back in the cecum. Polyp was present, which hot biopsy polypectomy was performed. Scope was then continued slowly retracted back. No polyps, masses or ulcerations within the ascending colon. Through the transverse colon, there are 3 polyps, which hot biopsy polypectomy was performed. Scope was then continuously retracted back into the descending where there were no polyps, masses or ulcerations along the sigmoid colon as well. There was diverticulosis through the majority of the sigmoid colon. Once in the rectum, scope was retroflexed noting no other pathology. Scope was returned to its normal position, slowly withdrawn until completely removed. The patient tolerated procedure well without any complications. She was taken to recovery room in stable condition. RECOMMENDATIONS: The patient will follow up in 2 weeks to discuss pathology results. The patient will need repeat colonoscopy in 5 years. Any issues before that be seen at that time for reevaluation. Job ID: [id number] DocumentID: [id number] Dictated Date: 09/13/2021 09:04:15 Ring Facer Date: 09/13/2021 13:33:21 Dictated By: TRAVON BLOUNT DO
== END 2021-09-13 09:18 | disposition home or self-care (01) ==
LOC: ENDO 06:55
PROVIDERS: ATTEND Surgery
DX: Z12.11 Encounter for screening for malignant neoplasm of colon (principal); D12.0 Benign neoplasm of cecum; D12.3 Benign neoplasm of transverse colon; K21.9 Gastro-esophageal reflux disease without esophagitis; K31.7 Polyp of stomach and duodenum; K57.30 Diverticulosis of large intestine without perforation or abscess without bleeding; K29.70 Gastritis, unspecified, without bleeding; K44.9 Diaphragmatic hernia without obstruction or gangrene; E05.90 Thyrotoxicosis, unspecified without thyrotoxic crisis or storm; I10 Essential (primary) hypertension; I08.1 Rheumatic disorders of both mitral and tricuspid valves; I48.91 Unspecified atrial fibrillation; Z86.73 Personal history of transient ischemic attack (TIA), and cerebral infarction without residual deficits; Z79.811 Long term (current) use of aromatase inhibitors; Z79.890 Hormone replacement therapy; Z79.899 Other long term (current) drug therapy; Z79.01 Long term (current) use of anticoagulants

== ENCOUNTER → 2021-11-11 | Outpatient (CLI) | payer BC ==
[2021-11-11 10:05] LABS: ALBUMIN 4.3 GM/DL (3.2-4.5); POTASSIUM 4.5 MMOL/L (3.6-5.0)
[2021-11-11 10:06] LABS: CALCIUM 9.7 MG/DL (8.5-10.1)
[2021-11-11 10:07] LABS: TOTAL PROTEIN 7.6 GM/DL (6.4-8.2)
[2021-11-11 10:09] LABS: BILIRUBIN,TOTAL 0.9 MG/DL (0.1-1.0)
[2021-11-11 10:11] LABS: CREATININE SERUM 1.02 MG/DL (0.60-1.30)
[2021-11-11 10:35] LABS: FREE T4 (FREE THYROXINE) 0.95 NG/DL (0.70-1.48)
== END ==
LOC: LAB 09:32
PROVIDERS: ATTEND Internal Medicine
DX: E78.1 Pure hyperglyceridemia (principal); E78.00 Pure hypercholesterolemia, unspecified; E03.2 Hypothyroidism due to medicaments and other exogenous substances; I10 Essential (primary) hypertension
CPT/HCPCS: 36415; 80053; 80061; 84439; 84443

== ENCOUNTER → 2022-02-23 | Outpatient (CLI) | payer BC | LOC: LAB 13:33 | PROVIDERS: ATTEND Internal Medicine Endocrinology, Diabetes & Metabolism | DX: E03.8 Other specified hypothyroidism (principal) | CPT/HCPCS: 36415; 84443 ==

== ENCOUNTER → 2022-06-01 | Outpatient (CLI) | payer BC ==
[2022-06-01 15:26] LABS: BASOPHILS % (AUTO) 1 % (0-10); EOSINOPHILS # (AUTO) 0.1 10^3/uL (0.0-0.3); EOSINOPHILS % (AUTO) 1 % (0-10); HEMATOCRIT 44 % (35-52); HEMOGLOBIN 14.2 g/dL (11.5-16.0); LYMPHOCYTES # (AUTO) 1.4 10^3/uL (1.0-4.0); LYMPHOCYTES % (AUTO) 25 % (12-44); MEAN CORPUSCULAR HEMOGLOBIN 30 pg (25-34); MEAN CORPUSCULAR HGB CONC 33 g/dL (32-36); MEAN CORPUSCULAR VOLUME 90 fL (80-99); MEAN PLATELET VOLUME 10.3 fL (9.0-12.2); MONOCYTES # (AUTO) 0.6 10^3/uL (0.0-1.0); MONOCYTES % (AUTO) 11 % (0-12); NEUTROPHILS # (AUTO) 3.4 10^3/uL (1.8-7.8); NEUTROPHILS % (AUTO) 60 % (42-75); PLATELET COUNT 203 10^3/uL (130-400); WHITE BLOOD COUNT 5.6 10^3/uL (4.3-11.0)
[2022-06-01 15:47] LABS: ALANINE AMINOTRANSFERASE 92 U/L (0-55); ALBUMIN 4.6 GM/DL (3.2-4.5); ALKALINE PHOSPHATASE 97 U/L (40-136); BUN/CREATININE RATIO 14; CALCIUM 9.9 MG/DL (8.5-10.1); CARBON DIOXIDE 22 MMOL/L (21-32); CHLORIDE 104 MMOL/L (98-107); CHOLESTEROL 182 MG/DL (< 200); CREATININE SERUM 0.99 MG/DL (0.60-1.30); GFR ESTIMATED 64; GLUCOSE 100 MG/DL (70-105); HDL CHOLESTEROL 55 MG/DL (40-60); POTASSIUM 4.3 MMOL/L (3.6-5.0); SODIUM 141 MMOL/L (135-145); TOTAL PROTEIN 7.8 GM/DL (6.4-8.2); TRIGLYCERIDES 102 MG/DL (<150); VLDL CHOLESTEROL 20 MG/DL (5-40)
[2022-06-01 16:08] LABS: FREE T4 (FREE THYROXINE) 1.12 NG/DL (0.70-1.48)
== END ==
LOC: LAB 14:56
PROVIDERS: ATTEND Internal Medicine
DX: E03.2 Hypothyroidism due to medicaments and other exogenous substances (principal); I10 Essential (primary) hypertension; E78.1 Pure hyperglyceridemia; E78.00 Pure hypercholesterolemia, unspecified
CPT/HCPCS: 36415; 80053; 80061; 84439; 84443; 85025

== ENCOUNTER 2022-10-20 13:22 | Emergency (ER) | payer BC ==
[~2022-10-20] VITALS: Ht 157 cm; Wt 93.9 kg
[2022-10-20 14:04] LABS: BASOPHILS % (AUTO) 1 % (0-10); EOSINOPHILS # (AUTO) 0.1 10^3/uL (0.0-0.3); EOSINOPHILS % (AUTO) 1 % (0-10); HEMATOCRIT 44 % (35-52); HEMOGLOBIN 14.6 g/dL (11.5-16.0); LYMPHOCYTES % (AUTO) 16 % (12-44); MEAN CORPUSCULAR HEMOGLOBIN 30 pg (25-34); MEAN CORPUSCULAR HGB CONC 34 g/dL (32-36); MEAN CORPUSCULAR VOLUME 88 fL (80-99); MEAN PLATELET VOLUME 10.7 fL (9.0-12.2); MONOCYTES # (AUTO) 0.6 10^3/uL (0.0-1.0); MONOCYTES % (AUTO) 9 % (0-12); NEUTROPHILS # (AUTO) 4.7 10^3/uL (1.8-7.8); NEUTROPHILS % (AUTO) 72 % (42-75); PLATELET COUNT 183 10^3/uL (130-400); WHITE BLOOD COUNT 6.4 10^3/uL (4.3-11.0)
[2022-10-20 14:15] LABS: POTASSIUM 4.3 MMOL/L (3.6-5.0)
[2022-10-20 14:21] LABS: CREATININE SERUM 1.04 MG/DL (0.60-1.30)
[2022-10-20 14:23] LABS: MAGNESIUM 2.1 MG/DL (1.6-2.4)
[2022-10-20 14:45] LABS: FREE T4 (FREE THYROXINE) 0.98 NG/DL (0.70-1.48)
[2022-10-20] MEDS ORDERED: AMLO-250 PO (16:30)
[2022-10-20] MEDS ORDERED: amLODIPine 5 MG (NORVASC) TAB PO ONE (16:30)
--- NOTE | 2022-10-20 16:30 | ED Cardiac General ---
History of Present Illness General Chief Complaint: Cardiac/General Problems Stated Complaint: ELEVATED BLOOD PRESSURE/VISION DISTURBANCE Nursing Triage Note: PT AMBULATORY TO ER. PT WAS SENT TO ER FROM EYE DOCTOR'S OFFICE. PT REPORTS HAS BEEN HAVING FLOATERS IN HER R EYE ONSET SEVERAL MONTHS AGO. REPORTS HAD ACUTE VISION CHANGE TODAY IN BOTH EYES, CONTACTED HER EYE DOCTOR WHO WAS ABLE TO SEE HER, EYES DILATED IN OFFICE. REPORTS OFFICE STAFF NOTED ELEVATED BP AND REFERRED HER TO ER. Source: patient Exam Limitations: no limitations History of Present Illness Date Seen by Provider: Oct 20, 2022 Time Seen by Provider: 13:53 Allergies and Home Medications Allergies Coded Allergies: No Known Drug Allergies (Verified , 07/21/21) Patient Home Medication List Home Medication List Reviewed: Yes Amlodipine Besylate (Amlodipine Besylate) 5 Mg Tablet, 5 MG PO DAILY Prescribed by: DENILSON SCHROEDER on 10/20/22 1630 Anastrozole (Arimidex) 1 Mg Tablet, 1 MG PO 1200, (Reported) Entered as Reported by: MARTINEZ CHRISTIANSON on 07/22/21 1022 Apixaban (Eliquis) 5 Mg Tablet, 5 MG PO BID, (Reported) Entered as Reported by: MARTINEZ CHRISTIANSON on 07/22/21 1022 Calcium Carbonate/Vitamin D3 (Calcium 600 + Vit D 200 Tablet) 1 Each Tablet, 2 TAB PO 1200, (Reported) Entered as Reported by: NANCI MURRIETA on 12/01/17 0858 Levothyroxine Sodium (Levothyroxine Sodium) 75 Mcg Tablet, 75 MCG PO DAILY, (Reported) Entered as Reported by: DELIO MONROE on 07/21/21 1716 Metoprolol Succinate (Metoprolol Succinate) 100 Mg Tab.er.24h, 100 MG PO BID, (Reported) Entered as Reported by: NANCI MURRIETA on 12/01/17 0851 Pantoprazole Sodium (Pantoprazole Sodium) 40 Mg Tablet.dr, 40 MG PO DAILY Prescribed by: TRAVON CHAUDHRY on 07/22/21 1645 Sucralfate (Sucralfate) 1 Gm Tablet, 1 GM PO QID Prescribed by: TRAVON CHAUDHRY on 07/22/21 1645 Past Ixbpypl-Kxalfz-Nbmzyk Hx Patient Social History Tobacco Use?: No Use of E-Cig and/or Vaping dev: No Substance use?: No Alcohol Use?: No Pt feels they are or have been: No Immunizations Up To Date First/Initial COVID19 Vaccinat: RECEIVED, UNK WHEN Second COVID19 Vaccination Chad: RECEIVED, UNK WHEN COVID19 Vaccine 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: GARRETT Seasonal Allergies Seasonal Allergies: No Past Medical History Surgeries: Yes (Mastectomy right at 29yo left at 56yo due to cancer ,thyroid ablation x 2) Breast, Hysterectomy Respiratory: No Sleep Apnea Cardiac: Yes Atrial Fibrillation, Hypertension Neurological: No Reproductive Disorders: No Genitourinary: No Gastrointestinal: Yes Gastroesophageal Reflux Musculoskeletal: No Endocrine: Yes (Thyroid ablation) Hyperthyroidism, Hypothyroidsim HEENT: No Cancer: Yes (MASTECTOMY X2) Breast Did You Recieve Any Treatments: Yes What Type of Treatment Did You: Chemotherapy, Surgical Intervention Psychosocial: No Integumentary: No Blood Disorders: No Family Medical History Cancer 03 FATHER (LUNG) 03 MOTHER (BREAST) Family history: Diabetes mellitus 03 MOTHER 09 BROTHER 09 BROTHER Family history: Hypertension No Pertinent Family Hx Physical Exam Vital Signs Vital Signs - First Documented 10/20/22 13:33 Temp 36.4 Pulse 94 Resp 18 B/P (MAP) 180/110 (133) Pulse Ox 97 O2 Delivery Room Air Capillary Refill : Less Than 3 Seconds Height, Weight, BMI Height: 5'2.00" Weight: 207lbs. 0.0oz. [id number]; 38.00 BMI Method:Stated Progress/Results/Core Measures Results/Orders Lab Results Laboratory Tests Test 10/20/22 13:58 Range/Units White Blood Count 6.4 4.3-11.0 10^3/uL Red Blood Count 4.94 3.80-5.11 10^6/uL Hemoglobin 14.6 11.5-16.0 g/dL Hematocrit 44 35-52 % Mean Corpuscular Volume 88 80-99 fL Mean Corpuscular Hemoglobin 30 25-34 pg Mean Corpuscular Hemoglobin Concent 34 32-36 g/dL Red Cell Distribution Width 13.1 10.0-14.5 % Platelet Count 183 130-400 10^3/uL Mean Platelet Volume 10.7 9.0-12.2 fL Immature Granulocyte % (Auto) 0 % Neutrophils (%) (Auto) 72 42-75 % Lymphocytes (%) (Auto) 16 12-44 % Monocytes (%) (Auto) 9 0-12 % Eosinophils (%) (Auto) 1 0-10 % Basophils (%) (Auto) 1 0-10 % Neutrophils # (Auto) 4.7 1.8-7.8 10^3/uL Lymphocytes # (Auto) 1.0 1.0-4.0 10^3/uL Monocytes # (Auto) 0.6 0.0-1.0 10^3/uL Eosinophils # (Auto) 0.1 0.0-0.3 10^3/uL Basophils # (Auto) 0.0 0.0-0.1 10^3/uL Immature Granulocyte # (Auto) 0.0 0.0-0.1 10^3/uL Sodium Level 140 135-145 MMOL/L Potassium Level 4.3 3.6-5.0 MMOL/L Chloride Level 106 98-107 MMOL/L Carbon Dioxide Level 22 21-32 MMOL/L Anion Gap 12 5-14 MMOL/L Blood Urea Nitrogen 12 7-18 MG/DL Creatinine 1.04 0.60-1.30 MG/DL Estimat Glomerular Filtration Rate 60 BUN/Creatinine Ratio 12 Glucose Level 136 H 70-105 MG/DL Calcium Level 10.0 8.5-10.1 MG/DL Magnesium Level 2.1 1.6-2.4 MG/DL B-Type Natriuretic Peptide 75.9 <100.0 PG/ML Thyroid Stimulating Hormone (TSH) 4.40 0.35-4.94 UIU/ML Free Thyroxine 0.98 0.70-1.48 NG/DL My Orders Orders - DENILSON FULLER MD Basic Metabolic Panel (10/20/22 13:53) Bnp Cherry (10/20/22 13:53) Cbc With Automated Diff (10/20/22 13:53) Magnesium (10/20/22 13:53) Thyroid Stimulating Hormone (10/20/22 13:53) Free T4 (Free Thyroxine) (10/20/22 13:53) Ed Iv/Invasive Line Start (10/20/22 13:53) Ekg Tracing (10/20/22 13:53) Monitor-Rhythm Ecg Trace Only (10/20/22 13:53) Amlodipine Tablet (Norvasc Tablet) (10/20/22 16:30) Medications Given in ED Current Medications Medications Dose Ordered Sig/Dino Route Start Time Stop Time Status Last Admin Dose Admin Amlodipine Besylate 5 mg ONCE ONCE PO 10/20/22 16:30 10/20/22 16:31 DC 10/20/22 16:42 5 MG Vital Signs/I&O 10/20/22 10/20/22 13:33 16:54 Temp 36.4 Pulse 94 92 Resp 18 18 B/P (MAP) 180/110 (133) 142/90 Pulse Ox 97 96 O2 Delivery Room Air Blood Pressure Mean: 133 Initial ECG Impression Date: Oct 20, 2022 Initial ECG Impression Time: 14:03 Initial ECG Rate: 91 Initial ECG Rhythm: A Fib/Flutter Initial ECG Impression: Atrial Fibrillation Comment Atrial fibrillation with no ST elevation or depression. No abnormal intervals or axis deviation. Departure Impression Primary Impression: Paroxysmal atrial fibrillation Additional Impressions: Uncontrolled hypertension Vision changes Disposition: 01 HOME, SELF-CARE Condition: Improved Departure-Patient Inst. Decision time for Depature: 16:26 Referrals: JEY VOGT DO (PCP/Family) Primary Care Physician Patient Instructions: Atrial Fibrillation, High Blood Pressure ED Add. Discharge Instructions: Your atrial fibrillation is controlled at this time. Continue taking metoprolol for rate control and Eliquis for stroke prevention. Contact your proposal specialist the next available business day to review your thyroid results and inquire about whether any adjustment in dosing should be made. Also follow-up with Dr. Vogt and Dr. Dewitt next week to discuss your atrial fibrillation and high blood pressure. In the meantime check your blood pressure once or twice daily and log results. Start amlodipine daily as prescribed. Return to the ER if you have new or worsening symptoms such as chest pain, shortness of breath, dizziness, recurrent vision changes, or persistent rapid heart rate of 120 bpm or faster. Call with questions or concerns. All discharge instructions reviewed with patient and/or family. Voiced understanding. Scripts Amlodipine Besylate (Amlodipine Besylate) 5 Mg Tablet 5 MG PO DAILY, #30 TAB Prov: DENILSON FULLER MD 10/20/22 DENILSON FULLER MD Oct 20, 2022 16:30
[2022-10-20 16:54] VITALS: BP 142/90
== END 2022-10-20 16:57 | disposition home or self-care (01) ==
LOC: EDUNIT# 13:22 → ER 13:24
DX: I48.0 Paroxysmal atrial fibrillation (principal); I10 Essential (primary) hypertension
CPT/HCPCS: 36415; 80048; 83735; 83880; 84439; 84443; 85025; 93041

== ENCOUNTER 2022-12-06 05:32 | Outpatient (CLI) | payer OTHER ==
[~2022-12-06] VITALS: Ht 160 cm; Wt 97.7 kg
[~2022-12-06 05:32] MED LIST changes: +AMLO-250 PO
== END 2022-12-08 10:48 | disposition home or self-care (01) ==
LOC: PREOP 05:32
PROVIDERS: ATTEND Surgery
DX: Z01.818 Encounter for other preprocedural examination (principal); Z12.11 Encounter for screening for malignant neoplasm of colon; K21.9 Gastro-esophageal reflux disease without esophagitis; Z86.010 Personal history of colon polyps

== ENCOUNTER 2022-12-11 20:49 | Inpatient (IN) | payer OTHER ==
[~2022-12-11] VITALS: Ht 160 cm; Wt 95.3 kg
[2022-12-11 20:58] VITALS: BP 217/117
[2022-12-11 21:02] LABS: BASOPHILS # (AUTO) 0.1 10^3/uL (0.0-0.1); BASOPHILS % (AUTO) 1 % (0-10); EOSINOPHILS # (AUTO) 0.1 10^3/uL (0.0-0.3); EOSINOPHILS % (AUTO) 1 % (0-10); HEMATOCRIT 46 % (35-52); HEMOGLOBIN 15.1 g/dL (11.5-16.0); LYMPHOCYTES # (AUTO) 2.1 10^3/uL (1.0-4.0); LYMPHOCYTES % (AUTO) 26 % (12-44); MEAN CORPUSCULAR HEMOGLOBIN 29 pg (25-34); MEAN CORPUSCULAR HGB CONC 33 g/dL (32-36); MEAN CORPUSCULAR VOLUME 88 fL (80-99); MEAN PLATELET VOLUME 10.4 fL (9.0-12.2); MONOCYTES # (AUTO) 0.9 10^3/uL (0.0-1.0); MONOCYTES % (AUTO) 12 % (0-12); NEUTROPHILS # (AUTO) 4.8 10^3/uL (1.8-7.8); NEUTROPHILS % (AUTO) 60 % (42-75); PLATELET COUNT 229 10^3/uL (130-400)
--- NOTE | 2022-12-11 21:02 | ED Neurological Problem ---
General Chief Complaint: Neuro-Stroke Like Symptoms Stated Complaint: STROKE SYMPTOMS Nursing Triage Note: Patient presented to the ER with complaints of stroke like symptoms at [facility] 20[facility]. Patient states she was going to turn a light on and couldn't feel her arm and began experiencing left sided facial numbness an weakness. She advised she had a TIA approximately 6 years ago. Source: patient History of Present Illness Date Seen by Provider: Dec 11, 2022 Time Seen by Provider: 20:51 Initial Comments PT ARRIVES VIA POV FROM HOME SHE STATES THAT 10 MINUTES PRIOR TO ARRIVAL, SHE HAD LEFT FACIAL NUMBNESS/TINGLING AND DROOPING, AND HER SPEECH IS A LITTLE ABNORMAL/SLURRED. NO TONGUE NUMBNESS SHE WENT TO TURN ON A LIGHT AND NOTICED THAT SHE COULDN'T FEEL HER LEFT ARM/HAND WHEN SHE TOUCHED THE LIGHT SWITCH. THAT IS NOT OCCURRING NOW. SHE STATES SHE DID NOT HAVE PROBLEMS MOVING HER ARM, JUST COULDN'T FEEL ANYTHING WITH HER HAND/ARM. SHE STATES THAT BOTH OF HER LEGS FEEL A LITTLE WEAK AND "RUBBERY" , BUT NO NUMBNESS OR TINGLING TO LEGS, AND IS ABLE TO WALK NO HEADACHE NO DIZZINESS NO VISION CHANGES OR HEARING CHANGES NO NAUSEA/VOMITING NO CHEST PAIN OR PALPITATIONS NO SHORTNESS OF BREATH. NO PAIN ANYWHERE NO SWEATS NO SYNCOPE SHE TOOK A TOPROL JUST PRIOR TO ARRIVAL. SHE IS NOT HAVING ANY PROBLEMS SWALLOWING PT HAD A TIA 5 YEARS AGO ( 11/30/2017) , AND HAS BEEN ON BLOOD THINNERS--ELIQUIS; SHE ALSO HAS HISTORY OF ATRIAL FIBRILLATION, WELL SIGNIFICANT HTN. SHE ALSO HAS HISTORY OF BREAST CANCER AND THYROID DISEASE SHE HAD TO STOP HER BLOOD THINNER ON MONDAY (LAST DOSE WAS Monday12/09/22) BECAUSE SHE IS SCHEDULED TO HAVE A COLONOSCOPY ON MONDAY. SHE HAS HAD COVID VACCINE X 3 PCP: DR. VOGT MANAGER BEAUTY: DR. MONTERO Allergies and Home Medications Allergies Coded Allergies: No Known Drug Allergies (Verified , 12/08/22) Patient Home Medication List Home Medication List Reviewed: Yes Amlodipine Besylate (Amlodipine Besylate) 5 Mg Tablet, 5 MG PO DAILY Prescribed by: DENILSON SCHROEDER on 10/20/22 1630 Anastrozole (Arimidex) 1 Mg Tablet, 1 MG PO 1200, (Reported) Entered as Reported by: MARTINEZ CHRISTIANSON on 07/22/21 1022 Apixaban (Eliquis) 5 Mg Tablet, 5 MG PO BID, (Reported) Entered as Reported by: MARTINEZ CHRISTIANSON on 07/22/21 1022 Calcium Carbonate/Vitamin D3 (Calcium 600 + Vit D 200 Tablet) 1 Each Tablet, 2 TAB PO 1200, (Reported) Entered as Reported by: NANCI MURRIETA on 12/01/17 0858 Levothyroxine Sodium (Levothyroxine Sodium) 75 Mcg Tablet, 75 MCG PO DAILY, (Reported) Entered as Reported by: DELIO MONROE on 07/21/21 1716 Metoprolol Succinate (Metoprolol Succinate) 100 Mg Tab.er.24h, 100 MG PO BID, (Reported) Entered as Reported by: NANCI MURRIETA on 12/01/17 0851 Pantoprazole Sodium (Pantoprazole Sodium) 40 Mg Tablet.dr, 40 MG PO DAILY Prescribed by: TRAVON CHAUDHRY on 07/22/21 1645 Discontinued Medications Sucralfate (Sucralfate) 1 Gm Tablet, 1 GM PO QID Discontinued Reason: No Longer Taking Prescribed by: TRAVON CHAUDHRY on 07/22/21 1645 Review of Systems Review of Systems Constitutional: no symptoms reported Eyes: No Symptoms Reported Ears, Nose, Mouth, Throat: no symptoms reported Respiratory: no symptoms reported Cardiovascular: no symptoms reported Gastrointestinal: no symptoms reported Genitourinary: no symptoms reported Musculoskeletal: see HPI Skin: no symptoms reported Psychiatric/Neurological: See HPI; Denies Cognitive Dysfunction, Denies Headache Endocrine: No Symptoms Reported Hematologic/Lymphatic: No Symptoms Reported Past Eeenjur-Hmiygj-Mnbwxm Hx Patient Social History Tobacco Use?: No Substance use?: No Alcohol Use?: No Immunizations Up To Date First/Initial COVID19 Vaccinat: 01/23/21 Second COVID19 Vaccination Chad: 02/18/21 Seasonal Allergies Seasonal Allergies: No Past Medical History Surgeries: Yes (Mastectomy right at 29yo left at 56yo due to cancer ,thyroid ablation x 2) Breast, Hysterectomy Respiratory: Yes Sleep Apnea Currently Using CPAP: Yes Cardiac: Yes Atrial Fibrillation, Hypertension Neurological: Yes (TIA 11/30/2017) TIA 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, 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 Genitourinary: No Gastrointestinal: Yes Gastroesophageal Reflux Musculoskeletal: No Endocrine: Yes (Thyroid ablation) Hyperthyroidism, Hypothyroidsim HEENT: No Cancer: Yes (MASTECTOMY LEFT/RIGHT) Breast Did You Recieve Any Treatments: Yes What Type of Treatment Did You: Chemotherapy, Surgical Intervention Psychosocial: No Integumentary: No Blood Disorders: No Family Medical History Cancer 03 FATHER (LUNG) 03 MOTHER (BREAST) Family history: Diabetes mellitus 03 MOTHER 09 BROTHER 09 BROTHER Family history: Hypertension No Pertinent Family Hx Physical Exam Vital Signs Vital Signs - First Documented 12/11/22 20:51 Temp 36.4 Pulse 98 Resp 16 B/P (MAP) 217/117 (150) Pulse Ox 97 O2 Delivery Room Air Capillary Refill : Less Than 3 Seconds Height, Weight, BMI Height: 5'2.00" Weight: 207lbs. 0.0oz. [id number]; 37.00 BMI Method:Stated General Appearance: WD/WN, no apparent distress HEENT: PERRL/EOMI, TMs normal, pharynx normal, other (MILD LEFT FACIAL DROOP) Neck: non-tender, full range of motion, supple, normal inspection Respiratory: normal breath sounds, no respiratory distress, no accessory muscle use Cardiovascular: no edema, no JVD, no murmur, irregularly irregular Peripheral Pulses: 2+ Dorsalis Pedis (R), 2+ Left Dors-Pedis (L), 2+ Radial Pulses (R), 2+ Radial Pulses (L) Gastrointestinal: non tender, soft Extremities: normal range of motion, non-tender, normal inspection, no pedal edema, no calf tenderness, normal capillary refill Neurologic/Psychiatric: alert, normal mood/affect, oriented x 3; No aphasia; facial droop (ON LEFT), other (BUT DOES HAVE SLIGHTLY SLURRED SPEECH, TONGUE IS MIDLINE. PT IS ABLE TO CLOSE LEFT EYE. ) Crainal Nerves: normal hearing, normal speech, PERRL, abnormal speech, facial asymmetry, facial droop, facial paresthesias; No gaze palsy, No hearing deficit (R), No hearing deficit (L), No tongue deviation to R, No tongue deviation to L Motor/Sensory: No pronator drift (R), No pronator drift (L), No sensory deficit, No weak motor strength RLE, No weak motor strength LLE; other (ARM AND LEG STRENGTH, MOTOR AND SENSATION ARE ALL INTACT AND EQUAL BILATERALLY. ) Reflexes: 2+ Bicep (R), 2+ Bicep (L), 2+ Knee (R), 2+ Knee (L) Skin: normal color, warm/dry; No rash Stroke Onset of Symptoms Date of Onset of Symptoms: Dec 11, 2022 Time of Symptom Onset: 21:40 Onset of Symptoms: Yes NIH Stroke Scale Assessment Select: Initial Level of Consciousness: 0=Alert (0), Level of Consciousness- Questions: 0=Answers both month/age (0), LOC Commands: 0=Performs both tasks (0), Gaze: Normal (0), Visual [place]: 0=No visual loss (0), Facial Movement (Facial Paresis): 1=Minor paralysis (1), Motor Function-Arms Right: 0=No drift (0), Motor Function-Arms Left: 0=No drift (0), Motor Function-Legs Right: 0=No drift (0), Motor Function-Legs Left: 0=No drift (0), Limb Ataxia: 0=Absent (0), Sensory: 0=Normal:no loss (0), Best Language: 0=No aphasia (0), Dysarthria: 1=Mild to moderate loss (1), Extinction & Inattention: 0=No abnormality (0), Total: 2 Stroke Thrombolytic Exclusion Age 18 or Over: Yes History of CVA: No (HX OF TIA) Uncontrolled Coagulation Defec: No Severe Hypertension: Yes GI or Bleed: No Subarachnoid Hemorrhage: No Intracranial Neoplasm/Aneurysm: No Oral Anticoagulants: Yes Surgery or Trauma: No Puncture of Non-Compressible V: No Recent CPR: No Diabetic Hemorrhagic Retinopat: No Organ Biopsy: No Recent Obstetric Delivery: No Glucose: No Significant Hepatic Dysfunctio: No NIH Stoke Scale >22: No Bacterial Endocarditis: No Pericarditis: No Improving Symptoms: No Platelets: No Progress/Results/Core Measures Results/Orders Lab Results Laboratory Tests Test 12/11/22 20:56 12/11/22 21:17 Range/Units White Blood Count 8.0 4.3-11.0 10^3/uL Red Blood Count 5.18 H 3.80-5.11 10^6/uL Hemoglobin 15.1 11.5-16.0 g/dL Hematocrit 46 35-52 % Mean Corpuscular Volume 88 80-99 fL Mean Corpuscular Hemoglobin 29 25-34 pg Mean Corpuscular Hemoglobin Concent 33 32-36 g/dL Red Cell Distribution Width 13.1 10.0-14.5 % Platelet Count 229 130-400 10^3/uL Mean Platelet Volume 10.4 9.0-12.2 fL Immature Granulocyte % (Auto) 0 % Neutrophils (%) (Auto) 60 42-75 % Lymphocytes (%) (Auto) 26 12-44 % Monocytes (%) (Auto) 12 0-12 % Eosinophils (%) (Auto) 1 0-10 % Basophils (%) (Auto) 1 0-10 % Neutrophils # (Auto) 4.8 1.8-7.8 10^3/uL Lymphocytes # (Auto) 2.1 1.0-4.0 10^3/uL Monocytes # (Auto) 0.9 0.0-1.0 10^3/uL Eosinophils # (Auto) 0.1 0.0-0.3 10^3/uL Basophils # (Auto) 0.1 0.0-0.1 10^3/uL Immature Granulocyte # (Auto) 0.0 0.0-0.1 10^3/uL Prothrombin Time 13.2 12.2-14.7 SEC INR Comment 1.0 0.8-1.4 Activated Partial Thromboplast Time 26 24-35 SEC D-Dimer <= 0.27 0.00-0.49 UG/ML Sodium Level 139 135-145 MMOL/L Potassium Level 3.6 3.6-5.0 MMOL/L Chloride Level 105 98-107 MMOL/L Carbon Dioxide Level 19 L 21-32 MMOL/L Anion Gap 15 H 5-14 MMOL/L Blood Urea Nitrogen 19 H 7-18 MG/DL Creatinine 1.15 0.60-1.30 MG/DL Estimat Glomerular Filtration Rate 54 BUN/Creatinine Ratio 17 Glucose Level 141 H 70-105 MG/DL Calcium Level 10.1 8.5-10.1 MG/DL Corrected Calcium 8.5-10.1 MG/DL Magnesium Level 2.1 1.6-2.4 MG/DL Total Bilirubin 0.6 0.1-1.0 MG/DL Aspartate Amino Transf (AST/SGOT) 89 H 5-34 U/L Alanine Aminotransferase (ALT/SGPT) 120 H 0-55 U/L Alkaline Phosphatase 110 40-136 U/L Myoglobin 41.6 10.0-92.0 NG/ML Troponin I < 0.028 <0.028 NG/ML B-Type Natriuretic Peptide 40.9 <100.0 PG/ML Total Protein 8.4 H 6.4-8.2 GM/DL Albumin 4.8 H 3.2-4.5 GM/DL TSH [place] Testing 3.14 0.35-4.94 UIU/ML Influenza Type A (RT-PCR) Not Detected Not Detecte Influenza Type B (RT-PCR) Not Detected Not Detecte SARS-CoV-2 RNA (RT-PCR) Not Detected Not Detecte My Orders Orders - DEEP PRADHAN DO Cbc With Automated Diff (12/11/22 20:52) Protime With Inr (12/11/22 20:52) Partial Thromboplastin Time (12/11/22 20:52) Comprehensive Metabolic Panel (12/11/22 20:52) Fibrin Degradation Products (12/11/22 20:52) Troponin I Sandor (12/11/22 20:52) Ua Culture If Indicated (12/11/22 20:52) Chest 1 View, Ap/Pa Only (12/11/22 20:52) Ekg Tracing (12/11/22 20:52) Nothing By Mouth (12/12/22 Breakfast) Accucheck Stat ONCE (12/11/22 20:52) Ed Iv/Invasive Line Start (12/11/22 20:52) Ed Iv/Invasive Line Start (12/11/22 20:52) Vital Signs Stroke Patient Q15M (12/11/22 20:52) Ct Head Wo-R/O Stroke (12/11/22 20:52) O2 (12/11/22 20:52) Intake & Output 06,14,22 (12/11/22 20:52) Monitor-Rhythm Ecg Trace Only (12/11/22 20:52) Dysphagia Screening Tool Q10MX1 (12/11/22 20:52) Lipid Panel (12/12/22 06:00) Bnp Sandor (12/11/22 21:11) Magnesium (12/11/22 21:11) Thyroid Analyzer (12/11/22 21:11) Myoglobin Serum (12/11/22 21:11) Ct Angio Head/Neck (12/11/22 21:11) Labetalol Injection (Normodyne Injection (12/11/22 21:15) Covid 19 Inhouse Test (12/11/22 21:13) Influenza A And B By Pcr (12/11/22 21:13) Isolation Central Supply Req (12/11/22 21:13) Iohexol Injection (Omnipaque 350 Mg/Ml 1 (12/11/22 21:45) Sodium Chloride Flush (Catheter Flush Sy (12/11/22 21:45) Ns (Ivpb) (Sodium Chloride 0.9% Ivpb Bag (12/11/22 21:45) Medications Given in ED Current Medications Medications Dose Ordered Sig/Dino Route Start Time Stop Time Status Last Admin Dose Admin Iohexol 100 ml ONCE ONCE IV 12/11/22 21:45 12/11/22 21:46 DC 12/11/22 21:39 75 ML Labetalol HCl 10 mg ONCE ONCE IV 12/11/22 21:15 12/11/22 21:16 DC 12/11/22 21:31 10 MG Sodium Chloride 10 ml NEEDED PRN IV 12/11/22 21:45 12/11/22 23:08 DC 12/11/22 21:39 10 ML Sodium Chloride 100 ml ONCE ONCE IV 12/11/22 21:45 12/11/22 21:46 DC 12/11/22 21:39 80 ML Vital Signs/I&O 12/11/22 12/11/22 12/11/22 20:51 20:58 21:05 Temp 36.4 Pulse 98 98 Resp 16 16 B/P (MAP) 217/117 (150) 217/117 Pulse Ox 97 97 98 O2 Delivery Room Air Room Air FSBG Bedside Testing Finger Stick Blood Glucose: 137 Progress Progress Note : Progress Note STROKE ACTIVATION ON PT'S ARRIVAL FINGERSTICK BLOOD GLUCOSE 137 INITIAL BP 217/117, HR IN 70'S, O2 SATS UPPER 90'S ON ROOM AIR. LABETALOL IS GIVEN FOR BLOOD PRESSURE, BP IS TOO HIGH ON ARRIVAL FOR THROMBOLYTICS. BP IS DOWN WITH MEDICATION, PRIOR TO GIVING THROMBOLYTICS. DISCUSSED THROMBOLYTICS, RISKS AND BENEFITS, AND PT WOULD LIKE TO PROCEED WITH IT. STROKE PROTOCOL FOLLOWED, USING TNKASE, PER HOSPITAL PROTOCOL/RECOMMENDATIONS. NO DETERIORATION IN PT'S CONDITION DURING ER STAY. REVIEWED OLD RECORDS, INCLUDING ADMITS, H&P'S, CONSULTS, TESTS/PROCEDURES, AND DISCHARGE SUMMARIES. Initial ECG Impression Date: Dec 11, 2022 Initial ECG Impression Time: 21:06 Initial ECG Rate: 99 Initial ECG Rhythm: A Fib/Flutter Initial ECG Impression: Atrial Fibrillation Initial ECG Comparisson: Unchanged Diagnostic Imaging Comments CT HEAD--PER RADIOLOGIST VIA PHONE AT 2110 FINDINGS: The ventricles are normal in size, shape and position. There is no mass or hemorrhage. There is no extra-axial fluid collection. IMPRESSION: Negative CT head. CXR--PER RADIOLOGIST REPORT AT 2118 Heart size and pulmonary vascularity are normal. Lungs are clear. There are no effusions or pneumothoraces. IMPRESSION: Negative chest CT ANGIOGRAM HEAD/NECK--PER RADIOLOGIST VIA PHONE AT 2139 FINDINGS: Brachiocephalic origins are widely patent. The common, internal and external carotid arteries are widely patent. Vertebral arteries are both widely patent. Intracranially, there is no evidence of large vessel occlusion. There is no aneurysm. Postcontrast images do not show any abnormal areas of enhancement. IMPRESSION: Negative CTA head and neck. Reviewed: Reviewed by Me Departure Communication (Admissions) 2122--CALLED [facility]. THEY WILL PAGE STROKE NEUROLOGIST AND CALL ME BACK. PT'S IMAGES CLOUDED TO [facility]. 2133--[facility] CALLED BACK. SPOKE WITH DR. CHANG, AND SHE ADVISES THAT PT COULD HAVE THROMBOLYTICS IF HER SYMPTOMS ARE DISABLING FOR HER, ONCE BP IS DOWN. WILL CALL HER BACK IF CT ANGIOGRAM SHOWS ANY LARGE VESSEL OCCLUSION. 2145--SPOKE WITH DR. VOGT, ACCEPTS PT FOR ADMIT TO ICU. 2147--REPORT TO E-ICU PHYSICIAN. NO ADDITIONAL RECOMMENDATIONS AT THIS TIME. 2227--[facility] CALLED BACK. SPOKE WITH DR. CHANG, AND SHE HAS REVIEWED CT STUDIES, AND BELIEVES THERE MAY BE A SMALL CLOT IN THE DISTAL M2 VESSEL--NO LARGE VESSEL OCCLUSION, AND DOES DEFINITELY RECOMMEND THROMBOLYTICS, THIS AREA IS NOT AMENABLE TO ANY INTERVENTION. ADVISED HER THAT PT HAD ALREADY AGREED TO IT AND SHE HAS ALREADY RECEIVED IT. 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 Referrals: JEY VOGT DO (PCP/Family) Primary Care Physician DEEP PRADHAN DO Dec 11, 2022 21:02
--- NOTE | 2022-12-11 21:14 | Diagnostic Imaging Report ---
INDICATION: Left-sided facial numbness. EXAMINATION: Portable chest 8:54 PM Heart size and pulmonary vascularity are normal. Lungs are clear. There are no effusions or pneumothoraces. IMPRESSION: Negative chest Dictated by: Dictated on workstation # [id number]
[2022-12-11] MEDS ORDERED: LABETALOL HCL 20 MG/4 ML VIAL IV ONE ×2 (21:15→22:00)
--- NOTE | 2022-12-11 21:15 | Diagnostic Imaging Report ---
PROCEDURE: CT head w/o r/o stroke. TECHNIQUE: Multiple contiguous axial images were obtained through the brain without the use of intravenous contrast. Auto Exposure Controls were utilized during the CT exam to meet ALARA standards for radiation dose reduction. INDICATION: Left facial paresthesia. FINDINGS: The ventricles are normal in size, shape and position. There is no mass or hemorrhage. There is no extra-axial fluid collection. IMPRESSION: Negative CT head. Results were called to Dr. Watts at 9:13 PM. Dictated by: Dictated on workstation # [id number]
[2022-12-11 21:22] LABS: ALBUMIN 4.8 GM/DL (3.2-4.5)
[2022-12-11 21:23] LABS: CHLORIDE 105 MMOL/L (98-107); POTASSIUM 3.6 MMOL/L (3.6-5.0); SODIUM 139 MMOL/L (135-145)
[2022-12-11 21:24] LABS: CALCIUM 10.1 MG/DL (8.5-10.1)
[2022-12-11 21:25] LABS: GLUCOSE 141 MG/DL (70-105); TOTAL PROTEIN 8.4 GM/DL (6.4-8.2)
[2022-12-11 21:26] LABS: CARBON DIOXIDE 19 MMOL/L (21-32)
[2022-12-11 21:27] LABS: BILIRUBIN,TOTAL 0.6 MG/DL (0.1-1.0)
[2022-12-11 21:28] LABS: ALKALINE PHOSPHATASE 110 U/L (40-136)
[2022-12-11 21:29] LABS: CREATININE SERUM 1.15 MG/DL (0.60-1.30); GFR ESTIMATED 54
[2022-12-11 21:30] LABS: BUN/CREATININE RATIO 17
[2022-12-11 21:31] LABS: ALANINE AMINOTRANSFERASE 120 U/L (0-55); MAGNESIUM 2.1 MG/DL (1.6-2.4)
--- NOTE | 2022-12-11 21:44 | Diagnostic Imaging Report ---
PROCEDURE: CT angiography of the head and CT angiography of the neck with and without contrast. TECHNIQUE: Contiguous noncontrast images were obtained from the skull base through the vertex. After intravenous contrast administration, helical CT angiography of the neck was performed. Source data was reformatted into 3D MIP projections. Delayed post contrast acquisition was also obtained. Auto Exposure Controls were utilized during the CT exam to meet ALARA standards for radiation dose reduction. INDICATION: Left-sided facial droop. FINDINGS: Brachiocephalic origins are widely patent. The common, internal and external carotid arteries are widely patent. Vertebral arteries are both widely patent. Intracranially, there is no evidence of large vessel occlusion. There is no aneurysm. Postcontrast images do not show any abnormal areas of enhancement. IMPRESSION: Negative CTA head and neck. Results were called to Dr. Watts at 9:40 PM. Dictated by: Dictated on workstation # [id number]
[2022-12-11] MEDS ORDERED: IOHEXOL 350 MG/ML 100 ML (OMNIPAQUE 350) VIAL IV ONE (21:45)
[2022-12-11] MEDS ORDERED: NS 100 ML (IVPB) BAG IV ONE (21:45)
[2022-12-11] MEDS ORDERED: CATHETER FLUSH 10 ML SYR IV PRN (21:45)
[2022-12-11 21:52] LABS: TSH (THYROID ANALYZER) 3.14 UIU/ML (0.35-4.94)
[2022-12-11 21:53] LABS: FIBRIN DEGRADATION PRODUCTS <= 0.27 UG/ML (0.00-0.49); PARTIAL THROMBOPLASTIN TIME 26 SEC (24-35); PROTHROMBIN TIME PATIENT 13.2 SEC (12.2-14.7)
[2022-12-11] MEDS ORDERED: TENECTEPLASE 50 MG VIAL IV ONE (22:00)
[2022-12-11] MEDS ORDERED: LIDOCAINE UROJET 2% GEL 10 ML PKG TOP ONE (22:00)
[2022-12-11 22:06] LABS: BILIRUBIN,URINE NEGATIVE (NEGATIVE); CLARITY,URINE CLEAR; COLOR,URINE YELLOW; GLUCOSE, URINE (UA) NEGATIVE (NEGATIVE); KETONES,URINE NEGATIVE (NEGATIVE); LEUKOCYTE ESTERASE ,URINE NEGATIVE (NEGATIVE); NITRITE,URINE NEGATIVE (NEGATIVE); PH,URINE 5.5 (5-9); PROTEIN,URINE NEGATIVE (NEGATIVE)
[2022-12-11 22:13] LABS: BACTERIA,URINE TRACE /HPF
[2022-12-11] MEDS ORDERED: NS IV 500 ML 500 ML IV PRN (23:30)
--- NOTE | 2022-12-11 23:49 | Tele-ICU Progress Note ---
Progress Note 62 y/o woman with h/o small CVA 5 yrs ago , HTN, Afib, on Eliquis , Apparently Pt was scheduled for some procedure and since Monsa , Eliquis was discontinued. Comes with Lt sided facial droop and somewhat slurred speech. BP was high at the time of presentation. CTH was negative and CTA W/O LVO. M2 small clot. BP was controlled with Labetalol and tPA was given. Labs reviewed. BP still somewhat high. will continue Labetalol PRN for goal 180/105 mmHg. D/W the bedside nurse and ED MD. Focused Exam Height, Weight, BMI Height: 5'2.00" Weight: 207lbs. 0.0oz. 93.388738tr; 37.00 BMI Method:Stated SUNI AGUIRRE MD Dec 11, 2022 23:49
[2022-12-12] MEDS ORDERED: niCARdipine IV (Pyxis drip kit 50 MG in NS (IVPB) 230 ML IV SCH (00:15)
[2022-12-12] MEDS: D5 1/2 NS W/KCL 20 MEQ/L 1,000 ML IV SCH ×2 (00:31→15:31)
[2022-12-12 01:01] VITALS: BP 176/108
[2022-12-12] MEDS ORDERED: RT-ALBUTEROL SULF 2.5 MG/3 ML PRE-MIX VIAL INH PRN (01:15)
[2022-12-12 04:26] LABS: BASOPHILS % (AUTO) 0 % (0-10); EOSINOPHILS % (AUTO) 1 % (0-10); HEMATOCRIT 40 % (35-52); HEMOGLOBIN 13.3 g/dL (11.5-16.0); LYMPHOCYTES # (AUTO) 1.5 10^3/uL (1.0-4.0); LYMPHOCYTES % (AUTO) 20 % (12-44); MEAN CORPUSCULAR HEMOGLOBIN 29 pg (25-34); MEAN CORPUSCULAR HGB CONC 34 g/dL (32-36); MEAN CORPUSCULAR VOLUME 87 fL (80-99); MEAN PLATELET VOLUME 10.8 fL (9.0-12.2); MONOCYTES # (AUTO) 0.7 10^3/uL (0.0-1.0); MONOCYTES % (AUTO) 10 % (0-12); NEUTROPHILS # (AUTO) 5.1 10^3/uL (1.8-7.8); NEUTROPHILS % (AUTO) 69 % (42-75); PLATELET COUNT 193 10^3/uL (130-400); WHITE BLOOD COUNT 7.4 10^3/uL (4.3-11.0)
[2022-12-12 04:38] LABS: ALBUMIN 4.1 GM/DL (3.2-4.5)
[2022-12-12 04:39] LABS: CALCIUM 9.3 MG/DL (8.5-10.1); PROTHROMBIN TIME PATIENT 13.9 SEC (12.2-14.7)
[2022-12-12 04:42] LABS: BILIRUBIN,TOTAL 0.7 MG/DL (0.1-1.0)
[2022-12-12 04:44] LABS: CREATININE SERUM 0.86 MG/DL (0.60-1.30); PHOSPHORUS 3.3 MG/DL (2.3-4.7)
[2022-12-12 04:48] LABS: MAGNESIUM 2.1 MG/DL (1.6-2.4)
[2022-12-12] MEDS: KCL 20 MEQ TAB (K-DUR) PO SCH (06:26)
[2022-12-12] MEDS: MAGNESIUM 1 GM/100 ML IVPB 100 ML IV SCH (06:31)
[2022-12-12] MEDS: POTASSIUM CL 10MEQ/50ML IVPB 50 ML IV SCH (06:31)
[2022-12-12] MEDS: LABETALOL HCL 20 MG/4 ML VIAL IV PRN ×2 (06:39→13:59)
--- NOTE | 2022-12-12 07:59 | Consultation-Cardiology ---
HPI-Cardiology Cardiology Consultation: Date of Consultation 12/12/22 Time Seen by a Provider: 09:00 Date of Admission 12-11-22 Attending Physician Ellen Galvin DO Admitting Physician Admitting Physician: Ellen Galvin DO Attending Physician: Ellen Galvin DO Consulting Physician SILVIA CARLISLE HPI: Chief Complaint: Acute CVA Ms. Turner is a 62 yr old female admitted to ICU 4 with acute non-hemorrhagic CVA. She reports she has been off her Eliquis since 12-09-22 in preparation for a colonoscopy d/t previous polyp removal a year ago. She reports she went to turn off the light last night at home when she noticed numbness/tingling in her left hand along with left sided facial numbness and slurring of her speech. She noted her BP was elevated at home. She did receive tPA in the ED per recs from [facility] stroke team. She notes she has had resolution of her symptoms. No vision changes. She states she feels well this morning. No c/o CP, palpitations, syncope or near syncope. Review of Systems-Cardiology Review of Systems Constitutional: No chills, No fever, No malaise Eyes: No vision change Ears/Nose/Throat: No epistaxis Respiratory: As described under HPI Cardiovascular: As described under HPI Gastrointestinal: No constipation, No diarrhea, No nausea, No vomiting Genitourinary: No dysuria, No hematuria Musculoskeletal: As describe under HPI Skin: No rash on exposed areas, No ulcerations on exposed areas Psychiatric/Neurological: As described under HPI; No syncope Hematologic: No bleeding abnormalities UJW-Shcpkh-Nyapeo Hx Patient Social History Smoking Status: Never a Smoker 2nd Hand Smoke Exposure: No Have you traveled recently?: No Alcohol Use?: No Pt feels they are or have been: No Immunizations Up To Date Date of Pneumonia Vaccine: Oct 01, 2014 Date of Influenza Vaccine: Aug 12, 2022 Past Medical History PMH As described under Assessment. Family Medical History Family Medical History: No reported family h/o premature CAD or SCD. Family History: Cancer 03 FATHER (LUNG) 03 MOTHER (BREAST) Family history: Diabetes mellitus 03 MOTHER 09 BROTHER 09 BROTHER Family history: Hypertension Allergies and Home Medications Allergies Coded Allergies: No Known Drug Allergies (Verified , 12/08/22) Patient Home Medication List Amlodipine Besylate (Amlodipine Besylate) 5 Mg Tablet, 5 MG PO DAILY, (Reported) Entered as Reported by: MARTINEZ CHRISTIANSON on 12/12/22 1010 Last Action: Reviewed Anastrozole (Arimidex) 1 Mg Tablet, 1 MG PO 1200, (Reported) Entered as Reported by: MARTINEZ CHRISTIANSON on 07/22/21 1022 Last Action: Reviewed Apixaban (Eliquis) 5 Mg Tablet, 5 MG PO BID, (Reported) Entered as Reported by: MARTINEZ CHRISTIANSON on 07/22/21 1022 Last Action: Reviewed Calcium Carbonate/Vitamin D3 (Calcium 600 + Vit D 200 Tablet) 1 Each Tablet, 2 TAB PO 1200, (Reported) Entered as Reported by: NANCI MURRIETA on 12/01/17 0858 Last Action: Reviewed Levothyroxine Sodium (Levothyroxine Sodium) 75 Mcg Tablet, 75 MCG PO DAILY, (Reported) Entered as Reported by: DELIO MONROE on 07/21/21 1716 Last Action: Reviewed Metoprolol Succinate (Metoprolol Succinate) 100 Mg Tab.er.24h, 100 MG PO BID, (Reported) Entered as Reported by: NANCI MURRIETA on 12/01/17 0851 Last Action: Reviewed Pantoprazole Sodium (Pantoprazole Sodium) 40 Mg Tablet., 40 MG PO DAILY, (Reported) Entered as Reported by: MARTINEZ CHRISTIANSON on 12/12/22 1010 Last Action: Reviewed Psyllium Husk/Aspartame (Metamucil Fiber Singles Packet) 3.4 Gram Powd.pack, 3.4 GM PO 1400, (Reported) Entered as Reported by: MARTINEZ CHRISTIANSON on 12/12/22 1010 Last Action: Reviewed Discontinued Medications Amlodipine Besylate (Amlodipine Besylate) 5 Mg Tablet, 5 MG PO DAILY Discontinued Reason: Duplicate Order Prescribed by: DENILSON SCHROEDER on 10/20/22 1630 Last Action: Discontinued Pantoprazole Sodium (Pantoprazole Sodium) 40 Mg Tablet., 40 MG PO DAILY Discontinued Reason: Duplicate Order Prescribed by: TRAVON CHAUDHRY on 07/22/21 1645 Last Action: Discontinued Sucralfate (Sucralfate) 1 Gm Tablet, 1 GM PO QID Discontinued Reason: No Longer Taking Prescribed by: TRAVON CHAUDHRY on 07/22/21 164 Physical Exam-Cardiology Physical Exam Vital Signs/I&O 12/12/22 12/12/22 12/12/22 12/12/22 19:59 20:00 20:00 20:00 Temp 36.7 36.7 Pulse 73 Resp 28 B/P (MAP) 149/81 (103) Pulse Ox 96 97 O2 Delivery Room Air Room Air 12/12/22 12/12/22 12/12/22 12/12/22 20:53 21:15 22:00 23:00 Pulse 73 75 67 58 Resp 28 17 17 25 B/P (MAP) 149/81 168/114 (132) 165/81 (109) 155/90 (111) Pulse Ox 97 94 93 95 O2 Delivery Room Air Room Air Room Air 12/12/22 12/13/22 12/13/22 12/13/22 23:59 00:00 01:00 01:00 Temp 36.4 Pulse 64 61 61 Resp 22 15 B/P (MAP) 137/93 (108) 148/87 (107) Pulse Ox 98 94 95 O2 Delivery Room Air Room Air Room Air 12/13/22 12/13/22 12/13/22 12/13/22 02:00 03:00 04:00 04:00 Temp 36.8 Pulse 56 66 64 Resp 15 12 17 B/P (MAP) 146/84 (104) 178/87 (117) 166/97 (120) Pulse Ox 95 96 97 97 O2 Delivery Room Air Room Air NIV CPAP NIV CPAP 12/13/22 12/13/22 12/13/22 12/13/22 05:00 06:00 07:00 07:15 Pulse 59 113 75 70 Resp 16 25 20 B/P (MAP) 156/90 (112) 147/84 (105) 166/100 (122) Pulse Ox 94 94 94 O2 Delivery Room Air Room Air Room Air 12/13/22 00:00 Intake Total 1100 ml Output Total 1700 ml Balance -600 ml Capillary Refill : Less Than 3 Seconds Constitutional: AAO x 3, well-developed, well-nourished HEENT: PERRL, hearing is well preserved, oral hygience is good Neck: No carotid bruit; carotid pulses are 2 + bilaterally Respiratory: No accessory muscle use, No respiratory distress; chest expansion is symmetric, chest is bilaterally symmetric, lungs clear to auscultation Cardiovascular: irregularly irregular; No JVD; S1 and S2 Gastrointestinal: No tender; soft, round, audible bowel sounds Extremities: no lower extremity edema bilateral Neurologic/Psychiatric: grossly intact (moves all extremities) Skin: No rash on exposed areas, No ulcerations on exposed areas Data Review Labs Laboratory Tests 12/13/22 03:37: White Blood Count 6.2, Red Blood Count 4.59, Hemoglobin 13.6, Hematocrit 41, Mean Corpuscular Volume 89, Mean Corpuscular Hemoglobin 30, Mean Corpuscular Hemoglobin Concent 33, Red Cell Distribution Width 13.4, Platelet Count 191, Mean Platelet Volume 10.7, Immature Granulocyte % (Auto) 0, Neutrophils (%) (Auto) 59, Lymphocytes (%) (Auto) 25, Monocytes (%) (Auto) 13H, Eosinophils (%) (Auto) 2, Basophils (%) (Auto) 1, Neutrophils # (Auto) 3.7, Lymphocytes # (Auto) 1.6, Monocytes # (Auto) 0.8, Eosinophils # (Auto) 0.1, Basophils # (Auto) 0.1, Immature Granulocyte # (Auto) 0.0, Sodium Level 139, Potassium Level 4.1, Chloride Level 107, Carbon Dioxide Level 20L, Anion Gap 12, Blood Urea Nitrogen 13, Creatinine 0.88, Estimat Glomerular Filtration Rate 74, BUN/Creatinine Ratio 15, Glucose Level 161H, Calcium Level 9.3, Corrected Calcium 9.2, Phosphorus Level 3.3, Magnesium Level 2.1, Total Bilirubin 0.8, Aspartate Amino Transf (AST/SGOT) 67H, Alanine Aminotransferase (ALT/SGPT) 98H, Alkaline Phosphatase 90, Total Protein 7.2, Albumin 4.1 Microbiology 12/11/22 MRSA Screen - Final, Complete MRSA not isolated Radiology NAME: MARYLOU TURNER [facility] REC#: [id number] PT STATUS: REG ER : 1960 PHYSICIAN: DEEP WATTS DO ADMIT DATE: 12/11/22/ER Signed Date of Exam:12/11/22 CHEST 1 VIEW, AP/PA ONLY INDICATION: Left-sided facial numbness. EXAMINATION: Portable chest 8:54 PM Heart size and pulmonary vascularity are normal. Lungs are clear. There are no effusions or pneumothoraces. IMPRESSION: Negative chest Dictated by: Dictated on workstation # [id number] Dict: 12/11/222107 Trans: 12/11/222113 [facility] [id number] Interpreted by: PINKY CAMARGO MD Electronically signed by: PINKY CAMARGO MD 12/11/222113 NAME: MARYLOU TURNER [facility] REC#: [id number] PT STATUS: REG ER : 1960 PHYSICIAN: DEEP WATTS DO ADMIT DATE: 12/11/22/ER Signed Date of Exam:12/11/22 CT HEAD WO-R/O STROKE PROCEDURE: CT head w/o r/o stroke. TECHNIQUE: Multiple contiguous axial images were obtained through the brain without the use of intravenous contrast. Auto Exposure Controls were utilized during the CT exam to meet ALARA standards for radiation dose reduction. INDICATION: Left facial paresthesia. FINDINGS: The ventricles are normal in size, shape and position. There is no mass or hemorrhage. There is no extra-axial fluid collection. IMPRESSION: Negative CT head. Results were called to Dr. Watts at 9:13 PM. Dictated by: Dictated on workstation # [id number] Dict: 12/11/222111 Trans: 12/11/222114 [facility] [id number] Interpreted by: PINKY CAMARGO MD Electronically signed by: PINKY CAMARGO MD 12/11/222114 NAME: MARYLOU TURNER [facility] REC#: [id number] PT STATUS: REG ER : 1960 PHYSICIAN: DEEP WATTS DO ADMIT DATE: 12/11/22/ER Signed Date of Exam:12/11/22 CT ANGIO HEAD/NECK PROCEDURE: CT angiography of the head and CT angiography of the neck with and without contrast. TECHNIQUE: Contiguous noncontrast images were obtained from the skull base through the vertex. After intravenous contrast administration, helical CT angiography of the neck was performed. Source data was reformatted into 3D MIP projections. Delayed post contrast acquisition was also obtained. Auto Exposure Controls were utilized during the CT exam to meet ALARA standards for radiation dose reduction. INDICATION: Left-sided facial droop. FINDINGS: Brachiocephalic origins are widely patent. The common, internal and external carotid arteries are widely patent. Vertebral arteries are both widely patent. Intracranially, there is no evidence of large vessel occlusion. There is no aneurysm. Postcontrast images do not show any abnormal areas of enhancement. IMPRESSION: Negative CTA head and neck. Results were called to Dr. Watts at 9:40 PM. Dictated by: Dictated on workstation # [id number] Dict: 12/11/222138 Trans: 12/11/222144 [facility] [id number] Interpreted by: PINKY CAMARGO MD Electronically signed by: PINKY CAMARGO MD 12/11/222144 ECG Impression ECG Initial ECG Impression: Atrial Fibrillation A/P-Cardiology Assessment/Admission Diagnosis CVA 12-11-22 (left sided facial numbness, upper extremity numbness) - symptoms resolved following tPA - [facility] stroke team reviewed CTAof 12-11-22 and felt there was a possibility of sm clot dista M2 - H/O TIA in early Nov, 2017), non-hemorrhagic, suspected to be due to occult PAF - Eliquis for stroke prophylaxis - she had been holding since 12-09-22 in preparation for colonoscopy today as out pt - No significant carotid arterial disease on carotid u/s of 01-18-21 PAF - first documented in 2013, likely precipitated by hyperthyroidism. No recurrence after thyroid ablation x 2 until recurrent A Fib documented on 01/18/18 - Echo of 12/01/17: LVEF 60-65%, mild MR and mild TR, PASP approx 30 mmHg - Cath of 01/02/14 showed normal cors, LVEF 50% and mild elev of LVEDP Breast cancer - Left mastectomy at [facility] in March 2016; R mastectomy in 1992 H/o Grave's disease - treated with radioiodine thyroid ablation in 2008. Recurrence treated with radioiodine ablation by Dr. Moreno in 08/2014 - currently on thyroid replacem ent Hypertension - currently hypertensive IFG vs borderline DM II - managed by Dr Kamar ELIZONDO and PUD - by history - manabed by PCP Obstructive sleep apnea - treated with CPAP and being managed by Dr Day Johnson fibular facture - post non-syncopal fall, in early 2015, treated by Dr Riojas; chronic mild R leg swelling since then Obesity - with BMI approx 38 Chronic liver enzyme elevation - thus not suitable for statin - which is being followed by her PCP Discussion and Recomendations Acute CVA with left sided facial numbness; left sided upper extremity numbness, slurred speech - received tPA in the ED on 12-11-22 - advise Eliquis be resumed when ok with stroke team Currently hypertensive - start BB - monitor and adjust as indicated Echocardiogram has been done today Continue tele Monitor lab closely Replace electrolytes as indicated Further recs will be based on her hospital course We would like to thank medical services for this consult Clinical Quality Measures Stroke: Date of last known well: Dec 11, 2022 Time of last known well: 21:40 SILVIA MCGEE Dec 12, 2022 07:59
--- NOTE | 2022-12-12 08:45 | Occ Therapy Progress Note ---
Therapy Progress Note OT order received, chart reviewed. Pt. given TNK last night around 10:23pm. Protocol states bedrest at least 12 hours. Will check back later on patient as time allows, but hold for now. [id number] LEIDY MOLINA OT Dec 12, 2022 08:45
--- NOTE | 2022-12-12 09:46 | ST Dysphagia Evaluation ---
Speech Evaluation-General Medical Diagnosis Stroke with Left Sided Facial Weakness Onset Date: Dec 12, 2022 Therapy Diagnosis Therapy Diagnosis: Intact Oropharyngeal Swallow Function Precautions Precautions: Fall, Aspiration Precautions/Isolations: Aspiration, Fall Prevention Referral Referring Physician: Dr. Galvin Reason for Referral: Evaluation/Treatment Medical History Reviewed History: Yes Speech PLF/Current-Dysphagia Prior Level of Function The patient denied concerns or difficulties with her speech, language, or swallowing function. Per patient, "I swallowed a pill right when this happened and it was okay." The patient consumes a regular consistency diet with thin liquids at home. Subjective The patient was seated upright in his bed, awake and alert, upon entrance to the room by the clinician. The patient greeted the clinician appropriately and was agreeable to participation in the clinical bedside swallowing evaluation. The patient's was present in the room and remained for the evaluation. Cognitive Status Patient Orientation: Person, Place, Time, Situation Oral Motor Skills Dentition: Natural Denture Type: Full- Upper & Lower Ability to Follow Directions: Excellent Oral Expression Ability: No Impairment Voice Voice Phonatory-Based Quality: Normal Voice Pitch: Normal Voice Loudness: Normal Face Facial Symmetry: Asymmetrical (Minimal left labial droop.) Oral-Facial Assessment Oral-Facial Dentition: Normal Labial Seal Description: Droops Left (Minimal.) Smile: Droops Left (Minimal.) Puff Cheeks: Normal Lingual Protrusion: Normal Lingual ROM: Normal Lingual Strength: Normal Volitional Dry Swallow: Yes Voluntary Cough: Yes Can Clear Throat Volitionally: Yes Dysphagia Evaluation Consistencies Presented: Regular, Thin Liquid, Pureed The patient does not display oral impairments to the swallowing function. The patient does not display pharyngeal impairments to the swallowing function. Overt s/s of suspected aspiration were not displayed with thin liquids, puree, or solid consistencies. The patient's voice remained clear following each swallow and SpO2% remained stable at 95%. Dietary Recommendations: Regular Liquid Recommendations: Thin Recommendations: - Regular consistency diet with thin liquids, as tolerated. - Fully upright and alert for P.O. intake. - Small bites and sips. - Monitor for s/s of suspected aspiration with P.O. intake. If demonstrated, contact speech pathology. The recommendations were shared with the patient, the patient's , and the RN immediately following completion of the evaluation. Dysphagia Evaluation Summary The patient displayed an intact oropharyngeal swallowing function. Speech-Plan Treatment Plan Speech Therapy Treatment Plan: Discontinue ST Treatment Duration: Dec 12, 2022 Frequency: 1 time per week Estimated Hrs Per Day: .25 hour per day Rehab Potential: Good Safety Risks/Education Teaching Recipient: Patient, Significant Other Teaching Methods: Discussion Response to Teaching: Verbalize Understanding Education Topics Provided: Results, Recommendations, Plan of Care Time Speech Therapy Time In: 08:40 Speech Therapy Time Out: 09:00 DATE: Dec 12, 2022 Total Billed Time: 20 Billed Treatment Time 1, VALENTIN DILLARD [facility] Dec 12, 2022 09:46
--- NOTE | 2022-12-12 09:49 | History & Physical ---
PAT PICKENS 12/12/22 0949: History of Present Illness History of Present Illness Reason for visit/HPI Willa Turner is a 62 y/o F with medical history significant for atrial fibrillation, previous TIA, Graves disease, HTN, & breast cancer s/p mastectomy x2 who presented to the [facility] ED the evening of Monday12/11/22 after noticing tingling and numbness on the left side of her face and left arm, as well as left-sided facial drooping. She takes Eliquis for a-fib but had been instructed to discontinue it on Saturday 12/09 in preparation for a colonoscopy on Wednesday 12/13. She was stroke activated upon arrival to the ED. Initial BP was 217/117, so labetalol was administered to lower BP prior to giving tPA. Mild dysarthria and left-sided facial droop was appreciated on physical exam. Motor function of the left arm was spared. There were no neurologic deficits in the legs, and the loss of touch sensation in the left arm by the time she was evalu ated in the ED. She denies headache, dizziness, changes in vision/hearing, dysphagia, chest pain, palpitation, shortness of breath, nausea, vomiting, or loss of consciousness. CT head, CTA head, and CXR were unremarkable. Dr. De Leon at reviewed the imaging as well and thought there may be evidence of a small clot in the distal M2 vessel. She was admitted to the ICU. Date of Admission Dec 11, 2022 at 21:46 Date Seen by a Provider: Dec 12, 2022 Time Seen by a Provider: 09:00 I consulted on this patient on 12/12/22 07:50 Attending Physician Ellen Vogt DO Admitting Physician Admitting Physician: Ellen Vogt DO Attending Physician: Ellen Vogt DO Consult Allergies and Home Medications Allergies Coded Allergies: No Known Drug Allergies (Verified , 12/08/22) Patient Home Medication List Home Medication List Reviewed: Yes Amlodipine Besylate (Amlodipine Besylate) 5 Mg Tablet, 5 MG PO DAILY, (Reported) Entered as Reported by: MARTINEZ CHRISTIANSON on 12/12/22 1010 Last Action: Reviewed Anastrozole (Arimidex) 1 Mg Tablet, 1 MG PO 1200, (Reported) Entered as Reported by: MARTINEZ CHRISTIANSON on 07/22/21 1022 Last Action: Reviewed Apixaban (Eliquis) 5 Mg Tablet, 5 MG PO BID, (Reported) Entered as Reported by: MARTINEZ CHRISTIANSON on 07/22/21 1022 Last Action: Reviewed Calcium Carbonate/Vitamin D3 (Calcium 600 + Vit D 200 Tablet) 1 Each Tablet, 2 TAB PO 1200, (Reported) Entered as Reported by: NANCI MURRIETA on 12/01/17 0858 Last Action: Reviewed Levothyroxine Sodium (Levothyroxine Sodium) 75 Mcg Tablet, 75 MCG PO DAILY, (Reported) Entered as Reported by: DELIO MONROE on 07/21/21 1716 Last Action: Reviewed Metoprolol Succinate (Metoprolol Succinate) 100 Mg Tab.er.24h, 100 MG PO BID, (Reported) Entered as Reported by: NANCI MURRIETA on 12/01/17 0851 Last Action: Reviewed Pantoprazole Sodium (Pantoprazole Sodium) 40 Mg Tablet., 40 MG PO DAILY, (Reported) Entered as Reported by: MARTINEZ CHRISTIANSON on 12/12/22 1010 Last Action: Reviewed Psyllium Husk/Aspartame (Metamucil Fiber Singles Packet) 3.4 Gram Powd.pack, 3.4 GM PO 1400, (Reported) Entered as Reported by: MARTINEZ CHRISTIANSON on 12/12/22 1010 Last Action: Reviewed Discontinued Medications Amlodipine Besylate (Amlodipine Besylate) 5 Mg Tablet, 5 MG PO DAILY Discontinued Reason: Duplicate Order Prescribed by: DENILSON SCHROEDER on 10/20/22 1630 Last Action: Discontinued Pantoprazole Sodium (Pantoprazole Sodium) 40 Mg Tablet., 40 MG PO DAILY Discontinued Reason: Duplicate Order Prescribed by: TRAVON CHAUDHRY on 07/22/21 1645 Last Action: Discontinued Sucralfate (Sucralfate) 1 Gm Tablet, 1 GM PO QID Discontinued Reason: No Longer Taking Prescribed by: TRAVON CHAUDHRY on 07/22/21 1645 Past Pblzacl-Qbpmkm-Isjuhh Hx Patient Social History Tobacco Use?: No Smoking Status: Never a Smoker Smokeless Tobacco Frequency: Never a User Use of E-Cig and/or Vaping dev: No Substance use?: No Alcohol Use?: No Pt feels they are or have been: No Immunizations Up To Date Date of Influenza Vaccine: Aug 12, 2022 First/Initial COVID19 Vaccinat: 01/23/21 Second COVID19 Vaccination Chad: 02/18/21 Tetanus Booster (TDap): Less Than 5 Years Hepatitis A: No Hepatitis B: No Date of Pneumonia Vaccine: Oct 01, 2014 Seasonal Allergies Seasonal Allergies: No Current Status status: No status: No Advance Directives: No Communicates: Verbally Primary Language: Monegasque Preferred Spoken Language: Monegasque Is interpretation needed?: No Sensory deficits: Vision impairment Implanted or Applied Medical D: CPAP Past Medical History Surgeries: Breast, Hysterectomy Sleep Apnea Currently Using CPAP: Yes Atrial Fibrillation, Hypertension 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, Menopausal Gastroesophageal Reflux Hyperthyroidism, Hypothyroidsim Breast Did You Recieve Any Treatments: Yes What Type of Treatment Did You: Chemotherapy, Surgical Intervention Blood Disorders: No Family Medical History Cancer 03 FATHER (LUNG) 03 MOTHER (BREAST) Family history: Diabetes mellitus 03 MOTHER 09 BROTHER 09 BROTHER Family history: Hypertension No Pertinent Family Hx Review of Systems Constitutional: see HPI EENTM: see HPI Respiratory: see HPI Cardiovascular: see HPI Gastrointestinal: see HPI Genitourinary: see HPI : No Musculoskeletal: see HPI Skin: see HPI Psychiatric/Neurological: See HPI Physical Exam Vital Signs Vital Signs - First Documented 12/11/22 20:51 Temp 36.4 Pulse 98 Resp 16 B/P (MAP) 217/117 (150) Pulse Ox 97 O2 Delivery Room Air Capillary Refill : Less Than 3 Seconds Height, Weight, BMI Height: 5'2.00" Weight: 207lbs. 0.0oz. 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 tPA administered. CT head & CTA head unremarkable. Dr. De Leon at reviewed the imaging as well and thought there may be evidence of a small clot in the distal M2 vessel. - 12/12: Mild L-sided facial droop present, otherwise no neurologic deficits (dysarthria resolved) & pt feels back to her baseline. Echocardiogram & MRA head obtained this morning, will follow-up results. Passed swallow study. Will obtain repeat CT head tonight (24 hrs post-tPA). (2) Paroxysmal atrial fibrillation - Rate controlled. Continue Eliquis. Will follow-up cardiology recs. (3) Hypertension - 12/11: BP 217/117 in ED, given labetalol prior to tPA administration. - 12/12: BP 156/99 this morning. Continue metoprolol succinate. Will follow-up cardiology recs. (4) Graves disease - S/p 2 previous ablations. Continue home dose of levothyroxine. Admission Diagnosis TIA/CVA Admission Status: Inpatient Order (span 2 midnights) Reason for Inpatient Admission: stroke protocol Clinical Quality Measures Stroke: Date of last known well: Dec 11, 2022 Time of last known well: 21:40 ELLEN VOGT DO 12/13/22 0558: Allergies and Home Medications Allergies Coded Allergies: No Known Drug Allergies (Verified , 12/08/22) Patient Home Medication List Amlodipine Besylate (Amlodipine Besylate) 5 Mg Tablet, 5 MG PO DAILY, (Reported) Entered as Reported by: MARTINEZ CHRISTIANSON on 12/12/22 1010 Last Action: Reviewed Anastrozole (Arimidex) 1 Mg Tablet, 1 MG PO 1200, (Reported) Entered as Reported by: MARTINEZ CHRISTIANSON on 07/22/21 1022 Last Action: Reviewed Apixaban (Eliquis) 5 Mg Tablet, 5 MG PO BID, (Reported) Entered as Reported by: MARTINEZ CHRISTIANSON on 07/22/21 1022 Last Action: Reviewed Calcium Carbonate/Vitamin D3 (Calcium 600 + Vit D 200 Tablet) 1 Each Tablet, 2 TAB PO 1200, (Reported) Entered as Reported by: NANCI MURRIETA on 12/01/17 0858 Last Action: Reviewed Levothyroxine Sodium (Levothyroxine Sodium) 75 Mcg Tablet, 75 MCG PO DAILY, (Reported) Entered as Reported by: DELIO MONROE on 07/21/21 1716 Last Action: Reviewed Metoprolol Succinate (Metoprolol Succinate) 100 Mg Tab.er.24h, 100 MG PO BID, (Reported) Entered as Reported by: NANCI MURRIETA on 12/01/17 0851 Last Action: Reviewed Pantoprazole Sodium (Pantoprazole Sodium) 40 Mg Tablet.dr, 40 MG PO DAILY, (Repo rted) Entered as Reported by: MARTINEZ CHRISTIANSON on 12/12/22 1010 Last Action: Reviewed Psyllium Husk/Aspartame (Metamucil Fiber Singles Packet) 3.4 Gram Powd.pack, 3.4 GM PO 1400, (Reported) Entered as Reported by: MARTINEZ CHRISTIANSON on 12/12/22 1010 Last Action: Reviewed Discontinued Medications Amlodipine Besylate (Amlodipine Besylate) 5 Mg Tablet, 5 MG PO DAILY Discontinued Reason: Duplicate Order Prescribed by: DENILSON SCHROEDER on 10/20/22 1630 Last Action: Discontinued Pantoprazole Sodium (Pantoprazole Sodium) 40 Mg Tablet., 40 MG PO DAILY Discontinued Reason: Duplicate Order Prescribed by: TRAVON CHAUDHRY on 07/22/21 1645 Last Action: Discontinued Sucralfate (Sucralfate) 1 Gm Tablet, 1 GM PO QID Discontinued Reason: No Longer Taking Prescribed by: TRAVON CHAUDHRY on 07/22/21 1645 Past Evnlkvk-Osvbmg-Vbrcei Hx Patient Social History Marrital Status: Employed/Student: employed Smoking Status: Never a Smoker Alcohol Use?: No Past Medical History Surgeries: Breast Atrial Fibrillation, High Cholesterol, Hypertension Breast Did You Recieve Any Treatments: Yes What Type of Treatment Did You: Chemotherapy, Surgical Intervention Family Medical History Cancer 03 FATHER (LUNG) 03 MOTHER (BREAST) Family history: Diabetes mellitus 03 MOTHER 09 BROTHER 09 BROTHER Family history: Hypertension Review of Systems Constitutional: see HPI Physical Exam General Appearance: No Apparent Distress, WD/WN Eyes: Bilateral Eye Normal Inspection, Bilateral Eye PERRL, Bilateral Eye EOMI HEENT: PERRL/EOMI, Normal ENT Inspection, Pharynx Normal Neck: Full Range of Motion, Normal Inspection, Non Tender, Supple, Carotid Bruit Respiratory: Chest Non Tender, Lungs Clear, Normal Breath Sounds, No Accessory Muscle Use, No Respiratory Distress Cardiovascular: Regular Rate, Rhythm, No Edema, No Gallop, No JVD, No Murmur, Normal Peripheral Pulses Gastrointestinal: Normal Bowel Sounds, No Organomegaly, No Pulsatile Mass, Non Tender, Soft Back: Normal Inspection, No CVA Tenderness, No Vertebral Tenderness Extremity: Normal Capillary Refill, Normal Inspection, Normal Range of Motion, Non Tender, No Calf Tenderness, No Pedal Edema Neurologic/Psychiatric: Alert, Oriented x3, No Motor/Sensory Deficits, Normal Mood/Affect Skin: Normal Color, Warm/Dry Lymphatic: No Adenopathy Assessment/Plan Assessment and Plan ICU protocol Dr Dewitt consult OAC start at 2200 Problems: (1) CVA (cerebral vascular accident) (2) Received intravenous tissue plasminogen activator (tPA) in emergency department Admission Diagnosis Admission Status: Inpatient Order (span 2 midnights) Reason for Inpatient Admission: cva Supervisory-Addendum Brief Verification & Attestation Participated in pt care: history, MDM, physical Personally performed: exam, history, MDM, supervision of care Care discussed with: Medical Student Procedures: n/a Results interpretation: Verified all documentation Verification and Attestation of Medical Student E/M Service A medical student performed and documented this service in my presence. I reviewed and verified all information documented by the medical student and made modifications to such information, when appropriate. I personally performed the physical exam and medical decision making. Ellen Vogt, Dec 13, 2022,05:56 PAT PICKENS Dec 12, 2022 09:49 ELLEN VOGT DO Dec 13, 2022 05:58
[2022-12-12] MEDS ORDERED: meTOproloL SUCCINATE 50 MG (TOPROL XL) TAB PO NR (10:00)
[2022-12-12] MEDS ORDERED: AMLO-250 PO (10:10)
[2022-12-12] MEDS ORDERED: PSYL3.4P5 PO (10:10)
[2022-12-12] MEDS ORDERED: PANT40TA52 PO (10:10)
--- NOTE | 2022-12-12 10:58 | Physical Therapy Evaluation ---
PT Evaluation-General Medical Diagnosis Admission Date Dec 11, 2022 at 21:46 Medical Diagnosis: Stroke with Left Sided Facial Weakness Onset Date: Dec 12, 2022 Therapy Diagnosis Therapy Diagnosis: patient independent with mobility Height/Weight Height (Feet): 5 Height (Inches): 2.00 Weight (Pounds): 207 Weight (Ounces): 0.0 Precautions Precautions/Isolations: Aspiration, Fall Prevention Referral Physician: Ellen Galvin DO Reason for Referral: Evaluation/Treatment Medical History Additional Medical History Past Medical History Surgeries: Yes (Mastectomy right at 29yo left at 56yo due to cancer ,thyroid ablation x 2) Breast, Hysterectomy Respiratory: Yes Sleep Apnea Currently Using CPAP: Yes Cardiac: Yes Atrial Fibrillation, Hypertension Neurological: Yes (TIA 11/30/2017) TIA Reproductive Disorders: No 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 Reviewed History: Yes Social History Home: Single Level Current Living Status: Spouse Entry Into Home: Stairs With Railing PT Steps Into Home: 3 Prior Prior Level of Function SCALE: Activities may be completed with or without assistive devices. 1-Gtvabvyetc-twznepi completes the activity by him/herself with no assistance from a helper. 5-Set-up or Clean-up Assistance-helper sets up or cleans up; patient completes activity. [place] assists only prior to or following the activity. 4-Supervision or Touching Assistance-helper provides verbal cues and/or touching/steadying and/or contact guard assistance as patient completes activity. Assistance may be provided throughout the activity or intermittently. 3-Partial/Moderate Assistance-helper does LESS THAN HALF the effort. [place] lifts, holds or supports trunk or limbs, but provides less than half the effort. 2-Substantial/Maximal Assistance-helper does MORE THAN HALF the effort. [place] lifts or holds trunk or limbs and provides more than half the effort. 5-Filatravz-pqyoxf does ALL the effort. Patient does none of the effort to complete the activity. Or, the assistance of 2 or more helpers is required for the patient to complete the activity. If activity was not attempted, code reason: 7-Patient Refused. 9-Not Applicable-not attempted and the patient did not perform the activity before the current illness, exacerbation or injury. 10-Not Attempted due to Environmental Limitations-(lack of equipment, weather restraints, etc.). 88-Not Attempted due to Medical Conditions or Safety Concerns. Bed Mobility: 6 Transfers (B,C,W/C): 6 Gait: 6 Stairs: 6 Indoor Mobility (Ambulation): Independent Stairs: Independent PT Evaluation-Current Subjective Patient in bed post tx with nurse call, phone, tray, all needs met. Pt/Family Goals to be independent at home Objective Patient Orientation: Person, Place, Situation Attachments: SCD's, Torres Catheter, IV ROM/Strength ROM Lower Extremities WNL Strength Lower Extremities 5/5 with all movements of BLE Neuromuscular (Tone, Coordination, Reflexes) Patient has intact peripheral vision and tracking Sensory Vision: Wears Glasses Hearing: Functional Sensation Right Lower Extremit: Intact Sensation Left Lower Extremity: Intact Transfers Roll Left to Right (QC): 6 Sit to Lying (QC): 6 Lying to Sitting/Side of Bed(Q: 6 Sit to Stand (QC): 6 Gait Walk 10 feet (QC): 6 Walk 50 ft with 2 Turns(QC): 6 Distance: 100' Gait Assistive Device: None Comments/Gait Description independent ambulation, patient pushed her own IV pole, no deviations Balance Sitting Static: Normal Sitting Dynamic: Normal Standing Static: Normal Standing Dynamic: Normal Assessment/Needs Patient in bed post tx with nurse call, phone, tray, all needs met. Patient is independent with transfers, bed mobility and ambulation. Patient will be discharged from PT services at this time. Encouraged patient to ambulate with her or on her own, she will just need to have the nurse disconnect her from her attachments. Rehab Potential: Good PT Plan Treatment/Plan Treatment Plan: Discontinue PT Treatment Duration: Dec 12, 2022 Frequency: Patient and/or Family Agrees t: Yes Safety Risks/Education Patient Education: Gait Training, Transfer Techniques, Correct Positioning, Safety Issues Teaching Recipient: Patient Teaching Methods: Demonstration, Discussion Response to Teaching: Reinforcement Needed Discharge Recommendations Plan DC Therapy Discharge Recommendati: Home & Family Time Time In: 1023 Time Out: 1035 DATE: Dec 12, 2022 Total Billed Treatment Time: 12 Total Billed Treatment 1 visit EVL 12' ABDOULAYE MILLER PT Dec 12, 2022 10:58
[2022-12-12] MEDS ORDERED: CALCIUM CARB + VIT D 600 MG (CALCARB + D) TAB PO SCH (12:00)
[2022-12-12] MEDS ORDERED: ANASTROZOLE 1 MG TAB (ARIMIDEX) PO SCH (12:00)
--- NOTE | 2022-12-12 13:16 | Diagnostic Imaging Report ---
PROCEDURE: MR angiography of the brain without the use of contrast. TECHNIQUE: 3D [id number] non contrast enhanced MR angiography of the head was performed. A source data was reformatted into rotating MIP projections. INDICATION: Stroke, status post TPA therapy. COMPARISON: Correlation is made with CT studies of the brain from one day earlier. FINDINGS: There is flow identified in the distal internal carotid arteries and distal vertebral arteries. There is flow in the basilar and carotid siphons. Both the right and left anterior cerebral, right and left middle cerebral, and posterior cerebral arteries appear to be patent. No aneurysm is detected. No definite large vessel occlusion is seen. IMPRESSION: Unremarkable MRA of the brain. Dictated by: Dictated on workstation # [id number]
[2022-12-12] MEDS ORDERED: amLODIPine 10 MG (NORVASC) TAB PO ONE (13:45)
--- NOTE | 2022-12-12 15:18 | Tele-ICU Consult ---
History of Present Illness History of Present Illness Date Seen by Provider: Dec 12, 2022 Time Seen by Provider: 15:18 Date of Admission (Tele-ICU Physician , consultation as per request of PCP Service provided via interactive audio and video telecommunications E-CARE system to a patient admitted to ICU bed in [facility]. Available chart/ vitals / labs / Images reviewed H&P is from ER notes Patient's information available about PMH, Shx, Fhx allergy reviewed inEMR. ROS as per chart and RN report SEEN BY SUNI AGUIRRE MD last night - see notes Now in ICU, hemodynamically stable Video assessment done using teleICU camera, rest of exam as per RN Discussed with RN. Consultants: Hospital course: 12/11) 62yF Admit CVA w/ L facial droop & dysarthia. + TNK received. (pt was on eliquis stopped 2 days ago due to upcoming colonoscopy) A/P Acute stroke -L facial droop & dysarthia. 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 Discussed with RN to reach out if any questions or concerns A total of 10 minutes of critical care time was devoted to this patient today, required to treat and/or prevent further deterioration of critical care condition ( as above ) I am remotely monitoring this patient from another state. I am unable to do the bedside exam, and history/physical and pertinent information is taken from other notes in the computer and bedsid Allergies and Home Medications Allergies Coded Allergies: No Known Drug Allergies (Verified , 12/08/22) Home Medications Amlodipine Besylate 5 Mg Tablet, 5 MG PO DAILY, (Reported) LAST FILLED 10-21-2022 #30/30 DAY SUPPLY Anastrozole 1 Mg Tablet, 1 MG PO 1200, (Reported) Apixaban 5 Mg Tablet, 5 MG PO BID, (Reported) Calcium Carbonate/Vitamin D3 1 Each Tablet, 2 TAB PO 1200, (Reported) Levothyroxine Sodium 75 Mcg Tablet, 75 MCG PO DAILY, (Reported) Metoprolol Succinate 100 Mg Tab.er.24h, 100 MG PO BID, (Reported) Pantoprazole Sodium 40 Mg Tablet.dr, 40 MG PO DAILY, (Reported) Psyllium Husk/Aspartame 3.4 Gram Powd.pack, 3.4 GM PO 1400, (Reported) Past Medical/Social/Family Hx Patient Social History Tobacco Use?: No Smoking Status: Never a Smoker Smokeless Tobacco Frequency: Never a User Use of E-Cig and/or Vaping dev: No Substance use?: No Alcohol Use?: No Pt stated abuse/neglect: No Immunizations Up To Date Influenza Vaccine Up-to-Date: Yes; Up-to-Date First/Initial COVID19 Vaccinat: 01/23/21 Second COVID19 Vaccination Chad: 02/18/21 Tetanus Booster (TDap): Less Than 5 Years Hepatitis A: No Hepatitis B: No TB Skin Test: None Date of Pneumonia Vaccine: Oct 01, 2014 Current Status status: No status: No Advance Directives: No Communicates: Verbally Primary Language: Prydeinig Preferred Spoken Language: Prydeinig Is interpretation needed?: No Sensory deficits: Vision impairment Implanted or Applied Medical D: CPAP Review of Systems Constitutional: see HPI Focused Exam Height, Weight, BMI Height: 5'2.00" Weight: 207lbs. 0.0oz. 93.428219bm; 36.95 BMI Method:Stated Exam Exam Patient acknowledged, consented, and participated in this virtual visit which was conducted using real time audio/video Vital Signs Date Time Temp Pulse Resp B/P (MAP) Pulse Ox O2 Delivery O2 Flow Rate FiO2 12/12/22 13:01 63 12/12/22 13:00 66 14 176/108 (130) 94 Room Air 12/12/22 12:00 79 11 167/110 (129) 96 Room Air 12/12/22 12:00 37.0 12/12/22 12:00 99 NIV CPAP 12/12/22 11:30 80 168/98 (121) Room Air 12/12/22 10:15 75 22 165/101 (122) 91 Room Air 12/12/22 09:30 71 20 168/110 (129) 94 Room Air 12/12/22 09:15 78 20 174/108 (130) 94 Room Air 12/12/22 09:00 70 20 179/124 (142) 94 Room Air 12/12/22 08:00 74 20 164/114 (131) 94 Room Air 12/12/22 08:00 98 NIV CPAP 12/12/22 07:49 36.9 12/12/22 07:03 70 12/12/22 07:00 68 11 154/114 (127) 92 Room Air 12/12/22 06:00 77 20 156/99 (118) 96 NIV CPAP 12/12/22 05:00 61 15 140/82 (101) 93 NIV CPAP 12/12/22 04:00 70 16 164/88 (113) 94 NIV CPAP 12/12/22 04:00 99 NIV CPAP 12/12/22 03:00 64 15 142/82 (102) 94 NIV CPAP 12/12/22 02:00 76 9 147/96 (113) 94 NIV CPAP 12/12/22 01:01 36.4 91 97 12/12/22 01:00 71 12/12/22 01:00 71 15 140/84 (102) 94 NIV CPAP 12/12/22 00:00 92 19 165/94 (117) 94 NIV CPAP 12/11/22 23:59 99 NIV CPAP 12/11/22 23:45 86 20 166/105 (125) 93 Room Air 12/11/22 23:30 82 17 193/134 (153) 96 Room Air 12/11/22 23:15 86 10 172/89 (116) 95 Room Air 12/11/22 22:59 88 20 168/106 (126) 95 Room Air 12/11/22 22:53 82 36 186/105 (132) 96 Room Air 12/11/22 22:49 91 12/11/22 22:48 37.4 101 36 189/112 (137) 96 Room Air 12/11/22 22:45 97 18 176/108 97 Room Air 12/11/22 22:30 99 Room Air 12/11/22 22:23 89 172/107 12/11/22 21:05 98 Room Air 12/11/22 20:58 98 16 217/117 97 12/11/22 20:51 36.4 98 16 217/117 (150) 97 Room Air I & O 12/12/22 07:00 Intake Total 0 ml Output Total 1200 ml Balance -1200 ml Height & Weight Height: 5'2.00" Weight: 207lbs. 0.0oz. 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
--- NOTE | 2022-12-12 16:41 | Consultation-Cardiology ---
HPI-Cardiology Cardiology Consultation: Date of Consultation 12/12/22 Time Seen by a Provider: 13:10 Date of Admission Attending Physician Ellen Galvin DO Admitting Physician Admitting Physician: Ellen Galvin DO Attending Physician: Ellen Galvin DO Consulting Physician KELLEN MONTERO MD, FACP, [facility] HPI: Chief Complaint: Acute CVA Ms. Turner is a 62 yr old female admitted to ICU 4 with acute non-hemorrhagic CVA. She reports she has been off her Eliquis since 12-09-22 in preparation for a colonoscopy d/t previous polyp removal a year ago. She reports she went to turn off the light last night at home when she noticed numbness/tingling in her left hand along with left sided facial numbness and slurring of her speech. She noted her BP was elevated at home. She did receive tPA in the ED per recs from [facility] stroke team. She notes she has had resolution of her symptoms. No vision changes. She states she feels well this morning. No c/o CP, palpitations, syncope or near syncope. Review of Systems-Cardiology Review of Systems Constitutional: No chills, No fever, No malaise Eyes: No vision change Ears/Nose/Throat: No epistaxis Respiratory: As described under HPI Cardiovascular: As described under HPI Gastrointestinal: No constipation, No diarrhea, No nausea, No vomiting Genitourinary: No dysuria, No hematuria : No Musculoskeletal: As describe under HPI Skin: No rash on exposed areas, No ulcerations on exposed areas Psychiatric/Neurological: As described under HPI; No syncope Hematologic: No bleeding abnormalities TAU-Wjqvyy-Jcnmhr Hx Patient Social History Smoking Status: Never a Smoker 2nd Hand Smoke Exposure: No Have you traveled recently?: No Alcohol Use?: No Pt feels they are or have been: No Immunizations Up To Date Date of Pneumonia Vaccine: Oct 01, 2014 Date of Influenza Vaccine: Aug 12, 2022 Past Medical History PMH As described under Assessment. Family Medical History Family Medical History: No reported family h/o premature CAD or SCD. Family History: Cancer 03 FATHER (LUNG) 03 MOTHER (BREAST) Family history: Diabetes mellitus 03 MOTHER 09 BROTHER 09 BROTHER Family history: Hypertension Allergies and Home Medications Allergies Coded Allergies: No Known Drug Allergies (Verified , 12/08/22) Patient Home Medication List Home Medication List Reviewed: Yes Amlodipine Besylate (Amlodipine Besylate) 5 Mg Tablet, 5 MG PO DAILY, (Reported) Entered as Reported by: MARTINEZ CHRISTIANSON on 12/12/22 1010 Last Action: Reviewed Anastrozole (Arimidex) 1 Mg Tablet, 1 MG PO 1200, (Reported) Entered as Reported by: MARTINEZ CHRISTIANSON on 07/22/21 1022 Last Action: Reviewed Apixaban (Eliquis) 5 Mg Tablet, 5 MG PO BID, (Reported) Entered as Reported by: MARTINEZ CHRISTIANSON on 07/22/21 1022 Last Action: Reviewed Calcium Carbonate/Vitamin D3 (Calcium 600 + Vit D 200 Tablet) 1 Each Tablet, 2 TAB PO 1200, (Reported) Entered as Reported by: NANCI MURRIETA on 12/01/17 0858 Last Action: Reviewed Levothyroxine Sodium (Levothyroxine Sodium) 75 Mcg Tablet, 75 MCG PO DAILY, (Reported) Entered as Reported by: DELIO MONROE on 07/21/21 1716 Last Action: Reviewed Metoprolol Succinate (Metoprolol Succinate) 100 Mg Tab.er.24h, 100 MG PO BID, (Reported) Entered as Reported by: NANCI MURRIETA on 12/01/17 0851 Last Action: Reviewed Pantoprazole Sodium (Pantoprazole Sodium) 40 Mg Tablet., 40 MG PO DAILY, (Reported) Entered as Reported by: MARTINEZ CHRISTIANSON on 12/12/22 1010 Last Action: Reviewed Psyllium Husk/Aspartame (Metamucil Fiber Singles Packet) 3.4 Gram Powd.pack, 3.4 GM PO 1400, (Reported) Entered as Reported by: MARTINEZ CHRISTIANSON on 12/12/22 1010 Last Action: Reviewed Discontinued Medications Amlodipine Besylate (Amlodipine Besylate) 5 Mg Tablet, 5 MG PO DAILY Discontinued Reason: Duplicate Order Prescribed by: DENILSON SCHROEDER on 10/20/22 1630 Last Action: Discontinued Pantoprazole Sodium (Pantoprazole Sodium) 40 Mg Tablet.dr, 40 MG PO DAILY Discontinued Reason: Duplicate Order Prescribed by: TRAVON CHAUDHRY on 07/22/21 1645 Last Action: Discontinued Sucralfate (Sucralfate) 1 Gm Tablet, 1 GM PO QID Discontinued Reason: No Longer Taking Prescribed by: TRAVON CHAUDHRY on 07/22/21 1645 Physical Exam-Cardiology Physical Exam Vital Signs/I&O 12/12/22 12/12/22 12/12/22 12/12/22 05:00 06:00 07:00 07:03 Pulse 61 77 68 70 Resp 15 20 11 B/P (MAP) 140/82 (101) 156/99 (118) 154/114 (127) Pulse Ox 93 96 92 O2 Delivery NIV CPAP NIV CPAP Room Air 12/12/22 12/12/22 12/12/22 12/12/22 07:49 08:00 08:00 09:00 Temp 36.9 Pulse 74 70 Resp 20 20 B/P (MAP) 164/114 (131) 179/124 (142) Pulse Ox 98 94 94 O2 Delivery NIV CPAP Room Air Room Air 12/12/22 12/12/22 12/12/22 12/12/22 09:15 09:30 10:15 11:30 Pulse 78 71 75 80 Resp 20 20 22 B/P (MAP) 174/108 (130) 168/110 (129) 165/101 (122) 168/98 (121) Pulse Ox 94 94 91 O2 Delivery Room Air Room Air Room Air Room Air 12/12/22 12/12/22 12/12/22 12/12/22 12:00 12:00 12:00 13:00 Temp 37.0 Pulse 79 66 Resp 11 14 B/P (MAP) 167/110 (129) 176/108 (130) Pulse Ox 99 96 94 O2 Delivery NIV CPAP Room Air Room Air 12/12/22 12/12/22 12/12/22 12/12/22 13:01 14:00 15:00 15:39 Temp 37.1 Pulse 63 75 84 Resp 14 16 B/P (MAP) 169/89 (115) 166/106 (126) Pulse Ox 94 96 O2 Delivery Room Air Room Air 12/12/22 16:00 Pulse 70 Resp 14 B/P (MAP) 170/92 (118) Pulse Ox 95 O2 Delivery Room Air 12/12/22 00:00 Intake Total 0 ml Balance 0 ml Capillary Refill : Less Than 3 Seconds Constitutional: AAO x 3, well-developed, well-nourished HEENT: PERRL, hearing is well preserved, oral hygience is good Neck: No carotid bruit; carotid pulses are 2 + bilaterally Respiratory: No accessory muscle use, No respiratory distress; chest expansion is symmetric, chest is bilaterally symmetric, lungs clear to auscultation Cardiovascular: irregularly irregular; No JVD; S1 and S2 Gastrointestinal: No tender; soft, round, audible bowel sounds Extremities: no lower extremity edema bilateral Neurologic/Psychiatric: grossly intact (moves all extremities) Skin: No rash on exposed areas, No ulcerations on exposed areas Data Review Labs Laboratory Tests 12/11/22 20:56: White Blood Count 8.0, Red Blood Count 5.18H, Hemoglobin 15.1, Hematocrit 46, Mean Corpuscular Volume 88, Mean Corpuscular Hemoglobin 29, Mean Corpuscular Hemoglobin Concent 33, Red Cell Distribution Width 13.1, Platelet Count 229, Mean Platelet Volume 10.4, Immature Granulocyte % (Auto) 0, Neutrophils (%) (Auto) 60, Lymphocytes (%) (Auto) 26, Monocytes (%) (Auto) 12, Eosinophils (%) (Auto) 1, Basophils (%) (Auto) 1, Neutrophils # (Auto) 4.8, Lymphocytes # (Auto) 2.1, Monocytes # (Auto) 0.9, Eosinophils # (Auto) 0.1, Basophils # (Auto) 0.1, Immature Granulocyte # (Auto) 0.0, Prothrombin Time 13.2, INR Comment 1.0, Activated Partial Thromboplast Time 26, D-Dimer <= 0.27, Sodium Level 139, Potassium Level 3.6, Chloride Level 105, Carbon Dioxide Level 19L, Anion Gap 15H , Blood Urea Nitrogen 19H, Creatinine 1.15, Estimat Glomerular Filtration Rate 54, BUN/Creatinine Ratio 17, Glucose Level 141H, Glucometer 137H, Calcium Level 10.1, Corrected Calcium , Magnesium Level 2.1, Total Bilirubin 0.6, Aspartate Amino Transf (AST/SGOT) 89H, Alanine Aminotransferase (ALT/SGPT) 120H, Alkaline Phosphatase 110, Myoglobin 41.6, Troponin I < 0.028, B-Type Natriuretic Peptide 40.9, Total Protein 8.4H, Albumin 4.8H, TSH [place] Testing 3.14 12/11/22 21:17: Influenza Type A (RT-PCR) Not Detected, Influenza Type B (RT-PCR) Not Detected, SARS-CoV-2 RNA (RT-PCR) Not Detected 12/11/22 21:51: Urine Color YELLOW, Urine Clarity CLEAR, Urine pH 5.5, Urine Specific [place] <=1.005, Urine Protein NEGATIVE, Urine Glucose (UA) NEGATIVE, Urine Ketones NEGATIVE, Urine Nitrite NEGATIVE, Urine Bilirubin NEGATIVE, Urine Urobilinogen 0.2, Urine Leukocyte Esterase NEGATIVE, Urine RBC (Auto) TRACE-IH, Urine RBC NONE, Urine WBC NONE, Urine Squamous Epithelial Cells NONE, Urine Crystals NONE, Urine Bacteria TRACE, Urine Casts NONE, Urine Mucus NEGATIVE, Urine Culture Indicated NO 12/12/22 04:04: White Blood Count 7.4, Red Blood Count 4.54, Hemoglobin 13.3, Hematocrit 40, Mean Corpuscular Volume 87, Mean Corpuscular Hemoglobin 29, Mean Corpuscular Hemoglobin Concent 34, Red Cell Distribution Width 13.2, Platelet Count 193, Mean Platelet Volume 10.8, Immature Granulocyte % (Auto) 0, Neutrophils (%) (Auto) 69, Lymphocytes (%) (Auto) 20, Monocytes (%) (Auto) 10, Eosinophils (%) (Auto) 1, Basophils (%) (Auto) 0, Neutrophils # (Auto) 5.1, Lymphocytes # (Auto) 1.5, Monocytes # (Auto) 0.7, Eosinophils # (Auto) 0.0, Basophils # (Auto) 0.0, Immature Granulocyte # (Auto) 0.0, Prothrombin Time 13.9, INR Comment 1.0, Sodium Level 139, Potassium Level 4.0, Chloride Level 108H, Carbon Dioxide Level 20L, Anion Gap 11, Blood Urea Nitrogen 14, Creatinine 0.86, Estimat Glomerular Filtration Rate 76, BUN/Creatinine Ratio 16, Glucose Level 173H, Calcium Level 9.3, Corrected Calcium 9.2, Magnesium Level 2.1, Total Bilirubin 0.7, Aspartate Amino Transf (AST/SGOT) 73H, Alanine Aminotransferase (ALT/SGPT) 104H, Alkaline Phosphatase 88, Total Protein 7.0, Albumin 4.1, Phosphorus Level 3.3, Triglycerides Level 59, Cholesterol Level 181, LDL Cholesterol Direct 117, VLDL Cholesterol 12, HDL Cholesterol 52 A/P-Cardiology Assessment/Admission Diagnosis CVA 12-11-22 (left sided facial numbness, upper extremity numbness) - symptoms resolved following tPA - [facility] stroke team reviewed CTAof 12-11-22 and felt there was a possibility of sm clot distal M2 - H/O TIA in early Nov, 2017), non-hemorrhagic, suspected to be due to occult PAF - Eliquis for stroke prophylaxis - she had been holding since 12-09-22 in preparation for colonoscopy today as out pt - No significant carotid arterial disease on carotid u/s of 01-18-21 PAF - first documented in 2013, likely precipitated by hyperthyroidism. No recurrence after thyroid ablation x 2 until recurrent A Fib documented on 01/18/18 - Echo of 12/01/17: LVEF 60-65%, mild MR and mild TR, PASP approx 30 mmHg - Cath of 01/02/14 showed normal cors, LVEF 50% and mild elev of LVEDP - Echo of 12/12/22: LVEF 55-60%, mild to mod biatrial enlargement, mild TR, triv MR, PASP 30-35 mmHg, no intracardiac shunt on agitated saline contrast Breast cancer - Left mastectomy at [facility] in March 2016; R mastectomy in 1992 H/o Grave's disease - treated with radioiodine thyroid ablation in 2008. Recurrence treated with radioiodine ablation by Dr. Moreno in 08/2014 - currently on thyroid re placement Hypertension - currently hypertensive IFG vs borderline DM II - managed by Dr Kamar ELIZONDO and PUD - by history - manabed by PCP Obstructive sleep apnea - treated with CPAP and being managed by Dr Day Johnson fibular facture - post non-syncopal fall, in early 2015, treated by Dr Riojas; chronic mild R leg swelling since then Obesity - with BMI approx 38 Chronic liver enzyme elevation - thus not suitable for statin - which is being followed by her PCP Discussion and Recomendations Acute CVA with left sided facial numbness; left sided upper extremity numbness, slurred speech - received tPA in the ED on 12-11-22 - advise Eliquis be resumed when ok with stroke team Currently hypertensive - start BB - monitor and adjust as indicated - add amlodipine Continue tele Monitor lab closely Replace electrolytes as indicated Discussed in detail with pt and her . Communicated with Dr Galvin Clinical Quality Measures Stroke: Date of last known well: Dec 11, 2022 Time of last known well: 21:40 KELLEN MONTERO MD FACP FAC CCDS Dec 12, 2022 16:41
[2022-12-12 20:53] VITALS: BP 149/81
--- NOTE | 2022-12-12 20:57 | Diagnostic Imaging Report ---
INDICATION: Stroke, post TPA follow-up TECHNIQUE: Multiple contiguous axial images were obtained through the brain without the use of intravenous contrast. Auto Exposure Controls were utilized during the CT exam to meet ALARA standards for radiation dose reduction. COMPARISON made to MRI study of 12/11/2017. There are new low-density changes in the right frontotemporal region compatible with a small to moderate acute infarct. There is no sign of hemorrhagic transformation. There is no subdural or epidural collection. Ventricles are normal in size and position. Calvarial windows appear unremarkable. There is a retention cyst or polyp in the left maxillary sinus. IMPRESSION: New small to moderate low-density area in the right frontotemporal cortex, compatible with small infarct. There is no sign of hemorrhagic transformation or other acute finding. This finding is new compared to yesterday. Dictated by: Dictated on workstation # [id number]
[2022-12-12] MEDS ORDERED: APIXABAN 5 MG (ELIQUIS) TABLET PO SCH (21:00)
[2022-12-12] MEDS: meTOprolol SUCCINATE 100 MG (TOPROL XL) TAB PO SCH (21:27)
[2022-12-13 04:07] LABS: BASOPHILS # (AUTO) 0.1 10^3/uL (0.0-0.1); BASOPHILS % (AUTO) 1 % (0-10); EOSINOPHILS # (AUTO) 0.1 10^3/uL (0.0-0.3); EOSINOPHILS % (AUTO) 2 % (0-10); HEMATOCRIT 41 % (35-52); HEMOGLOBIN 13.6 g/dL (11.5-16.0); LYMPHOCYTES # (AUTO) 1.6 10^3/uL (1.0-4.0); LYMPHOCYTES % (AUTO) 25 % (12-44); MEAN CORPUSCULAR HEMOGLOBIN 30 pg (25-34); MEAN CORPUSCULAR HGB CONC 33 g/dL (32-36); MEAN CORPUSCULAR VOLUME 89 fL (80-99); MEAN PLATELET VOLUME 10.7 fL (9.0-12.2); MONOCYTES # (AUTO) 0.8 10^3/uL (0.0-1.0); MONOCYTES % (AUTO) 13 % (0-12); NEUTROPHILS # (AUTO) 3.7 10^3/uL (1.8-7.8); NEUTROPHILS % (AUTO) 59 % (42-75); PLATELET COUNT 191 10^3/uL (130-400); WHITE BLOOD COUNT 6.2 10^3/uL (4.3-11.0)
[2022-12-13 04:22] LABS: ALBUMIN 4.1 GM/DL (3.2-4.5); POTASSIUM 4.1 MMOL/L (3.6-5.0)
[2022-12-13 04:24] LABS: CALCIUM 9.3 MG/DL (8.5-10.1)
[2022-12-13 04:25] LABS: TOTAL PROTEIN 7.2 GM/DL (6.4-8.2)
[2022-12-13 04:27] LABS: BILIRUBIN,TOTAL 0.8 MG/DL (0.1-1.0)
[2022-12-13 04:28] LABS: PHOSPHORUS 3.3 MG/DL (2.3-4.7)
[2022-12-13 04:29] LABS: CREATININE SERUM 0.88 MG/DL (0.60-1.30)
[2022-12-13 04:31] LABS: MAGNESIUM 2.1 MG/DL (1.6-2.4)
[2022-12-13] MEDS: MAGNESIUM 1 GM/100 ML IVPB 100 ML IV SCH (04:52)
[2022-12-13] MEDS: KCL 20 MEQ TAB (K-DUR) PO SCH (04:52)
[2022-12-13] MEDS: POTASSIUM CL 10MEQ/50ML IVPB 50 ML IV SCH (04:52)
[2022-12-13] MEDS: APIXABAN 5 MG (ELIQUIS) TABLET PO SCH ×2 (08:20→09:00)
[2022-12-13] MEDS: meTOprolol SUCCINATE 100 MG (TOPROL XL) TAB PO SCH (08:20)
[2022-12-13] MEDS: D5 1/2 NS W/KCL 20 MEQ/L 1,000 ML IV SCH (08:22)
--- NOTE | 2022-12-13 08:32 | Occupational Therapy Eval ---
OT Evaluation-General/PLF Medical Diagnosis Admission Date Dec 11, 2022 at 21:46 Medical Diagnosis: Stroke with Left Sided Facial Weakness Onset Date: Dec 12, 2022 Therapy Diagnosis Therapy Diagnosis: new onset of reported LUE weakness Height/Weight Height (Feet): 5 Height (Inches): 2.00 Weight (Pounds): 207 Weight (Ounces): 0.0 Precautions Precautions/Isolations: Fall Prevention, Standard Precautions Weight Bear Status Weight Bearing Restriction: Weight Bearing/Tolerated Referral Physician: Ellen Galvin DO Referral Reason: Evaluation/Treatment Medical History Pertinent Medical History: Atrial Fib, Breast CA S/P Mastectomy, HTN Additional Medical History Scheduled for colonoscopy and required to STOP medication for 3 days, developed Stroke like symptoms, Ct revealed possible stroke, UE and facial weakness resolved Current History Sitting upright in bed, no c/o weakness, numbness or impairments. Reviewed History: Yes Social History Home: Single Level Current Living Status: Spouse Entry Into Home: Stairs With Railing Steps Into Home: 3 ADL-Prior Level of Function SCALE: Activities may be completed with or without assistive devices. 9-Hqlraqifph-oxcfzhy completes the activity by him/herself with no assistance from a helper. 5-Set-up or Clean-up Assistance-helper sets up or cleans up; patient completes activity. Kirkman assists only prior to or following the activity. 4-Supervision or Touching Assistance-helper provides verbal cues and/or touc shahrzad/steadying and/or contact guard assistance as patient completes activity. Assistance may be provided throughout the activity or intermittently. 3-Partial/Moderate Assistance-helper does LESS THAN HALF the effort. Kirkman lifts, holds or supports trunk or limbs, but provides less than half the effort. 2-Substantial/Maximal Assistance-helper does MORE THAN HALF the effort. Kirkman lifts or holds trunk or limbs and provides more than half the effort. 3-Ytbpisnvy-isshaf does ALL the effort. Patient does none of the effort to complete the activity. Or, the assistance of 2 or more helpers is required for the patient to complete the activity. If activity was not attempted, code reason: 7-Patient Refused. 9-Not Applicable-not attempted and the patient did not perform the activity before the current illness, exacerbation or injury. 10-Not Attempted due to Environmental Limitations-(lack of equipment, weather restraints, etc.). 88-Not Attempted due to Medical Conditions or Safety Concerns. ADL PLOF Comments Washes face and dons socks w/o assistance, removes SCDs and managed IV and cords w/ SBA to transfer to chair beside bed for breakfast. Self Care: Independent Functional Cognition: Independent Drive Self: Yes OT Current Status Subjective Patient request to sit in chair for breakfast meal.OT assisted in cords and line management Mental Status/Objective Patient Orientation: Person, Place, Time, Situation Attachments: Torres Catheter, IV, SCD's Current Glasses/Contacts: Yes Upper Extremity ROM BUE WNLS Upper Extremity Coordination BUE GMC/FMC WNLS Upper Extremity Sensation BUE WNLS Upper Extremity Strength BUE WNL global risk management director 5/5 ADL-Treatment ADL-Current Wash hands and face, don sock and eat breakfast. Eating (QC): 6 On/Off Footwear (QC): 6 Declines change of gown and reports toileting w/ nursing staff prior to OT arrival Education OT Patient Education: Energy conservation, Progress toward Goal/Update tx plan, Purpose of tx/functional activities, Safety issues, Transfer techniques, Use of adapted equipment Teaching Recipient: Patient Teaching Methods: Demonstration, Discussion Response to Teaching: Verbalize Understanding, Return Demonstration OT Natural Science Curator Goals Natural Science Curator Goals 1=Demonstrate adherence to instructed precautions during ADL tasks. 2=Patient will verbalize/demonstrate understanding of assistive devices/modifications for ADL. 3=Patient will improve strength/tolerance for activity to enable patient to perform ADL's. OT Education/Plan Problem List/Assessment Assessment: No Skilled OT Needs ID'd Discharge Recommendations Plan/Recommendations: Discontinue OT Therapy Discharge Recommendati: Home & Family Equpiment Recommendations-D/C: None Treatment Plan/Plan of Care Patient would benefit from OT for education, treatment and training to promote independence in ADL's, mobility, safety and/or upper extremity function for ADL's. Plan of Care: Functional Mobility Treatment Duration: Dec 13, 2022 Frequency: 1 time per week Estimated Hrs Per Day: Other (NO OT skill needed, safety educaiton provided at evaluation) Rehab Potential: Good Time Start Time: 07:50 Stop Time: 08:05 DATE: Dec 13, 2022 Total Time Billed (hr/min): 15 Billed Treatment Time 1 EVL 15 m YUSEF BARROW OT Dec 13, 2022 08:32
[2022-12-13] MEDS ORDERED: amLODIPine 5 MG (NORVASC) TAB PO SCH ×2 (09:00)
[2022-12-13] MEDS ORDERED: meTOproloL SUCCINATE 50 MG (TOPROL XL) TAB PO SCH (09:00)
[2022-12-13] MEDS ORDERED: LEVOTHYROXINE 75 MCG (LEVOTHROID) TABLET PO SCH (09:00)
[2022-12-13] MEDS ORDERED: PANTOPRAZOLE 40 MG (PROTONIX) TAB PO SCH (09:00)
[2022-12-13] MEDS ORDERED: AMLO-250 PO (09:10)
--- NOTE | 2022-12-13 09:11 | Discharge Summary ---
Diagnosis/Chief Complaint Date of Admission Dec 11, 2022 at 21:46 Date of Discharge Discharge Date: Dec 13, 2022 Discharge Diagnosis (1) CVA - 12/11: Presented with L face & L arm numbness, found to have dysarthria and L- sided facial droop. tPA administered. CT head & CTA head unremarkable. Dr. De Leon at reviewed the imaging as well and thought there may be evidence of a small clot in the distal M2 vessel. - 12/12: Mild L-sided facial droop present, otherwise no neurologic deficits (dysarthria resolved) & pt feels back to her baseline. Echocardiogram & MRA head obtained this morning, will follow-up results. Passed swallow study. Will obtain repeat CT head tonight (24 hrs post-tPA). 12/12: Repeat CT revealed infarct (2) Paroxysmal atrial fibrillation - Rate controlled. Continue Eliquis. Will follow-up cardiology recs. (3) Hypertension - 12/11: BP 217/117 in ED, given labetalol prior to tPA administration. - 12/12: BP 156/99 this morning. Continue metoprolol succinate. Will follow-up cardiology recs. (4) Graves disease - S/p 2 previous ablations. Continue home dose of levothyroxine. Discharge Summary Discharge Physical Examination Allergies: Coded Allergies: No Known Drug Allergies (Verified , 12/08/22) Vitals & I&Os Vital Signs Date Time Temp Pulse Resp B/P (MAP) Pulse Ox O2 Delivery O2 Flow Rate FiO2 12/13/22 10:20 36.8 70 13 162/91 95 Room Air General Appearance: Alert, Oriented X3, Cooperative Respiratory: Clear to Auscultation Cardiovascular: Regular Rate Psych/Mental Status: Mental Status NL Hospital Course Was the Problem List Reviewed?: Yes Willa Turner is a 62 y/o F with medical history significant for atrial fibrillation, previous TIA, Graves disease, HTN, & breast cancer s/p mastectomy x2 who presented to the [facility] ED the evening of Monday12/11/22 after noticing tingling and numbness on the left side of her face and left arm, as well as left-sided facial drooping. She takes Eliquis for a-fib but had been instructed to discontinue it on Saturday 12/09 in preparation for a colonoscopy on Wednesday 12/13. She was stroke activated upon arrival to the ED. Initial BP was 217/117, so labetalol was administered to lower BP prior to giving tPA. Mild dysarthria and left-sided facial droop was appreciated on physical exam. Motor function of the left arm was spared. There were no neurologic deficits in the legs, and the loss of touch sensation in the left arm by the time she was e valuated in the ED. She denies headache, dizziness, changes in vision/hearing, dysphagia, chest pain, palpitation, shortness of breath, nausea, vomiting, or loss of consciousness. CT head, CTA head, and CXR were unremarkable. Dr. De Leon at reviewed the imaging as well and thought there may be evidence of a small clot in the distal M2 vessel. She was admitted to the ICU. By the morning of 12/12, Ms. Turner was feeling back to her baseline. Very mild left-sided facial droop was present on exam, but there were no other neurologic deficits or systemic symptoms. Echocardiogram was completed and showed LVEF 55- 60%, mild-moderate biatrial enlargement, mild TR, trivial MR, PASP 30-35 mmHg, & no intracardiac shunt on agitated saline contrast. MRA head was obtained and was unremarkable. She passed a swallow study and was allowed to consume a regular diet. Metoprolol and amlodipine were added per cardiology's recommendations. Repeat CT head performed 24 hours post-tPA showed a small infarct in the right frontotemporal cortex (which was a new finding compared to the previous day's study), without evidence of hemorrhagic transformation. By 12/13, the left-sided facial droop had resolved as well. Her Eliquis was resumed. Ms. Turner denied any symptoms and did not feel she needed any additional outpatient physical therapy. The care team determined that she was medically ready for discharge omid e, and she has a clinic appointment with Dr. Vogt on Saturday 12/16. PAT PICKENS Labs (last 24 hrs) Laboratory Tests 12/11/22 20:56: White Blood Count 8.0, Red Blood Count 5.18H, Hemoglobin 15.1, Hematocrit 46, Mean Corpuscular Volume 88, Mean Corpuscular Hemoglobin 29, Mean Corpuscular Hemoglobin Concent 33, Red Cell Distribution Width 13.1, Platelet Count 229, Mean Platelet Volume 10.4, Immature Granulocyte % (Auto) 0, Neutrophils (%) (Auto) 60, Lymphocytes (%) (Auto) 26, Monocytes (%) (Auto) 12, Eosinophils (%) (Auto) 1, Basophils (%) (Auto) 1, Neutrophils # (Auto) 4.8, Lymphocytes # (Auto) 2.1, Monocytes # (Auto) 0.9, Eosinophils # (Auto) 0.1, Basophils # (Auto) 0.1, Immature Granulocyte # (Auto) 0.0, Prothrombin Time 13.2, INR Comment 1.0, Activated Partial Thromboplast Time 26, D-Dimer <= 0.27, Sodium Level 139, Potassium Level 3.6, Chloride Level 105, Carbon Dioxide Level 19L, Anion Gap 15H , Blood Urea Nitrogen 19H, Creatinine 1.15, Estimat Glomerular Filtration Rate 54, BUN/Creatinine Ratio 17, Glucose Level 141H, Glucometer 137H, Calcium Level 10.1, Corrected Calcium , Magnesium Level 2.1, Total Bilirubin 0.6, Aspartate Amino Transf (AST/SGOT) 89H, Alanine Aminotransferase (ALT/SGPT) 120H, Alkaline Phosphatase 110, Myoglobin 41.6, Troponin I < 0.028, B-Type Natriuretic Peptide 40.9, Total Protein 8.4H, Albumin 4.8H, TSH [place] Testing 3.14 12/11/22 21:17: Influenza Type A (RT-PCR) Not Detected, Influenza Type B (RT-PCR) Not Detected, SARS-CoV-2 RNA (RT-PCR) Not Detected 12/11/22 21:51: Urine Color YELLOW, Urine Clarity CLEAR, Urine pH 5.5, Urine Specific Williams <=1.005, Urine Protein NEGATIVE, Urine Glucose (UA) NEGATIVE, Urine Ketones NEGATIVE, Urine Nitrite NEGATIVE, Urine Bilirubin NEGATIVE, Urine Urobilinogen 0.2, Urine Leukocyte Esterase NEGATIVE, Urine RBC (Auto) TRACE-IH, Urine RBC NONE, Urine WBC NONE, Urine Squamous Epithelial Cells NONE, Urine Crystals NONE, Urine Bacteria TRACE, Urine Casts NONE, Urine Mucus NEGATIVE, Urine Culture Indicated NO 12/12/22 04:04: White Blood Count 7.4, Red Blood Count 4.54, Hemoglobin 13.3, Hematocrit 40, Mean Corpuscular Volume 87, Mean Corpuscular Hemoglobin 29, Mean Corpuscular Hemoglobin Concent 34, Red Cell Distribution Width 13.2, Platelet Count 193, Mean Platelet Volume 10.8, Immature Granulocyte % (Auto) 0, Neutrophils (%) (Auto) 69, Lymphocytes (%) (Auto) 20, Monocytes (%) (Auto) 10, Eosinophils (%) (Auto) 1, Basophils (%) (Auto) 0, Neutrophils # (Auto) 5.1, Lymphocytes # (Auto) 1.5, Monocytes # (Auto) 0.7, Eosinophils # (Auto) 0.0, Basophils # (Auto) 0.0, Immature Granulocyte # (Auto) 0.0, Prothrombin Time 13.9, INR Comment 1.0, Sodium Level 139, Potassium Level 4.0, Chloride Level 108H, Carbon Dioxide Level 20L, Anion Gap 11, Blood Urea Nitrogen 14, Creatinine 0.86, Estimat Glomerular Filtration Rate 76, BUN/Creatinine Ratio 16, Glucose Level 173H, Calcium Level 9.3, Corrected Calcium 9.2, Magnesium Level 2.1, Total Bilirubin 0.7, Aspartate Amino Transf (AST/SGOT) 73H, Alanine Aminotransferase (ALT/SGPT) 104H, Alkaline Phosphatase 88, Total Protein 7.0, Albumin 4.1, Phosphorus Level 3.3, Triglycerides Level 59, Cholesterol Level 181, LDL Cholesterol Direct 117, VLDL Cholesterol 12, HDL Cholesterol 52 12/13/22 03:37: White Blood Count 6.2, Red Blood Count 4.59, Hemoglobin 13.6, Hematocrit 41, Mean Corpuscular Volume 89, Mean Corpuscular Hemoglobin 30, Mean Corpuscular Hemoglobin Concent 33, Red Cell Distribution Width 13.4, Platelet Count 191, Mean Platelet Volume 10.7, Immature Granulocyte % (Auto) 0, Neutrophils (%) (Auto) 59, Lymphocytes (%) (Auto) 25, Monocytes (%) (Auto) 13H, Eosinophils (%) (Auto) 2, Basophils (%) (Auto) 1, Neutrophils # (Auto) 3.7, Lymphocytes # (Auto) 1.6, Monocytes # (Auto) 0.8, Eosinophils # (Auto) 0.1, Basophils # (Auto) 0.1, Immature Granulocyte # (Auto) 0.0, Sodium Level 139, Potassium Level 4.1, Chloride Level 107, Carbon Dioxide Level 20L, Anion Gap 12, Blood Urea Nitrogen 13, Creatinine 0.88, Estimat Glomerular Filtration Rate 74, BUN/Creatinine Ratio 15, Glucose Level 161H, Calcium Level 9.3, Corrected Calcium 9.2, Phosphorus Level 3.3, Magnesium Level 2.1, Total Bilirubin 0.8, Aspartate Amino Transf (AST/SGOT) 67H, Alanine Aminotransferase (ALT/SGPT) 98H, Alkaline Phosphatase 90, Total Protein 7.2, Albumin 4.1 Microbiology 12/11/22 MRSA Screen - Final, Complete MRSA not isolated Pending Labs Microbiology Date/Time Source Procedure Growth Status 12/11/22 22:51 Nasal MRSA Screen - Final MRSA not isolated Complete Laboratory Tests 12/11/22 20:56: White Blood Count 8.0, Red Blood Count 5.18, Hemoglobin 15.1, Hematocrit 46, Mean Corpuscular Volume 88, Mean Corpuscular Hemoglobin 29, Mean Corpuscular Hemoglobin Concent 33, Red Cell Distribution Width 13.1, Platelet Count 229, Mean Platelet Volume 10.4, Immature Granulocyte % (Auto) 0, Neutrophils (%) (Auto) 60, Lymphocytes (%) (Auto) 26, Monocytes (%) (Auto) 12, Eosinophils (%) (Auto) 1, Basophils (%) (Auto) 1, Neutrophils # (Auto) 4.8, Lymphocytes # (Auto) 2.1, Monocytes # (Auto) 0.9, Eosinophils # (Auto) 0.1, Basophils # (Auto) 0.1, Immature Granulocyte # (Auto) 0.0, Prothrombin Time 13.2, INR Comment 1.0, Activated Partial Thromboplast Time 26, D-Dimer <= 0.27, Sodium Level 139, Potassium Level 3.6, Chloride Level 105, Carbon Dioxide Level 19, Anion Gap 15, Blood Urea Nitrogen 19, Creatinine 1.15, Estimat Glomerular Filtration Rate 54, BUN/Creatinine Ratio 17, Glucose Level 141, Glucometer 137, Calcium Level 10.1, Corrected Calcium , Magnesium Level 2.1, Total Bilirubin 0.6, Aspartate Amino Transf (AST/SGOT) 89, Alanine Aminotransferase (ALT/SGPT) 120, Alkaline Phosphatase 110, Myoglobin 41.6, Troponin I < 0.028, B-Type Natriuretic Peptide 40.9, Total Protein 8.4, Albumin 4.8, TSH [place] Testing 3.14 12/11/22 21:17: Influenza Type A (RT-PCR) Not Detected, Influenza Type B (RT-PCR) Not Detected, SARS-CoV-2 RNA (RT-PCR) Not Detected 12/11/22 21:51: Urine Color YELLOW, Urine Clarity CLEAR, Urine pH 5.5, Urine Specific Williams <=1.005, Urine Protein NEGATIVE, Urine Glucose (UA) NEGATIVE, Urine Ketones NEGATIVE, Urine Nitrite NEGATIVE, Urine Bilirubin NEGATIVE, Urine Urobilinogen 0.2, Urine Leukocyte Esterase NEGATIVE, Urine RBC (Auto) TRACE-I, Urine RBC NONE, Urine WBC NONE, Urine Squamous Epithelial Cells NONE, Urine Crystals NONE, Urine Bacteria TRACE, Urine Casts NONE, Urine Mucus NEGATIVE, Urine Culture Indicated NO 12/12/22 04:04: White Blood Count 7.4, Red Blood Count 4.54, Hemoglobin 13.3, Hematocrit 40, Mean Corpuscular Volume 87, Mean Corpuscular Hemoglobin 29, Mean Corpuscular Hemoglobin Concent 34, Red Cell Distribution Width 13.2, Platelet Count 193, Mean Platelet Volume 10.8, Immature Granulocyte % (Auto) 0, Neutrophils (%) (Auto) 69, Lymphocytes (%) (Auto) 20, Monocytes (%) (Auto) 10, Eosinophils (%) (Auto) 1, Basophils (%) (Auto) 0, Neutrophils # (Auto) 5.1, Lymphocytes # (Auto) 1.5, Monocytes # (Auto) 0.7, Eosinophils # (Auto) 0.0, Basophils # (Auto) 0.0, Immature Granulocyte # (Auto) 0.0, Prothrombin Time 13.9, INR Comment 1.0, Sodium Level 139, Potassium Level 4.0, Chloride Level 108, Carbon Dioxide Level 20, Anion Gap 11, Blood Urea Nitrogen 14, Creatinine 0.86, Estimat Glomerular Filtration Rate 76, BUN/Creatinine Ratio 16, Glucose Level 173, Calcium Level 9.3, Corrected Calcium 9.2, Magnesium Level 2.1, Total Bilirubin 0.7, Aspartate Amino Transf (AST/SGOT) 73, Alanine Aminotransferase (ALT/SGPT) 104, Alkaline Phosphatase 88, Total Protein 7.0, Albumin 4.1, Phosphorus Level 3.3, Triglycerides Level 59, Cholesterol Level 181, LDL Cholesterol Direct 117, VLDL Cholesterol 12, HDL Cholesterol 52 12/13/22 03:37: White Blood Count 6.2, Red Blood Count 4.59, Hemoglobin 13.6, Hematocrit 41, Mean Corpuscular Volume 89, Mean Corpuscular Hemoglobin 30, Mean Corpuscular Hemoglobin Concent 33, Red Cell Distribution Width 13.4, Platelet Count 191, Mean Platelet Volume 10.7, Immature Granulocyte % (Auto) 0, Neutrophils (%) (Auto) 59, Lymphocytes (%) (Auto) 25, Monocytes (%) (Auto) 13, Eosinophils (%) (Auto) 2, Basophils (%) (Auto) 1, Neutrophils # (Auto) 3.7, Lymphocytes # (Auto) 1.6, Monocytes # (Auto) 0.8, Eosinophils # (Auto) 0.1, Basophils # (Auto) 0.1, Immature Granulocyte # (Auto) 0.0, Sodium Level 139, Potassium Level 4.1, Chloride Level 107, Carbon Dioxide Level 20, Anion Gap 12, Blood Urea Nitrogen 13, Creatinine 0.88, Estimat Glomerular Filtration Rate 74, BUN/Creatinine Ratio 15, Glucose Level 161, Calcium Level 9.3, Corrected Calcium 9.2, Phosphorus Level 3.3, Magnesium Level 2.1, Total Bilirubin 0.8, Aspartate Amino Transf (AST/SGOT) 67, Alanine Aminotransferase (ALT/SGPT) 98, Alkaline Phosphatase 90, Total Protein 7.2, Albumin 4.1 Discharge Home Medications: Active Scripts Active Amlodipine Besylate 5 Mg Tablet 10 Mg PO DAILY Reported Metamucil Fiber Singles Packet (Psyllium Husk/Aspartame) 3.4 Gram Powd.pack 3.4 Gm PO 1400 Pantoprazole Sodium 40 Mg Tablet.dr 40 Mg PO DAILY Arimidex (Anastrozole) 1 Mg Tablet 1 Mg PO 1200 Eliquis (Apixaban) 5 Mg Tablet 5 Mg PO BID Levothyroxine Sodium 75 Mcg Tablet 75 Mcg PO DAILY Calcium 600 + Vit D 200 Tablet (Calcium Carbonate/Vitamin D3) 1 Each Tablet 2 Tab PO 1200 Metoprolol Succinate 100 Mg Tab.er.24h 100 Mg PO BID Instructions to patient/family Please see electronic discharge instructions given to patient. Diagnosis/Problems Diagnosis/Problems (1) CVA (cerebral vascular accident) (2) Received intravenous tissue plasminogen activator (tPA) in emergency department Clinical Quality Measures Stroke: Date of last known well: Dec 11, 2022 Time of last known well: 21:40 JEY VOGT DO Dec 13, 2022 09:11
--- NOTE | 2022-12-13 09:46 | Progress Note ---
PAT PICKENS 12/13/22 0946: Progress Note Willa Turner is a 62 y/o F with medical history significant for atrial fibrillation, previous TIA, Graves disease, HTN, & breast cancer s/p mastectomy x2 who presented to the [facility] ED the evening of Monday12/11/22 after noticing tingling and numbness on the left side of her face and left arm, as well as left-sided facial drooping. She takes Eliquis for a-fib but had been instructed to discontinue it on Saturday 12/09 in preparation for a colonoscopy on Wednesday 12/13. She was stroke activated upon arrival to the ED. Initial BP was 217/117, so labetalol was administered to lower BP prior to giving tPA. Mild dysarthria and left-sided facial droop was appreciated on physical exam. Motor function of the left arm was spared. There were no neurologic deficits in the legs, and the loss of touch sensation in the left arm by the time she was evaluated in the ED. She denies headache, dizziness, changes in vision/hearing, dysphagia, chest pain, palpitation, shortness of breath, nausea, vomiting, or loss of consciousness. CT head, CTA head, and CXR were unremarkable. Dr. De Leon at reviewed the imaging as well and thought there may be evidence of a small clot in the distal M2 vessel. She was admitted to the ICU. By the morning of 12/12, Ms. Turner was feeling back to her baseline. Very mild left-sided facial droop was present on exam, but there were no other neurologic deficits or systemic symptoms. Echocardiogram was completed and showed LVEF 55- 60%, mild-moderate biatrial enlargement, mild TR, trivial MR, PASP 30-35 mmHg, & no intracardiac shunt on agitated saline contrast. MRA head was obtained and was unremarkable. She passed a swallow study and was allowed to consume a regular diet. Metoprolol and amlodipine were added per cardiology's recommendations. Repeat CT head performed 24 hours post-tPA showed a small infarct in the right frontotemporal cortex (which was a new finding compared to the previous day's study), without evidence of hemorrhagic transformation. By 12/13, the left-sided facial droop had resolved as well. Her Eliquis was resumed. Ms. Turner denied any symptoms and did not feel she needed any additional outpatient physical therapy. The care team determined that she was medically ready for discharge home, and she has a clinic appointment with Dr. Vogt on Saturday 12/16. ELLEN VOGT DO 12/14/22 0518: Supervisory-Addendum Brief Verification & Attestation Participated in pt care: history, MDM, physical Personally performed: exam, history, MDM, supervision of care Care discussed with: Medical Student Procedures: n/a Results interpretation: Verified all documentation Verification and Attestation of Medical Student E/M Service A medical student performed and documented this service in my presence. I reviewed and verified all information documented by the medical student and made modifications to such information, when appropriate. I personally performed the physical exam and medical decision making. Ellen Vogt, Dec 14, 2022,05:18 PAT PICKENS Dec 13, 2022 09:46 ELLEN VOGT DO Dec 14, 2022 05:18
--- NOTE | 2022-12-13 09:49 | Tele-ICU Progress Note ---
Subjective Date Seen by a Provider: Dec 13, 2022 Time Seen by a Provider: 09:49 Subjective/Events-last exam (Tele-ICU Physician , Progress Note ) Service provided via interactive audio and video telecommunications E-CARE system to a patient admitted to ICU bed in [facility]. Patient is seen today due to persistent need of ICU care Available chart/ vitals / labs / Images reviewed Video assessment done using teleICU camera, rest of exam as per RN Discussed with RN Events overnight : Afebrile hemodynamically stable Respiratory - Consultants: phyllis hinson [facility] course: 12/11) 62yF Admit CVA w/ L facial droop & dysarthia. + TNK received. (pt was on eliquis stopped 2 days ago due to upcoming colonoscopy) A/P Acute stroke CTAof 12-11-22 and felt there was a possibility of sm clot distal M2 -s/p IV tenecteplase- full resolution of her symptoms ( -L facial droop & dysarthia. -IV labetalol PRN for BP >185/105 yesterday , todqay will resume BP meds =echo . 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 Discussed with RN to reach out if any questions or concerns A total of 10 minutes of critical care time was devoted to this patient today, required to treat and/or prevent further deterioration of critical care condition ( as above ) I am remotely monitoring this patient from another state. I am unable to do the bedside exam, and history/physical and pertinent information is taken from other notes in the computer and bedsid Sepsis Event Evaluation Height, Weight, BMI Height: 5'2.00" Weight: 207lbs. 0.0oz. [id number]; 37.22 BMI Method:Stated Exam Exam Patient acknowledged, consented, and participated in this virtual visit which was conducted using real time audio/video Vital Signs Date Time Temp Pulse Resp B/P (MAP) Pulse Ox O2 Delivery O2 Flow Rate FiO2 12/13/22 09:00 82 13 201/148 (165) 95 Room Air 12/13/22 08:00 73 14 163/120 (134) 97 Room Air 12/13/22 07:15 70 12/13/22 07:00 75 20 166/100 (122) 94 Room Air 12/13/22 06:00 113 25 147/84 (105) 94 Room Air 12/13/22 05:00 59 16 156/90 (112) 94 Room Air 12/13/22 04:00 97 NIV CPAP 12/13/22 04:00 36.8 64 17 166/97 (120) 97 NIV CPAP 12/13/22 03:00 66 12 178/87 (117) 96 Room Air 12/13/22 02:00 56 15 146/84 (104) 95 Room Air 12/13/22 01:00 61 15 148/87 (107) 95 Room Air 12/13/22 01:00 61 12/13/22 00:00 36.4 64 22 137/93 (108) 94 Room Air 12/12/22 23:59 98 Room Air 12/12/22 23:00 58 25 155/90 (111) 95 Room Air 12/12/22 22:00 67 17 165/81 (109) 93 Room Air 12/12/22 21:15 75 17 168/114 (132) 94 Room Air 12/12/22 20:53 73 28 149/81 97 12/12/22 20:00 97 Room Air 12/12/22 20:00 73 28 149/81 (103) 96 Room Air 12/12/22 20:00 36.7 12/12/22 19:59 36.7 12/12/22 19:00 79 13 144/90 (108) 96 Room Air 12/12/22 19:00 79 12/12/22 18:00 70 11 146/90 (108) 96 Room Air 12/12/22 17:00 82 31 180/107 (131) 95 Room Air 12/12/22 16:00 70 14 170/92 (118) 95 Room Air 12/12/22 16:00 99 Room Air 12/12/22 15:39 37.1 12/12/22 15:00 84 16 166/106 (126) 96 Room Air 12/12/22 14:00 75 14 169/89 (115) 94 Room Air 12/12/22 13:01 63 12/12/22 13:00 66 14 176/108 (130) 94 Room Air 12/12/22 12:00 79 11 167/110 (129) 96 Room Air 12/12/22 12:00 37.0 12/12/22 12:00 99 Room Air 12/12/22 11:30 80 168/98 (121) Room Air 12/12/22 10:15 75 22 165/101 (122) 91 Room Air I & O 12/13/22 07:00 Intake Total 1250 ml Output Total 2550 ml Balance -1300 ml Height & Weight Height: 5'2.00" Weight: 207lbs. 0.0oz. 93.013607wq; 37.22 BMI Method:Stated General Appearance: No Apparent Distress HEENT: PERRL/EOMI Neck: Full Range of Motion, Normal Inspection, Non Tender, Supple, Carotid Bruit Respiratory: Normal Breath Sounds, No Accessory Muscle Use, No Respiratory Distress Cardiovascular: Irregularly Irregular, Other (regular rate) Capillary Refill: Less Than 3 Seconds Peripheral Pulses: 2+ Dorsalis Pedis (R), 2+ Left Dors-Pedis (L), 2+ Radial Pulses (R), 2+ Radial Pulses (L) Gastrointestinal: non tender, soft Extremity: Normal Range of Motion Neurologic/Psychiatric: Alert, Oriented x3, Normal Mood/Affect, sales process manager II-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
[2022-12-13 10:20] VITALS: BP 162/91
== END 2022-12-13 10:25 | disposition home or self-care (01) | DRG 66 ==
LOC: EDUNIT# 20:49 → ER 20:51 → ICU 21:46
PROVIDERS: ADMIT Internal Medicine; ATTEND Internal Medicine
DX: I63.511 Cerebral infarction due to unspecified occlusion or stenosis of right middle cerebral artery (principal); R29.810 Facial weakness; R47.1 Dysarthria and anarthria; I10 Essential (primary) hypertension; R29.702 NIHSS score 2; I48.0 Paroxysmal atrial fibrillation; E05.00 Thyrotoxicosis with diffuse goiter without thyrotoxic crisis or storm; G47.33 Obstructive sleep apnea (adult) (pediatric); K21.9 Gastro-esophageal reflux disease without esophagitis; Z20.822 Contact with and (suspected) exposure to COVID-19; K27.9 Peptic ulcer, site unspecified, unspecified as acute or chronic, without hemorrhage or perforation; R74.8 Abnormal levels of other serum enzymes; Z86.73 Personal history of transient ischemic attack (TIA), and cerebral infarction without residual deficits; Z79.01 Long term (current) use of anticoagulants; Z85.3 Personal history of malignant neoplasm of breast; Z90.10 Acquired absence of unspecified breast and nipple
CPT/HCPCS: 36415; 51702; 70450; 70496; 70498; 70544; 71045; 80053; 80061; 81000; 82947; 83735; 83874; 83880; 84100; 84443; 84484; 85025; 85379; 85610; 85730; 87081; 87636; 93005; 93041; 93306

== ENCOUNTER → 2023-03-16 | Outpatient (CLI) | payer OTHER ==
[~2023-03-16] MED LIST changes: +PSYL3.4P5 PO
[2023-03-16 11:36] LABS: ALBUMIN 4.5 GM/DL (3.2-4.5); CALCIUM 9.6 MG/DL (8.5-10.1); CREATININE SERUM 0.88 MG/DL (0.60-1.30); TOTAL PROTEIN 7.9 GM/DL (6.4-8.2)
[2023-03-20 12:25] LABS: FREE T4 (FREE THYROXINE) 1.09 NG/DL (0.70-1.48)
== END ==
LOC: LAB 11:00
PROVIDERS: ATTEND Internal Medicine
DX: Z13.6 Encounter for screening for cardiovascular disorders (principal); I10 Essential (primary) hypertension; E03.2 Hypothyroidism due to medicaments and other exogenous substances
CPT/HCPCS: 36415; 80053; 80061; 84436; 84439

== ENCOUNTER → 2023-09-01 | Outpatient (CLI) | payer OTHER ==
[2023-09-01 08:50] LABS: ALBUMIN 4.5 GM/DL (3.2-4.5); BILIRUBIN,TOTAL 1.1 MG/DL (0.1-1.0); CALCIUM 9.5 MG/DL (8.5-10.1); CREATININE SERUM 0.97 MG/DL (0.60-1.30); POTASSIUM 4.1 MMOL/L (3.6-5.0)
[2023-09-01 09:11] LABS: FREE T4 (FREE THYROXINE) 1.14 NG/DL (0.70-1.48)
== END ==
LOC: LAB 08:17
PROVIDERS: ATTEND Internal Medicine
DX: Z13.6 Encounter for screening for cardiovascular disorders (principal); I10 Essential (primary) hypertension; E03.2 Hypothyroidism due to medicaments and other exogenous substances; R73.9 Hyperglycemia, unspecified
CPT/HCPCS: 36415; 80053; 82465; 83036; 84439; 84443; 84478

== ENCOUNTER → 2023-10-30 | Outpatient (CLI) | payer OTHER ==
[2023-10-30 15:56] LABS: HEMATOCRIT 45 % (35-52); HEMOGLOBIN 14.9 g/dL (11.5-16.0); MEAN CORPUSCULAR HEMOGLOBIN 30 pg (25-34); MEAN CORPUSCULAR HGB CONC 33 g/dL (32-36); MEAN CORPUSCULAR VOLUME 90 fL (80-99); MEAN PLATELET VOLUME 10.5 fL (9.0-12.2); PLATELET COUNT 208 10^3/uL (130-400); WHITE BLOOD COUNT 5.6 10^3/uL (4.3-11.0)
[2023-10-30 16:12] LABS: ALBUMIN 4.6 GM/DL (3.2-4.5)
[2023-10-30 16:13] LABS: CHLORIDE 110 MMOL/L (98-107); POTASSIUM 3.8 MMOL/L (3.6-5.0); SODIUM 141 MMOL/L (135-145)
[2023-10-30 16:14] LABS: CALCIUM 9.9 MG/DL (8.5-10.1)
[2023-10-30 16:15] LABS: GLUCOSE 124 MG/DL (70-105); TOTAL PROTEIN 8.2 GM/DL (6.4-8.2)
[2023-10-30 16:16] LABS: CARBON DIOXIDE 20 MMOL/L (21-32)
[2023-10-30 16:17] LABS: BILIRUBIN,TOTAL 0.6 MG/DL (0.1-1.0)
[2023-10-30 16:18] LABS: ALKALINE PHOSPHATASE 104 U/L (40-136)
[2023-10-30 16:19] LABS: CREATININE SERUM 0.83 MG/DL (0.60-1.30); GFR ESTIMATED 79
[2023-10-30 16:20] LABS: BUN/CREATININE RATIO 10
[2023-10-30 16:22] LABS: ALANINE AMINOTRANSFERASE 60 U/L (0-55); MAGNESIUM 2.2 MG/DL (1.6-2.4)
[2023-10-30 16:43] LABS: FREE T4 (FREE THYROXINE) 1.07 NG/DL (0.70-1.48)
== END ==
LOC: LAB 15:38
PROVIDERS: ATTEND Internal Medicine
DX: E00.9 Congenital iodine-deficiency syndrome, unspecified (principal)
CPT/HCPCS: 36415; 80053; 83735; 84439; 84443; 85027